=== PATIENT | male | born 1960 | race American Indian/Alaskan Native ===

== ENCOUNTER 2016-09-28 20:30 | Emergency (ER) | payer OTHER ==
[2016-09-28 20:38] VITALS: TEMP 96.8
[2016-09-28] MEDS ORDERED: SODIUM CHLORIDE 0.9% 1,000 ML IV STA (20:58)
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
[2016-09-28 21:10] LABS: Basophils # (A) 0.1 k/uL (0-0.2); Basophils % (A) 1 %; CH 34.1; CHCM 34.3; Eosinophils # (A) 0.3 k/uL (0-0.7); Eosinophils % (A) 3 %; HCT 46.5 % (39.0-53.0); HDW 2.33; HGB 15.2 gm/dL (13.0-17.5); Luc # (Auto) 0.27; Luc % (Auto) 2; Lymphocytes % (A) 26 %; MCH 32.7 pg (25.0-35.0); MCHC 32.8 g/dL (31.0-37.0); MCV 99.9 fL (80.0-100.0); Mean Platelet Volume 8.2; Monocytes # (A) 0.8 k/uL (0-1.0); Monocytes % (A) 7 %; Neutrophils # (A) 7.1 k/uL (1.3-7.7); Neutrophils % (A) 62 %; RBC 4.66 m/uL (4.30-5.90); RDW 13.5 % (11.5-15.5); WBC 11.5 k/uL (3.8-10.6); WBC (Perox) 11.61
[2016-09-28 21:24] LABS: Partial Thromboplastin Time 25.7 sec (22.0-30.0); Prothrombin Time 10.3 sec (9.0-12.0)
[2016-09-28 21:39] LABS: ALT 35 U/L (21-72); AST 30 U/L (17-59); Alkaline Phosphatase 59 U/L (38-126); Anion Gap 10 mmol/L; Blood Urea Nitrogen 24 mg/dL (9-20); Calcium 9.3 mg/dL (8.4-10.2); Carbon Dioxide 26 mmol/L (22-30); Chloride 106 mmol/L (98-107); Creatine Kinase 160 U/L (55-170); Glucose 104 mg/dL (74-99); Magnesium 1.9 mg/dL (1.6-2.3); Non-African American GFR(MDRD) >60 (>60 ml/min/1.73 sqM); Sodium 142 mmol/L (137-145); Total Bilirubin 0.3 mg/dL (0.2-1.3); Total Protein 6.9 g/dL (6.3-8.2)
[2016-09-28 21:51] LABS: Creatine Kinase MB 1.8 ng/mL (0.0-2.4); Troponin I <0.012 ng/mL (0.000-0.034)
[2016-09-28] MEDS ORDERED: MAGNESIUM SULFATE-D5W PMX 1 GM in DEXTROSE/WATER 1 100ML.BAG IVPB ONE (22:30)
--- NOTE | 2016-09-28 22:45 | XR ---
EXAMINATION TYPE: XR chest 2V DATE OF EXAM: 09/28/2016 10:36 PM COMPARISON: NONE HISTORY: Short of breath TECHNIQUE: Frontal and lateral views of the chest are obtained. FINDINGS: Heart and mediastinum are normal. Lungs are clear. Diaphragm is normal. There are chest le ads. Bony thorax is intact. IMPRESSION: Normal chest
[2016-09-28] MEDS ORDERED: SODIUM CHLORIDE 0.9% 500 ML IV STA (23:22)
[2016-09-28] MEDS ORDERED: KETOROLAC 30 MG/ML 1 ML VIAL IVP STA (23:29)
[2016-09-29 00:32] VITALS: BP 121/68; PULSE 69; RESP 16
== END 2016-09-29 00:33 | disposition home or self-care (01) ==
LOC: EC 20:30
DX: R07.89 Other chest pain (principal); R00.2 Palpitations; I49.3 Ventricular premature depolarization; E86.0 Dehydration; E83.42 Hypomagnesemia; Z87.891 Personal history of nicotine dependence; E78.00 Pure hypercholesterolemia, unspecified; Z79.899 Other long term (current) drug therapy; E78.5 Hyperlipidemia, unspecified; Z85.828 Personal history of other malignant neoplasm of skin; Z86.79 Personal history of other diseases of the circulatory system; F17.200 Nicotine dependence, unspecified, uncomplicated; Z79.1 Long term (current) use of non-steroidal anti-inflammatories (NSAID)
CPT/HCPCS: 99285; 96365; 96375; 36415; 93005; 85379; 80053; 82550; 82553; 83735; 84443; 84484; 85025; 85610; 85730; 71020; J1885; J3475

== ENCOUNTER → 2016-11-12 | Outpatient (CLI) | payer OTHER ==
[2016-11-12 13:36] VITALS: BP 122/61; PULSE 76; RESP 16; TEMP 98.1
--- NOTE | 2016-11-13 11:12 | P.PN ---
Subjective This is follow-up visit for this patient with a history of severe and chronic low back pain secondary to lumbar degenerative disc disease lumbar spondylosis facet arthropathy, and spinal canal Stenosis ,we have done interventional pain management injection, lumbar epidural steroid injections 3 And he got excellent pain relief for 6 months, currently is complaining of severe low back pain with radiation to the left lower extremity, and is currently on pain medications 1- [place] 10/325 every 6 hours 2- naproxen 500 mg when necessary once or twice a day Patient denies any side effects of the medication, denies excessive drowsiness or sleepiness, denies suicidal ideation, and reports that the current pain medication is NOT helping To control the pain and improve activity of daily living Physical Examinations : 1-Constitutiona : Cooperative , not in acute distress . 2-HEENT : nech ; supple , no Lymphadenopathy , no Thyromegaly , normal thyroid size . eyes : no ptosis , no icterus, no photophobia . ENT : normal of hearing , normal oropharynx , no Thrush . 3- Respiratory : Chest clear to auscultations Bilaterally , no wheezing , no Rhonchi . 4- Cardiovascular : regular rate and rhythem , S1 , S2 , no S3 , no S4. 5- Gastrointestinal : abdomen soft no tenderness , bowel sounds positive all four quadrents , no organomegally . 6- Genitourinary : Defferred . 7- neurologic : Cranial nerve II to XII intact , no focal neurological deffecit . 8-psychatric : alert , oriented X 3 , appropriate affect , intact judgment and insight . 9-Lymphatic : no Lymphadenopathy . 10- musculoskeltal : exams of the cervical spine = motor strength normal bilateral upper extremities facet loading test cervical area positive. exams of the Lumber spine = motor strength lower extremities ,thigh and legs .5/5 deep tendon reflexes : normal Knee Jerk , normal ankle Jerk . lumber facet Loading Test positive strait leg raising test positive at 30 degree , RT ,LT , Fabere test positive RT and positive LT . Range of motion: Range of motion in flexion of the lumbar spine 30 degrees Range of motion range of motion of extension of the lumbar spine 10 Assessment and plan = - Chronic low back pain secondary to lumbar degenerative disc disease , lumbar spondylosis with facet arthropathy without myelopathy , - diagnoses, prognosis, and treatment options including but not limited to physical therapy, surgical interventions, interventional therapies , and medication management including narcotics and adjuvant medication were discussed with the patient and all The questions answered -medication management = patient getting prescriptions from his primary care, recommend continue [place] 10/325 every 6 hours when necessary for breakthrough pain, and continue naproxen 500 mg when necessary maximum twice a day -procedure= patient could benefit from lumbar epidural steroid injection under fluoroscopy guidance, procedure risks and benefits and alternatives, Discussed with the patient and he agreed with proceeding. Objective - Vital Signs Vital signs: Vital Signs Temp 98.1 F 11/12/16 13:31 Pulse 76 11/12/16 13:31 Resp 16 11/12/16 13:31 BP 122/61 11/12/16 13:31 Pulse Ox 96 11/12/16 13:31 Intake & Output 11/12/16 11/13/16 11/13/16 18:59 06:59 18:59 Weight 74.843 kg
== END | disposition home or self-care (01) ==
LOC: PNWHC3 13:09
PROVIDERS: ATTEND Specialist
DX: M51.36 Other intervertebral disc degeneration, lumbar region (principal); M47.816 Spondylosis without myelopathy or radiculopathy, lumbar region; M46.96 Unspecified inflammatory spondylopathy, lumbar region; M48.06 Spinal stenosis, lumbar region; Z79.899 Other long term (current) drug therapy
CPT/HCPCS: 99211

== ENCOUNTER 2016-11-21 06:27 | Day surgery (SDC) | payer OTHER ==
[2016-11-20 10:49] VITALS: BMI 25.8
[2016-11-21 06:44] VITALS: RESP 16; TEMP 97.7
[2016-11-21] MEDS ORDERED: LACTATED RINGERS 1,000 ML IV ONE (06:45)
[2016-11-21] MEDS ORDERED: LIDOCAINE 1% 20 ML VIAL (10MG/ML) FOR IV START INTRADERMA ONE (06:45)
[2016-11-21] MEDS ORDERED: TRIAMCINOLONE ACETONIDE 40 MG/ML 1 ML VIAL ONE (07:10)
[2016-11-21] MEDS ORDERED: MIDAZOLAM 2 MG/2 ML VIAL ONE (07:10)
[2016-11-21] MEDS ORDERED: fentaNYL (PF) 50 MCG/ML 2 ML AMP ONE ×2 (07:10)
[2016-11-21] MEDS ORDERED: IOHEXOL 180 MG/ML 1 ML ML ONE (07:10)
[2016-11-21] MEDS ORDERED: IV FLUID CONTINUATION 1,000 ML IV ONE (07:35)
[2016-11-21] MEDS ORDERED: LACTATED RINGERS 1,000 ML IV SCH (07:45)
--- NOTE | 2016-11-21 07:46 | FL ---
FLUOROSCOPY 10 seconds of fluoroscopy time were utilized during lumbar epidural. 3 images document the procedure.
[2016-11-21 07:48] VITALS: BP 109/75; PULSE 71
--- NOTE | 2016-11-21 08:53 | P.PCN ---
Date of Procedure: 11/21/16 Surgeon: Kurt Luque Pathology: none sent Condition: stable Disposition: PACU Description of Procedure: PREOPERATIVE DIAGNOSIS: 1-Lumbar radiculitis. POSTOPERATIVE DIAGNOSIS: 1-Lumbar radiculitis. PROCEDURE 1. Lumbar epidural steroid injection under fluoroscopic guidance at the L4-L5 level. 2. Lumbar epidurogram. ANESTHESIA: Local with 1% lidocaine; conscious sedation with Versed/fentanyl. EBL: Minimal PROCEDURE INDICATION: The patient with low back pain and radiculitis symptoms unresponsive to conservative treatment. Fluoroscopy was used to optimize visualization of the needle placement and to maximize safety. PROCEDURE DESCRIPTION / TECHNIQUE: The patient was seen and identified in the preoperative area. Risks, benefits, complications, and alternatives were discussed with the patient, including but not limited to bleeding, infection, nerve damage, allergic reactions to medications, and incomplete pain relief. The patient agreed to proceed with the procedure and signed the consent after all questions were answered. IV was started, and vital signs were stable. Patient was taken to the OR and time out was completed to confirm patient position, procedure, laterality of pain, and allergies. The patient was placed in the prone position on procedure table and a pillow was placed under the abdomen to reduce lumbar lordosis. The lumbosacral area was prepped and draped in the usual sterile fashion. Critical pause was taken. Vital signs were closely monitored during the procedure. Conscious sedation was used during the procedure to decrease patients anxiety. Using anterior-posterior fluoroscopy, the L4-L5 interlaminar space was identified and the skin over this site was marked and then infiltrated with 1% lidocaine subcutaneously. Subsequently, a 20-gauge Tuohy epidural needle was inserted and advanced toward the epidural space using the Loss of resistance technique and guided by AP and lateral fluoroscopy. The correct needle position in the epidural space was verified with the injection of 2 mL of the water soluble contrast dye Omnipaque 300 contrast and observing an excellent epidurogram with the epidural spread of the dye, after negative aspiration for blood and CSF and in the absence of paresthesias. Again after negative aspiration, a 8 ml mixture containing 80 mg of Kenalog and 5 ml of preservative free Normal Saline, and 2 ml of preservative free lidocaine 1% solution was injected and a washout of epidurogram was seen. Needle was withdrawn intact, skin was cleansed, and bandages were applied. COMPLICATIONS: None COMMENTS: DISPOSITION / PLANS: The patient was placed in a supine position and transferred to the recovery area in a stable condition for observation. There was no evidence of lower extremity motor or sensory deficit after the procedure. Patient was discharged from the recovery room after meeting discharge criteria. Home discharge instructions were given to the patient by the staff. The patient was reexamined prior to discharge and there were no issues. The patient will schedule a follow up procedure in 4-6 weeks if pain is not significantly improved.
== END 2016-11-21 08:05 | disposition home or self-care (01) ==
LOC: ORPAIN 06:27
PROVIDERS: ATTEND Anesthesiology
DX: G89.29 Other chronic pain (principal); M54.5 Low back pain; M54.16 Radiculopathy, lumbar region; Z79.891 Long term (current) use of opiate analgesic
CPT/HCPCS: 62323; 99152; J2250; J3301; Q9965; J3010

== ENCOUNTER 2016-12-26 06:18 | Day surgery (SDC) | payer OTHER ==
[2016-12-24 09:34] VITALS: BMI 25.8
[2016-12-26 06:36] VITALS: RESP 16; TEMP 97.6
[2016-12-26] MEDS ORDERED: LIDOCAINE 1% 20 ML VIAL (10MG/ML) FOR IV START INTRADERMA ONE (06:42)
[2016-12-26] MEDS ORDERED: LACTATED RINGERS 1,000 ML IV ONE (06:42)
[2016-12-26] MEDS ORDERED: BUPIVACAINE (PF) 0.5% 30 ML VIAL ONE (07:18)
[2016-12-26] MEDS ORDERED: TRIAMCINOLONE ACETONIDE 40 MG/ML 1 ML VIAL ONE (07:18)
[2016-12-26] MEDS ORDERED: MIDAZOLAM 2 MG/2 ML VIAL ONE (07:18)
[2016-12-26] MEDS ORDERED: fentaNYL (PF) 50 MCG/ML 2 ML AMP ONE (07:18)
--- NOTE | 2016-12-26 07:34 | P.PCN ---
Date of Procedure: 12/26/16 Anesthesia: MAC Surgeon: Kurt Luque Pathology: none sent Condition: stable Disposition: PACU Description of Procedure: PREOPERATIVE DIAGNOSIS: 1-Lumbar radiculitis. POSTOPERATIVE DIAGNOSIS: 1-Lumbar radiculitis. PROCEDURE 1. Lumbar epidural steroid injection #2 under fluoroscopic guidance at the L4- L5 level. 2. Lumbar epidurogram. ANESTHESIA: Local with 1% lidocaine; conscious sedation with Versed/fentanyl. EBL: Minimal PROCEDURE INDICATION: The patient with low back pain and radiculitis symptoms unresponsive to conservative treatment. Fluoroscopy was used to optimize visualization of the needle placement and to maximize safety. PROCEDURE DESCRIPTION / TECHNIQUE: The patient was seen and identified in the preoperative area. Risks, benefits, complications, and alternatives were discussed with the patient, including but not limited to bleeding, infection, nerve damage, allergic reactions to medications, and incomplete pain relief. The patient agreed to proceed with the procedure and signed the consent after all questions were answered. IV was started, and vital signs were stable. Patient was taken to the OR and time out was completed to confirm patient position, procedure, laterality of pain, and allergies. The patient was placed in the prone position on procedure table and a pillow was placed under the abdomen to reduce lumbar lordosis. The lumbosacral area was prepped and draped in the usual sterile fashion. Critical pause was taken. Vital signs were closely monitored during the procedure. Conscious sedation was used during the procedure to decrease patients anxiety. Using anterior-posterior fluoroscopy, the L4-L5 interlaminar space was identified and the skin over this site was marked and then infiltrated with 1% lidocaine subcutaneously. Subsequently, a 20-gauge Tuohy epidural needle was inserted and advanced toward the epidural space using the Loss of resistance technique and guided by AP and lateral fluoroscopy. The correct needle position in the epidural space was verified with the injection of 2 mL of the water soluble contrast dye Omnipaque 300 contrast and observing an excellent epidurogram with the epidural spread of the dye, after negative aspiration for blood and CSF and in the absence of paresthesias. Again after negative aspiration, a 8 ml mixture containing 80 mg of Kenalog and 5 ml of preservative free Normal Saline, and 2 ml of preservative free lidocaine 1% solution was injected and a washout of epidurogram was seen. Needle was withdrawn intact, skin was cleansed, and bandages were applied. COMPLICATIONS: None COMMENTS: DISPOSITION / PLANS: The patient was placed in a supine position and transferred to the recovery area in a stable condition for observation. There was no evidence of lower extremity motor or sensory deficit after the procedure. Patient was discharged from the recovery room after meeting discharge criteria. Home discharge instructions were given to the patient by the staff. The patient was reexamined prior to discharge and there were no issues. The patient will schedule a follow up in clinic as needed.
[2016-12-26] MEDS ORDERED: IV FLUID CONTINUATION 1,000 ML IV ONE (07:40)
[2016-12-26 07:43] VITALS: PULSE 71
[2016-12-26] MEDS ORDERED: LACTATED RINGERS 1,000 ML IV SCH (07:45)
[2016-12-26 07:57] VITALS: BP 123/83
--- NOTE | 2016-12-26 07:59 | FL ---
EXAMINATION TYPE: FL guided pain mgmt statistic DATE OF EXAM: 12/26/2016 7:41 AM HISTORY: Pain 13 sec fl time used during lumbar epidural 2 images scanned into pacs
== END 2016-12-26 08:14 | disposition home or self-care (01) ==
LOC: ORPAIN 06:18
PROVIDERS: ATTEND Anesthesiology
DX: G89.29 Other chronic pain (principal); M54.5 Low back pain; M54.16 Radiculopathy, lumbar region
CPT/HCPCS: 62323; J2250; J3301; J3010

== ENCOUNTER → 2017-02-07 | Outpatient (CLI) | payer OTHER ==
[2017-02-07 10:42] LABS: ALT 38 U/L (21-72); AST 33 U/L (17-59); Alkaline Phosphatase 60 U/L (38-126); Anion Gap 9 mmol/L; Blood Urea Nitrogen 18 mg/dL (9-20); Calcium 9.4 mg/dL (8.4-10.2); Carbon Dioxide 28 mmol/L (22-30); Chloride 106 mmol/L (98-107); Glucose 74 mg/dL (74-99); Non-African American GFR(MDRD) >60 (>60 ml/min/1.73 sqM); Potassium 4.3 mmol/L (3.5-5.1); Sodium 143 mmol/L (137-145); Total Bilirubin 0.5 mg/dL (0.2-1.3); Total Protein 7.2 g/dL (6.3-8.2)
== END | disposition home or self-care (01) ==
LOC: LABWHC1 09:47
PROVIDERS: ATTEND Family Medicine
DX: M54.16 Radiculopathy, lumbar region (principal)
CPT/HCPCS: 36415; 80053

== ENCOUNTER → 2017-03-11 | Outpatient (CLI) | payer OTHER ==
--- NOTE | 2017-03-11 13:27 | P.PN ---
Progress Note - Text Patient returns for followup for chronic back pain with radiation to R > LLE. Previously, patient has undergone LESI x 1-2 with excellent relief on multiple occasions, and his usual pain is on the left side of the low back and LLE. Patient recently underwent LESI x 2 which has helped significantly for the left side of his back but now complains of right sided leg pain with some mild back pain. Patient had a right knee injection which did not help him at all and complains of burning sensations in the back of his knee and coming down his anterior calf with occasional radiation to the toes. Patient continues on [place] and Motrin medications from PCP for pain with good relief. Patient denies adverse drug effects from medications. Today, pt denies new-onset weakness, bowel/bladder incontinence, or any other signs or symptoms of cauda equina syndrome. There are no signs of acute intoxication, and no indications of medication diversion or overuse. In addition to above, 13-point review of systems is also negative for chest pain , shortness of breath, changes in vision, changes in hearing, new onset weakness , abdominal pain, diarrhea, extreme fatigue, malaise, fever, skin changes, homicidal or suicidal ideation, or bowel or bladder incontinence. Vital Signs: Reviewed in EMR Gen: WDWN, AAOx3, NAD HEENT: NCAT, EOMI, hearing grossly normal Pulm: resp unlabored Abd: soft, NT, ND Neck: supple, trachea midline ROM in flexion lumbar spine: reduced ROM in extension lumbar spine: reduced (extension causes numbness/tingling in RLE) Lumbar paravertebral tenderness: + R Facet loading: + R > L SI joint tenderness: neg Dominguez's test: neg Straight leg raise: negative bilaterally Neuro: CN II-XII grossly intact, muscle strength lower extremities PRESERVED Imaging: MRI lumbar spine dated 03/05/2017 demonstrates a left-sided paracentral disc bulge at the L1-L2 level with foraminal extension now facet degeneration with ligamentum flavum hypertrophy. At the L2-L3 level there is severe degenerative disc disease with increased moderate central canal stenosis moderate severe right neural foraminal stenosis and increased moderate left neural foraminal stenosis secondary to previous disc bulge with right foraminal protrusion left foraminal extension and mild facet degeneration. At the L3-L4 level there is mild to moderate central canal stenosis and moderate severe neuroforaminal stenosis secondary to disc bulge with foraminal extension. The L4-L5 level there is moderate central canal stenosis with severe neural foraminal stenosis with impingement of the exiting L4 nerve roots. At the L5- S1 level there is a disc bulge with shallow central/right paracentral disc protrusion and mild facet degeneration. Findings are similar to prior study. Assessment: 1. lumbar radiculopathy 2. lumbar neural foraminal stenosis 3. lumbar spinal stenosis Plan: 1. Explanation: Opioid and psychological risk scores were reviewed. Diagnoses , prognoses, and multiple treatment options including but not limited to physical therapy, interventional therapies, adjuvant medical therapies, narcotic medication therapies, and surgery were discussed with the patient and all questions were answered to the patient's satisfaction. 2. Opioid agreement: 3. Counseling: The patient was counseled extensively on SMOKING CESSATION, BODY MASS INDEX, EXERCISE. Specifically, the patient was instructed regarding the importance of smoking cessation, obesity, and exercise in the context of both chronic pain and overall health. 4. Procedures: LESI L5-S1 (consider interlaminar versus right + left transforaminal) 5. Consultations: None 6. Investigations: None 7. Medications: none prescribed 8. Disposition: f/u for procedure as scheduled PQRS measures: 1-Patient's medications are documented in the chart. 2-Tobacco use is negative 3-Patient has not had a pneumococcal vaccine. 4-Advanced care planning discussed, patient unable to give. 5-Opioid contract NOT signed with the patient. 6-Pain positive, follow-up visit or procedure scheduled 7-Patient's blood pressure measured and documented, and WNL. 8-Patient's weight was measured, and body mass index ABOVE the normal limits, and counseling was done. Patient instructed to follow up with PCP. 9-Patient WAS NOT identified as an unhealthy alcohol user.
== END ==
LOC: PNWHC3 12:31
PROVIDERS: ATTEND Anesthesiology
DX: M48.06 Spinal stenosis, lumbar region (principal); M99.73 Connective tissue and disc stenosis of intervertebral foramina of lumbar region; G89.29 Other chronic pain; Z79.891 Long term (current) use of opiate analgesic
CPT/HCPCS: 99211

== ENCOUNTER 2017-03-20 06:19 | Day surgery (SDC) | payer OTHER ==
[2017-03-17 13:43] VITALS: BMI 25.8
[2017-03-20 06:45] VITALS: RESP 16; TEMP 98.3
[2017-03-20] MEDS ORDERED: LACTATED RINGERS 1,000 ML IV ONE (06:45)
[2017-03-20] MEDS ORDERED: LIDOCAINE 1% 20 ML VIAL (10MG/ML) FOR IV START INTRADERMA ONE (06:46)
[2017-03-20] MEDS ORDERED: LACTATED RINGERS 1,000 ML IV SCH (06:53)
[2017-03-20] MEDS ORDERED: fentaNYL (PF) 50 MCG/ML 2 ML AMP ONE (07:19)
[2017-03-20] MEDS ORDERED: MIDAZOLAM 2 MG/2 ML VIAL ONE (07:19)
[2017-03-20] MEDS ORDERED: DEXAMETHASONE SOD PHOS (MDV) 100 MG/10 ML VIAL ONE (07:19)
--- NOTE | 2017-03-20 07:40 | P.PCN ---
Date of Procedure: 03/20/17 Preoperative Diagnosis: Postoperative Diagnosis: Procedure(s) Performed: PREOPERATIVE DIAGNOSIS: 1- Lumbar spinal stenosis 2-Lumbar radiculopathy. POSTOPERATIVE DIAGNOSIS: Same as pre-diagnosis. PROCEDURE 1. Lumbar epidural steroid injection under fluoroscopic guidance at the L5-S1 level. 2. Lumbar epidurogram. ANESTHESIA: Local with 1% lidocaine 3 ml and IV sedation with Versed 2 mg , and fentanyle 100 Mcg EBL: Minimal PROCEDURE INDICATION: The patient with low back pain and radiculitis symptoms unresponsive to conservative treatment. Fluoroscopy was used to optimize visualization of the needle placement and to maximize safety. PROCEDURE DESCRIPTION / TECHNIQUE: The patient was seen and identified in the preoperative area. Risks, benefits , complications including but not limited to infections ,bleeding ,allergic reaction to the medications ,nerve damage and not complete pain releife , and alternatives were discussed with the patient. The patient agreed to proceed with the procedure and signed the consent. IV was started, and vital signs were stable. Patient was taken to the OR and time out was completed. The patient was placed in the prone position on procedure table and a pillow was placed under the abdomen to reduce lumbar lordosis. The lumbosacral area was prepped and draped in the usual sterile fashion.ere closely monitored during the procedure. Conscious sedation was used during the procedure to decrease patient,s anxiety. Vital signs was monitered during the entire procedure. Using anterior-posterior fluoroscopy, the L5-S1 interlaminar space was identified and the skin over this site was marked and then infiltrated with 1% lidocaine subcutaneously. Subsequently, a 20-gauge Tuohy epidural needle was inserted and advanced toward the epidural space using the ``Loss of resistance technique and guided by AP and lateral fluoroscopy. The correct needle position in the epidural space was verified with the injection of 2 mL of the water soluble contrast dye Omnipaque 180 contrast and observing an excellent epidurogram with the epidural spread of the dye, after negative aspiration for blood and CSF and in the absence of paresthesias. Again after negative aspiration, a 6 ml mixture containing 20 mg of Dexamethasone and 2 ml of preservative free Normal Saline, and 2 ml of preservative free lidocaine 1% solution was injected and a washout of epidurogram was seen. Needle was withdrawn intact, skin was cleansed, and bandages were applied. COMPLICATIONS: None DISPOSITION / PLANS: The patient was placed in a supine position and transferred to the recovery area in a stable condition for observation. There was no evidence of lower extremity motor or sensory deficit after the procedure. Patient was discharged from the recovery room after meeting discharge criteria. Home discharge instructions were given to the patient by the staff. The patient was reexamined prior to discharge. The patient will schedule a follow up in the clinic in 2-4 weeks. Implants: Indications for Procedure: Operative Findings: Description of Procedure:
[2017-03-20] MEDS ORDERED: IV FLUID CONTINUATION 1,000 ML IV ONE (07:42)
--- NOTE | 2017-03-20 08:04 | FL ---
Fluoroscopy INDICATION: Pain FINDINGS: Fluoroscopy time: 8 seconds. Images obtained: 1. IMPRESSIONS: 1. Documentation of fluoroscopy.
[2017-03-20 08:18] VITALS: BP 122/76; PULSE 58
== END 2017-03-20 08:34 | disposition home or self-care (01) ==
LOC: ORPAIN 06:19
PROVIDERS: ATTEND Specialist
DX: M48.06 Spinal stenosis, lumbar region (principal); M54.16 Radiculopathy, lumbar region
CPT/HCPCS: 62323; 99152; J2250; J3010; J1100

== ENCOUNTER 2017-03-28 13:59 | Emergency (ER) | payer OTHER ==
[2017-03-28 14:03] VITALS: BP 122/79; PULSE 77; RESP 20; TEMP 98.1
[2017-03-28] MEDS ORDERED: HYDROcodone/APAP 5-325MG 1 EACH TAB PO STA (14:43)
[2017-03-28] MEDS ORDERED: KETOROLAC 30 MG/ML 1 ML VIAL IM STA (15:08)
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
--- NOTE | 2017-03-28 15:13 | XR ---
EXAMINATION TYPE: XR knee complete RT DATE OF EXAM: 03/28/2017 COMPARISON: NONE HISTORY: Pain TECHNIQUE: 3 view right knee FINDINGS: Joint spaces are diffusely narrowed. Posterior patellar spurring is present from the superi or inferior posterior patella. Mild narrowing of the medial compartment joint space is present. There is moderate narrowing of the lateral compartment joint space. No joint effusion is evident. IMPRESSION: 1. No acute osseous abnormality. 2. Diffuse degenerative joint changes.
== END 2017-03-28 15:30 | disposition home or self-care (01) ==
LOC: EC 13:59
DX: M17.11 Unilateral primary osteoarthritis, right knee (principal); E78.5 Hyperlipidemia, unspecified; F17.200 Nicotine dependence, unspecified, uncomplicated; Z79.52 Long term (current) use of systemic steroids; Z79.899 Other long term (current) drug therapy; Z85.828 Personal history of other malignant neoplasm of skin
CPT/HCPCS: 73562; 99283; 96372; J1885

== ENCOUNTER 2017-04-08 06:17 | Day surgery (SDC) | payer OTHER ==
[2017-04-08 06:40] VITALS: TEMP 97.5
[2017-04-08] MEDS ORDERED: LIDOCAINE 1% 20 ML VIAL (10MG/ML) FOR IV START INTRADERMA ONE (06:50)
[2017-04-08] MEDS ORDERED: LACTATED RINGERS 1,000 ML IV ONE (06:50)
--- NOTE | 2017-04-08 07:37 | P.PCN ---
Date of Procedure: 04/08/17 Preoperative Diagnosis: Postoperative Diagnosis: Procedure(s) Performed: Implants: Surgeon: Kurt Luque Pathology: none sent Condition: stable Disposition: PACU Indications for Procedure: Operative Findings: Description of Procedure: PREOPERATIVE DIAGNOSIS: 1-Lumbar radiculitis. POSTOPERATIVE DIAGNOSIS: 1-Lumbar radiculitis. PROCEDURE 1. Lumbar epidural steroid injection under fluoroscopic guidance at the L4-L5 level. 2. Lumbar epidurogram. ANESTHESIA: Local with 1% lidocaine; conscious sedation with Versed/fentanyl. EBL: Minimal PROCEDURE INDICATION: The patient with low back pain and radiculitis symptoms unresponsive to conservative treatment. Fluoroscopy was used to optimize visualization of the needle placement and to maximize safety. No use of blood thinners. PROCEDURE DESCRIPTION / TECHNIQUE: The patient was seen and identified in the preoperative area. Risks, benefits, complications, and alternatives were discussed with the patient, including but not limited to bleeding, infection, nerve damage, allergic reactions to medications, and incomplete pain relief. The patient agreed to proceed with the procedure and signed the consent after all questions were answered. IV was started, and vital signs were stable. Patient was taken to the OR and time out was completed to confirm patient position, procedure, laterality of pain, and allergies. The patient was placed in the prone position on procedure table and a pillow was placed under the abdomen to reduce lumbar lordosis. The lumbosacral area was prepped and draped in the usual sterile fashion. Critical pause was taken. Vital signs were closely monitored during the procedure. Conscious sedation was used during the procedure to decrease patients anxiety. Using anterior-posterior fluoroscopy, the L4-L5 interlaminar space was identified and the skin over this site was marked and then infiltrated with 1% lidocaine subcutaneously. Subsequently, a 20-gauge 3.5-inch Tuohy epidural needle was inserted and advanced toward the epidural space using the Loss of resistance technique and guided by AP and lateral fluoroscopy. The correct needle position in the epidural space was verified with the injection of 2 mL of the water soluble contrast dye Omnipaque 300 contrast and observing an excellent epidurogram with the epidural spread of the dye, after negative aspiration for blood and CSF and in the absence of paresthesias. Again after negative aspiration, a 8 ml mixture containing 20 mg of Decadron and 5 ml of preservative free Normal Saline, and 2 ml of preservative free lidocaine 1% solution was injected and a washout of epidurogram was seen. Needle was withdrawn intact, skin was cleansed, and bandages were applied. COMPLICATIONS: None COMMENTS: DISPOSITION / PLANS: The patient was placed in a supine position and transferred to the recovery area in a stable condition for observation. There was no evidence of lower extremity motor or sensory deficit after the procedure. Patient was discharged from the recovery room after meeting discharge criteria. Home discharge instructions were given to the patient by the staff. The patient was reexamined prior to discharge and there were no issues. The patient will schedule follow-up LESI in 4 weeks. Please continue at L4-L5 level as patient got very little relief from procedure done at L5-S1 last visit.
[2017-04-08] MEDS ORDERED: IV FLUID CONTINUATION 1,000 ML IV ONE (07:39)
[2017-04-08] MEDS ORDERED: LACTATED RINGERS 750 ML IV ONE (07:39)
[2017-04-08 07:47] VITALS: RESP 18
[2017-04-08] MEDS ORDERED: LACTATED RINGERS 1,000 ML IV SCH (08:00)
[2017-04-08 08:02] VITALS: BP 124/66; PULSE 68
--- NOTE | 2017-04-08 08:18 | FL ---
EXAMINATION TYPE: FL guided pain mgmt statistic DATE OF EXAM: 04/08/2017 FLUOROSCOPY Fluoroscopy time of 7 seconds was used during lumbar epidural injection. 3 image/s document/s the pr lucio.
== END 2017-04-08 08:07 | disposition home or self-care (01) ==
LOC: ORPAIN 06:17
PROVIDERS: ATTEND Anesthesiology
DX: M54.16 Radiculopathy, lumbar region (principal); Z79.891 Long term (current) use of opiate analgesic
CPT/HCPCS: 62323; J2250; J1100; Q9965; J3010

== ENCOUNTER 2017-04-24 11:59 | Day surgery (SDC) | payer OTHER ==
[2017-04-23 09:44] VITALS: BMI 25.8
[~2017-04-24 11:59] MED LIST: LACTATED RINGERS 1,000 ML IV ONE
[2017-04-24 12:12] VITALS: RESP 18; TEMP 97.7
--- NOTE | 2017-04-24 12:32 | P.PCN ---
Date of Procedure: 04/24/17 Preoperative Diagnosis: Postoperative Diagnosis: Procedure(s) Performed: Implants: Surgeon: Kurt Luque Pathology: none sent Condition: stable Disposition: PACU Indications for Procedure: Operative Findings: Description of Procedure: PREOPERATIVE DIAGNOSIS: 1-Lumbar radiculitis. POSTOPERATIVE DIAGNOSIS: 1-Lumbar radiculitis. PROCEDURE 1. Lumbar epidural steroid injection under fluoroscopic guidance at the L4-L5 level. 2. Lumbar epidurogram. ANESTHESIA: Local with 1% lidocaine; conscious sedation with Versed/fentanyl. EBL: Minimal PROCEDURE INDICATION: The patient with low back pain and radiculitis symptoms unresponsive to conservative treatment. Fluoroscopy was used to optimize visualization of the needle placement and to maximize safety. No use of blood thinners. PROCEDURE DESCRIPTION / TECHNIQUE: The patient was seen and identified in the preoperative area. Risks, benefits, complications, and alternatives were discussed with the patient, including but not limited to bleeding, infection, nerve damage, allergic reactions to medications, and incomplete pain relief. The patient agreed to proceed with the procedure and signed the consent after all questions were answered. IV was started, and vital signs were stable. Patient was taken to the OR and time out was completed to confirm patient position, procedure, laterality of pain, and allergies. The patient was placed in the prone position on procedure table and a pillow was placed under the abdomen to reduce lumbar lordosis. The lumbosacral area was prepped and draped in the usual sterile fashion. Critical pause was taken. Vital signs were closely monitored during the procedure. Conscious sedation was used during the procedure to decrease patients anxiety. Using anterior-posterior fluoroscopy, the L4-L5 interlaminar space was identified and the skin over this site was marked and then infiltrated with 1% lidocaine subcutaneously. Subsequently, a 20-gauge 3.5-inch Tuohy epidural needle was inserted and advanced toward the epidural space using the Loss of resistance technique and guided by AP and lateral fluoroscopy. The correct needle position in the epidural space was verified with the injection of 2 mL of the water soluble contrast dye Omnipaque 300 contrast and observing an excellent epidurogram with the epidural spread of the dye, after negative aspiration for blood and CSF and in the absence of paresthesias. Again after negative aspiration, a 8 ml mixture containing 20 mg of Decadron and 4 ml of preservative free Normal Saline, and 2 ml of preservative free 0.5% bupivacaine solution was injected and a washout of epidurogram was seen. Needle was withdrawn intact, skin was cleansed, and bandages were applied. COMPLICATIONS: None COMMENTS: DISPOSITION / PLANS: The patient was placed in a supine position and transferred to the recovery area in a stable condition for observation. There was no evidence of lower extremity motor or sensory deficit after the procedure. Patient was discharged from the recovery room after meeting discharge criteria. Home discharge instructions were given to the patient by the staff. The patient was reexamined prior to discharge and there were no issues. The patient will schedule follow-up in 4-6 weeks as LESI #3 completed today.
[2017-04-24] MEDS ORDERED: IV FLUID CONTINUATION 1,000 ML IV ONE (12:39)
[2017-04-24 12:41] VITALS: PULSE 67
--- NOTE | 2017-04-24 12:46 | FL ---
Fluoroscopy History: Back pain 5 sec FL, 4 images scanned
[2017-04-24 13:03] VITALS: BP 109/75
== END 2017-04-24 13:11 | disposition home or self-care (01) ==
LOC: ORPAIN 11:59
PROVIDERS: ATTEND Anesthesiology
DX: M54.16 Radiculopathy, lumbar region (principal); E78.5 Hyperlipidemia, unspecified; F17.200 Nicotine dependence, unspecified, uncomplicated; Z79.1 Long term (current) use of non-steroidal anti-inflammatories (NSAID); Z79.891 Long term (current) use of opiate analgesic; Z79.899 Other long term (current) drug therapy
CPT/HCPCS: 62323; J2250; J1100; Q9965; J3010; 99152

== ENCOUNTER 2017-05-12 12:54 | Day surgery (SDC) | payer OTHER ==
[2017-05-06 16:20] VITALS: BMI 25.8
[~2017-05-12 12:54] MED LIST changes: +DEXAMETHASONE SOD PHOSPHATE 10 MG/ML 1 ML VIAL IV ONE; +HYDROmorphone 1 MG/ML 1 ML SYRINGE IVP PRN; -LACTATED RINGERS 1,000 ML IV ONE; +LACTATED RINGERS 1,000 ML IV SCH; +ONDANSETRON 4 MG/2 ML VIAL IVP ONE; +Pre Op ABX Message 1 EACH MISC MISCELLANE ONE
[2017-05-12] MEDS ORDERED: LIDOCAINE 1% 20 ML VIAL (10MG/ML) FOR IV START INTRADERMA ONE (13:29)
[2017-05-12] MEDS ORDERED: MIDAZOLAM 2 MG/2 ML VIAL ONE ×2 (14:42)
[2017-05-12] MEDS ORDERED: fentaNYL (PF) 50 MCG/ML 2 ML AMP ONE ×2 (14:42)
[2017-05-12] MEDS ORDERED: PROPOFOL 10 MG/ML 20 ML VIAL IV ONE ×2 (14:42)
[2017-05-12] MEDS ORDERED: KETAMINE 10 MG/ML 20 ML VIAL ONE ×2 (14:42)
[2017-05-12] MEDS ORDERED: LIDOCAINE 1% INJ 10MG/ML (20 ML MDV) ONE ×2 (14:42)
[2017-05-12] MEDS ORDERED: GLYCOPYRROLATE 0.2 MG/ML 2 ML VIAL ONE ×2 (14:42)
[2017-05-12] MEDS ORDERED: BUPIVACAINE (PF) 0.25% 30 ML VIAL SQ ONE (15:00)
--- NOTE | 2017-05-12 15:13 | P.OP ---
Date of Procedure: 05/12/17 Preoperative Diagnosis: Mass right leg Postoperative Diagnosis: Mass right leg Procedure(s) Performed: Excision mass right leg Implants: Anesthesia: MAC Surgeon: Albaro Mckeon Regulated Program Manager #1: Flory Comer Estimated Blood Loss (ml): 5 Pathology: other (Mass for pathology) Condition: stable Disposition: PACU Indications for Procedure: This is a 56-year-old gentleman that presented to my office with the painful mass on the right anterior aspect of his lower leg. After discussing the surgical and nonsurgical treatment options with her at length, he wishes to proceed with excision of the mass of the right leg, and informed consent was obtained. Operative Findings: The operative findings are consistent with a mass of the right leg measuring 2 x 2 cm. The mass was fibrotic and did not appear to be cystic. Description of Procedure: Patient was seen in the preoperative area. The consent was reviewed, and the operative site was marked with a skin marker. Patient was then brought to the operating room and given a gram of Ancef intravenously. A sedatedive anesthetic was administered by the anesthesia department. A tourniquet was placed on the right upper thigh. The right lower extremities and prepped and draped in usual sterile fashion. A universal timeout was then performed, which confirmed the patient's name, surgical site, ALLERGIES, and consent. The tourniquet was then inflated to 250 mmHg. The mass was easily palpated just under the skin on the anterior aspect of the lower leg. An incision was made over the mass with the skin and subcutaneous tissue sharply incised. Next using blunt curved scissors, the mass was freed from the surrounding tissue and excised. The mass appeared fibrotic, and did not appear to be cystic. The mass was then sent for pathologic diagnosis. The wound was then irrigated and closed with 3-0 Vicryl, followed by 4-0 nylon. 20 mL of quarter percent plain Marcaine were then injected about the surgical site. Sterile dressing was applied and the patient was transferred to recovery room in stable condition. The cafeteria assistant MAYA Chavez was required due the complexity of surgery the need for skilled surgical garment inspector.
[2017-05-12 15:23] VITALS: TEMP 97.4
[2017-05-12 15:35] VITALS: RESP 16
[2017-05-12 15:53] VITALS: BP 122/88; PULSE 69
== END 2017-05-12 16:14 | disposition home or self-care (01) ==
LOC: OR 12:54
PROVIDERS: ATTEND Orthopaedic Surgery
DX: R22.41 Localized swelling, mass and lump, right lower limb (principal); M17.11 Unilateral primary osteoarthritis, right knee; E78.5 Hyperlipidemia, unspecified; M54.5 Low back pain; G89.29 Other chronic pain; Z79.1 Long term (current) use of non-steroidal anti-inflammatories (NSAID); Z79.891 Long term (current) use of opiate analgesic; Z79.899 Other long term (current) drug therapy; Z72.0 Tobacco use
CPT/HCPCS: 27618; J2250; J1100; J2405; J2001; J3010; J2704; 88304

== ENCOUNTER → 2017-06-10 | Outpatient (CLI) | payer OTHER ==
[2017-06-10 14:18] VITALS: BP 128/77; PULSE 78; RESP 18; TEMP 98.2
--- NOTE | 2017-06-10 14:57 | P.PN ---
Progress Note - Text Patient returns for followup for chronic back pain with radiation to R > LLE. Patient has undergone numerous LESIs recently with no relief of his knee pain but some relief of back pain, but recently had a mass removed from his anterior right calf with significant improvement of the pain in the back of his knee. Patient is scheduled to have R TKA in August. Patient continues on occasional [place] from PCP for pain with good relief. Patient denies adverse drug effects from medications. Today, pt denies new-onset weakness, bowel/ bladder incontinence, or any other signs or symptoms of cauda equina syndrome. There are no signs of acute intoxication, and no indications of medication diversion or overuse. In addition to above, 13-point review of systems is also negative for chest pain , shortness of breath, changes in vision, changes in hearing, new onset weakness , abdominal pain, diarrhea, extreme fatigue, malaise, fever, skin changes, homicidal or suicidal ideation, or bowel or bladder incontinence. Vital Signs: Reviewed in EMR Gen: WDWN, AAOx3, NAD HEENT: NCAT, EOMI, hearing grossly normal Pulm: resp unlabored Abd: soft, NT, ND Neck: supple, trachea midline ROM in flexion lumbar spine: reduced ROM in extension lumbar spine: reduced (extension causes numbness/tingling in RLE) Lumbar paravertebral tenderness: + R Facet loading: + R > L SI joint tenderness: neg Dominguez's test: neg Straight leg raise: negative bilaterally LE: reduced ROM flexion and extension R knee Neuro: CN II-XII grossly intact, muscle strength lower extremities PRESERVED Imaging: MRI lumbar spine dated 03/05/2017 demonstrates a left-sided paracentral disc bulge at the L1-L2 level with foraminal extension now facet degeneration with ligamentum flavum hypertrophy. At the L2-L3 level there is severe degenerative disc disease with increased moderate central canal stenosis moderate severe right neural foraminal stenosis and increased moderate left neural foraminal stenosis secondary to previous disc bulge with right foraminal protrusion left foraminal extension and mild facet degeneration. At the L3-L4 level there is mild to moderate central canal stenosis and moderate severe neuroforaminal stenosis secondary to disc bulge with foraminal extension. The L4-L5 level there is moderate central canal stenosis with severe neural foraminal stenosis with impingement of the exiting L4 nerve roots. At the L5- S1 level there is a disc bulge with shallow central/right paracentral disc protrusion and mild facet degeneration. Findings are similar to prior study. Assessment: 1. lumbar radiculopathy 2. lumbar neural foraminal stenosis 3. lumbar spinal stenosis 4. knee OA Plan: 1. Explanation: Opioid and psychological risk scores were reviewed. Diagnoses , prognoses, and multiple treatment options including but not limited to physical therapy, interventional therapies, adjuvant medical therapies, narcotic medication therapies, and surgery were discussed with the patient and all questions were answered to the patient's satisfaction. 2. Opioid agreement: No opioids prescribed today 3. Counseling: The patient was counseled extensively on SMOKING CESSATION, BODY MASS INDEX, EXERCISE. Specifically, the patient was instructed regarding the importance of smoking cessation, obesity, and exercise in the context of both chronic pain and overall health. 4. Procedures: none for now 5. Consultations: None 6. Investigations: None 7. Medications: none prescribed 8. Disposition: f/u in October after R TKA to discuss lumbar medial branch blocks if patient still needs them PQRS measures: 1-Patient's medications are documented in the chart. 2-Tobacco use is negative 3-Patient has not had a pneumococcal vaccine. 4-Advanced care planning discussed, patient unable to give. 5-Opioid contract NOT signed with the patient. 6-Pain positive, follow-up visit or procedure scheduled 7-Patient's blood pressure measured and documented, and WNL. 8-Patient's weight was measured, and body mass index ABOVE the normal limits, and counseling was done. Patient instructed to follow up with PCP. 9-Patient WAS NOT identified as an unhealthy alcohol user.
== END | disposition home or self-care (01) ==
LOC: PNWHC3 13:30
PROVIDERS: ATTEND Anesthesiology
DX: M48.06 Spinal stenosis, lumbar region (principal); M99.73 Connective tissue and disc stenosis of intervertebral foramina of lumbar region; M54.16 Radiculopathy, lumbar region; M19.90 Unspecified osteoarthritis, unspecified site; Z79.899 Other long term (current) drug therapy
CPT/HCPCS: 99211

== ENCOUNTER → 2017-08-18 | Outpatient (CLI) | payer OTHER ==
[2017-08-18 12:27] LABS: Appearance,Urine Clear (Clear); Bilirubin,Urine Negative (Negative); Glucose,Urine (UA) Negative (Negative); Ketones,Urine Negative (Negative); Leukocyte Esterase,Urine Negative (Negative); Nitrite,Urine Negative (Negative); PH, Urine 6.5 (5.0-8.0); Protein,Urine Negative (Negative); Specific Gravity,Urine 1.006 (1.001-1.035); UA Billing (MACRO vs. MICRO) CHEM; Urobilinogen,Urine <2.0 mg/dL (<2.0)
[2017-08-18 12:29] LABS: CH 33.2; CHCM 34.1; HCT 45.7 % (39.0-53.0); HDW 2.32; HGB 15.4 gm/dL (13.0-17.5); MCHC 33.8 g/dL (31.0-37.0); MCV 97.9 fL (80.0-100.0); Mean Platelet Volume 7.8; RBC 4.67 m/uL (4.30-5.90); RDW 13.3 % (11.5-15.5); WBC 9.6 k/uL (3.8-10.6)
[2017-08-18 12:37] LABS: ALT 42 U/L (21-72); AST 38 U/L (17-59); Alkaline Phosphatase 62 U/L (38-126); Anion Gap 9 mmol/L; Blood Urea Nitrogen 17 mg/dL (9-20); Calcium 9.8 mg/dL (8.4-10.2); Carbon Dioxide 24 mmol/L (22-30); Chloride 105 mmol/L (98-107); Glucose 91 mg/dL (74-99); Non-African American GFR(MDRD) >60 (>60 ml/min/1.73 sqM); Potassium 4.4 mmol/L (3.5-5.1); Sodium 138 mmol/L (137-145); Total Bilirubin 0.3 mg/dL (0.2-1.3); Total Protein 7.3 g/dL (6.3-8.2)
[2017-08-18 12:40] LABS: INR 1.1 (<1.2); Partial Thromboplastin Time 26.7 sec (22.0-30.0); Prothrombin Time 10.9 sec (9.0-12.0)
== END | disposition home or self-care (01) ==
LOC: LABPAT 11:34
PROVIDERS: ATTEND Orthopaedic Surgery
DX: Z01.810 Encounter for preprocedural cardiovascular examination (principal); Z01.812 Encounter for preprocedural laboratory examination
CPT/HCPCS: 36415; 80053; 81003; 85027; 85610; 85730; 87070; 87086

== ENCOUNTER → 2017-08-26 | Outpatient (CLI) | payer OTHER ==
[2017-08-26 15:16] LABS: Basophils # (A) 0.1 k/uL (0-0.2); Basophils % (A) 1 %; CH 32.4; CHCM 32.2; Eosinophils # (A) 0.3 k/uL (0-0.7); Eosinophils % (A) 3 %; HCT 46.9 % (39.0-53.0); HDW 2.24; HGB 14.8 gm/dL (13.0-17.5); Luc # (Auto) 0.36; Luc % (Auto) 3; Lymphocytes # (A) 2.8 k/uL (1.0-4.8); Lymphocytes % (A) 26 %; MCHC 31.5 g/dL (31.0-37.0); MCV 101.3 fL (80.0-100.0); Macrocytosis Slight; Mean Platelet Volume 8.4; Monocytes % (A) 10 %; Neutrophils % (A) 57 %; RBC 4.63 m/uL (4.30-5.90); RDW 14.6 % (11.5-15.5); WBC 10.6 k/uL (3.8-10.6)
== END | disposition home or self-care (01) ==
LOC: LABWHC1 14:40
PROVIDERS: ATTEND Family Medicine
DX: R89.9 Unspecified abnormal finding in specimens from other organs, systems and tissues (principal)
CPT/HCPCS: 36415; 85025

== ENCOUNTER → 2018-02-05 | Outpatient (CLI) | payer OTHER ==
[2018-02-05 14:46] VITALS: BP 127/85; PULSE 76; RESP 18
--- NOTE | 2018-02-05 15:17 | P.PN ---
Subjective Progress Note Date: 02/05/18 This is follow-up visit for this patient with a history of severe and chronic low back pain with radiation to the left lower extremity , diagnosed with the lumbar radiculopathy , lumbar degenerative disc diseases , lumbar spondylosis with facet arthropathy, last year we have done lumbar epidural steroid injection, and he gets excellent pain relief Recently he started complaining of severe back pain with radiation to the left lower extremity, he denies any motor or sensory deficit he denies any fever or night sweats I'll also is complaining of severe neck pain with radiation to the right shoulder blade area, he denies any motor or sensory deficit in the upper extremities, he is getting prescription refills from his primary care Physical Examinations : 1-Constitutiona : Cooperative , not in acute distress . 2-HEENT : nech ; supple , no Lymphadenopathy , no Thyromegaly , normal thyroid size . eyes : no ptosis , no icterus, no photophobia . ENT : normal of hearing , normal oropharynx , no Thrush . 3- Respiratory : Chest clear to auscultations Bilaterally , no wheezing , no Rhonchi . 4- Cardiovascular : regular rate and rhythem , S1 , S2 , no S3 , no S4. 5- Gastrointestinal : abdomen soft no tenderness , bowel sounds positive all four quadrents , no organomegally . 6- Genitourinary : Defferred . 7- neurologic : Cranial nerve II to XII intact , no focal neurological deffecit . 8-psychatric : alert , oriented X 3 , appropriate affect , intact judgment and insight . 9-Lymphatic : no Lymphadenopathy . 10- musculoskeltal : exams of the cervical spine = motor strength normal bilateral upper extremities facet loading test cervical area positive.on the right side only exams of the Lumber spine =motor strength lower extremities ,thigh and legs .5/5 deep tendon reflexes : normal Knee Jerk , normal ankle Jerk . lumber facet Loading Test negative bilaterally strait leg raising test positive at 60 degree LT side only, negative on the right side , Fabere test negative negative RT and positive LT . Range of motion: Range of motion in flexion of the lumbar spine 60 degrees Range of motion range of motion of extension of the lumbar spine 30 Assessment and plan = Lumbar radiculitis, lumbar degenerative disc disease Patient could benefit from lumbar epidural steroid injection under fluoroscopy guidance at L4 5 level ( left paramedian approach ) Severe neck pain clinically mostly secondary to cervical spondylosis , we will order MRI of the cervical spine to confirm the diagnosis Objective - Vital Signs Vital signs: Vital Signs Temp Pulse 76 02/05/18 14:38 Resp 18 02/05/18 14:38 BP 127/85 02/05/18 14:38 Pulse Ox 96 02/05/18 14:38 Intake & Output 02/04/18 02/05/18 02/05/18 18:59 06:59 18:59 Weight 74.843 kg
== END | disposition home or self-care (01) ==
LOC: PNWHC3 14:34
PROVIDERS: ATTEND Specialist
DX: G89.29 Other chronic pain (principal); M54.5 Low back pain; M51.16 Intervertebral disc disorders with radiculopathy, lumbar region; M47.26 Other spondylosis with radiculopathy, lumbar region; M46.86 Other specified inflammatory spondylopathies, lumbar region; Z79.52 Long term (current) use of systemic steroids
CPT/HCPCS: 99211

== ENCOUNTER 2018-02-06 17:21 | Emergency (ER) | payer OTHER ==
[2018-02-06 17:47] VITALS: BP 129/83; PULSE 64; RESP 18; TEMP 97.7
[2018-02-06] MEDS ORDERED: KETOROLAC 30 MG/ML 1 ML VIAL IM STA (17:55)
--- NOTE | 2018-02-06 18:13 | XR ---
EXAMINATION TYPE: XR shoulder complete LT DATE OF EXAM: 02/06/2018 COMPARISON: NONE HISTORY: Left shoulder pain TECHNIQUE: 3 views FINDINGS: I see no fracture nor dislocation. There is a single screw in the coronoid process of the s capula. There is minor spurring on the humeral head and the inferior glenoid. IMPRESSION: Previous surgery. No acute abnormality. There is malalignment of the AC joint consistent with old ligament tear.
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
== END 2018-02-06 18:45 | disposition home or self-care (01) ==
LOC: EC 17:21
DX: M25.512 Pain in left shoulder (principal); E78.5 Hyperlipidemia, unspecified; F17.200 Nicotine dependence, unspecified, uncomplicated; Z85.828 Personal history of other malignant neoplasm of skin; Z79.899 Other long term (current) drug therapy; Z98.890 Other specified postprocedural states
CPT/HCPCS: 73030; 99283; 96372; J1885

== ENCOUNTER 2018-03-09 06:25 | Day surgery (SDC) | payer OTHER ==
[2018-03-04 13:07] VITALS: BMI 25.8
[~2018-03-09 06:25] MED LIST changes: -DEXAMETHASONE SOD PHOSPHATE 10 MG/ML 1 ML VIAL IV ONE; -HYDROmorphone 1 MG/ML 1 ML SYRINGE IVP PRN; -ONDANSETRON 4 MG/2 ML VIAL IVP ONE; -Pre Op ABX Message 1 EACH MISC MISCELLANE ONE
[2018-03-09 07:10] VITALS: RESP 18; TEMP 97.7
[2018-03-09] MEDS ORDERED: LIDOCAINE 1% 20 ML VIAL (10MG/ML) FOR IV START INTRADERMA ONE (07:16)
--- NOTE | 2018-03-09 07:44 | P.PCN ---
Date of Procedure: 03/09/18 Surgeon: Deena Desai Description of Procedure: PREOPERATIVE DIAGNOSIS: 1-Lumbar radiculopathy 2- Lumber Degenerative Disc Diseases. POSTOPERATIVE DIAGNOSIS: 1-Lumbar radiculopathy. 2-Lumber Degenerative Disc Diseases PROCEDURE 1. Lumbar epidural steroid injection under fluoroscopic guidance at the L4-5 level in the left paramedian approach. 2. Lumbar epidurogram. ANESTHESIA: Local with 1% lidocaine; IV sedation with Versed and fentanyl EBL: Minimal PROCEDURE INDICATION: The patient with low back pain and radiculitis symptoms unresponsive to conservative treatment. Fluoroscopy was used to optimize visualization of the needle placement and to maximize safety. PROCEDURE DESCRIPTION / TECHNIQUE: The patient was seen and identified in the preoperative area. Risks, benefits , complications including but not limited to infections ,bleeding ,allergic reaction to the medications ,nerve damage and not complete pain relief , and alternatives were discussed with the patient. The patient agreed to proceed with the procedure and signed the consent. IV was started, and vital signs were stable. Patient was taken to the OR and time out was completed. The patient was placed in the prone position on procedure table and a pillow was placed under the abdomen to reduce lumbar lordosis. The lumbosacral area was prepped and draped in the usual sterile fashion with Betadine 3.Patient was closely monitored during the procedure. Conscious sedation was used during the procedure to decrease patients anxiety. Vital signs were monitered during the entire procedure. Using anterior-posterior fluoroscopy, the L4-5 interlaminar space was identified and the skin over this site was marked and then infiltrated with 1% lidocaine subcutaneously. Subsequently, a 20-gauge Tuohy epidural needle was inserted and advanced toward the epidural space using the Loss of resistance to air technique and guided by AP and lateral fluoroscopy and the left paramedian approach. The correct needle position in the epidural space was verified with the injection of 1 mL of the water soluble contrast dye Omnipaque 180 contrast and observing an excellent epidurogram with the epidural spread of the dye, after negative aspiration for blood and CSF and in the absence of paresthesias, the patient however felt increasing pressure in his back with no radiation to the lower extremities.. Again after negative aspiration, a 8 ml mixture containing 80 mg of Kenalog and 5 ml of preservative free Normal Saline , and 2 ml of preservative free Marcaine 0.25% solution was injected and a washout of epidurogram was seen. Needle was withdrawn intact, skin was cleansed , and bandages were applied. patient tolerated procedure well and was transferred to PACU in stable condition. COMPLICATIONS: None
[2018-03-09 07:52] VITALS: BP 124/79
--- NOTE | 2018-03-09 07:55 | FL ---
EXAMINATION TYPE: FL guided pain mgmt statistic DATE OF EXAM: 03/09/2018 CLINICAL HISTORY: Low back pain. TECHNIQUE: Fluoroscopy. COMPARISON: None. FINDINGS: Fluoroscopic guidance was provided during pain relief procedure performed by Dr. Desai . A total of 6 seconds of fluoroscopic time was utilized during the procedure and two spot images are acquired. Images acquired shows needle localization at L4-L5 level. IMPRESSION: As Above.
[2018-03-09 08:10] VITALS: PULSE 65
[2018-03-09] MEDS ORDERED: IV FLUID CONTINUATION 1,000 ML IV ONE (08:12)
== END 2018-03-09 08:18 | disposition home or self-care (01) ==
LOC: ORPAIN 06:25
PROVIDERS: ATTEND Anesthesiology
DX: M51.16 Intervertebral disc disorders with radiculopathy, lumbar region (principal)
CPT/HCPCS: 62323; J2250; J3301; J3010; Q9966; 99152

== ENCOUNTER 2018-03-24 06:14 | Day surgery (SDC) | payer OTHER ==
[2018-03-18 16:02] VITALS: BMI 25.8
[2018-03-24 06:35] VITALS: TEMP 97.9
[2018-03-24] MEDS: LACTATED RINGERS 1,000 ML IV SCH ×2 (06:43→06:56)
--- NOTE | 2018-03-24 07:17 | P.PCN ---
Date of Procedure: 03/24/18 Procedure(s) Performed: PREOPERATIVE DIAGNOSIS: 1- Lumbar Degenerative Disc Diseases 2-Lumbar Radiculopathy. POSTOPERATIVE DIAGNOSIS: 1-Lumber Degenerative Disc Diseases 2-Lumbar Radiculopathy. PROCEDURE 1. Lumbar epidural steroid injection under fluoroscopic guidance at the L4-5 level. 2. Lumbar epidurogram. ANESTHESIA: Local with 1% lidocaine 3 ml and , moderate sedation with intravenous Versed 2 mg ,and fentanyle 100 Mcg EBL: Minimal PROCEDURE INDICATION: The patient with low back pain and radiculitis symptoms unresponsive to conservative treatment. Fluoroscopy was used to optimize visualization of the needle placement and to maximize safety. PROCEDURE DESCRIPTION / TECHNIQUE: The patient was seen and identified in the preoperative area. Risks, benefits , complications including but not limited to infections ,bleeding ,allergic reaction to the medications ,nerve damage and not complete pain releife , and alternatives were discussed with the patient. The patient agreed to proceed with the procedure and signed the consent. IV was started, and vital signs were stable. Patient was taken to the OR and time out was completed. The patient was placed in the prone position on procedure table and a pillow was placed under the abdomen to reduce lumbar lordosis. The lumbosacral area was prepped and draped in the usual sterile fashion.ere closely monitored during the procedure. Conscious sedation was used during the procedure to decrease patients anxiety. Vital signs was monitered during the entire procedure. Using anterior-posterior fluoroscopy, the L4-5 interlaminar space was identified and the skin over this site was marked and then infiltrated with 1% lidocaine subcutaneously. Subsequently, a 20-gauge Tuohy epidural needle was inserted and advanced toward the epidural space using the ``Loss of resistance technique and guided by AP and lateral fluoroscopy. The correct needle position in the epidural space was verified with the injection of 2 mL of the water soluble contrast dye Isovue 200 contrast and observing an excellent epidurogram with the epidural spread of the dye, after negative aspiration for blood and CSF and in the absence of paresthesias. Again after negative aspiration, a 6 ml mixture containing 80 mg Depomedrol , and 2 ml of preservative free Normal Saline, and 2 ml of preservative free lidocaine 1% solution was injected and a washout of epidurogram was seen. Needle was withdrawn intact, skin was cleansed, and bandages were applied. COMPLICATIONS: None DISPOSITION / PLANS: The patient was placed in a supine position and transferred to the recovery area in a stable condition for observation. There was no evidence of lower extremity motor or sensory deficit after the procedure. Patient was discharged from the recovery room after meeting discharge criteria. Home discharge instructions were given to the patient by the staff. The patient was reexamined prior to discharge. The patient will schedule a follow up in the clinic in 2-4 weeks.
[2018-03-24 07:43] VITALS: BP 134/81; PULSE 62; RESP 16
[2018-03-24] MEDS ORDERED: IV FLUID CONTINUATION 1,000 ML IV ONE (07:49)
--- NOTE | 2018-03-24 08:08 | FL ---
EXAMINATION TYPE: [place] guided pain mgmt statistic DATE OF EXAM: 03/24/2018 CLINICAL HISTORY: Low back pain. TECHNIQUE: Fluoroscopy. COMPARISON: None. FINDINGS: Fluoroscopic guidance was provided during pain relief procedure performed by Dr. Michel . A total of 1 sac and of fluoroscopic time was utilized during the procedure and one spot fluorosco pic image is acquired. Single image acquired shows needle localization at L4-L5 disc space level. IMPRESSION: As Above.
== END 2018-03-24 07:56 | disposition home or self-care (01) ==
LOC: ORPAIN 06:14
PROVIDERS: ATTEND Specialist
DX: M51.16 Intervertebral disc disorders with radiculopathy, lumbar region (principal); J45.909 Unspecified asthma, uncomplicated; M19.90 Unspecified osteoarthritis, unspecified site
CPT/HCPCS: 62323; J1030; Q9966

== ENCOUNTER → 2018-04-23 | Outpatient (CLI) | payer OTHER ==
[2018-04-23 13:50] VITALS: BP 125/75; PULSE 82; RESP 16
--- NOTE | 2018-04-23 14:42 | P.PAINPG ---
Subjective Progress Note Date: 04/23/18 Principal diagnosis: Lumbar radiculopathy, cervical radiculopathy This very pleasant 57 showed gentleman with a history of bilateral back pain as well as neck pain. He is undergone previous lumbar epidural steroid injection with great success. He presents today for review of a cervical MRI he recently had. He has significant pain in his neck especially with neck turning. This radiates into his right shoulder and down his right arm. Objective - Vital Signs Vital signs: Vital Signs Temp Pulse 82 04/23/18 13:41 Resp 16 04/23/18 13:41 BP 125/75 04/23/18 13:41 Pulse Ox 95 04/23/18 13:41 Intake & Output 04/22/18 04/23/18 04/23/18 18:59 06:59 18:59 Weight 74.843 kg - Exam General: The patient is alert and oriented. Patient is not sedateded Patient answers all question appropriately. Cardiac: Heart is regular in rate and rhythm Respiratory: Clear to auscultation. No audible wheezes. Abdomen: Soft nontender nondistended. Upper extremities: Strength is normal bilaterally. Sensation is normal bilaterally. Reflexes are preserved and symmetric bilaterally. Straight leg raise is negative bilaterally. Cervical facet loading maneuvers are positive. Range of motion for flexion and extension is decreased. Axial rotation produces right-sided cervical radicular symptoms. Assessment and Plan Plan: Plan of Care 1. Medications: Patient is not receiving any medications from this clinic 2. Interventions: I believe the patient would benefit from a cervical epidural steroid injection. 3. Referrals: No referrals were given at this appointment. 4. Testing: I did review the patient's cervical MRI with him. This was taken on 02/24/2018. This reveals multilevel degenerative disc and joint disease and cervical spine resulting in multilevel spinal canal stenosis this is mild-to- moderate in degree at C4 5 and C5 6. His mild at C3 4 and C6 7. There is multilevel neural foraminal narrowing of high grade. There is edema within the right articular pillar at C4 5. The patient does not have any history of fevers or tenderness or sweating. I think it is highly unlikely this is infectious. I would recommend proceeding forward with a cervical epidural to hopefully reduce the inflammatory component. 5. Psychological: He denies significant depression or anxiety. PQRS Measure Charge Sheet Measure #130: Documentation of Current Meds in Medical Chart: Patient's medications documented in chart Measure #226: Tobacco Use: Screen & Cessation Intervention: Pt not a tobacco user Measure #111: Pneumonia Vaccination: Pneumococcal vaccine NOT administered or previously given Measure #47: Advance Care Plan: Advance care planning discussed & documented, pt chose/unable to give Measure #412: Opioid Treatment Agreement: No documentation of signed opioid treatment agreement Measure #408: Opioid Therapy Follow-up Evaluation: Patient had NO f/u eval minimum every 3 months during opioid therapy Measure #317: Preventitive Care & Scrn High Bld Press & F/U: Normal blood pressure, f/u not required Measure #128: Body Mass Index (BMI) Screening & Follow-up: BMI documented within normal parameters Measure #131: Pain Assessment & Follow-up: Pain positive & plan documented ( Onset) Measure #431: Unhealthy Alcohol Use Preventative Care & Scrn: Patient not identified as an unhealthy alcohol user PQRS Narrative: Smoking Status Current every day smoker Do You Want the Pneumonia No Vaccine AT THIS TIME? Blood Pressure 125/75 Pain Intensity [Bilateral 2 Posterior Neck] Scale Used Numeric (1 - 10) Hx Alcohol Use (MH) No Home Medications: Ambulatory Orders Multivitamin [Men's Multi-Vitamin] 1 tab PO DAILY 01/28/14 Albuterol Sulfate [Ventolin HFA] 2 puff INHALATION RT-Q4H PRN 03/11/17 Cetirizine HCl 10 mg PO DAILY 03/11/17 Montelukast [Singulair] 10 mg PO DAILY 03/28/17 Atorvastatin Calcium [Lipitor] 10 mg PO HS 02/06/18 HYDROcodone/APAP 7.5-325MG [[place] 7.5-325] 1 tab PO Q4-6H PRN 02/06/18 Ibuprofen [Motrin Ib] 400 mg PO BID 02/06/18 Controlled Substance Measures - Controlled Substance Measures Is patient prescribed a controlled substance at discharge?: No
== END | disposition home or self-care (01) ==
LOC: PNWHC3 13:29
PROVIDERS: ATTEND Pain Medicine Pain Medicine
DX: M54.12 Radiculopathy, cervical region (principal); M54.16 Radiculopathy, lumbar region; F17.200 Nicotine dependence, unspecified, uncomplicated; Z79.899 Other long term (current) drug therapy; Z79.891 Long term (current) use of opiate analgesic; Z79.1 Long term (current) use of non-steroidal anti-inflammatories (NSAID)
CPT/HCPCS: 99211

== ENCOUNTER 2018-04-27 06:18 | Day surgery (SDC) | payer OTHER ==
[2018-04-24 08:36] VITALS: BMI 25.8
[2018-04-27 07:13] VITALS: TEMP 97.2
[2018-04-27] MEDS: LACTATED RINGERS 1,000 ML IV SCH ×2 (07:17→07:38)
[2018-04-27] MEDS ORDERED: LIDOCAINE 1% 20 ML VIAL (10MG/ML) FOR IV START INTRADERMA ONE (07:17)
--- NOTE | 2018-04-27 07:55 | P.PCN ---
Date of Procedure: 04/27/18 Surgeon: Deena Desai Pathology: none sent Condition: stable Disposition: PACU Description of Procedure: PROCEDURE 1. Cervical epidural steroid injection under fluoroscopic guidance, C7-T1 right paramedian approach. 2. Cervical epidurogram. : PREOPERATIVE DIAGNOSIS: Cervical radiculopathy, cervical spondylosis without myelopathy POSTOPERATIVE DIAGNOSIS: : Same as above ANESTHESIA: Local anesthesia with 1% lidocaine and IV sedation with Versed and Fentanyl . EBL negligible PROCEDURE INDICATION: The patient with neck pain and radiculopathy unresponsive to conservative treatment consents for procedure. PROCEDURE DESCRIPTION / TECHNIQUE: The patient was seen and identified in the preoperative area. Risks, benefits, complications, including but not limited to infections ,bleeding , allergic reactions to the medications ,and not complete pain relief, and alternatives were discussed with the patient, the patient agreed to proceed with the procedure and signed the consent. Patient was taken to the OR and time out was completed. The patient was placed in the prone position on the procedure table. A pillow was placed under the patients chest to increase the flexion of the cervical spine . The cervical area was prepped and draped in the usual sterile fashion. Vital signs were closely monitored during the procedure. Conscious sedation was used during the procedure to decrease patients anxiety. Using anterior-posterior fluoroscopy, the C7-T1 interlaminar space was identified and the skin over this site was marked and then infiltrated with 1% lidocaine subcutaneously. Subsequently, a 20-gauge 3-1/2-inch Tuohy epidural needle was inserted and advanced toward the epidural space by means of loss of resistance to air technique and guided by AP and lateral fluoroscopy. The needle tip contacted the lamina of T1 vertebra first, then it was walked off the bone and into the epidural space using the loss of to air and fluoroscopic guidance to identify the epidural space. The correct needle position in the epidural space was verified with the injection of 1 mL of the water soluble contrast dye Isovue and observing an excellent epidurogram with the epidural spread of the dye, after negative aspiration for blood and CSF and in the absence of paresthesias. Again after negative aspiration, a 5 ml mixture containing 10 mg of Decadron and 4 ml of preservative free Normal Saline solution was injected and a washout of epidurogram was seen. Needle was withdrawn intact, skin was cleansed, and bandages were applied.
[2018-04-27] MEDS ORDERED: IV FLUID CONTINUATION 1,000 ML IV ONE (08:11)
[2018-04-27 08:16] VITALS: BP 136/91; PULSE 58; RESP 16
--- NOTE | 2018-04-27 08:17 | FL ---
EXAMINATION TYPE: [place] guided pain mgmt statistic DATE OF EXAM: 04/27/2018 COMPARISON: NONE HISTORY: Neck pain TECHNIQUE: Fluoroscopy. FINDINGS/IMPRESSION: Fluoroscopic guidance was provided during procedure performed by Dr. Medley. A total of 5 seconds of fluoroscopic time was utilized during the procedure and 1 spot images was acqu ired during a cervical epidural injection.
== END 2018-04-27 08:30 | disposition home or self-care (01) ==
LOC: ORPAIN 06:18
PROVIDERS: ATTEND Anesthesiology
DX: M47.22 Other spondylosis with radiculopathy, cervical region (principal)
CPT/HCPCS: 62321; J2250; J1100; J3010; Q9966

== ENCOUNTER 2018-05-13 07:40 | Day surgery (SDC) | payer OTHER ==
[2018-05-08 09:53] VITALS: BMI 25.8
[2018-05-13 08:01] VITALS: RESP 16; TEMP 97.6
[2018-05-13] MEDS ORDERED: LACTATED RINGERS 1,000 ML IV ONE (08:07)
[2018-05-13] MEDS ORDERED: LIDOCAINE 1% 20 ML VIAL (10MG/ML) FOR IV START INTRADERMA ONE (08:07)
--- NOTE | 2018-05-13 08:49 | P.PCN ---
Date of Procedure: 05/13/18 Procedure(s) Performed: . PROCEDURE 1. Cervical epidural steroid injection under fluoroscopic guidance, C7-T1 2. Cervical epidurogram. PREOPERATIVE DIAGNOSIS: 1- Cervical Degenerative Disc Diseases 2- Cervical spinal stenosis POSTOPERATIVE DIAGNOSIS: : 1- Cervical Degenerative Disc Diseases , 2- Cervical spinal stenosis ANESTHESIA: Local anesthesia with 1% lidocaine 3 ml ,and IV sedation with Versed 2 mg and Fentanyl 100 mcg. EBL 0 PROCEDURE INDICATION: The patient with neck pain and radiculitis unresponsive to conservative treatment consents for procedure. PROCEDURE DESCRIPTION / TECHNIQUE: The patient was seen and identified in the preoperative area. Risks, benefits, complications, including but not limited to infections ,bleeding , allergic reactions to the medications ,and not complete pain releife, and alternatives were discussed with the patient, the patient agreed to proceed with the procedure and signed the consent. Patient was taken to the OR and time out was completed. The patient was placed in the prone position on the procedure table. A pillow was placed under the patients chest to increase the cervical interlaminar space. The cervical area was prepped and draped in the usual sterile fashion. Vital signs were closely monitored during the procedure. Conscious sedation was used during the procedure to decrease patients anxiety. Using anterior-posterior fluoroscopy, the C7-T1 interlaminar space was identified and the skin over this site was marked and then infiltrated with 1% lidocaine subcutaneously. Subsequently, a 20-gauge 3-1/2-inch Tuohy epidural needle was inserted and advanced toward the epidural space by means of the `` hanging-drop technique and guided by AP and lateral fluoroscopy. The correct needle position in the epidural space was verified with the injection of 2 mL of the water soluble contrast dye Isovue-200 and observing an excellent epidurogram with the epidural spread of the dye, after negative aspiration for blood and CSF and in the absence of paresthesias. Again after negative aspiration, mixture containing 20 mg Dexamethasone and 2 ml of preservative- free normal saline injected and a washout of epidurogram was seen. Needle was withdrawn intact, skin was cleansed, and bandages were applied. Complications= none. Disposition= patient was placed in supine position and transferred to the recovery room area in stable condition and there was no evidence of upper or lower extremity motor or sensory deficit after the procedure patient was discharged from recovery room after discharge criteria met and home discharge instructions was given by the staff and patient will follow with the pain clinic in 2-4 weeks
[2018-05-13] MEDS ORDERED: IV FLUID CONTINUATION 1,000 ML IV ONE (08:53)
[2018-05-13 09:13] VITALS: BP 122/78; PULSE 60
--- NOTE | 2018-05-13 10:05 | FL ---
EXAMINATION TYPE: FL guided pain mgmt statistic DATE OF EXAM: 05/13/2018 CLINICAL HISTORY: Lower neck pain. TECHNIQUE: Fluoroscopy. COMPARISON: None. FINDINGS: Fluoroscopic guidance was provided during pain relief procedure performed by Dr. Michel . A total of 1 second of fluoroscopic time was utilized during the procedure and single spot fluoros copic image is acquired. Single image acquired shows needle localization near cervicothoracic juncti on. IMPRESSION: As Above.
== END 2018-05-13 09:25 | disposition home or self-care (01) ==
LOC: ORPAIN 07:40
PROVIDERS: ATTEND Specialist
DX: M50.10 Cervical disc disorder with radiculopathy, unspecified cervical region (principal); M48.02 Spinal stenosis, cervical region; F17.200 Nicotine dependence, unspecified, uncomplicated
CPT/HCPCS: 62321; J2250; J1100; J3010; Q9966

== ENCOUNTER → 2018-06-15 | Outpatient (CLI) | payer OTHER ==
[2018-06-15 14:53] VITALS: BP 145/84; PULSE 74; RESP 16
--- NOTE | 2018-06-15 15:12 | P.PN ---
Subjective Progress Note Date: 06/15/18 Principal diagnosis: Severe lumbar DDD Cervical spine DDD Cervical spondylosis without myelopathy New Left lumbar radiculopathy This is a 57-year-old gentleman status post cervical epidural steroid injection for his neck pain which has improved his neck pain moderately. Today he came in with the different and new pain in his left buttock area radiating down to the left knee. He denies any weakness in the lower extremities or any bowel or bladder dysfunction. He does use [place] 7.5 mg when necessary give 2-3 times per week as he states. He also has pain in both shoulders. Today, pt denies new-onset weakness, bowel/bladder incontinence, or any other signs or symptoms of cauda equina syndrome. There are no signs of acute intoxication, and no indications of medication diversion or overuse. In addition to above, 13-point review of systems is also negative for chest pain , shortness of breath, changes in vision, changes in hearing, new onset weakness , abdominal pain, diarrhea, extreme fatigue, malaise, fever, skin changes, homicidal or suicidal ideation, or bowel or bladder incontinence. Vital Signs: Reviewed in EMR Gen: AAOx3, NAD HEENT: PERRLA,hearing grossly normal Pulm: resp unlabored,CTA Heart:S1,S2, No Mur Neck: supple, trachea midline Neuro exam of the lower extremities: New absence of deep tendon reflexes bilaterally and symmetrically, however he has normal muscle strength symmetrically Straight leg raising test: Negative Dominguez's test: Negative bilaterally Tenderness in the paravertebral musculature: Mild in the lumbar paravertebral area Neuro: CN II-XII grossly intact, Imaging: Reviewed in EMR/chart Assessment: Cervical and lumbar spondylosis without myelopathy Bilateral shoulder also arthritis Lumbar and cervical DDD New Left lumbar radiculopathy and a new loss of deep tendon reflexes in the lower extremities symmetrically but with normal muscle strength and function of sphincters. Plan: 1. Explanation: Opioid and psychological risk scores were reviewed. Diagnoses , prognoses, and multiple treatment options including but not limited to physical therapy, interventional therapies, adjuvant medical therapies, narcotic medication therapies, and surgery were discussed with the patient and all questions were answered to the patient's satisfaction. 2. Opioid agreement: Signed with the patient and the patient is warned not to use opioids while driving or before driving and not to combine opioids with benzodiazepines or alcohol. 3. Counseling: The patient was counseled extensively on SMOKING CESSATION, BODY MASS INDEX, EXERCISE. Specifically, the patient was instructed regarding the importance of smoking cessation, obesity, and exercise in the context of both chronic pain and overall health. 4. Procedures: None for now 5. Consultations: None 6. Investigations: MRI of the lumbar spine without contrast. We will send for urine drug screen. 7. Medications: [place] 7.5 mg #15 pills 8. Disposition: Return to clinic in 4-8 weeks 9. Maps were reviewed and were appropriate. Objective - Vital Signs Vital signs: Vital Signs Temp Pulse 74 06/15/18 14:31 Resp 16 06/15/18 14:31 BP 145/84 06/15/18 14:31 Pulse Ox 96 06/15/18 14:31 Intake & Output 06/14/18 06/15/18 06/15/18 18:59 06:59 18:59 Weight 74.843 kg
== END | disposition home or self-care (01) ==
LOC: PNWHC3 14:01
PROVIDERS: ATTEND Anesthesiology
DX: M51.16 Intervertebral disc disorders with radiculopathy, lumbar region (principal); M50.30 Other cervical disc degeneration, unspecified cervical region; M47.26 Other spondylosis with radiculopathy, lumbar region; M47.22 Other spondylosis with radiculopathy, cervical region; M19.012 Primary osteoarthritis, left shoulder; M19.011 Primary osteoarthritis, right shoulder; Z79.891 Long term (current) use of opiate analgesic
CPT/HCPCS: 80307; G0482; G0463; 99211

== ENCOUNTER → 2018-07-10 | Outpatient (CLI) | payer OTHER ==
--- NOTE | 2018-07-10 07:33 | MR ---
EXAMINATION TYPE: MR lumbar spine wo con DATE OF EXAM: 07/10/2018 COMPARISON: CT abdomen pelvis 04/29/2012 HISTORY: SACRUM PAIN NUMBNESS BACK OF LEGS TECHNIQUE: Multiplanar, multisequence images of the lumbar spine were acquired. L1-L2: Posterior broad-based disc bulge causes mild anterior mass effect on the thecal sac. There is some facet arthropathy change. Circumferential extension of endplate disc complex results in foramina l encroachment bilaterally. L2-L3: Facet arthropathy with hypertrophy of ligamentum flavum causes some posterior lateral mass eff ect on the thecal sac. Circumferential extension of endplate disc complex results in some mild forami nal encroachment. Posterior broad-based disc bulge causes mild anterior mass effect on the thecal sac . On mild central stenosis. L3-L4: Broad-based posterior disc bulge causes anterior mass effect on the thecal sac, mild central s tenosis. Facet arthropathy with hypertrophy of the ligamentum flavum causes some mass effect posterio r laterally in the thecal sac. Circumferential extension endplate disc complex results in bilateral f oraminal encroachment. L4-L5: Posterior central disc herniation causes anterior mass effect on the thecal sac, moderate cent ral canal stenosis, circumferential extension of endplate disc complex results in bilateral foraminal encroachment. Facet arthropathy with hypertrophy ligamentum flavum is noted. There is some lateral r ecess stenosis. L5-S1: Broad-based posterior disc bulge causes anterior mass effect on the thecal sac but no signific ant central stenosis. Circumferential extension of endplate disc complex results in bilateral foramin al encroachment. There is some facet arthropathy change. Lumbar segments are intact. No paraspinal masses are identified. Conus medullaris has a normal appe arance. There is multilevel spondylosis as well as endplate discogenic marrow signal change. Loss of disc height and signal present at intervertebral levels, multilevel vacuum phenomenon present. Lumbar vertebral bodies show preserved height and alignment. There is a levoscoliosis centered at the mid l umbar spine. IMPRESSION: Degenerative disc disease, facet arthropathy, multilevel foraminal encroachment. Spinal curvature.
== END | disposition home or self-care (01) ==
LOC: RADMRIMAIN 05:52
PROVIDERS: ATTEND Anesthesiology
DX: M51.36 Other intervertebral disc degeneration, lumbar region (principal); M46.96 Unspecified inflammatory spondylopathy, lumbar region; M43.8X6 Other specified deforming dorsopathies, lumbar region
CPT/HCPCS: 72148

== ENCOUNTER → 2018-08-17 | Day surgery (SDC) | payer OTHER ==
[2018-08-14 09:35] VITALS: BMI 25.8
[~2018-08-17] MED LIST changes: -LACTATED RINGERS 1,000 ML IV SCH; +SODIUM CHLORIDE 0.9% 500 ML 500 ML IV ONE
[2018-08-17 09:51] VITALS: TEMP 97.4
--- NOTE | 2018-08-17 09:56 | P.PCN ---
Date of Procedure: 08/17/18 Preoperative Diagnosis: Lumbar spondylosis Postoperative Diagnosis: Same Procedure(s) Performed: Bilateral lumbar medial branch block L 3/4, 4/5, / Anesthesia: MAC (concious sedation) Description of Procedure: Surgeon: Spencer Schmidt MD. IV Sedation with: 2 mg of Versed Anesthesia: Conscious sedation Given for: Anxiety and fear of needles. The patient was seen and examined in the PO. Procedure risks and benefits were fully reviewed with the patient. The patient understands this is a diagnostic if local only is used, as will be the case today. The goal of the procedure is to inject medication into the medial branch or small nerves that go into the facet joints. In this way, we can hopefully identify which of these joints, if any, may be contributing to their pain. Informed consent for procedure was obtained. The patient was taken into the office fluoroscopy procedure room and placed prone on the table. A pillow was placed under the abdomen to reduce lumbar lordosis. Vital signs were closely monitored during the procedure. The skin over the area was prepped with Betadine X 3 and draped in usual sterile manner. Sterile technique was observed throughout procedure. Under biplanar fluoroscopic guidance, the target injection area of the L3, L4, L5 and sacral ala bilateral were targeted. A 25 gauge 31/2 inch spinal needle was then placed at the most medial and superior aspect of the transverse process near the "eye of the Celio dog". Aspiration for blood was negative. 1 cc of 0.5% marcaine with 0 mg/cc of kenalog was injected into the targeted areas separately. [place] were withdrawn intact. No complications were noted during the procedure. The patient tolerated the procedure well. The patient was placed in supine position and transferred to the recovery area for observation and remained stable until discharged home. Home discharge instructions were given to the patient by the staff. The patient will schedule a follow up as directed.
[2018-08-17 11:00] VITALS: BP 137/83; PULSE 66; RESP 18
--- NOTE | 2018-08-17 11:07 | FL ---
EXAMINATION TYPE: FL guided pain mgmt statistic DATE OF EXAM: 08/17/2018 HISTORY: Pain 7 sec fl time used bilateral facets
== END ==
LOC: ORPAIN 09:30
PROVIDERS: ATTEND Hospitalist
DX: M47.816 Spondylosis without myelopathy or radiculopathy, lumbar region (principal)
CPT/HCPCS: 64493; 64494; 64495; J2250

== ENCOUNTER 2018-09-02 06:11 | Day surgery (SDC) | payer OTHER ==
[2018-09-01 12:14] VITALS: BMI 25.0
[2018-09-02 06:37] VITALS: TEMP 97.5
[2018-09-02] MEDS ORDERED: LIDOCAINE 1% 20 ML VIAL (10MG/ML) FOR IV START INTRADERMA ONE (06:38)
[2018-09-02] MEDS ORDERED: LACTATED RINGERS 1,000 ML IV ONE ×2 (06:38)
[2018-09-02] MEDS ORDERED: SODIUM CHLORIDE 0.9% 500 ML 500 ML IV SCH (07:00)
--- NOTE | 2018-09-02 07:07 | P.PCN ---
Date of Procedure: 09/02/18 Surgeon: Bob Patel Description of Procedure: PREOPERATIVE DIAGNOSIS : Lumbar spondylosis with Facet Arthropathy without myelopathy POSTOPERATIVE DIAGNOSIS: same PROCEDURE: Diagnostic lumbar medial branch block with fluoroscopy at bilateral L4, L5, sacral ala ANESTHESIA: Local anesthetic; 2 mg of midazolam as limb and 100 pg of fentanyl Surgeon: Bob Patel MD PROCEDURE INDICATION: This is a 57 shoulder woman who presents today for his second lumbar medial branch nerve block. He reports bili 100% relief of his pain from his previous procedure. He reports he has had a profound increase in his functionality in decreasing his pain. He presents today for repeat of this procedure. He will then follow up in the office as a screen for radio frequency ablation PROCEDURE DESCRIPTION: the patient was seen and identified in the preop holding area , risks and benefits and possible complications of the procedure and alternative were discussed with the patient, and the patient agreed to proceed with the procedure and signed the consent IV was started and vital signs monitored during the procedure and fluoroscopy was used to maximize the benefit and accuracy of the needle placement, and sedation was given to decrease patient anxiety, patient was taken to the procedure room and placed in prone position vital signs monitored in the back prepped. Under strict sterile technique using a right oblique fluoroscopy ,the junction of the transverse process and the superior articulating process of the right L3- 4 , L4- 5, and L5-S1 vertebra which corresponding to the fluoroscopy image of the eye of the Celio dog on the block side for the medial branches and subsequently , after local infiltration of skin and subcutaneous tissues with lidocaine 1% one mL at each level ,then one 25-gauge Quincke-type needles was placed at the junction of the base of the transverse process and the superior articular process at the appropriate level, and the needle was advanced until the periosteum contacted, needle placement confirmed with AP oblique and lateral view and after appropriate needle placement confirmed, and after negative aspiration, 0.5 mL of Marcaine 0.5% mixed with 40 mg depomedrol in divided doses was injected at each level and the needle subsequently removed. This procedure was then repeated on the left side. At the end of the procedure and the needles removed and a bandage applied after the skin was cleaned the cleaning solution patient taken to recovery room in stable condition and monitors in the recovery room for 20-30 minutes and discharged home in stable condition after discharge criteria met and patient will follow up with the pain clinic in 2-4 weeks EBL: Minimal COMPLICATION: None.
[2018-09-02 07:27] VITALS: RESP 16
[2018-09-02] MEDS ORDERED: IV FLUID CONTINUATION 1,000 ML IV ONE (07:46)
[2018-09-02 07:51] VITALS: BP 130/66; PULSE 63
--- NOTE | 2018-09-02 08:24 | FL ---
EXAMINATION TYPE: FL guided pain mgmt statistic DATE OF EXAM: 09/02/2018 FLUOROSCOPY Fluoroscopy time of 2 seconds was used during bilateral lumbar facet blocks. 1 image/s document/s th e procedure.
== END 2018-09-02 07:53 | disposition home or self-care (01) ==
LOC: ORPAIN 06:11
PROVIDERS: ATTEND Pain Medicine Pain Medicine
DX: G89.29 Other chronic pain (principal); M47.26 Other spondylosis with radiculopathy, lumbar region; M51.16 Intervertebral disc disorders with radiculopathy, lumbar region; M50.221 Other cervical disc displacement at C4-C5 level; M48.02 Spinal stenosis, cervical region
CPT/HCPCS: 64493; 64494; 64495; J2250; J1030; J3010; 99152

== ENCOUNTER → 2018-10-06 | Outpatient (CLI) | payer OTHER ==
[2018-10-06 13:41] VITALS: BP 114/77; PULSE 79; RESP 18
--- NOTE | 2018-10-07 06:49 | P.PN ---
Subjective Progress Note Date: 10/06/18 This is follow-up visit for this patient with a history of severe and chronic low back pain with radiation to the left lower extremity , diagnosed with the lumbar radiculopathy , lumbar degenerative disc diseases , lumbar spondylosis with facet arthropathy, recently we have done diagnostic medial branch block lumbar area L3 4/L4 5/L5-S1 Patient reported that his pain before the first diagnostic medial branch block was 7-8/10 dropped to 0/10 after the first diagnostic block, and his pain was 3-4/10 before The second diagnostic medial branch block and dropped to 0/10, the pain relief was only for short-term , patient currently continue to have severe low back pain , he denies any motor or sensory deficit he denies any fever or night sweats he also is complaining of severe neck pain with radiation to the right shoulder blade area, he denies any motor or sensory deficit in the upper extremities, Physical Examinations : 1-Constitutiona : Cooperative , not in acute distress . 2-HEENT : nech ; supple , no Lymphadenopathy , no Thyromegaly , normal thyroid size . eyes : no ptosis , no icterus, no photophobia . ENT : normal of hearing , normal oropharynx , no Thrush . 3- Respiratory : Chest clear to auscultations Bilaterally , no wheezing , no Rhonchi . 4- Cardiovascular : regular rate and rhythem , S1 , S2 , no S3 , no S4. 5- Gastrointestinal : abdomen soft no tenderness , bowel sounds positive all four quadrents , no organomegally . 6- Genitourinary : Defferred . 7- neurologic : Cranial nerve II to XII intact , no focal neurological deffecit . 8-psychatric : alert , oriented X 3 , appropriate affect , intact judgment and insight . 9-Lymphatic : no Lymphadenopathy . 10- musculoskeltal : exams of the cervical spine = motor strength normal bilateral upper extremities facet loading test cervical area positive.on the right side only exams of the Lumber spine =motor strength lower extremities ,thigh and legs .5/5 deep tendon reflexes : normal Knee Jerk , normal ankle Jerk . lumber facet Loading Test positive strait leg raising test positive at 60 degree LT side only, negative on the right side , Fabere test negative negative RT and positive LT . Range of motion: Range of motion in flexion of the lumbar spine 60 degrees Range of motion range of motion of extension of the lumbar spine 30 Diagnostic study MRI of the cervical spine C4 5 disc bulging and facet arthropathy, multilevel facet arthropathy and cervical stenosis Diagnostic study MRI of the lumbar spine , multilevel lumbar bulging disc disease and multilevel lumbar facet arthropathy Assessment and plan = Chronic severe low back pain secondary to lumbar degenerative disc disease and lumbar spondylosis with lumbar facet arthropathy Patient had more than 70% improvement of his low back pain after the diagnostic medial branch block lumbar area Chronic severe neck pain secondary to cervical degenerative disc disease and cervical spondylosis Patient had short-term benefit after lumbar epidural steroid injections. Patient had short-term benefit after cervical epidural steroid injections Patient could benefit from Motrin 600 mg every 8 hours dispense 60 with 1 refill and [place] 7.5/325 every 8 hours dispense 15 with one refill. And patient will be scheduled to have radiofrequency ablation of the medial branch medial lumbar area at L3/L4 5/L5-S1 , with the left side first, then we' ll do the right side later on In the future we can schedule patient to have cervical medial branch block - PQRS measures = - Patient's medications are documented in the chart. -Tobacco use is positive ,and counseling.Given. -Patient's has not received pneumococcal vaccine. -Advanced care planning discussed, patient not eligible. -Opiate contract signed. -Pain positive and follow-up visit/procedure is scheduled. -Patient's blood pressure measured [ 114/77 ] , and documented in the record ,and patient will follow up with the primary care. -Patient's weight was measured and body mass index [25.8 ] above the, within the normal limits and counseling was done. and patient instructed to follow-up with the primary care physician. -Patient was not identified as an unhealthy alcohol user Objective - Vital Signs Vital signs: Vital Signs Temp Pulse 79 10/06/18 13:31 Resp 18 10/06/18 13:31 BP 114/77 10/06/18 13:31 Pulse Ox 96 10/06/18 13:31 Intake & Output 10/06/18 10/06/18 10/07/18 06:59 18:59 06:59 Weight 74.843 kg
== END ==
LOC: PNWHC3 13:19
PROVIDERS: ATTEND Specialist
DX: G89.29 Other chronic pain (principal); M51.36 Other intervertebral disc degeneration, lumbar region; M47.816 Spondylosis without myelopathy or radiculopathy, lumbar region; M46.96 Unspecified inflammatory spondylopathy, lumbar region; M50.30 Other cervical disc degeneration, unspecified cervical region; M47.812 Spondylosis without myelopathy or radiculopathy, cervical region; Z79.899 Other long term (current) drug therapy; Z79.1 Long term (current) use of non-steroidal anti-inflammatories (NSAID); Z72.0 Tobacco use
CPT/HCPCS: 99211

== ENCOUNTER 2018-10-07 06:15 | Day surgery (SDC) | payer OTHER ==
[2018-10-07 06:35] VITALS: RESP 16; TEMP 97.3
[2018-10-07] MEDS ORDERED: LIDOCAINE 1% 20 ML VIAL (10MG/ML) FOR IV START INTRADERMA ONE (06:43)
[2018-10-07] MEDS ORDERED: LACTATED RINGERS 1,000 ML IV ONE (06:43)
[2018-10-07] MEDS ORDERED: SODIUM CHLORIDE 0.9% 500 ML 500 ML IV SCH (07:15)
[2018-10-07] MEDS ORDERED: IV FLUID CONTINUATION 1,000 ML IV ONE ×2 (07:39)
[2018-10-07 07:54] VITALS: BP 131/80; PULSE 65
--- NOTE | 2018-10-07 08:09 | P.PCN ---
Date of Procedure: 10/07/18 Procedure(s) Performed: PREOPERATIVE DIAGNOSIS: 1-Lumbar Spondylosis with Facet Arthropathy without myelopathy. 2- Lumber degenerative disc disease POSTOPERATIVE DIAGNOSIS: 1- Lumbar Spondylosis with Facet Arthropathy without myelopathy. 2- Lumber degenerative disc disease PROCEDURES : Left Radiofrequency thermocoagulation, L3-L4, L4-L5, and L5-S1 medial branch, with fluoroscopic guidance ANESTHESIA: Moderate sedation with intravenous versed 2 mg and fentaneyl 200 mcg, and local infiltration with Ropivacaine 0.5 % . EBL: Minimal PROCEDURE INDICATION: The patient with low back pain secondary to lumbar facet arthropathy who had more than 50% relief of her pain with previous diagnostic lumbar medial branch block with bupivacaine. PROCEDURE DESCRIPTION / TECHNIQUE: The patient was seen and identified in the preoperative area. Risks, benefits, complications, including but not limited to risk of infection ,bleeding , allergic reactions to the medications and no complete pain releife , and alternatives were discussed with the patient, the patient agreed to proceed with the procedure and signed the consent. IV was started. Vital signs remained stable throughout the procedure. Patient was taken to the OR and time out was completed. The patient was placed in the prone position on the procedure table. The lumber area was prepped and draped in the usual sterile fashion. . Vital signs were closely monitored during the procedure .IV sedation was used during the procedure to decrease patients anxiety. Using AP and then oblique fluoroscopy, the ``eye of the Celio dog corresponding to the connection between the superior and transverse articular processes of left L3, L4, and L5 were identified, marked, and localized with 1% lidocaine. Subsequently, a 18 -sg radiofrequency cannula with a 10-mm active tip was advanced guided by fluoroscopy to each of the``eyes of the Celio dog at left L3, L4, and L5. Each site then underwent sensory testing at 50 Hz and 0 to 1 volt and motor testing at 2.5 Hz and 0 to 3 volt with local stimulation, but no radicular symptoms down the legs. Thereafter the left L3-4 , L4-5, and L5-S1 sites underwent radiofrequency thermocoagulation at 80 degrees celsius for 90 seconds after injecting 0.5 ml of PF Ropivacaine 1ml, then after the thermocoagulation done , 1 ml of the block solution containing depo-medrol 40 mg and 3 ml of Ropivacaine 0.5% was injected at the left L3- 4 , L4-5 , and L5-S1, levels after negative aspiration of CSF and blood and with no paresthesias. Cannulas were retracted while injecting lidocaine 1% until the needle is out. At the end of the procedure, the skin was cleansed and bandages were applied. COMPLICATIONS: No acute complications. DISPOSITION / PLANS: The patient was placed in a supine position and transferred to the recovery area in a stable condition for observation and was discharged from the recovery room after meeting discharge criteria. Home discharge instructions given to the patient by the staff. The patient was reexamined prior to discharge. The patient will schedule a follow up in the clinic in 2-4 weeks.
--- NOTE | 2018-10-07 08:16 | FL ---
EXAMINATION TYPE: FL guided pain mgmt statistic DATE OF EXAM: 10/07/2018 CLINICAL HISTORY: Low back pain. TECHNIQUE: Fluoroscopy. COMPARISON: None. FINDINGS: Fluoroscopic guidance was provided during pain relief procedure performed by Dr. Michel . A total of 2.1 minutes of fluoroscopic time was utilized during the procedure and 3 spot images ar e acquired. Images acquired shows needle localization at several levels in the lower lumbar spine. IMPRESSION: As Above.
== END 2018-10-07 08:10 | disposition home or self-care (01) ==
LOC: ORPAIN 06:15
PROVIDERS: ATTEND Specialist
DX: G89.29 Other chronic pain (principal); M47.26 Other spondylosis with radiculopathy, lumbar region; M51.16 Intervertebral disc disorders with radiculopathy, lumbar region; F17.200 Nicotine dependence, unspecified, uncomplicated
CPT/HCPCS: 64635; 64636 ×2; J2250; J1030; J3301; J3010; 99152

== ENCOUNTER → 2018-10-07 | Outpatient (CLI) | payer OTHER ==
[2018-10-07 10:30] LABS: Basophils # (A) 0.1 k/uL (0-0.2); Basophils % (A) 1 %; Eosinophils # (A) 0.3 k/uL (0-0.7); Eosinophils % (A) 4 %; HCT 46.4 % (39.0-53.0); HGB 15.8 gm/dL (13.0-17.5); Lymphocytes # (A) 2.1 k/uL (1.0-4.8); Lymphocytes % (A) 30 %; MCH 34.2 pg (25.0-35.0); MCHC 34.1 g/dL (31.0-37.0); MCV 100.3 fL (80.0-100.0); Mean Platelet Volume 7.9; Monocytes # (A) 0.6 k/uL (0-1.0); Monocytes % (A) 9 %; Neutrophils # (A) 3.6 k/uL (1.3-7.7); Neutrophils % (A) 52 %; Platelet Count 126 k/uL (150-450); RBC 4.62 m/uL (4.30-5.90); RDW 13.6 % (11.5-15.5)
[2018-10-07 19:47] LABS: Albumin 4.1 g/dL (3.80-4.90); Albumin/Globulin Ratio 2.16 (1.20-2.10); Anion Gap 10.3 mmol/L (4.00-12.00); Carbon Dioxide 24.7 mmol/L (21.6-31.8); Globulin 1.9 g/dL (1.6-3.3); LDL Cholesterol,Calculated 88.6 mg/dL (0.0-131.0); Total Bilirubin 0.4 mg/dL (0.2-1.2); VLDL Calculation 14.4 mg/dL (5.00-40.00)
== END | disposition home or self-care (01) ==
LOC: LABWHC1 08:19
PROVIDERS: ATTEND Family Medicine
DX: Z00.01 Encounter for general adult medical examination with abnormal findings (principal)
CPT/HCPCS: 36415; 80053; 80061; 82306; 84153; 85025

== ENCOUNTER 2018-10-22 07:03 | Day surgery (SDC) | payer OTHER ==
[2018-10-21 12:42] VITALS: BMI 25.0
[2018-10-22 07:21] VITALS: RESP 16; TEMP 97.7
[2018-10-22] MEDS ORDERED: LACTATED RINGERS 1,000 ML IV ONE (07:30)
[2018-10-22] MEDS ORDERED: LIDOCAINE 1% 20 ML VIAL (10MG/ML) FOR IV START INTRADERMA ONE (07:31)
--- NOTE | 2018-10-22 08:34 | P.PCN ---
Date of Procedure: 10/22/18 Procedure(s) Performed: PREOPERATIVE DIAGNOSIS: 1-Lumbar Spondylosis with Facet Arthropathy without myelopathy. POSTOPERATIVE DIAGNOSIS: 1- Lumbar Spondylosis with Facet Arthropathy without myelopathy. . PROCEDURES : Right Radiofrequency thermocoagulation, L3-L4, L4-L5, and L5-S1 medial branch, with fluoroscopic guidance. ANESTHESIA: Moderate sedation with intravenous versed 2 mg and fentaneyl 200 mcg, and local infiltration with Ropivacaine 0.5 % . EBL: Minimal PROCEDURE INDICATION: The patient with low back pain secondary to lumbar facet arthropathy who had more than 50% relief of her pain with previous diagnostic lumbar medial branch block with bupivacaine. PROCEDURE DESCRIPTION / TECHNIQUE: The patient was seen and identified in the preoperative area. Risks, benefits, complications, including but not limited to risk of infection ,bleeding , allergic reactions to the medications and no complete pain releife , and alternatives were discussed with the patient, the patient agreed to proceed with the procedure and signed the consent. IV was started. Vital signs remained stable throughout the procedure. Patient was taken to the OR and time out was completed. The patient was placed in the prone position on the procedure table. The lumber area was prepped and draped in the usual sterile fashion. . Vital signs were closely monitored during the procedure .IV sedation was used during the procedure to decrease patients anxiety. Using AP and then oblique fluoroscopy, the ``eye of the Celio dog corresponding to the connection between the superior and transverse articular processes of right L3, L4, and L5 were identified, marked, and localized with 1% lidocaine. Subsequently, a 18 [id number] radiofrequency cannula with a 10- mm active tip was advanced guided by fluoroscopy to each of the``eyes of the Celio dog at right L3, L4, and L5. Each site then underwent sensory testing at 50 Hz and 0 to 1 volt and motor testing at 2.5 Hz and 0 to 3 volt with local stimulation, but no radicular symptoms down the legs. Thereafter the right L3-4, L4-5, and L5-S1 sites underwent radiofrequency thermocoagulation at 80 degrees celsius for 90 seconds after injecting 0.5 ml of PF Ropivacaine 1ml, then after the thermocoagulation done , 1 ml of the block solution containing Depo-Medrol 40 mg and 3 ml of Ropivacaine 0.5% was injected at the right L3-4 , L4-5 , and L5-S1, levels after negative aspiration of CSF and blood and with no paresthesias. Cannulas were retracted while injecting lidocaine 1% until the needle is out. At the end of the procedure, the skin was cleansed and bandages were applied. COMPLICATIONS: No acute complications. DISPOSITION / PLANS: The patient was placed in a supine position and transferred to the recovery area in a stable condition for observation and was discharged from the recovery room after meeting discharge criteria. Home discharge instructions given to the patient by the staff. The patient was reexamined prior to discharge. The patient will schedule a follow up in the clinic in 2-4 weeks.
[2018-10-22] MEDS ORDERED: IV FLUID CONTINUATION 1,000 ML IV ONE (08:39)
[2018-10-22] MEDS ORDERED: SODIUM CHLORIDE 0.9% 500 ML 500 ML IV SCH (08:45)
--- NOTE | 2018-10-22 08:53 | FL ---
EXAMINATION TYPE: FL guided pain mgmt statistic DATE OF EXAM: 10/22/2018 CLINICAL HISTORY: Low back pain. TECHNIQUE: Fluoroscopy. COMPARISON: None. FINDINGS: Fluoroscopic guidance was provided during pain relief procedure performed by Dr. Michel . A total of 6 seconds of fluoroscopic time was utilized during the procedure and 3 spot images are acquired. Images acquired shows needle localization at multiple levels within the lumbar spine. IMPRESSION: As Above.
[2018-10-22 08:59] VITALS: BP 120/81; PULSE 61
== END 2018-10-22 09:15 | disposition home or self-care (01) ==
LOC: ORPAIN 07:03
PROVIDERS: ATTEND Specialist
DX: M47.816 Spondylosis without myelopathy or radiculopathy, lumbar region (principal)
CPT/HCPCS: 64635; 64636 ×2; J2250; J1030; J3010; 99152

== ENCOUNTER → 2018-11-16 | Outpatient (CLI) | payer OTHER ==
[2018-11-16 11:26] VITALS: BP 126/87; PULSE 67; RESP 16; TEMP 97.9
--- NOTE | 2018-11-16 11:39 | P.PN ---
Subjective Progress Note Date: 11/16/18 Clinton presents today for follow-up visit. He is status post radiofrequency ablation of the lumbar spine on both sides. He reports the radiofrequency ablation significantly improved his pain. It allows him to stand up longer and walk a little bit further without having severe pain. He reports he was a little bit sore from the procedure but overall he feels the pain is significantly better. He is using less pain medications. He denies any new radicular symptoms down his legs. He continues to use [place] every other day or so and denies any side effects from the current medication regimen. He reports the medication into functional little bit better on days when his work strenuous. On today's visit is also complaining of cervical pain which she feels is worse throughout the end of the day after work. He feels that in the mornings pain is also babbles a day gets worse his pain is significantly worse on both sides of his neck. He feels that he has pain in his neck which radiates in bilateral shoulder blades in both shoulders. He denies any radicular symptoms going down his arms into his hands. Objective - Exam General: Awake and alert oriented 3 no distress Respiratory exam: No audible wheezing no accessory muscle usage Cardiovascular exam: regular rate, palpable bilateral pulses, no lower extremity edema Abdominal exam: No distention nontender to palpation Cervical spine: Normal alignment, Spurling's negative, facet loading positive bilateral. Lumbar spine: Loss of lumbar lordosis, normal alignment, tender to palpation over bilateral paraspinal muscles, facet loading is negative bilaterally. Straight leg raise is negative. Sacroiliac joints: Nontender to palpation, WILLA is negative, [place] negative Neuro exam: Normal sensation in bilateral upper extremities, deep tendon reflexes are 2+ bilateral upper extremities. Normal sensation in bilateral lower extremities. Deep tendon reflexes are 2+ in lower extremities Psych exam: Cooperative, appropriate mood Assessment and Plan Assessment: Lumbar spondylosis without myelopathy Plan: Plan is to continue with the current medication regimen. We'll continue to monitor his overall function and reevaluate for any further interventional procedures as needed. At this point we will schedule him for a follow-up appointment 2 months time. I will give him a prescription for [place] 7.5 mg #15 tablets with one refill. Soap scores on file. Opioid start talking form is on chart. Maps was checked in urine drug screens have been appropriate We'll schedule him for a cervical medial branch block at the levels of C3 3 through C6 on both sides. I discussed with him potential radiofrequency ablation if the test injections will well.
== END ==
LOC: PNWHC3 11:12
PROVIDERS: ATTEND Hospitalist
DX: M47.816 Spondylosis without myelopathy or radiculopathy, lumbar region (principal); Z79.891 Long term (current) use of opiate analgesic
CPT/HCPCS: 99211

== ENCOUNTER 2018-11-18 08:06 | Day surgery (SDC) | payer OTHER ==
[2018-11-18 08:27] VITALS: RESP 16; TEMP 97.4
[2018-11-18] MEDS ORDERED: LACTATED RINGERS 1,000 ML IV ONE (08:29)
[2018-11-18] MEDS ORDERED: IV FLUID CONTINUATION 1,000 ML IV ONE ×2 (09:20)
[2018-11-18 09:37] VITALS: BP 121/75; PULSE 61
--- NOTE | 2018-11-18 09:50 | P.PCN ---
Date of Procedure: 11/18/18 Surgeon: Bob Patel Description of Procedure: PREOPERATIVE DIAGNOSIS: Cervical Spondylosis with Facet Arthropathy.without myelopathy POSTOPERATIVE DIAGNOSIS: Cervical Spondylosis Facet Arthropathy. Without myelopathy PROCEDURES: Diagnostic , bilateral C3, C4, C5 medial branch blocks, with fluoroscopic guidance ANESTHESIA: Local with 1% lidocaine; IV sedation with Versed. EBL: Minimal PROCEDURE INDICATION: The patient with neck pain secondary to cervical arthropathy unresponsive to more conservative treatments.. Since today for bilateral cervical medial branch nerve blocks. PROCEDURE DESCRIPTION / TECHNIQUE: The patient was seen and identified in the preoperative area. Risks, benefits, complications, and alternatives were discussed with the patient, the patient agreed to proceed with the procedure and signed the consent. IV was started. Vital signs remained stable throughout the procedure. Patient was taken to the OR and time out was completed. The patient was placed in the prone position on the procedure table. A pillow was placed under the patients chest to increase the cervical interlaminar space. The cervical area was prepped and draped in the usual sterile fashion. Critical pause was taken. Vital signs were closely monitored during the procedure. Conscious sedation was used during the procedure to decrease patients anxiety. Using cross-table lateral fluoroscopy, the centroid of the trapezoid of the right side of the first level was identified, marked . Subsequently, a 25 G spinal needle was advanced guided by fluoroscopy to the centroid of the trapezoid . Rutledge tip position was confirmed at the centroid of the trapezoids anteroposterior fluoroscopy. Subsequently, 1 mL of 0.25% bupivacaine with 10 mg of Depo-Medrol was injected at each level. A total of 80 mg of Depo- Medrol and 6 mL of 0.25% ropivacaine was utilized COMPLICATIONS: No acute complications. COMMENTS: DISPOSITION / PLANS: The patient was placed in a supine position and transferred to the recovery area in a stable condition for observation and was discharged from the recovery room after meeting discharge criteria. Home discharge instructions given to the patient by the staff. The patient was reexamined prior to discharge. He will follow-up for repeat of this procedure in the near future
--- NOTE | 2018-11-18 10:17 | FL ---
EXAMINATION TYPE: FL guided pain mgmt statistic DATE OF EXAM: 11/18/2018 CLINICAL HISTORY: Neck pain. TECHNIQUE: Fluoroscopy. COMPARISON: None. FINDINGS: Fluoroscopic guidance was provided during pain relief procedure performed by Dr. Patel . A total of 8 seconds of fluoroscopic time was utilized during the procedure and 4 spot images are ac quired. Images acquired shows needle localization in multiple levels of the cervical spine. IMPRESSION: As Above.
== END 2018-11-18 09:50 | disposition home or self-care (01) ==
LOC: ORPAIN 08:06
PROVIDERS: ATTEND Pain Medicine Pain Medicine
DX: M47.22 Other spondylosis with radiculopathy, cervical region (principal); Z79.891 Long term (current) use of opiate analgesic
CPT/HCPCS: 64490; 64491; J2250; J1030; J3010; 64492; 99152

== ENCOUNTER → 2018-12-01 | Outpatient (CLI) | payer OTHER ==
[2018-12-01 13:54] VITALS: BP 136/82; PULSE 68; RESP 16
--- NOTE | 2018-12-01 15:34 | P.PN ---
Subjective Progress Note Date: 12/01/18 Clinton presents today for follow-up visit. He is status post radiofrequency ablation of the lumbar spine on both sides. He reports the radiofrequency ablation significantly improved his pain. It allows him to stand up longer and walk a little bit further without having severe pain. He reports he was a little bit sore from the procedure but overall he feels the pain is significantly better. He is using less pain medications. He denies any new radicular symptoms down his legs. He continues to use [place] every other day or so and denies any side effects from the current medication regimen. A few weeks ago we have done diagnostic medial branch block cervical area to treat his neck pain, patient reported that he had excellent pain relief after the diagnostic medial branch blocks C3, C4, C5 Pain level was 6-7/10 before the diagnostic block, and the pain dropped to 0/10 after the block , the relief lasted for a couple of days, and constipation complaining of severe neck pain, he had no radicular symptoms, he denies any motor or sensory deficit in the upper or lower extremities Physical Examinations : -Constitutiona : Cooperative , not in acute distress . -HEENT : nech ; supple , no Lymphadenopathy , normal thyroid size . eyes : no ptosis , no icterus, no photophobia . - musculoskeltal : Cervical Spine motor stregnth in the deltoid and biceps, normal right side , normal Left side motor stregnth biceps and the wrist extensors normal right side ,normal left side . motor stregnth in the triceps muscle . normal Right side , normal Left side deep tendon reflexes normal at the biceps , normal at Brachioradialis , normal at triceps. positive cervical facet loading test . Spurling test positive bilaterally. Neck distraction test positive bilaterally. Hal sign positive bilaterally. Lumber spine moter stegnth lower extremities ,thigh and legs 5/5 Right side , 5/5 Left side Assessment and Plan= Cervical spondylosis status post diagnostic medial branch block cervical area C3 to C5, laterally and patient had positive result, he will be scheduled to have the second diagnostic medial branch block cervical area Lumbar spondylosis without myelopathy= pain improved after the radiofrequency ablation of the medial branch Patient given prescription refill for [place] 7.5/325 q day ,dispensed 30 with one refill Motrin 600 mg twice a day - PQRS measures = - Patient's medications are documented in the chart. -Tobacco use is positive, and counseling.Given. -Patient's has not received pneumococcal vaccine. -Advanced care planning discussed, patient not eligible. -Opiate contract signed. -Pain positive and follow-up visit/procedure is scheduled. -Patient's blood pressure measured [ 136/82 ] , and documented in the record ,and patient will follow up with the primary care. -Patient's weight was measured and body mass index [ 25] within the normal limits and counseling was done. and patient instructed to follow-up with the primary care physician. -Patient was not identified as an unhealthy alcohol user Objective - Vital Signs Vital signs: Vital Signs Temp Pulse 68 12/01/18 13:44 Resp 16 12/01/18 13:44 BP 136/82 12/01/18 13:44 Pulse Ox 97 12/01/18 13:44 Intake & Output 11/30/18 12/01/18 12/01/18 18:59 06:59 18:59 Weight 74.843 kg
== END ==
LOC: PNWHC3 13:11
PROVIDERS: ATTEND Specialist
DX: M47.812 Spondylosis without myelopathy or radiculopathy, cervical region (principal); M47.816 Spondylosis without myelopathy or radiculopathy, lumbar region; Z79.891 Long term (current) use of opiate analgesic; Z79.1 Long term (current) use of non-steroidal anti-inflammatories (NSAID)
CPT/HCPCS: 99211

== ENCOUNTER → 2018-12-03 | Outpatient (CLI) | payer OTHER ==
[2018-12-03 10:53] LABS: Basophils # (A) 0.1 k/uL (0-0.2); Basophils % (A) 1 %; Eosinophils # (A) 0.3 k/uL (0-0.7); Eosinophils % (A) 3 %; HCT 46.5 % (39.0-53.0); HGB 15.3 gm/dL (13.0-17.5); Lymphocytes # (A) 2.3 k/uL (1.0-4.8); Lymphocytes % (A) 25 %; MCH 33.3 pg (25.0-35.0); MCHC 32.9 g/dL (31.0-37.0); MCV 101.1 fL (80.0-100.0); Macrocytosis Slight; Mean Platelet Volume 7.8; Monocytes # (A) 0.7 k/uL (0-1.0); Monocytes % (A) 8 %; Neutrophils # (A) 5.7 k/uL (1.3-7.7); Neutrophils % (A) 61 %; Platelet Count 117 k/uL (150-450); RDW 13.7 % (11.5-15.5); WBC 9.3 k/uL (3.8-10.6)
== END | disposition home or self-care (01) ==
LOC: LABWHC1 10:20
PROVIDERS: ATTEND Family Medicine
DX: E78.5 Hyperlipidemia, unspecified (principal)
CPT/HCPCS: 36415; 85025

== ENCOUNTER → 2018-12-17 | Outpatient (CLI) | payer OTHER ==
[2018-12-17 11:25] VITALS: BP 117/77; PULSE 94; RESP 16
--- NOTE | 2018-12-17 14:14 | P.PAINPG ---
Subjective Progress Note Date: 12/17/18 Principal diagnosis: Low back pain, lumbar spondylosis, lumbar spinal stenosis This a very pleasant 58 old gentleman who is undergone previous radio frequency ablations to treat his low back pain. He also has L4 5 severe neuroforaminal stenosis as seen in MRI from 2017. He is undergone radio frequencies was still complains of pain in his left-sided low back. He is interested in undergoing injection therapy to help with his low back pain. He also continues take [place]. He reports that this significantly helps his low back pain and allows him to continue functioning and continue working. He denies bowel or bladder dysfunction. Objective - Vital Signs Vital signs: Vital Signs Temp Pulse 94 12/17/18 11:17 Resp 16 12/17/18 11:17 BP 117/77 12/17/18 11:17 Pulse Ox 94 L 12/17/18 11:17 Intake & Output 12/16/18 12/17/18 12/17/18 18:59 06:59 18:59 Weight 74.843 kg - Exam General: The patient is alert and oriented. Patient is not sedated Patient answers all question appropriately. Cardiac: Heart is regular in rate and rhythm Respiratory: Clear to auscultation. No audible wheezes. Abdomen: Soft nontender nondistended. Musculoskeletal: Strength is normal bilaterally. Sensation is normal bilaterally. Straight leg raise is negative bilaterally. Neurological: Reflexes are preserved and symmetric bilaterally. Assessment and Plan (1) Lumbar spinal stenosis Narrative/Plan: We will schedule the patient for a lumbar epidural steroid injection to be per formed at the L4 5 interspace. We will also consider repeating his left lumbar radio frequency ablation in February when it has been 6 months after his initial procedure. I will refill his [place] today. I reviewed his maps and urine drug screen and they revealed expected results. I've counseled him on the risks and benefits of opiate therapy. Current Visit: No Status: Chronic Code(s): M48.06 - SPINAL STENOSIS, LUMBAR REGION * DO NOT USE * SNOMED Code(s): 68127171 (2) Lumbosacral spondylosis without myelopathy Current Visit: No Status: Chronic Code(s): M47.817 - SPONDYLS W/O MYELOPATHY OR RADICULOPATHY, LUMBOSACR REGION SNOMED Code(s): 01890523 (3) Sacroiliitis Current Visit: No Status: Chronic Code(s): M46.1 - SACROILIITIS, NOT ELSEWHERE CLASSIFIED SNOMED Code(s): 43872899 PQRS Measure Charge Sheet Measure #130: Documentation of Current Meds in Medical Chart: Patient's medications documented in chart Measure #226: Tobacco Use: Screen & Cessation Intervention: Pt screened for tobacco use AND intervention given Measure #111: Pneumonia Vaccination: Pneumococcal vaccine NOT administered or previously given Measure #47: Advance Care Plan: Advance care planning discussed & documented, pt chose/unable to give Measure #412: Opioid Treatment Agreement: Documented signed opioid trtmnt agreemnt min once during opioid trtmnt Measure #408: Opioid Therapy Follow-up Evaluation: Patient had f/u eval minimum every 3 months during opioid therapy Measure #317: Preventitive Care & Scrn High Bld Press & F/U: Normal blood pressure, f/u not required Measure #128: Body Mass Index (BMI) Screening & Follow-up: BMI documented within normal parameters Measure #131: Pain Assessment & Follow-up: Pain positive & plan documented Measure #431: Unhealthy Alcohol Use Preventative Care & Scrn: Patient not identified as an unhealthy alcohol user PQRS Narrative: Smoking Status Current every day smoker Do You Want the Pneumonia No Vaccine AT THIS TIME? Blood Pressure 117/77 Pain Intensity [Left Lower 7 Back] Scale Used Numeric (1 - 10) Hx Alcohol Use (MH) No Home Medications: Ambulatory Orders Multivitamin [Men's Multi-Vitamin] 1 tab PO DAILY 01/28/14 Albuterol Sulfate [Ventolin HFA] 2 puff INHALATION RT-Q4H PRN 03/11/17 Cetirizine HCl 10 mg PO DAILY 03/11/17 Montelukast [Singulair] 10 mg PO DAILY 03/28/17 Atorvastatin Calcium [Lipitor] 10 mg PO HS 02/06/18 HYDROcodone/APAP 7.5-325MG [[place] 7.5-325] 1 tab PO Q4-6H PRN 12/02/18 Ibuprofen [Motrin] 600 mg PO BID 12/02/18 Controlled Substance Measures - Controlled Substance Measures Is patient prescribed a controlled substance at discharge?: Yes When asked, does pt state using other controlled substances?: No If prescribed controlled substance>3 days was MAPS reviewed?: Yes
== END ==
LOC: PNWHC3 11:12
PROVIDERS: ATTEND Pain Medicine Pain Medicine
DX: M48.061 Spinal stenosis, lumbar region without neurogenic claudication (principal); M47.817 Spondylosis without myelopathy or radiculopathy, lumbosacral region; F17.200 Nicotine dependence, unspecified, uncomplicated; M46.1 Sacroiliitis, not elsewhere classified; Z79.891 Long term (current) use of opiate analgesic; Z79.899 Other long term (current) drug therapy; Z79.1 Long term (current) use of non-steroidal anti-inflammatories (NSAID)
CPT/HCPCS: 99211

== ENCOUNTER 2018-12-31 06:27 | Day surgery (SDC) | payer OTHER ==
[2018-12-25 12:36] VITALS: BMI 25.8
[2018-12-31 06:55] VITALS: RESP 16; TEMP 97.6
[2018-12-31] MEDS ORDERED: LACTATED RINGERS 1,000 ML IV ONE (07:03)
[2018-12-31] MEDS ORDERED: LIDOCAINE 1% 20 ML VIAL (10MG/ML) FOR IV START SQ ONE (07:04)
--- NOTE | 2018-12-31 07:09 | P.PCN ---
Date of Procedure: 12/31/18 Description of Procedure: PREOPERATIVE DIAGNOSIS: 1-lumbar radiculopathy POSTOPERATIVE DIAGNOSIS: Lumbar radiculopathy PROCEDURE 1. Lumbar epidural steroid injection under fluoroscopic guidance at the L 4/5 level. 2. Lumbar epidurogram. ANESTHESIA: Local with 1% lidocaine 5 ml EBL: Minimal PROCEDURE INDICATION: The patient with low back pain and radiculitis symptoms unresponsive to conservative treatment. Fluoroscopy was used to optimize visualization of the needle placement and to maximize safety. PROCEDURE DESCRIPTION / TECHNIQUE: The patient was seen and identified in the preoperative area. Risks, benefits, complications including but not limited to infections ,bleeding ,allergic reaction to the medications ,nerve damage and incomplete pain relief , as well as alternatives to the procedure were discussed with the patient. The patient agreed to proceed with the procedure and signed the consent. IV was started, and vital signs were stable. Patient was taken to the OR and time out was completed. The patient was placed in the prone position on procedure table and a pillow was placed under the abdomen to reduce lumbar lordosis. The lumbosacral area was prepped and draped in the usual sterile fashion. Vitals were closely monitored during the procedure. Using anterior-posterior fluoroscopy, the L L 4/5 interlaminar space was identified and the skin over this site was marked and then infiltrated with 1% lidocaine subcutaneously. Subsequently, a 20-gauge Tuohy epidural needle was inserted and advanced toward the epidural space using the ``Loss of resistance technique and guided by AP and lateral fluoroscopy. The correct needle position in the epidural space was verified with the injection of 1 mL of the water soluble contrast dye Omnipaque 180 contrast and observing an excellent epidurogram with the epidural spread of the dye, after negative aspiration for blood and CSF and in the absence of paresthesias. Again after negative aspiration, a 3 ml mixture containing 40mg of kenalog and 2 ml of preservative free Normal Saline was injected and a washout of epidurogram was seen. Needle was withdrawn intact, skin was cleansed, and bandages were applied. COMPLICATIONS: None DISPOSITION / PLANS: The patient was placed in a supine position and transferred to the recovery area in a stable condition for observation. There was no evidence of lower extremity motor or sensory deficit after the procedure. Patient was discharged from the recovery room after meeting discharge criteria. Home discharge instructions were given to the patient by the staff. The patient was reexamined prior to discharge. The patient will schedule a follow up in the clinic in 4 weeks.
[2018-12-31] MEDS ORDERED: IV FLUID CONTINUATION 1,000 ML IV ONE (07:33)
[2018-12-31 07:50] VITALS: BP 143/84; PULSE 63
--- NOTE | 2018-12-31 08:31 | FL ---
EXAMINATION TYPE: FL guided pain mgmt statistic DATE OF EXAM: 12/31/2018 FLUOROSCOPY Fluoroscopy time of 3 seconds was used during lumbar epidural injection. 1 image/s document/s the pr lucio.
== END 2018-12-31 08:01 | disposition home or self-care (01) ==
LOC: ORPAIN 06:27
PROVIDERS: ATTEND Hospitalist
DX: M47.26 Other spondylosis with radiculopathy, lumbar region (principal); M48.061 Spinal stenosis, lumbar region without neurogenic claudication; M46.1 Sacroiliitis, not elsewhere classified; F17.200 Nicotine dependence, unspecified, uncomplicated; Z79.1 Long term (current) use of non-steroidal anti-inflammatories (NSAID); Z79.899 Other long term (current) drug therapy
CPT/HCPCS: 62323; J3301; Q9966

== ENCOUNTER → 2019-01-28 | Outpatient (CLI) | payer OTHER ==
[2019-01-28 11:31] VITALS: BP 136/82; PULSE 77; RESP 18
--- NOTE | 2019-01-28 11:47 | P.PN ---
Subjective Progress Note Date: 01/28/19 This is a 58-year-old gentleman with history of chronic lower back pain with radiation to the thighs bilaterally more on the left side than the right side.. The patient has good relief of pain after his last lumbar epidural steroid injection. He also had lumbar medial branch RFA previously. His neck pain has resolved after a steroid injection on his left shoulder. He does have moderate lumbar stenosis at the L4 5 level. He uses Ulen 1-2 pills a day if needed for his pain now we will usually give him prescription for 30 pills per month. 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 He also uses tobacco. Today, pt denies new-onset weakness, bowel/bladder incontinence, or any other signs or symptoms of cauda equina syndrome. There are no signs of acute intoxication, and no indications of medication diversion or overuse. In addition to above, 13-point review of systems is also negative for chest pain, shortness of breath, changes in vision, changes in hearing, new onset weakness, abdominal pain, diarrhea, extreme fatigue, malaise, fever, skin ch anges, homicidal or suicidal ideation, or bowel or bladder incontinence. Vital Signs: Reviewed in EMR Gen: AAOx3, NAD HEENT: PERRLA,hearing grossly normal Pulm: resp unlabored,CTA Heart:S1,S2, No Mur Neck: supple, trachea midline Neuro exam of the lower extremities: Within normal limits Tenderness in the paravertebral musculature: Positive tenderness in the lumbar paravertebral musculature Neuro: CN II-XII grossly intact, Imaging: Reviewed in EMR/chart Assessment: Moderate lumbar stenosis at the L4 5 level Lumbar DDD Lumbar spondylosis without myelopathy Tobacco use Plan: 1. Explanation: Opioid and psychological risk scores were reviewed. Diagnoses, prognoses, and multiple treatment options including but not limited to physical therapy, interventional therapies, adjuvant medical therapies, narcotic medication therapies, and surgery were discussed with the patient and all questions were answered to the patient's satisfaction. 2. Opioid agreement: Signed with the patient and the patient is warned not to use opioids while driving or before driving and not to combine opioids with benzodiazepines or alcohol. 3. Counseling: The patient was counseled extensively on SMOKING CESSATION, BODY MASS INDEX, EXERCISE. Specifically, the patient was instructed regarding the importance of smoking cessation, obesity, and exercise in the context of both chronic pain and overall health. 4. Procedures: Scheduled for lumbar epidural steroid injection at the L4 5 level under fluoroscopic guidance in the left paramedian approach. 5. Consultations: None 6. Investigations: None 7. Medications: Continue Ulen 7.5 mg once a day 8. Maps were reviewed and were appropriate. PQRS measures: 1-Patient's medications are documented in the chart. 2-Tobacco use is positive, counseling given 3-Patient has not had a pneumococcal vaccine. 4-Advanced care planning discussed, patient unable to give 5-Opioid contract signed with the patient. 6-Pain positive, follow-up visit or procedure scheduled 7-Patient's blood pressure measured and documented within normal limits. The patient will follow up with his primary care physician. 8-Patient's weight was measured, and body mass index within the normal limits, and counseling was done. Patient instructed to follow up with PCP. 9-Patient WAS NOT identified as an unhealthy alcohol user. Controlled Substance Measures Is patient prescribed a controlled substance at discharge?: Yes When asked, does pt state using other controlled substances?: No If prescribed controlled substance>3 days was MAPS reviewed?: Yes If Rx opioid, was Start Talking consent form obtained?: Yes If opioid is for acute pain is fill amount 7 days or less?: No Was information provided regarding opioid addiction?: Yes Objective - Vital Signs Vital signs: Vital Signs Temp Pulse 77 01/28/19 11:25 Resp 18 01/28/19 11:25 BP 136/82 01/28/19 11:25 Pulse Ox 96 01/28/19 11:25 Intake & Output 01/27/19 01/28/19 01/28/19 18:59 06:59 18:59 Weight 74.843 kg
== END ==
LOC: PNWHC3 11:12
PROVIDERS: ATTEND Anesthesiology
DX: M48.061 Spinal stenosis, lumbar region without neurogenic claudication (principal); M51.36 Other intervertebral disc degeneration, lumbar region; M47.816 Spondylosis without myelopathy or radiculopathy, lumbar region; Z72.0 Tobacco use; Z79.891 Long term (current) use of opiate analgesic
CPT/HCPCS: 99211

== ENCOUNTER 2019-02-17 06:06 | Day surgery (SDC) | payer OTHER ==
[2019-02-15 15:50] VITALS: BMI 25.8
[2019-02-17] MEDS ORDERED: LACTATED RINGERS 1,000 ML IV SCH (06:15)
[2019-02-17 06:20] VITALS: TEMP 97.8
[2019-02-17] MEDS ORDERED: LACTATED RINGERS 1,000 ML IV ONE (06:21)
[2019-02-17] MEDS ORDERED: LIDOCAINE 1% 20 ML VIAL (10MG/ML) FOR IV START INTRADERMA ONE (06:27)
--- NOTE | 2019-02-17 07:20 | P.PCN ---
Date of Procedure: 02/17/19 Procedure(s) Performed: PREOPERATIVE DIAGNOSIS: 1- Lumbar Degenerative Disc Diseases 2-Lumbar spondylosis with Facet arthropathy without myelopathy POSTOPERATIVE DIAGNOSIS: 1-Lumber Degenerative Disc Diseases 2-Lumbar spondylosis with Facet arthropathy without myelopathy PROCEDURE 1. Lumbar epidural steroid injection under fluoroscopic guidance at the L5-S1 level. 2. Lumbar epidurogram. ANESTHESIA: Local with 1% lidocaine 3 ml and , moderate sedation with intravenous Versed 2 mg ,and fentanyle 100 Mcg EBL: Minimal PROCEDURE INDICATION: The patient with low back pain and radiculitis symptoms unresponsive to conservative treatment. Fluoroscopy was used to optimize visualization of the needle placement and to maximize safety. PROCEDURE DESCRIPTION / TECHNIQUE: The patient was seen and identified in the preoperative area. Risks, benefits, complications including but not limited to infections ,bleeding ,allergic reaction to the medications ,nerve damage and not complete pain releife , and alternatives were discussed with the patient. The patient agreed to proceed with the procedure and signed the consent. IV was started, and vital signs were stable. Patient was taken to the OR and time out was completed. The patient was placed in the prone position on procedure table and a pillow was placed under the abdomen to reduce lumbar lordosis. The lumbosacral area was prepped and draped in the usual sterile fashion.ere closely monitored during the procedure. Conscious sedation was used during the procedure to decrease patients anxiety. Vital signs was monitered during the entire procedure. Using anterior-posterior fluoroscopy, the L5-S1 interlaminar space was identified and the skin over this site was marked and then infiltrated with 1% lidocaine subcutaneously. Subsequently, a 20-gauge Tuohy epidural needle was inserted and advanced toward the epidural space using the ``Loss of resistance technique and guided by AP and lateral fluoroscopy. The correct needle position in the epidural space was verified with the injection of 2 mL of the water soluble contrast dye Isovue 200 contrast and observing an excellent epidurogram with the epidural spread of the dye, after negative aspiration for blood and CSF and in the absence of paresthesias. Again after negative aspiration, a 6 ml mixture containing 80 mg of Depo-medrol , and 2 ml of preservative free Normal Saline, and 2 ml of preservative free lidocaine 1% solution was injected and a washout of epidurogram was seen. Needle was withdrawn intact, skin was cleansed, and bandages were applied. COMPLICATIONS: None DISPOSITION / PLANS: The patient was placed in a supine position and transferred to the recovery area in a stable condition for observation. There was no evidence of lower extremity motor or sensory deficit after the procedure. Patient was discharged from the recovery room after meeting discharge criteria. Home discharge instructions were given to the patient by the staff. The patient was reexamined prior to discharge. The patient will schedule a follow up in the clinic in 2-4 weeks.
[2019-02-17] MEDS ORDERED: IV FLUID CONTINUATION 1,000 ML IV ONE ×2 (07:26)
[2019-02-17 07:31] VITALS: RESP 16
[2019-02-17 07:43] VITALS: BP 135/93; PULSE 62
--- NOTE | 2019-02-17 08:55 | FL ---
EXAMINATION TYPE: FL guided pain mgmt statistic DATE OF EXAM: 02/17/2019 CLINICAL HISTORY: Low back pain. TECHNIQUE: Fluoroscopy. COMPARISON: None. FINDINGS: Fluoroscopic guidance was provided during pain relief procedure performed by Dr. Michel . A total of 6 seconds of fluoroscopic time was utilized during the procedure and 1 spot images are acquired. Images acquired shows needle localization of the lumbosacral spine. IMPRESSION: As Above.
== END 2019-02-17 07:58 | disposition home or self-care (01) ==
LOC: ORPAIN 06:06
PROVIDERS: ATTEND Specialist
DX: M47.26 Other spondylosis with radiculopathy, lumbar region (principal); M51.16 Intervertebral disc disorders with radiculopathy, lumbar region
CPT/HCPCS: 62323; J2250; J1030; J3010; Q9966; 99152

== ENCOUNTER → 2019-03-03 | Outpatient (CLI) | payer OTHER ==
[2019-03-03 13:09] VITALS: BP 137/81; PULSE 78; RESP 18
--- NOTE | 2019-03-03 14:12 | P.PAINPG ---
Subjective Progress Note Date: 03/03/19 Clinton is a 58-year-old gentleman presented today for follow-up. He is status post lumbar epidural steroid injections 2 in his lumbar spine. We have done radiofrequency ablation 2 as well. He reports a right-sided low-back significant improved after the radiofrequency ablation but has some residual p ain in the left side of his low back. He reports a left-sided residual pain improved with the epidural steroid injections. He reports his neck and shoulder are doing significantly better. He reports his left rotator cuff tear and had a cortisone injection from a surgeon and that is significantly improved. As for her lumbar spine he continues use [place] as needed once a day sometimes twice a day and uses ibuprofen only as needed. 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 He he tries to stay physically fit and exercises on a regular basis. He denies any side effects and the [place]. Objective - Vital Signs Vital signs: Vital Signs Temp Pulse 78 03/03/19 13:02 Resp 18 03/03/19 13:02 BP 137/81 03/03/19 13:02 Pulse Ox 96 03/03/19 13:02 Intake & Output 03/02/19 03/03/19 03/03/19 18:59 06:59 18:59 Weight 72.575 kg - Exam General: Awake and alert oriented 3 no distress Respiratory exam: No audible wheezing no accessory muscle usage Cardiovascular exam: regular rate, palpable bilateral pulses, no lower extremity edema Abdominal exam: No distention nontender to palpation Cervical spine: Normal alignment, Spurling's negative, facet loading negative, General Internal Medicine Physician strength is 5/5, salmon negative Lumbar spine: Loss of lumbar lordosis, normal alignment, tender to palpation over bilateral paraspinal muscles, facet loading is positive bilaterally. Straight leg raise is negative. Limited range of motion due to pain with flexion, extension and side bending. Sacroiliac joints: Nontender to palpation, WILLA is negative, [place] negative Neuro exam: Normal sensation in bilateral upper extremities, deep tendon reflexes are 2+ bilateral upper extremities. Normal sensation in bilateral lower extremities. Deep tendon reflexes are 2+ in lower extremities Psych exam: Cooperative, appropriate mood Assessment and Plan Assessment: #1 lumbar spondylosis without myelopathy #2 lumbar radiculopathy #3 left rotator cuff tear Plan: Clinton was questioning what the next step should be. I advised him that we've done multiple injections over the past 12 months and like to hold off on doing any further procedures at this time. I advised him that I'll refill his medications for 2 months time on today's visit and we will follow-up with him in 2 months. If his left side of his back is still bothering him we may be able to repeat the radiofrequency ablation without any steroids. We'll make the decision on the next visit PQRS Measure Charge Sheet Measure #130: Documentation of Current Meds in Medical Chart: Patient's medications documented in chart Measure #226: Tobacco Use: Screen & Cessation Intervention: Pt screened for tobacco use AND intervention given Measure #111: Pneumonia Vaccination: Pneumococcal vaccine administered or previously received Measure #47: Advance Care Plan: Advance care planning discussed & documented, plan or surrogate given Measure #412: Opioid Treatment Agreement: Documented signed opioid trtmnt agreemnt min once during opioid trtmnt Measure #408: Opioid Therapy Follow-up Evaluation: Patient had f/u eval minimum every 3 months during opioid therapy Measure #317: Preventitive Care & Scrn High Bld Press & F/U: Normal blood pressure, f/u not required Measure #128: Body Mass Index (BMI) Screening & Follow-up: BMI documented within normal parameters Measure #131: Pain Assessment & Follow-up: Pain positive & plan documented, Follow-up scheduled Measure #431: Unhealthy Alcohol Use Preventative Care & Scrn: Patient not identified as an unhealthy alcohol user PQRS Narrative: Smoking Status Current every day smoker Blood Pressure 137/81 Pain Intensity [Left Lower 4 Back] Hx Alcohol Use (MH) No Home Medications: Ambulatory Orders Multivitamin [Men's Multi-Vitamin] 1 tab PO DAILY 01/28/14 Albuterol Sulfate [Ventolin HFA] 2 puff INHALATION RT-Q4H PRN 03/11/17 Cetirizine HCl 10 mg PO DAILY 03/11/17 Montelukast [Singulair] 10 mg PO DAILY 03/28/17 Atorvastatin Calcium [Lipitor] 10 mg PO HS 02/06/18 HYDROcodone/APAP 7.5-325MG [[place] 7.5-325] 1 tab PO Q4-6H PRN 12/02/18 Ibuprofen [Motrin] 600 mg PO BID 12/02/18 Controlled Substance Measures - Controlled Substance Measures Is patient prescribed a controlled substance at discharge?: Yes When asked, does pt state using other controlled substances?: No If prescribed controlled substance>3 days was MAPS reviewed?: Yes If Rx opioid, was Start Talking consent form obtained?: Yes If opioid is for acute pain is fill amount 7 days or less?: No Was information provided regarding opioid addiction?: Yes
== END ==
LOC: PNWHC3 12:58
PROVIDERS: ATTEND Hospitalist
DX: M47.26 Other spondylosis with radiculopathy, lumbar region (principal); M75.102 Unspecified rotator cuff tear or rupture of left shoulder, not specified as traumatic; F17.200 Nicotine dependence, unspecified, uncomplicated; Z79.899 Other long term (current) drug therapy; Z79.891 Long term (current) use of opiate analgesic; Z79.2 Long term (current) use of antibiotics
CPT/HCPCS: 99211

== ENCOUNTER → 2019-05-05 | Outpatient (CLI) | payer OTHER ==
[2019-05-05 15:09] VITALS: BP 134/72; PULSE 74; RESP 16
--- NOTE | 2019-05-05 16:18 | P.PAINPG ---
Subjective Progress Note Date: 05/05/19 She is a 58-year-old male who returns today for follow-up. In the past he has had bilateral RFA of the lumbar region. He has had essentially complete relief of his pain on the right side but continues to have pain on the left side. He has been prescribed [place] 30 tablets for 30 days prior clinic. He has been occasionally taking 2 tablets per day. 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 He denies any adverse effects of the medication. He states that the pain in his left side is bothersome to him. On further assessment his pain is below the belt line and radiates in the posterior thigh it does not pass the knee. He has not had an SI joint injection per hs report Objective - Vital Signs Vital signs: Vital Signs Temp Pulse 74 05/05/19 15:03 Resp 16 05/05/19 15:03 BP 134/72 05/05/19 15:03 Pulse Ox 95 05/05/19 15:03 Intake & Output 05/04/19 05/05/19 05/05/19 18:59 06:59 18:59 Weight 72.575 kg - Exam Gen: WDWN, AAOx3, NAD HEENT: NCAT, EOMI, hearing grossly normal Pulm: resp unlabored Abd: soft, NT, ND Neck: supple, trachea midline ROM in flexion lumbar spine: Normal ROM in extension lumbar spine: limited by 10 degrees Lumbar paravertebral tenderness: None SI joint tenderness: Positive on the left side Fabers test is positive Neuro: muscle strength lower extremities 5/5 sensation in tact Assessment and Plan Assessment: Assessment and plan: 1. Lumbar spondolysis without radiculopathy 2. DDD 3. Left SI joint dysfunction 1. Interventions we will schedule him for a left SI joint and injection. His pain is below the belt line, he was not responsive to lumbar RFA, he has a positive Christine's test on the left 2. Physical Therapy he continues to be active 3. Medications Chronic and current use of high-risk medication (opioids) can cause serious complications to overall health. Patient denies any side effects of the current pain medication and the current treatment/medication and the patient to do activity of daily living , Diagnoses, prognosis, treatment options, including but not limited to physical therapy, medication management, interventional therapies, and surgery, were discussed with the patient All the questions answered Although he requests a increase in his opiate dose I did not increase his opiates. This is because our like to exhaust all other options. He was started on Mobic 7.5 and was instructed not to take any other NSAIDs while on this medications. Furthermore I'm hopeful that his SI joint injection improved his function 4. Follow up follow up in 8 weeks for medication management. Furthermore he will return for his left SI joint injection. , PQRS Measure Charge Sheet Measure #226: Tobacco Use: Screen & Cessation Intervention: Pt screened for tobacco use AND intervention given Measure #111: Pneumonia Vaccination: Pneumococcal vaccine NOT administered or previously given Measure #47: Advance Care Plan: Advance care planning discussed & documented, pt chose/unable to give Measure #412: Opioid Treatment Agreement: Documented signed opioid trtmnt agreemnt min once during opioid trtmnt Measure #408: Opioid Therapy Follow-up Evaluation: Patient had f/u eval minimum every 3 months during opioid therapy Measure #131: Pain Assessment & Follow-up: Pain positive & plan documented, Follow-up scheduled Measure #431: Unhealthy Alcohol Use Preventative Care & Scrn: Patient not identified as an unhealthy alcohol user PQRS Narrative: Smoking Status Current every day smoker Blood Pressure 134/72 Pain Intensity [Left Lower 6 Back] Scale Used Numeric (1 - 10) Hx Alcohol Use (MH) No Home Medications: Ambulatory Orders Multivitamin [Men's Multi-Vitamin] 1 tab PO DAILY 01/28/14 Albuterol Sulfate [Ventolin HFA] 2 puff INHALATION RT-Q4H PRN 03/11/17 Cetirizine HCl 10 mg PO DAILY 03/11/17 Montelukast [Singulair] 10 mg PO DAILY 03/28/17 Atorvastatin Calcium [Lipitor] 10 mg PO HS 02/06/18 HYDROcodone/APAP 7.5-325MG [[place] 7.5-325] 1 tab PO Q4-6H PRN 12/02/18 Ibuprofen [Motrin] 600 mg PO BID 12/02/18 Controlled Substance Measures - Controlled Substance Measures Is patient prescribed a controlled substance at discharge?: Yes When asked, does pt state using other controlled substances?: No If prescribed controlled substance>3 days was MAPS reviewed?: Yes If Rx opioid, was Start Talking consent form obtained?: No If opioid is for acute pain is fill amount 7 days or less?: No Was information provided regarding opioid addiction?: Yes
== END | disposition home or self-care (01) ==
LOC: PNWHC3 14:20
PROVIDERS: ATTEND Student in an Organized Health Care Education/Training Program
DX: M51.36 Other intervertebral disc degeneration, lumbar region (principal); M47.816 Spondylosis without myelopathy or radiculopathy, lumbar region; M53.3 Sacrococcygeal disorders, not elsewhere classified; F17.200 Nicotine dependence, unspecified, uncomplicated; Z98.890 Other specified postprocedural states; Z79.899 Other long term (current) drug therapy
CPT/HCPCS: 99211

== ENCOUNTER 2019-05-11 06:17 | Day surgery (SDC) | payer OTHER ==
[2019-05-06 11:57] VITALS: BMI 23.5
[~2019-05-11 06:17] MED LIST changes: +LACTATED RINGERS 1,000 ML IV SCH; -SODIUM CHLORIDE 0.9% 500 ML 500 ML IV ONE
[2019-05-11 06:34] VITALS: TEMP 97.7
--- NOTE | 2019-05-11 07:16 | P.PCN ---
Date of Procedure: 05/11/19 Procedure(s) Performed: Procedure= Left sacral iliac joints steroid injection under fluoroscopy guidance (fluoroscopy image stored on file in the radiology Department ) Preoperative diagnosis= 1-left sacroiliac joint dysfunction 2-lumbar degenerative disc disease 3-lumbar radiculopathy Postoperative diagnosis= same as preop diagnosis Complication = none Condition= stable Anesthesia= moderate sedation with intravenous Versed 2 mg , and fentanyl 100 micrograms and local infiltration with lidocaine 1% 2 mL Indication for the procedure= patient complaining of low back pain , examination was positive for severe tenderness over the sacroiliac joints bilaterally and patient diagnosed with sacroiliitis, for this reason he/ she was good candidate for sacroiliac joint steroid injection. Description of the procedure= procedure risk and benefits discussed with the patient, including but not limited, risk of infection and bleeding, and ALLERGIC reaction to the medication and not complete pain relief and patient agreed with the preceding patient taken to the operating room, placed in prone position or standard monitors applied to the patient then after induction of anesthesia back prepped with chlorhexidine 3 times , Then under strict sterile technique, first I did the left sacroiliac joint the which was identified under fluoroscopy guidance been local infiltration of the skin and subcu interstitial with lidocaine 1% then 22-gauge [place]ke Needle advanced slowly under fluoroscopy and placed in the left sacroiliac joint needle placement confirmed with AP and oblique and lateral view and after appropriate needle placement confirmed and after negative aspiration, or heme , then Ropivacaine 0.5% 3 mL, and 40 mg of Depo-Medrol mixed together and injected in the right sacroiliac joint after negative aspiration patient tolerated the procedure well without any complication.
[2019-05-11] MEDS ORDERED: IV FLUID CONTINUATION 1,000 ML IV ONE (07:20)
[2019-05-11 07:22] VITALS: RESP 16
[2019-05-11 07:36] VITALS: BP 137/87; PULSE 69
--- NOTE | 2019-05-11 08:50 | FL ---
Fluoroscopy HISTORY: Pain 3 seconds fluoroscopy time supplied to the referring clinician. 1 intraoperative C-arm images docume nt the procedure. See dictated report from anesthesia.
== END 2019-05-11 07:51 | disposition home or self-care (01) ==
LOC: ORPAIN 06:17
PROVIDERS: ATTEND Specialist
DX: M46.1 Sacroiliitis, not elsewhere classified (principal); M51.16 Intervertebral disc disorders with radiculopathy, lumbar region; M47.26 Other spondylosis with radiculopathy, lumbar region
CPT/HCPCS: G0260; J2250; J1030; J3010; 27096

== ENCOUNTER 2019-05-25 06:20 | Day surgery (SDC) | payer OTHER ==
[2019-05-24 08:16] VITALS: BMI 25.0
[2019-05-25 06:40] VITALS: RESP 16; TEMP 98
[2019-05-25] MEDS ORDERED: IV FLUID CONTINUATION 900 ML IV ONE (07:17)
--- NOTE | 2019-05-25 07:21 | P.PCN ---
Date of Procedure: 05/25/19 Procedure(s) Performed: Procedure= left sacroiliac joints steroid injection under fluoroscopy guidance Preoperative diagnosis= SI joint dysfunction Postoperative diagnosis=same Complication = none Condition= stable Anesthesia= moderate sedation with 2 mg and 100 g versed and fentanyl spell actively respectively and local infiltration with lidocaine 1% 5 mL Indication for the procedure= patient complaining of low back pain , examination was positive for severe tenderness over the left sacroiliac joint nd patient diagnosed with sacroiliitis, for this reason he was good candidate for sacroiliac joint steroid injection. Description of the procedure= procedure risk and benefits discussed with the patient, including but not limited, risk of infection and bleeding, and ALLERGIC reaction to the medication and not complete pain relief and patient agreed with the preceding patient taken to the operating room, placed in prone position or standard monitors applied to the patient then after induction of anesthesia back prepped with chlorhexidine Then under strict sterile technique, first I did the right sacroiliac joint the which was identified under fluoroscopy guidance been local infiltration of the skin and subcu interstitial with lidocaine 1% then 22-gauge 3.5 inchQuincke Needle advanced slowly under fluoroscopy and placed in the right sacroiliac joint needle placement confirmed with AP and oblique and lateral view and after appropriate needle placement confirmed and after negative aspiration, or heme the Ropivicaine 0.5% 1 mL and 40 mg of Kenalog mixed together and injected in the left sacroiliac joint after negative aspiration patient tolerated the procedure well without any complication. The patient tolerated the procedure well. He will have a sacral RFA done if this helped in clinic.
[2019-05-25 07:31] VITALS: BP 135/84; PULSE 66
--- NOTE | 2019-05-25 08:20 | FL ---
EXAMINATION TYPE: FL guided pain mgmt statistic DATE OF EXAM: 05/25/2019 CLINICAL HISTORY: Left sacroiliac joint pain. TECHNIQUE: Fluoroscopy. COMPARISON: None. FINDINGS: Fluoroscopic guidance was provided during pain relief procedure performed by Dr. Kessler. A total of estimated time seconds of fluoroscopic time was utilized during the procedure and 0 spot images are saved to PACS. IMPRESSION: As Above.
== END 2019-05-25 07:46 | disposition home or self-care (01) ==
LOC: ORPAIN 06:20
PROVIDERS: ATTEND Student in an Organized Health Care Education/Training Program
DX: M46.1 Sacroiliitis, not elsewhere classified (principal); M53.3 Sacrococcygeal disorders, not elsewhere classified; M47.816 Spondylosis without myelopathy or radiculopathy, lumbar region; M51.36 Other intervertebral disc degeneration, lumbar region
CPT/HCPCS: J2250; J3301; J3010; Q9966; G0260; 27096

== ENCOUNTER → 2019-06-21 | Outpatient (CLI) | payer OTHER ==
[2019-06-21 16:57] LABS: Basophils % (A) 1 %; Eosinophils # (A) 0.2 k/uL (0-0.7); Eosinophils % (A) 3 %; HCT 46.6 % (39.0-53.0); HGB 15.3 gm/dL (13.0-17.5); Lymphocytes % (A) 24 %; MCH 34.7 pg (25.0-35.0); MCHC 32.8 g/dL (31.0-37.0); MCV 105.5 fL (80.0-100.0); Macrocytosis Moderate; Mean Platelet Volume 7.8; Monocytes # (A) 0.8 k/uL (0-1.0); Monocytes % (A) 9 %; Neutrophils # (A) 5.2 k/uL (1.3-7.7); Neutrophils % (A) 61 %; Platelet Count 123 k/uL (150-450); RBC 4.41 m/uL (4.30-5.90); RDW 13.4 % (11.5-15.5); WBC 8.5 k/uL (3.8-10.6)
[2019-06-22 01:33] LABS: African American GFR (CKD) 114.9 (60.0-200.0); Albumin 4.3 g/dL (3.80-4.90); Albumin/Globulin Ratio 2.26 (1.60-3.17); Anion Gap 12.1 mmol/L (4.00-12.00); BUN/Creat Ratio 18.75 Ratio (12.00-20.00); Calcium 9.3 mg/dL (8.7-10.3); Carbon Dioxide 22.9 mmol/L (21.6-31.8); Globulin 1.9 g/dL (1.6-3.3); Potassium 3.9 mmol/L (3.5-5.5); Total Bilirubin 0.4 mg/dL (0.2-1.2); Total Protein 6.2 g/dL (6.2-8.2)
== END | disposition home or self-care (01) ==
LOC: LABWHC1 15:55
PROVIDERS: ATTEND Family Medicine
DX: N52.9 Male erectile dysfunction, unspecified (principal)
CPT/HCPCS: 36415; 80053; 84146; 84402; 84403; 84443; 85025

== ENCOUNTER → 2019-06-30 | Outpatient (CLI) | payer OTHER ==
[2019-06-30 11:22] VITALS: BP 142/87; PULSE 67; RESP 18; TEMP 97.9
--- NOTE | 2019-07-01 05:47 | P.PAINPG ---
Subjective Progress Note Date: 06/30/19 Clinton presents today for follow-up visit. He is diagnosed with lumbar spondylosis with lumbar facet arthropathy, sacroiliitis, recently we have done left-sided sacroiliac joint steroid injection he reported he had significant improvement of his low back pain after the left sacroiliac joint injection, he is already scheduled to radiofrequency ablation of the left sacroiliac joint, he denies any motor or sensory deficit he denies any fever or night sweats and there is no change in the bowel movement or urination, he continues to use [place] 7.5/325 one to 2 tablets a day when necessary, and Motrin 600 mg every 8 hours he denies any side effect of the medication and heat up with the current medication helping him to control his pain Objective - Vital Signs Vital signs: Vital Signs Temp 97.9 F 06/30/19 11:18 Pulse 67 06/30/19 11:18 Resp 18 06/30/19 11:18 BP 142/87 06/30/19 11:18 Pulse Ox 96 06/30/19 11:18 - Exam Physical Examinations : -Constitutiona : Cooperative , not in acute distress . -HEENT : nech : supple , no Lymphadenopathy , normal thyroid size . eyes : no ptosis , no icterus, no photophobia . - neurologic : Cranial nerve II to XII intact , no focal neurological deffecit . -psychatric : alert , oriented X 3 , appropriate affect , intact judgment and insight . -Lymphatic : no Lymphadenopathy . - musculoskeltal : Lumber spine moter stegnth lower extremities ,thigh and legs 5/5 Right side , 5/5 Left side deep tendon reflexes : normal Knee Jerk , normal ankle Jerk positive lumber facet Loading Test Range of motion of the lumbar spine Flexion 30 degrees, extension 10 degrees strait leg raising test , positive at 60 degree [place] test negative bilaterally Sever tenderness over the Sacroiliac joint on the L side [place] test positive left side. Seated flexion test positive left side. Assessment and Plan Plan: Assessment and plan= chronic low back pain secondary to lumbar degenerative disc disease , lumbar spondylosis with lumbar facet arthropathy, and left sacroiliitis . Description had a good result after the left sacroiliac joint steroid injection and he will be scheduled for radiofrequency ablation of the left sacroiliac joint chronic and current use of high-risk medication (opioids) Patient denies any side effects of the current pain medication and the current treatment/medication helping the patient to do activity of daily living , Diagnoses, prognosis, treatment options, including but not limited to physical therapy, medication management, interventional therapies, and surgery, were discussed with the patient All the questions answered The narcotic consent was signed and patient agreed and understood the side effects and complications of opioid treatment. Patient signed the narcotic agreement, and was orally counseled, not to overuse, not to abuse, not to Divert , not tp sell pain medication, and to take it as prescribed only, Patient was counseled not to drive or operate heavy equipment while using narcotic medication, and advised not to use alcohol or any Illicit drugs while using the narcotis. understanding that lack of compliance with any of the above instructions, will likely to cause discharge from, the pain service, not to renew his narcotic prescriptions MAPS Reviwed and it was apropriate . Medication managements= patient will be given prescription refills for [place] 7.5/325 every 12 hours when necessary dispense 30, Motrin 600 mg every 8 hours dispense 90 And patient will be seen in the pain clinic in 1 month for medication refill and follow-up after the radiofrequency of the left-sided sacroiliac joint , Time with Patient: Less than 30 PQRS Measure Charge Sheet Measure #130: Documentation of Current Meds in Medical Chart: Patient's medications documented in chart Measure #226: Tobacco Use: Screen & Cessation Intervention: Pt screened for tobacco use AND intervention given Measure #111: Pneumonia Vaccination: Pneumococcal vaccine NOT administered or previously given Measure #47: Advance Care Plan: Advance care planning discussed & documented, pt chose/unable to give Measure #412: Opioid Treatment Agreement: Documented signed opioid trtmnt agreemnt min once during opioid trtmnt Measure #408: Opioid Therapy Follow-up Evaluation: Patient had f/u eval minimum every 3 months during opioid therapy Measure #317: Preventitive Care & Scrn High Bld Press & F/U: Pre-hypertensive or hypertensive BP documented, pt will f/u with PCP Measure #128: Body Mass Index (BMI) Screening & Follow-up: BMI documented within normal parameters Measure #131: Pain Assessment & Follow-up: Pain positive & plan documented, Fo llow-up scheduled Measure #431: Unhealthy Alcohol Use Preventative Care & Scrn: Patient not identified as an unhealthy alcohol user PQRS Narrative: Smoking Status Current every day smoker Blood Pressure 142/87 Pain Intensity [Lower Back] 5 Scale Used Numeric (1 - 10) Hx Alcohol Use (MH) No Home Medications: Ambulatory Orders Multivitamin [Men's Multi-Vitamin] 1 tab PO DAILY 01/28/14 Albuterol Sulfate [Ventolin HFA] 2 puff INHALATION RT-Q4H PRN 03/11/17 Cetirizine HCl 10 mg PO DAILY 03/11/17 Montelukast [Singulair] 10 mg PO DAILY 03/28/17 Atorvastatin Calcium [Lipitor] 10 mg PO HS 02/06/18 HYDROcodone/APAP 7.5-325MG [[place] 7.5-325] 1 tab PO Q4-6H PRN 12/02/18 Controlled Substance Measures - Controlled Substance Measures Is patient prescribed a controlled substance at discharge?: Yes When asked, does pt state using other controlled substances?: No If prescribed controlled substance>3 days was MAPS reviewed?: Yes If Rx opioid, was Start Talking consent form obtained?: Yes If opioid is for acute pain is fill amount 7 days or less?: No Was information provided regarding opioid addiction?: Yes
== END ==
LOC: PNWHC3 11:04
PROVIDERS: ATTEND Specialist
DX: G89.29 Other chronic pain (principal); M51.36 Other intervertebral disc degeneration, lumbar region; M47.816 Spondylosis without myelopathy or radiculopathy, lumbar region; M46.96 Unspecified inflammatory spondylopathy, lumbar region; M46.1 Sacroiliitis, not elsewhere classified; F17.200 Nicotine dependence, unspecified, uncomplicated; Z79.891 Long term (current) use of opiate analgesic; Z79.899 Other long term (current) drug therapy
CPT/HCPCS: 99211

== ENCOUNTER 2019-07-06 06:06 | Day surgery (SDC) | payer OTHER ==
[2019-06-24 14:25] VITALS: BMI 23.5
[2019-07-06 06:26] VITALS: RESP 16; TEMP 97
[2019-07-06] MEDS ORDERED: LIDOCAINE 1% 20 ML VIAL (10MG/ML) FOR IV START INTRADERMA ONE (06:26)
--- NOTE | 2019-07-06 07:35 | P.PCN ---
Date of Procedure: 07/06/19 Procedure(s) Performed: RF of the L5 dorsal rami and Lateral Branch of S1, S2, and S3 Date of the procedure: PREOPERATIVE DIAGNOSIS: 1. Lumbosacral Spondylosis. 2. Left sacroiliitis. POSTOPERATIVE DIAGNOSIS: 1-Lumbosacral arthropathy. 2-left sacroiliitis. PROCEDURES: 1. Left multi-site radiofrequency thermocoagulation/ablation of the L5 dorsal rami, S1, S2, and S3 lateral branches. The procedure was performed using fluoroscopic guidance during needle placement to assure proper position and maximize safety. PROVIDER: Shital Kessler M.D. ANESTHESIA: Local Anesthesia, moderate sedation with 2 mg versed and 200 mcgfentanyl EBL: Minimal INDICATION/MEDICAL NECESSITY: History of low back unresponsive to more conservative treatments. The patient reported more than 50% relief of pain symptoms following 2 previous diagnostic blocks. PROCEDURE DESCRIPTION: The patient was seen and identified in the preoperative area. Risks, benefits, complications, and alternatives were discussed with the patient. The patient agreed to proceed with the procedure and signed the consent. Vital signs were checked before and after the procedure and they remained stable. Patient was brought to the procedure room and time out was completed. The patient was placed in the prone position on the procedure table and a pillow was placed under the abdomen to reduce lumbar lordosis. The lumbosacral area was prepped and draped in the usual sterile fashion. Critical pause was taken. First the left L5 dorsal rami was targeted in the AP view. 18-gauge 100 mm needles were used. Safety views in the oblique and lateral views were obtained. After motor testing, a lesion was formed. Next attention was given to be S1, S2, and S3. The lateral margins of the left S1, S2, and S3 foramina were identified using AP fluoroscopy. Under fluoroscopic guidance, indeed 100 mm needles were places lateral to the S1, S2, and S3 sacral foramen with 1 cm apart.. Motor stimulation was done at 2 Hz. No radicular symptoms or paresthesias were produced during the testing. Then multiple bipolar lesions were performed at 90 seconds at 80 degrees. The needles were leapfrogged to continue the strip lesion. The needle were subsequently withdrawn. COMPLICATIONS: The patient tolerated the procedure well without any acute complications. DISPOSTION/PLAN: The patient was returned to the recovery area after the procedure in a stable condition for observation. Patient was reexamined prior to discharge. Patient was then discharged home, accompanied by an adult, after meeting discharged criteria. Discharge instructions were give to the patient by the staff. Patient was specifically instructed not to drive today and to rest for the rest of the day. The patient will schedule a follow up visit in the clinic within the next four to six weeks.
[2019-07-06] MEDS ORDERED: LACTATED RINGERS 1,000 ML IV ONE (07:40)
[2019-07-06 08:01] VITALS: BP 151/97; PULSE 57
--- NOTE | 2019-07-07 10:24 | FL ---
Fluoroscopy HISTORY: Pain 11 seconds fluoroscopy time supplied to the referring clinician. 5 intraoperative C-arm images docum ent the procedure. See dictated report from anesthesia.
== END 2019-07-06 08:18 | disposition home or self-care (01) ==
LOC: ORPAIN 06:06
PROVIDERS: ATTEND Student in an Organized Health Care Education/Training Program
DX: G89.29 Other chronic pain (principal); M47.897 Other spondylosis, lumbosacral region; M46.1 Sacroiliitis, not elsewhere classified; M51.36 Other intervertebral disc degeneration, lumbar region; Z79.1 Long term (current) use of non-steroidal anti-inflammatories (NSAID); Z79.891 Long term (current) use of opiate analgesic; F17.200 Nicotine dependence, unspecified, uncomplicated; Z79.899 Other long term (current) drug therapy
CPT/HCPCS: 64640 ×3; 64635; J2250; J2001; J3010; 99152; 99153

== ENCOUNTER 2019-07-12 08:48 | Emergency (ER) | payer OTHER ==
[2019-07-12 09:00] VITALS: BP 141/89; PULSE 70; RESP 18; TEMP 98.5
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
--- NOTE | 2019-07-12 09:43 | XR ---
EXAMINATION TYPE: XR wrist complete LT DATE OF EXAM: 07/12/2019 COMPARISON: None HISTORY: Pain TECHNIQUE: 4 view left wrist FINDINGS: No acute fractures are evident. There is mild soft tissue swelling present. There are some joint space narrowings especially noted between the lunate and the capitate. IMPRESSION: 1. Soft tissue swelling. 2. Degenerative joint changes. 3. Acute fracture is not identified.
[2019-07-12] MEDS ORDERED: methylPREDNISolone SOD SUCCI 125 MG/2 ML VIAL IM ONE (10:19)
== END 2019-07-12 10:29 | disposition home or self-care (01) ==
LOC: EC 08:48
DX: M77.8 Other enthesopathies, not elsewhere classified (principal); E78.5 Hyperlipidemia, unspecified; M19.90 Unspecified osteoarthritis, unspecified site; F32.9 Major depressive disorder, single episode, unspecified; F17.200 Nicotine dependence, unspecified, uncomplicated; Z87.820 Personal history of traumatic brain injury; Z85.828 Personal history of other malignant neoplasm of skin; Z90.49 Acquired absence of other specified parts of digestive tract; Z96.651 Presence of right artificial knee joint; Z98.890 Other specified postprocedural states; Z79.1 Long term (current) use of non-steroidal anti-inflammatories (NSAID); Z79.891 Long term (current) use of opiate analgesic; Z79.899 Other long term (current) drug therapy; X50.1XXA Overexertion from prolonged static or awkward postures, initial encounter; Y92.69 Other specified industrial and construction area as the place of occurrence of the external cause; Y99.0 Civilian activity done for income or pay
CPT/HCPCS: 73110; 99283; 96372; J2930

== ENCOUNTER → 2019-07-28 | Outpatient (CLI) | payer OTHER ==
[2019-07-28 11:24] VITALS: BP 123/75; PULSE 77; RESP 16
--- NOTE | 2019-07-28 13:14 | P.PAINPG ---
Subjective Progress Note Date: 07/28/19 Clinton presents today for follow-up visit. He is diagnosed with lumbar spondylosis with lumbar facet arthropathy, sacroiliitis, recently we have done left-sided sacroiliac joint radiofrequency ablation, he reports 100% benefit from this injection. He continues to use [place] 7.5/325 0-1 tablet a day when necessary, and Motrin 600 mg every 8 hours he denies any side effect of the medication and the current medication is helping control his pain. 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 He smokes about 10 cigars a day, and is working on quitting. Recently, he was fired from his primary care physician's officeDr. Brenda due to poor behavior towards office staff. He is been unable to find a primary care physician since that time. Review of systems is negative for chest pain, shortness of breath, new onset weakness, numbness/tingling, abdominal pain, malaise, fever, night sweats, chills, homicidal or suicidal ideation, or bowel or bladder incontinence. Objective Physical exam: Vitals: Reviewed in EMR GENERAL: Well appearing, in no acute distress PSYCH: Mood and affect is appropriate. Awake, alert, and oriented SKIN: Skin color, texture, turgor normal, no rashes or lesions HEENT: Normocephalic, atraumatic. EOM intact CV: No pedal edema RESP: Respirations are unlabored, no audible wheezing GI: Abdomen non-distended MUSCULOSKELETAL: [place] lower extremity strength is normal and symmetric. No atrophy or tone abnormalities are noted. Extremities: Peripheral joint ROM is full and pain free without obvious instability or laxity in all four extremities. No edema or skin discolorations noted. Gait: Gait is normal NEUR: Cranial nerves are grossly intact Assessment and Plan Plan: Assessment and plan= chronic low back pain secondary to lumbar degenerative disc disease , lumbar spondylosis with lumbar facet arthropathy, and left sacroiliitis . Most recently, he underwent SI joint radio frequency ablation of the left side with excellent results. chronic and current use of high-risk medication (opioids) Patient denies any side effects of the current pain medication and the current treatment/medication helping the patient to do activity of daily living Medication management- no medications given today, we did discuss weaning narcotics, patient is amenable to this plan Patient was given exercise handout for low back and core strengthening exe rcises, he was also given a prescription for physical therapyto learn SI joint exercises. He was counseled for 5 minutes on smoking cessation, and its importance as it pertains to general health and particularly chronic pain. He has informed me that he has decided to stop smoking. I did call Dr. Gutierrez's (pcp) office, and spoke to the telephone clerk telegraph office and asked her to request him to reconsider accepting the patient, as the patient no longer has a primary care physician and has been unable to find one who is accepting new patients and accepts his insurance. Objective - Vital Signs Vital signs: Vital Signs Temp Pulse 77 07/28/19 11:22 Resp 16 07/28/19 11:22 BP 123/75 07/28/19 11:22 Pulse Ox 96 07/28/19 11:22 PQRS Measure Charge Sheet Measure #130: Documentation of Current Meds in Medical Chart: Patient's medications documented in chart Measure #226: Tobacco Use: Screen & Cessation Intervention: Pt screened for tobacco use AND intervention given Measure #111: Pneumonia Vaccination: Pneumococcal vaccine NOT administered or previously given Measure #47: Advance Care Plan: Advance care planning discussed & documented, pt chose/unable to give Measure #412: Opioid Treatment Agreement: Documented signed opioid trtmnt agreemnt min once during opioid trtmnt Measure #408: Opioid Therapy Follow-up Evaluation: Patient had f/u eval minimum every 3 months during opioid therapy Measure #317: Preventitive Care & Scrn High Bld Press & F/U: Normal blood pressure, f/u not required Measure #128: Body Mass Index (BMI) Screening & Follow-up: BMI documented within normal parameters Measure #131: Pain Assessment & Follow-up: Pain positive & plan documented, Follow-up scheduled Measure #431: Unhealthy Alcohol Use Preventative Care & Scrn: Patient not identified as an unhealthy alcohol user PQRS Narrative: Smoking Status Current every day smoker Blood Pressure 123/75 Pain Intensity [Lower Back] 0 Scale Used Numeric (1 - 10) Hx Alcohol Use (MH) Yes Home Medications: Ambulatory Orders Multivitamin [Men's Multi-Vitamin] 1 tab PO DAILY 01/28/14 Albuterol Sulfate [Ventolin HFA] 2 puff INHALATION RT-Q4H PRN 03/11/17 Cetirizine HCl 10 mg PO DAILY 03/11/17 Montelukast [Singulair] 10 mg PO DAILY 03/28/17 Atorvastatin Calcium [Lipitor] 10 mg PO HS 02/06/18 HYDROcodone/APAP 7.5-325MG [[place] 7.5-325] 1 tab PO Q4-6H PRN 12/02/18 Ibuprofen [Motrin] 600 mg PO Q8HR PRN 07/06/19 predniSONE 50 mg PO DAILY #5 tab 07/12/19 Controlled Substance Measures - Controlled Substance Measures Is patient prescribed a controlled substance at discharge?: No
== END | disposition home or self-care (01) ==
LOC: PNWHC3 11:08
PROVIDERS: ATTEND Anesthesiology
DX: M51.36 Other intervertebral disc degeneration, lumbar region (principal); M47.816 Spondylosis without myelopathy or radiculopathy, lumbar region; M46.96 Unspecified inflammatory spondylopathy, lumbar region; M46.1 Sacroiliitis, not elsewhere classified; G89.29 Other chronic pain; F17.200 Nicotine dependence, unspecified, uncomplicated; Z79.1 Long term (current) use of non-steroidal anti-inflammatories (NSAID); Z79.899 Other long term (current) drug therapy; Z79.52 Long term (current) use of systemic steroids
CPT/HCPCS: 99211

== ENCOUNTER → 2019-08-17 | Outpatient (CLI) | payer OTHER ==
[2019-08-17 12:41] VITALS: BP 126/79; PULSE 71; RESP 16
--- NOTE | 2019-08-17 14:20 | P.PAINPG ---
Subjective Progress Note Date: 08/17/19 Mr. Cook is a 58-year-old well-known to our clinic who presents for medication refill follow-up. His most recent procedure was a left-sided sacroiliac joint radiofrequency ablation, he reports excellent benefit with this injection. He continues to use [place] 7. 01/29/2025 0-1 tablets per day when necessary. After the injection he has been able to reduce the total amount of medications he is taking. He is also taking Motrin 600 mg every 8 hours as needed. Otherwise he has no new complaints. He denies any side effects from the medication. Objective - Vital Signs Vital signs: Vital Signs Temp Pulse 71 08/17/19 12:36 Resp 16 08/17/19 12:36 BP 126/79 08/17/19 12:36 Pulse Ox 96 08/17/19 12:36 - Exam Vital Signs: Reviewed in EMR GENERAL: Well appearing, in no acute distress, PSYCH: Mood and affect is appropriate. Awake, alert, and oriented SKIN: Skin color, texture, turgor normal, no rashes or lesions HEENT: Normocephalic, atraumatic. EOM intact CV: No pedal edema RESP: Respirations are unlabored, no audible wheezing GI: Abdomen non-distended MUSCULOSKELETAL: Bilateral upper and lower extremity strength is normal and symmetric. No atrophy or tone abnormalities are noted. Lumbar spine: Some tenderness to palpation in the lumbar paraspinals Extremities: Peripheral joint ROM is full and pain free without obvious instability or laxity in all four extremities. No edema or skin discolorations noted. Gait: Gait is anantalgic NEUR: No loss of sensation is noted. Cranial nerves are grossly intact. Assessment and Plan Assessment: Assessment: 1. SI joint dysfunction 2. By spondylosis 3. Chronic opiate use Plan: 1. Explanation: Opioid and psychological risk scores were reviewed. Diagnoses, prognoses, and multiple treatment options including but not limited to physical therapy, interventional therapies, adjuvant medical therapies, narcotic medication therapies, and surgery were discussed with the patient and all questions were answered to the patient's satisfaction. 2. Opioid agreement: In place 3. Counseling: The patient was counseled on reducing his opiate dose 4. Procedures: None at this time 5. Consultations: None 6. Investigations: None 7. Medications: His [place] and his ibuprofen refilled, he was instructed to reduce his [place] dose as tolerated 8. Disposition: 8 weeks , PQRS Measure Charge Sheet Measure #226: Tobacco Use: Screen & Cessation Intervention: Pt screened for tobacco use AND intervention given Measure #111: Pneumonia Vaccination: Pneumococcal vaccine NOT administered or previously given Measure #47: Advance Care Plan: Advance care planning discussed & documented, pt chose/unable to give Measure #412: Opioid Treatment Agreement: Documented signed opioid trtmnt agreemnt min once during opioid trtmnt Measure #408: Opioid Therapy Follow-up Evaluation: Patient had f/u eval minimum every 3 months during opioid therapy Measure #131: Pain Assessment & Follow-up: Pain positive & plan documented, Follow-up scheduled Measure #431: Unhealthy Alcohol Use Preventative Care & Scrn: Patient not identified as an unhealthy alcohol user PQRS Narrative: Smoking Status Current every day smoker Blood Pressure 126/79 Pain Intensity [Left Lower 2 Back] Scale Used Numeric (1 - 10) Hx Alcohol Use (MH) No Home Medications: Ambulatory Orders Multivitamin [Men's Multi-Vitamin] 1 tab PO DAILY 01/28/14 Albuterol Sulfate [Ventolin HFA] 2 puff INHALATION RT-Q4H PRN 03/11/17 Cetirizine HCl 10 mg PO DAILY 03/11/17 Montelukast [Singulair] 10 mg PO DAILY 03/28/17 Atorvastatin Calcium [Lipitor] 10 mg PO HS 02/06/18 HYDROcodone/APAP 7.5-325MG [[place] 7.5-325] 1 tab PO Q4-6H PRN 12/02/18 Ibuprofen [Motrin] 600 mg PO Q8HR PRN 07/06/19 Controlled Substance Measures - Controlled Substance Measures Is patient prescribed a controlled substance at discharge?: Yes When asked, does pt state using other controlled substances?: No If prescribed controlled substance>3 days was MAPS reviewed?: Yes Was information provided regarding opioid addiction?: No
== END ==
LOC: PNWHC3 12:18
PROVIDERS: ATTEND Student in an Organized Health Care Education/Training Program
DX: M53.3 Sacrococcygeal disorders, not elsewhere classified (principal); M47.816 Spondylosis without myelopathy or radiculopathy, lumbar region; F17.200 Nicotine dependence, unspecified, uncomplicated; Z79.891 Long term (current) use of opiate analgesic; Z79.899 Other long term (current) drug therapy; Z79.1 Long term (current) use of non-steroidal anti-inflammatories (NSAID)
CPT/HCPCS: 99211

== ENCOUNTER 2019-10-01 17:20 | Observation (INO) | payer OTHER ==
[2019-10-01] MEDS ORDERED: SODIUM CHLORIDE 0.9% 500 ML 500 ML IV STA (18:09)
[2019-10-01] MEDS ORDERED: LORazepam 2 MG/ML INJ IV STA (18:09)
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
[2019-10-01 18:46] LABS: Basophils # (A) 0.2 k/uL (0-0.2); Basophils % (A) 2 %; Eosinophils # (A) 0.4 k/uL (0-0.7); Eosinophils % (A) 3 %; HCT 44.3 % (39.0-53.0); HGB 15.4 gm/dL (13.0-17.5); Lymphocytes # (A) 2.4 k/uL (1.0-4.8); Lymphocytes % (A) 21 %; MCH 35.9 pg (25.0-35.0); MCHC 34.8 g/dL (31.0-37.0); MCV 103.3 fL (80.0-100.0); Macrocytosis Slight; Mean Platelet Volume 8.7; Monocytes # (A) 0.7 k/uL (0-1.0); Monocytes % (A) 6 %; Neutrophils # (A) 7.6 k/uL (1.3-7.7); Neutrophils % (A) 66 %; Platelet Count 136 k/uL (150-450); RBC 4.29 m/uL (4.30-5.90); RDW 13.6 % (11.5-15.5); WBC 11.5 k/uL (3.8-10.6)
[2019-10-01 18:56] LABS: ALT 21 U/L (4-49); AST 37 U/L (17-59); African American GFR (CKD) >90 (>60 ml/min/1.73 sqM); Albumin 4.2 g/dL (3.5-5.0); Alkaline Phosphatase 66 U/L (38-126); Anion Gap 5 mmol/L; Blood Urea Nitrogen 18 mg/dL (9-20); Calcium 9.5 mg/dL (8.4-10.2); Carbon Dioxide 29 mmol/L (22-30); Chloride 104 mmol/L (98-107); Glucose 130 mg/dL (74-99); Non-African American GFR(CKD) >90 (>60 ml/min/1.73 sqM); Potassium 4.1 mmol/L (3.5-5.1); Sodium 138 mmol/L (137-145); Total Bilirubin 0.5 mg/dL (0.2-1.3)
--- NOTE | 2019-10-01 18:57 | XR ---
EXAMINATION TYPE: XR chest 2V DATE OF EXAM: 10/01/2019 COMPARISON: 09/28/2016 INDICATION: Dysrhythmia short of breath TECHNIQUE: Frontal and lateral views of the chest are obtained. FINDINGS: The heart size is normal. The pulmonary vasculature is normal. Mild infiltrate is along the left diaphragm. Some right lower lobe infiltrate is present. Correlate f or subsegmental atelectasis. Early pneumonia in the right base could be considered. IMPRESSION: 1. Basilar infiltrates. Correlate for atelectasis. Early pneumonia at the right base could be conside red.
[2019-10-01 19:02] LABS: D-Dimer 0.51 mg/L FEU (<0.60); INR 0.9 (<1.2); Partial Thromboplastin Time 25.8 sec (22.0-30.0); Prothrombin Time 10.2 sec (9.0-12.0)
[2019-10-01 19:12] LABS: T4, Free (Free Thyroxine) 1.15 ng/dL (0.78-2.19)
[2019-10-01] MEDS ORDERED: NITROGLYCERIN SL TABS 0.4 MG TAB SUBLINGUAL PRN (20:11)
[2019-10-01] MEDS ORDERED: ASPIRIN 81 MG PO STA (20:11)
[2019-10-01] MEDS ORDERED: IBUPROFEN 600 MG TAB PO PRN (22:50)
[2019-10-01] MEDS ORDERED: HYDROcodone/APAP 7.5-325MG 1 EACH TAB PO PRN (22:50)
[2019-10-02] MEDS: NITROGLYCERIN OINT 1 INCH/GM PACKET TOPICAL SCH ×2 (00:42→05:59)
[2019-10-02 04:43] VITALS: RESP 18
[2019-10-02 07:43] LABS: Cholesterol 212 mg/dL (<200); HDL Cholesterol 60 mg/dL (40-60); LDL Cholesterol,Calculated 137 mg/dL (0-99); Triglycerides 77 mg/dL (<150)
[2019-10-02] MEDS ORDERED: LORATADINE 10 MG TAB PO SCH (09:00)
[2019-10-02] MEDS ORDERED: MULTIVITAMINS, THERA 1 EACH TAB PO SCH (09:00)
[2019-10-02] MEDS ORDERED: ASPIRIN 325 MG TAB PO SCH (09:00)
[2019-10-02] MEDS ORDERED: MONTELUKAST 10 MG TAB PO SCH (09:00)
[2019-10-02 12:05] VITALS: BP 156/63; PULSE 63; TEMP 98
--- NOTE | 2019-10-02 13:38 | ECHOF ---
Referral Reason:cp MEASUREMENTS -------- HEIGHT: 170.2 cm WEIGHT: 68.9 kg BP: RVIDd: 2.2 cm (< 3.3) IVSd: 1.3 cm (0.6 - 1.1) LVIDd: 3.8 cm (3.9 - 5.3) LVPWd: 1.4 cm (0.6 - 1.1) IVSs: 2.1 cm LVIDs: 1.8 cm LVPWs: 1.6 cm Ao Diam: 3.1 cm (2.0 - 3.7) AV Cusp: 1.7 cm (1.5 - 2.6) LA Diam: 2.2 cm (2.7 - 3.8) MV EXCURSION: 14.967 mm (> 18.000) MV EF SLOPE: 107 mm/s (70 - 150) EPSS: 0.4 cm MV E Estiven: 1.05 m/s MV DecT: 246 ms MV A Estiven: 0.71 m/s MV E/A Ratio: 1.49 RAP: 5.00 mmHg RVSP: 30.65 mmHg FINDINGS -------- Sinus rhythm. This was a technically good study. The left ventricular size is normal. There is mild concentric left ventricular hypertrophy. Overa ll left ventricular systolic function is normal with, an EF between 55 - 60 %. The diastolic fillin g pattern is normal for the age of the patient 10.25. The right ventricle is normal in size. The left atrial size is normal. The right atrial size is normal. The aortic valve is trileaflet and appears structurally normal. The mitral valve is normal. The mitral valve leaflets are mildly thickened. There is trace mitral regurgitation. The tricuspid valve appears structurally normal. Mild tricuspid regurgitation present. Right vent ricular systolic pressure is normal at < 35 mmHg. There is no pulmonic regurgitation present. The aortic root size is normal. Normal inferior vena cava with normal inspiratory collapse consistent with estimated right atrial pre ssure of 5 mmHg. There is no pericardial effusion. CONCLUSIONS -------- 1. Sinus rhythm. 2. This was a technically good study. 3. The left ventricular size is normal. 4. There is mild concentric left ventricular hypertrophy. 5. Overall left ventricular systolic function is normal with, an EF between 55 - 60 %. 6. The diastolic filling pattern is normal for the age of the patient 10.25 7. The right ventricle is normal in size. 8. The left atrial size is normal. 9. The right atrial size is normal. 10. The aortic valve is trileaflet and appears structurally normal. 11. The mitral valve is normal. 12. The mitral valve leaflets are mildly thickened. 13. There is trace mitral regurgitation. 14. The tricuspid valve appears structurally normal. 15. Mild tricuspid regurgitation present. 16. Right ventricular systolic pressure is normal at < 35 mmHg. 17. There is no pulmonic regurgitation present. 18. The aortic root size is normal. 19. Normal inferior vena cava with normal inspiratory collapse consistent with estimated right atrial pressure of 5 mmHg. 20. There is no pericardial effusion. FLOUR DISTRIBUTOR: Terrie Noble RDCS
--- NOTE | 2019-10-02 15:36 | CONS ---
CONSULTATION CHIEF COMPLAINT: Palpitations. HISTORY OF PRESENT ILLNESS: Mr. Medley is a 58-year-old gentleman with history of chronic back pain and dyslipidemia who presented to the hospital complaining of palpitations. He has had intermittent episodes of palpitations for the last 2 days. Normally his heart rate runs in the 60s, it has been running in the 90s and 100s. He came to hospital for this but he also had symptoms of neck discomfort, headaches and some sharp atypical chest pain. At the time of my evaluation his only symptom is mild headache. He denies any chest pain, difficulty in breathing or palpitations. EKG does not reveal significant changes. Cardiac enzymes have been negative. His white cell count is elevated at 11.5, the exact etiology for which is unclear. Three sets of troponins are negative as is the D-dimer. TSH is normal at 2.4. PAST MEDICAL HISTORY: Significant for back pain and dyslipidemia. CURRENT MEDICATIONS: Include Lipitor 20 daily, ibuprofen, Singulair, multivitamin, [place], and cetirizine. ALLERGIES: There are no known drug allergies. FAMILY HISTORY: Negative for premature coronary artery disease. SOCIAL HISTORY: Significant for smoking. There is no history of EtOH abuse or drug abuse. REVIEW OF SYSTEMS: HEENT: Unremarkable. CARDIAC: As described above. RESPIRATORY: As described above. GI: Negative. GENITOURINARY: Negative. SKIN: Negative. MUSCULOSKELETAL: Significant back pain. PSYCHOSOCIAL: Negative. ENDOCRINE: Negative. DERMATOLOGY: Negative. CONSTITUTIONAL: Negative. ONCOLOGICAL: Negative. The rest of the system review is not relevant. PHYSICAL EXAM: Comfortable at rest. Vital signs are stable. There is no jugular venous distention. Carotid upstroke is normal. There is no bruit. Chest exam reveals good air entry bilaterally. Heart exam reveals first and second heart sounds. No gallop. No murmur. No rub. Abdomen is soft, nontender. Exam of extremities did not reveal any edema. Peripheral pulses are felt. SHERIFFS DETECTIVE exam did not reveal focal neurological deficits. EKG does not reveal ischemic changes. Tropes are negative. White cell count is elevated. ASSESSMENT: 1. Palpitations. 2. Atypical chest pain. PLAN: From cardiac standpoint so far the workup is negative. We have not documented any cardiac arrhythmias. Myocardial infarction is ruled out. Pulmonary embolism is ruled out. I will obtain a 2D echo on him. His elevated white cell count needs to be addressed by primary as is the headache. Once patient is stable, he will go home and we will consider an outpatient stress test on him. MMODL / IJN: [id number] /
[2019-10-02] MEDS ORDERED: ATORVASTATIN 20 MG TAB PO SCH (21:00)
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
== END 2019-10-02 13:33 | disposition home or self-care (01) ==
LOC: EC 17:20 → 1SOBS 20:11
PROVIDERS: ADMIT Hospitalist; ATTEND Hospitalist
DX: R00.2 Palpitations (principal); R07.89 Other chest pain; M54.2 Cervicalgia; D72.829 Elevated white blood cell count, unspecified; R51 Headache; E78.5 Hyperlipidemia, unspecified; F17.200 Nicotine dependence, unspecified, uncomplicated; M19.90 Unspecified osteoarthritis, unspecified site; Z85.828 Personal history of other malignant neoplasm of skin; Z90.49 Acquired absence of other specified parts of digestive tract; Z96.651 Presence of right artificial knee joint; Z79.899 Other long term (current) drug therapy; Z79.1 Long term (current) use of non-steroidal anti-inflammatories (NSAID); Z79.891 Long term (current) use of opiate analgesic; F32.9 Major depressive disorder, single episode, unspecified; J30.2 Other seasonal allergic rhinitis; Z80.42 Family history of malignant neoplasm of prostate; R93.1 Abnormal findings on diagnostic imaging of heart and coronary circulation; Z87.820 Personal history of traumatic brain injury; R05 Cough
CPT/HCPCS: 93005 ×2; 96374; 99285; 36415; 93306; 85379; 84439; 84481; 80061; 80053; 83735; 84443; 84484 ×2; 85025; 85610; 85730; 87502; 71046; G0378 ×2; J2060

== ENCOUNTER → 2019-10-12 | Outpatient (CLI) | payer OTHER ==
[2019-10-12 12:24] VITALS: BP 120/80; PULSE 70; RESP 16
--- NOTE | 2019-10-13 05:56 | P.PAINPG ---
Subjective Progress Note Date: 10/12/19 This is a follow-up visit for this 58 years old male with a chronic history of severe low back pain and neck pain he is diagnosed with cervical spondylosis and lumbar spondylosis, radiculopathy and left sacroiliitis, the patient had very good response to interventional pain management, and over the last several months. Tone RFA of the left sacroiliac joint, which helped his low back pain significantly, and he is currently on [place] 7.5/325 twice a day when necessary, and Motrin 600 mg 3 times a day when necessary, he denies any side effect of the medication he denies any excessive drowsiness or sleepiness, and he reported the current medication provided him with pain relief and help him to do activity of daily living, and make him able to function. Objective - Vital Signs Vital signs: Vital Signs Temp Pulse 70 10/12/19 12:19 Resp 16 10/12/19 12:19 BP 120/80 10/12/19 12:19 Pulse Ox 98 10/12/19 12:19 - Exam Physical Examinations : -Constitutiona : Cooperative , not in acute distress . -HEENT : nech : supple , no Lymphadenopathy , normal thyroid size . : eyes : no ptosis , no icterus, no photophobia . - neurologic : Cranial nerve II to XII intact , no focal neurological deffecit . -psychatric : alert , oriented X 3 , appropriate affect , intact judgment and insight . -Lymphatic : no Lymphadenopathy . - musculoskeltal : Cervical Spine motor stregnth in the deltoid and biceps, normal right side , normal Left side motor stregnth biceps and the wrist extensors normal right side ,normal left side . motor stregnth in the triceps muscle . normal Right side , normal Left side deep tendon reflexes normal at the biceps , normal at Brachioradialis , normal at triceps. Lumber spine moter stegnth lower extremities ,thigh and legs 5/5 Right side , 5/5 Left side t . Assessment and Plan Plan: Assessment and plan= chronic low back pain secondary to lumbar degenerative disc disease , lumbar spondylosis with lumbar facet arthropathy . Left sacroiliitis Chronic neck pain secondary to cervical spondylosis chronic and current use of high-risk medication (opioids) Patient denies any side effects of the current pain medication and the current treatment/medication helping the patient to do activity of daily living , Diagnoses, prognosis, treatment options, including but not limited to physical therapy, medication management, interventional therapies, and surgery, were discussed with the patient All the questions answered The narcotic consent was signed and patient agreed and understood the side effects and complications of opioid treatment. Patient signed the narcotic agreement, and was orally counseled, not to overuse, not to abuse, not to Divert , not tp sell pain medication, and to take it as prescribed only, Patient was counseled not to drive or operate heavy equipment while using narcotic medication, and advised not to use alcohol or any Illicit drugs while using the narcotis. understanding that lack of compliance with any of the above instructions, will likely to cause discharge from, the pain service, not to renew his narcotic prescriptions MAPS Reviwed and it was apropriate . Medication managements= patient will be given prescription refills for [place] 7.5/325 every 12 hours when necessary dispense 30 with 2 refills Motrin 600 mg 3 times a day dispensed 90 with 2 refills, and he will follow up in the pain clinic in 3 months Urine drug screen ordered today , Time with Patient: Less than 30 PQRS Measure Charge Sheet Measure #130: Documentation of Current Meds in Medical Chart: Patient's medications documented in chart Measure #226: Tobacco Use: Screen & Cessation Intervention: Pt screened for tobacco use AND intervention given Measure #111: Pneumonia Vaccination: Pneumococcal vaccine NOT administered or previously given Measure #47: Advance Care Plan: Advance care planning discussed & documented, pt chose/unable to give Measure #412: Opioid Treatment Agreement: Documented signed opioid trtmnt agreemnt min once during opioid trtmnt Measure #408: Opioid Therapy Follow-up Evaluation: Patient had f/u eval minimum every 3 months during opioid therapy Measure #317: Preventitive Care & Scrn High Bld Press & F/U: Normal blood pressure, f/u not required Measure #128: Body Mass Index (BMI) Screening & Follow-up: BMI documented within normal parameters Measure #131: Pain Assessment & Follow-up: Pain positive & plan documented, Follow-up scheduled Measure #431: Unhealthy Alcohol Use Preventative Care & Scrn: Patient not identified as an unhealthy alcohol user PQRS Narrative: Smoking Status Current every day smoker Blood Pressure 120/80 Pain Intensity [Bilateral 2 Lower Back] Hx Alcohol Use (MH) No Home Medications: Ambulatory Orders Multivitamin [Men's Multi-Vitamin] 1 tab PO DAILY 01/28/14 Cetirizine HCl 10 mg PO DAILY 03/11/17 Montelukast [Singulair] 10 mg PO DAILY 03/28/17 HYDROcodone/APAP 7.5-325MG [[place] 7.5-325] 1 tab PO BID PRN 12/02/18 Ibuprofen [Motrin] 600 mg PO BID PRN 07/06/19 Atorvastatin [Lipitor] 20 mg PO HS 10/01/19 Aspirin EC [Ecotrin Low Dose] 81 mg PO DAILY #30 tablet. 10/02/19 Controlled Substance Measures - Controlled Substance Measures Is patient prescribed a controlled substance at discharge?: Yes When asked, does pt state using other controlled substances?: No If prescribed controlled substance>3 days was MAPS reviewed?: Yes If Rx opioid, was Start Talking consent form obtained?: Yes If opioid is for acute pain is fill amount 7 days or less?: No Was information provided regarding opioid addiction?: Yes
== END | disposition home or self-care (01) ==
LOC: PNWHC3 12:10
PROVIDERS: ATTEND Specialist
DX: M47.812 Spondylosis without myelopathy or radiculopathy, cervical region (principal); M51.36 Other intervertebral disc degeneration, lumbar region; M47.816 Spondylosis without myelopathy or radiculopathy, lumbar region; M46.96 Unspecified inflammatory spondylopathy, lumbar region; M46.1 Sacroiliitis, not elsewhere classified; F17.200 Nicotine dependence, unspecified, uncomplicated; Z79.891 Long term (current) use of opiate analgesic; Z79.899 Other long term (current) drug therapy; Z79.82 Long term (current) use of aspirin
CPT/HCPCS: 80307; G0482; G0463; 99211

== ENCOUNTER → 2019-11-25 | Outpatient (CLI) | payer OTHER ==
[2019-11-25 07:09] LABS: HCT 49.8 % (39.0-53.0); HGB 16.4 gm/dL (13.0-17.5); MCV 103.3 fL (80.0-100.0); Macrocytosis Slight; Mean Platelet Volume 8.3; Platelet Count 127 k/uL (150-450); RBC 4.82 m/uL (4.30-5.90); RDW 12.9 % (11.5-15.5); WBC 8.7 k/uL (3.8-10.6)
[2019-11-25 11:22] LABS: African American GFR (CKD) 114.9 (60.0-200.0); Albumin 4.5 g/dL (3.80-4.90); Albumin/Globulin Ratio 2.05 (1.60-3.17); Anion Gap 7.1 mmol/L (4.00-12.00); Calcium 9.4 mg/dL (8.7-10.3); Carbon Dioxide 24.9 mmol/L (21.6-31.8); Chol/HDL Ratio 4.09; Globulin 2.2 g/dL (1.6-3.3); Non-African American GFR(CKD) 99.2 (60.0-200.0); Potassium 4.8 mmol/L (3.5-5.5); Total Bilirubin 0.4 mg/dL (0.3-1.2); Total Protein 6.7 g/dL (6.2-8.2)
== END | disposition home or self-care (01) ==
LOC: LABWHC1 06:32
PROVIDERS: ATTEND Internal Medicine
DX: E78.5 Hyperlipidemia, unspecified (principal); E29.1 Testicular hypofunction; N52.9 Male erectile dysfunction, unspecified
CPT/HCPCS: 80061; 80053; 84443; 85027; 84402; 84403; 36415; G0103

== ENCOUNTER 2020-02-14 15:44 | Emergency (ER) | payer OTHER ==
[2020-02-14 15:50] VITALS: BP 146/93; PULSE 83; RESP 18; TEMP 98.3
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
== END 2020-02-14 16:21 | disposition home or self-care (01) ==
LOC: EC 15:44
DX: G89.29 Other chronic pain (principal); M25.532 Pain in left wrist; R21 Rash and other nonspecific skin eruption; F17.200 Nicotine dependence, unspecified, uncomplicated; E78.5 Hyperlipidemia, unspecified; M19.90 Unspecified osteoarthritis, unspecified site; J30.2 Other seasonal allergic rhinitis; Z79.899 Other long term (current) drug therapy; Z96.651 Presence of right artificial knee joint; Z98.890 Other specified postprocedural states; Z85.828 Personal history of other malignant neoplasm of skin
CPT/HCPCS: 99283

== ENCOUNTER → 2020-03-08 | Outpatient (CLI) | payer OTHER ==
[2020-03-08 12:57] VITALS: BP 141/91; PULSE 74; RESP 16
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
== END | disposition home or self-care (01) ==
LOC: PNWHC3 12:11
PROVIDERS: ATTEND Anesthesiology
DX: M48.061 Spinal stenosis, lumbar region without neurogenic claudication (principal); M47.26 Other spondylosis with radiculopathy, lumbar region
CPT/HCPCS: 80307; G0482; G0463; 99211

== ENCOUNTER 2020-03-16 06:16 | Day surgery (SDC) | payer OTHER ==
[2020-03-14 18:08] VITALS: BMI 25.8
[2020-03-16 06:42] VITALS: RESP 18; TEMP 97
[2020-03-16] MEDS ORDERED: MIDAZOLAM 2 MG/2 ML VIAL ONE (06:55)
[2020-03-16] MEDS ORDERED: fentaNYL (PF) 50 MCG/ML 2 ML AMP ONE (06:55)
[2020-03-16] MEDS ORDERED: IOPAMIDOL M200 10 ML VIAL ONE (06:55)
[2020-03-16] MEDS ORDERED: methylPREDNISolone ACETATE 40 MG/ML 1 ML VIAL ONE (06:55)
--- NOTE | 2020-03-16 07:16 | P.PCN ---
Date of Procedure: 03/16/20 Procedure(s) Performed: PREOPERATIVE DIAGNOSIS: 1- Lumbar radiculopathy, Lumbar Degenerative Disc Diseases 2-Lumbar spondylosis with Facet arthropathy without myelopathy POSTOPERATIVE DIAGNOSIS: 1-Lumber Degenerative Disc Diseases 2-Lumbar spondylosis with Facet arthropathy without myelopathy PROCEDURE 1. Lumbar epidural steroid injection under fluoroscopic guidance at the L5-S1 level using a right paramedian approach 2. Lumbar epidurogram. ANESTHESIA: Local with 1% lidocaine 3 ml, moderate sedation with intravenous Versed and fentanyl, sedation time 11 minutes Fluoroscopy was used for the procedure and images were saved in the radiology portion of the chart. EBL: Minimal PROCEDURE INDICATION: The patient with low back pain and radiculitis symptoms unresponsive to conservative treatment. Fluoroscopy was used to optimize visualization of the needle placement and to maximize safety. PROCEDURE DESCRIPTION / TECHNIQUE: The patient was seen and identified in the preoperative area. Risks, benefits, complications including but not limited to infections ,bleeding ,allergic reaction to the medications ,nerve damage and incomplete pain releif , and alternatives were discussed with the patient. The patient agreed to proceed with the procedure and signed the consent. IV was started, and vital signs were stable. Patient was taken to the OR and time out was completed. The patient was placed in the prone position on procedure table and a pillow was placed under the abdomen to reduce lumbar lordosis. The lumbosacral area was prepped and draped in the usual sterile fashion. Vitals were closely monitored during the procedure. Conscious sedation was used during the procedure to decrease patients anxiety. Using anterior-posterior fluoroscopy, the L5-S1 interlaminar space was identified and the skin over this site was marked and then infiltrated with 1% lidocaine subcutaneously. Subsequently, a 20-gauge 3.5" Tuohy epidural needle was inserted and advanced toward the epidural space using the loss of resistance technique and guided by AP and lateral/ oblique fluoroscopy. The correct needle position in the epidural space was verified with the injection of 2 mL of the water soluble contrast dye Isovue 200 contrast under live fluoroscopy, observing an excellent epidurogram. Then, after negative aspiration for blood and CSF and in the absence of paresthesias, a 5 ml mixture containing 80 mg of Depo-medrol , 3 ml of preservative free Normal Saline, and 1 ml of preservative free lidocaine 1% solution was injected and a washout epidurogram was seen. Needle was withdrawn intact, skin was cleansed, and bandages were applied. COMPLICATIONS: None DISPOSITION / PLANS: The patient was placed in a supine position and transferred to the recovery area in a stable condition for observation. There was no evidence of lower extremity motor or sensory deficit after the procedure. Patient was discharged from the recovery room after meeting discharge criteria. Home discharge instructions were given to the patient by the staff. The patient will schedule a follow up for repeat procedure in 4 weeks.
[2020-03-16] MEDS ORDERED: IV FLUID CONTINUATION 1,000 ML IV ONE (07:21)
[2020-03-16] MEDS ORDERED: KETOROLAC 30 MG/ML 1 ML VIAL IVP ONE (07:21)
[2020-03-16] MEDS ORDERED: KETOROLAC 30 MG/ML 1 ML VIAL ONE (07:30)
[2020-03-16 07:40] VITALS: BP 134/78; PULSE 78
--- NOTE | 2020-03-16 08:14 | FL ---
EXAMINATION TYPE: FL guided pain mgmt statistic DATE OF EXAM: 03/16/2020 FLUOROSCOPY Fluoroscopy time of 8 seconds was used during lumbar epidural injection. 3 image/s document/s the pr lucio.
== END 2020-03-16 07:56 | disposition home or self-care (01) ==
LOC: ORPAIN 06:16
PROVIDERS: ATTEND Anesthesiology
DX: M51.16 Intervertebral disc disorders with radiculopathy, lumbar region (principal); M47.26 Other spondylosis with radiculopathy, lumbar region
CPT/HCPCS: 62323; J2250; J1030; J3010; J1885; Q9966; 99152

== ENCOUNTER → 2020-04-05 | Outpatient (CLI) | payer OTHER ==
--- NOTE | 2020-04-05 08:31 | P.PAINPG ---
Subjective Progress Note Date: 04/05/20 This is a follow-up visit for this 59 years old male with a chronic history of severe low back pain and neck pain he is diagnosed with cervical spondylosis and lumbar spondylosis,Lumbar radiculopathy and left sacroiliitis, the patient had very good response to interventional pain management, and he is currently on [place] 7.5/325 twice a day when necessary, and Motrin 600 mg 3 times a day when necessary, he denies any side effect of the medication he denies any excessive drowsiness or sleepiness, and he reported the current medication provided him with pain relief and help him to do activity of daily living, and make him able to function, last months we have done a lumbar epidural steroid injection which helped his low back pain 50%, and he is currently complaining of severe low back pain with radiation to the left lower extremity with occasional numbness and tingling sensation, and he feels some weakness in his left lower extremity, he denies any change in the bowel movements or urination. Objective - Vital Signs Vital signs: Vital Signs Temp Pulse 79 04/05/20 08:09 Resp 16 04/05/20 08:09 BP 125/78 04/05/20 08:09 Pulse Ox 97 04/05/20 08:09 - Exam Physical Examinations : -Constitutiona : Cooperative , not in acute distress . -HEENT : nech : supple , no Lymphadenopathy , normal thyroid size . : eyes : no ptosis , no icterus, no photophobia . : ENT : normal of hearing , normal oropharynx , no Thrush . - neurologic : Cranial nerve II to XII intact , no focal neurological deffecit . -psychatric : alert , oriented X 3 , appropriate affect , intact judgment and insight . -Lymphatic : no Lymphadenopathy . - musculoskeltal : Lumber spine moter stegnth lower extremities ,thigh and legs 5/5 Right side , 5/5 Left side deep tendon reflexes : normal Knee Jerk , normal ankle Jerk lumber facet Loading Test =positive Right , positive Left Range of motion of the lumbar spine Flexion 60 degrees, extension 10 degrees strait leg raising test = positive at 45degree on the left side and is negative on the right side Fabere test= negative Right , and positive LT . no tenderness over the Sacroiliac joint on the Right , and Left sides Assessment and Plan Plan: Assessment and plan= chronic low back pain secondary to lumbar degenerative disc disease , lumbar spondylosis with lumbar facet arthropathy . Left sacroiliitis Chronic neck pain secondary to cervical spondylosis chronic and current use of high-risk medication (opioids) Patient denies any side effects of the current pain medication and the current treatment/medication helping the patient to do activity of daily living , Diagnoses, prognosis, treatment options, including but not limited to physical therapy, medication management, interventional therapies, and surgery, were discussed with the patient All the questions answered The narcotic consent was signed and patient agreed and understood the side effects and complications of opioid treatment. Patient signed the narcotic agreement, and was orally counseled, not to overuse, not to abuse, not to Divert , not tp sell pain medication, and to take it as prescribed only, Patient was counseled not to drive or operate heavy equipment while using narcotic medication, and advised not to use alcohol or any Illicit drugs while using the narcotis. understanding that lack of compliance with any of the above instructions, will likely to cause discharge from, the pain service, not to renew his narcotic prescriptions MAPS Reviwed and it was apropriate . Medication managements= patient will be given prescription refills for [place] 7.5/325 every 12 hours when necessary dispense 60 with 1 refills Motrin 600 mg 3 times a day dispensed 90 with 2 refills, and he will follow up in 2 months Interventions= patient could benefit from repeat lumbar epidural steroid injections at the L5-S1 left paramedian approach Time with Patient: Less than 30 PQRS Measure Charge Sheet Measure #130: Documentation of Current Meds in Medical Chart: Patient's medications documented in chart Measure #226: Tobacco Use: Screen & Cessation Intervention: Pt screened for tobacco use AND intervention given Measure #111: Pneumonia Vaccination: Pneumococcal vaccine NOT administered or previously given Measure #47: Advance Care Plan: Advance care planning discussed & documented, pt chose/unable to give Measure #412: Opioid Treatment Agreement: Documented signed opioid trtmnt agreemnt min once during opioid trtmnt Measure #408: Opioid Therapy Follow-up Evaluation: Patient had f/u eval minimum every 3 months during opioid therapy Measure #317: Preventitive Care & Scrn High Bld Press & F/U: Normal blood pressure, f/u not required Measure #128: Body Mass Index (BMI) Screening & Follow-up: BMI documented within normal parameters Measure #131: Pain Assessment & Follow-up: Pain positive & plan documented, Follow-up scheduled Measure #431: Unhealthy Alcohol Use Preventative Care & Scrn: Patient not identified as an unhealthy alcohol user PQRS Narrative: Smoking Status Current every day smoker Narcotic Agreement Date Signed 03/08/20 Blood Pressure 125/78 Pain Intensity [Lower Back] 5 Scale Used Numeric (1 - 10) Hx Alcohol Use (MH) No Home Medications: Ambulatory Orders Multivitamin [Men's Multi-Vitamin] 1 tab PO DAILY 01/28/14 Cetirizine HCl 10 mg PO DAILY 03/11/17 Montelukast [Singulair] 10 mg PO DAILY 03/28/17 Atorvastatin [Lipitor] 20 mg PO HS 10/01/19 Terbinafine HCl [LamISIL] 1 tab PO DAILY 03/16/20 HYDROcodone/APAP 7.5-325MG [[place] 7.5-325] 1 tab PO BID PRN 30 Days #60 tab 04/05/20 HYDROcodone/APAP 7.5-325MG [[place] 7.5-325] 1 tab PO Q12HR PRN 30 Days #60 tab 04/05/20 Ibuprofen [Motrin] 600 mg PO BID PRN #60 tab 04/05/20 Controlled Substance Measures - Controlled Substance Measures Is patient prescribed a controlled substance at discharge?: Yes When asked, does pt state using other controlled substances?: No If prescribed controlled substance>3 days was MAPS reviewed?: Yes If Rx opioid, was Start Talking consent form obtained?: Yes If opioid is for acute pain is fill amount 7 days or less?: No Was information provided regarding opioid addiction?: Yes
[2020-04-07 09:18] VITALS: BP 125/78; PULSE 79; RESP 16
== END | disposition home or self-care (01) ==
LOC: PNWHC3 07:57
PROVIDERS: ATTEND Specialist
DX: G89.29 Other chronic pain (principal); M51.36 Other intervertebral disc degeneration, lumbar region; M47.812 Spondylosis without myelopathy or radiculopathy, cervical region; M47.816 Spondylosis without myelopathy or radiculopathy, lumbar region; M46.1 Sacroiliitis, not elsewhere classified; F11.90 Opioid use, unspecified, uncomplicated; F17.200 Nicotine dependence, unspecified, uncomplicated; Z79.1 Long term (current) use of non-steroidal anti-inflammatories (NSAID); Z79.899 Other long term (current) drug therapy
CPT/HCPCS: 99211

== ENCOUNTER 2020-04-25 06:09 | Day surgery (SDC) | payer OTHER ==
[2020-04-24 10:40] VITALS: BMI 25.8
[2020-04-25 06:27] VITALS: TEMP 97.4
[2020-04-25] MEDS ORDERED: LIDOCAINE 1% (10MG/ML) FOR IV START INTRADERMA ONE (06:36)
[2020-04-25] MEDS ORDERED: IOPAMIDOL M200 10 ML VIAL ONE (07:05)
[2020-04-25] MEDS ORDERED: methylPREDNISolone ACETATE 80 MG/ML 1 ML VIAL ONE (07:05)
[2020-04-25] MEDS ORDERED: fentaNYL (PF) 50 MCG/ML 2 ML AMP ONE (07:05)
[2020-04-25] MEDS ORDERED: MIDAZOLAM 2 MG/2 ML VIAL ONE (07:05)
[2020-04-25] MEDS ORDERED: IV FLUID CONTINUATION 550 ML IV ONE (07:25)
--- NOTE | 2020-04-25 07:31 | P.PCN ---
Date of Procedure: 04/25/20 Procedure(s) Performed: PREOPERATIVE DIAGNOSIS: 1- Lumbar radiculopathy, Lumbar Degenerative Disc Diseases 2-Lumbar spondylosis with Facet arthropathy without myelopathy POSTOPERATIVE DIAGNOSIS: 1-Lumber Degenerative Disc Diseases 2-Lumbar spondylosis with Facet arthropathy without myelopathy PROCEDURE 1. Lumbar epidural steroid injection under fluoroscopic guidance at the L5-S1 level using a left paramedian approach 2. Lumbar epidurogram. ANESTHESIA: Local with 1% lidocaine 3 ml, moderate sedation with intravenous Versed and fentanyl, sedation time 8 minutes Fluoroscopy was used for the procedure and images were saved in the radiology portion of the chart. EBL: Minimal PROCEDURE INDICATION: The patient with low back pain and radiculitis symptoms unresponsive to conservative treatment. Fluoroscopy was used to optimize visualization of the needle placement and to maximize safety. PROCEDURE DESCRIPTION / TECHNIQUE: The patient was seen and identified in the preoperative area. Risks, benefits, complications including but not limited to infections ,bleeding ,allergic reaction to the medications ,nerve damage and incomplete pain releif , and alternatives were discussed with the patient. The patient agreed to proceed with the procedure and signed the consent. IV was started, and vital signs were stable. Patient was taken to the OR and time out was completed. The patient was placed in the prone position on procedure table and a pillow was placed under the abdomen to reduce lumbar lordosis. The lumbosacral area was prepped and draped in the usual sterile fashion. Vitals were closely monitored during the procedure. Conscious sedation was used during the procedure to decrease patients anxiety. Using anterior-posterior fluoroscopy, the L5-S1 interlaminar space was identified and the skin over this site was marked and then infiltrated with 1% lidocaine subcutaneously. Subsequently, a 20-gauge 3.5" Tuohy epidural needle was inserted and advanced toward the epidural space using the loss of resistance technique and guided by AP and lateral/ oblique fluoroscopy. The correct needle position in the epidural space was verified with the injection of 2 mL of the water soluble contrast dye Isovue 200 contrast under live fluoroscopy, observing an excellent epidurogram. Then, after negative aspiration for blood and CSF and in the absence of paresthesias, a 5 ml mixture containing 80 mg of Depo-medrol , 3 ml of preservative free Normal Saline, and 1 ml of preservative free lidocaine 1% solution was injected and a washout epidurogram was seen. Needle was withdrawn intact, skin was cleansed, and bandages were applied. COMPLICATIONS: None DISPOSITION / PLANS: The patient was placed in a supine position and transferred to the recovery area in a stable condition for observation. There was no evidence of lower extremity motor or sensory deficit after the procedure. Patient was discharged from the recovery room after meeting discharge criteria. Home discharge instructions were given to the patient by the staff. The patient will schedule a follow up in the clinic in 2-4 weeks.
[2020-04-25 07:32] VITALS: RESP 20
[2020-04-25 08:00] VITALS: BP 126/81; PULSE 68
--- NOTE | 2020-04-25 08:16 | FL ---
Fluoroscopy HISTORY: Pain 4 seconds fluoroscopy time supplied to the referring clinician. 3 intraoperative C-arm images docume nt the procedure. See dictated report from anesthesia.
== END 2020-04-25 07:55 | disposition home or self-care (01) ==
LOC: ORPAIN 06:09
PROVIDERS: ATTEND Anesthesiology
DX: M47.26 Other spondylosis with radiculopathy, lumbar region (principal); M51.16 Intervertebral disc disorders with radiculopathy, lumbar region
CPT/HCPCS: 62323

== ENCOUNTER → 2020-05-31 | Outpatient (CLI) | payer OTHER ==
[2020-05-31 08:18] VITALS: BP 134/78; PULSE 70; RESP 18; TEMP 97.7
--- NOTE | 2020-05-31 08:32 | P.PN ---
Subjective Progress Note Date: 05/31/20 This is a follow-up visit for this 59 years old male with a chronic history of severe low back pain, and neck pain, he is diagnosed with cervical spondylosis and lumbar spondylosis, lumbar degenerative disc disease and lumbar foraminal stenosis Lumbar radiculopathy and left sacroiliitis, the patient had very good response to interventional pain management, and he is currently on [place] 7.5/325 twice a day when necessary, and Motrin 600 mg 3 times a day when necessary, he denies any side effect of the medication he denies any excessive drowsiness or sleepiness, and he reported the current medication provided him with pain relief and help him to do activity of daily living, and make him able to function, and he is currently complaining of low back pain with radiation to the left lower extremity with occasional numbness and tingling sensation, and he feels some weakness in his left lower extremity, he denies any change in the bowel movements or urination. Physical examination -Constitutiona : Cooperative , not in acute distress . -HEENT : nech : supple , no Lymphadenopathy , normal thyroid size . : eyes : no ptosis , no icterus, no photophobia . : ENT : normal of hearing , normal oropharynx , no Thrush . - neurologic : Cranial nerve II to XII intact , no focal neurological deffecit . -psychatric : alert , oriented X 3 , appropriate affect , intact judgment and insight . -Lymphatic : no Lymphadenopathy . - musculoskeltal : Lumber spine moter stegnth lower extremities ,thigh and legs 5/5 Right side , 5/5 Left side deep tendon reflexes : normal Knee Jerk , normal ankle Jerk lumber facet Loading Test =positive Right , positive Left Range of motion of the lumbar spine Flexion 60 degrees, extension 10 degrees strait leg raising test = positive at 45degree on the left side and is negative on the right side Fabere test= negative Right , and positive LT . tenderness over the Sacroiliac joint on the Right , and Left sides Assessment and plan= chronic low back pain secondary to lumbar degenerative disc disease , lumbar spondylosis with lumbar facet arthropathy . Lumbar radiculopathy, Left sacroiliitis Chronic neck pain secondary to cervical spondylosis chronic and current use of high-risk medication (opioids) Patient denies any side effects of the current pain medication and the current treatment/medication helping the patient to do activity of daily living , Diagnoses, prognosis, treatment options, including but not limited to physica l therapy, medication management, interventional therapies, and surgery, were discussed with the patient All the questions answered The narcotic consent was signed and patient agreed and understood the side effects and complications of opioid treatment. Patient signed the narcotic agreement, and was orally counseled, not to overuse, not to abuse, not to Divert , not tp sell pain medication, and to take it as prescribed only, Patient was counseled not to drive or operate heavy equipment while using narcotic medication, and advised not to use alcohol or any Illicit drugs while using the narcotis. understanding that lack of compliance with any of the above instructions, will likely to cause discharge from, the pain service, not to renew his narcotic prescriptions MAPS Reviwed and it was apropriate . Medication managements= patient will be given prescription refills for [place] 7.5/325 every 12 hours when necessary dispense 60 with 1 refills Motrin 600 mg 3 times a day dispensed 90 with 2 refills, and he will follow up in 2 months Interventions= patient could benefit from repeat lumbar epidural steroid injections at the L5-S1 left paramedian approach Time with Patient: Less than 30 PQRS Measure Charge Sheet Measure #130: Documentation of Current Meds in Medical Chart: Patient's medications documented in chart Measure #226: Tobacco Use: Screen & Cessation Intervention: Pt screened for tobacco use AND intervention given Measure #111: Pneumonia Vaccination: Pneumococcal vaccine NOT administered or previously given Measure #47: Advance Care Plan: Advance care planning discussed & documented, pt chose/unable to give Measure #412: Opioid Treatment Agreement: Documented signed opioid trtmnt agreemnt min once during opioid trtmnt Measure #408: Opioid Therapy Follow-up Evaluation: Patient had f/u eval minimum every 3 months during opioid therapy Measure #317: Preventitive Care & Scrn High Bld Press & F/U: Normal blood pressure, f/u not required Measure #128: Body Mass Index (BMI) Screening & Follow-up: BMI documented within normal parameters Measure #131: Pain Assessment & Follow-up: Pain positive & plan documented, Follow-up scheduled Measure #431: Unhealthy Alcohol Use Preventative Care & Scrn: Patient not identified as an unhealthy alcohol user PQRS Narrative: - Controlled Substance Measures Is patient prescribed a controlled substance at discharge?: Yes When asked, does pt state using other controlled substances?: No If prescribed controlled substance>3 days was MAPS reviewed?: Yes If Rx opioid, was Start Talking consent form obtained?: Yes If opioid is for acute pain is fill amount 7 days or less?: No Was information provided regarding opioid addiction?: Yes Objective - Vital Signs Vital signs: Vital Signs Temp 97.7 F 05/31/20 08:14 Pulse 70 05/31/20 08:14 Resp 18 05/31/20 08:14 BP 134/78 05/31/20 08:14 Pulse Ox Intake & Output 05/30/20 05/31/20 05/31/20 18:59 06:59 18:59 Weight 72.575 kg Assessment and Plan Time with Patient: Less than 30
== END | disposition home or self-care (01) ==
LOC: PNWHC3 08:07
PROVIDERS: ATTEND Specialist
DX: M47.26 Other spondylosis with radiculopathy, lumbar region (principal); M51.16 Intervertebral disc disorders with radiculopathy, lumbar region; M46.96 Unspecified inflammatory spondylopathy, lumbar region; M46.1 Sacroiliitis, not elsewhere classified; M47.812 Spondylosis without myelopathy or radiculopathy, cervical region; G89.29 Other chronic pain; Z79.891 Long term (current) use of opiate analgesic
CPT/HCPCS: 99211

== ENCOUNTER → 2020-07-11 | Outpatient (CLI) | payer OTHER ==
[2020-07-11 07:45] LABS: Basophils # (A) 0.1 k/uL (0-0.2); Basophils % (A) 1 %; Eosinophils # (A) 0.5 k/uL (0-0.7); Eosinophils % (A) 5 %; HCT 49.1 % (39.0-53.0); HGB 16.3 gm/dL (13.0-17.5); Lymphocytes # (A) 2.8 k/uL (1.0-4.8); Lymphocytes % (A) 27 %; MCH 35.2 pg (25.0-35.0); MCHC 33.3 g/dL (31.0-37.0); MCV 105.7 fL (80.0-100.0); Macrocytosis Slight; Monocytes # (A) 0.9 k/uL (0-1.0); Monocytes % (A) 8 %; Neutrophils # (A) 5.9 k/uL (1.3-7.7); Neutrophils % (A) 55 %; Platelet Count 134 k/uL (150-450); RBC 4.64 m/uL (4.30-5.90); RDW 13.1 % (11.5-15.5); WBC 10.6 k/uL (3.8-10.6)
[2020-07-11 11:12] LABS: African American GFR (CKD) 114.1 (60.0-200.0); Albumin 4.3 g/dL (3.80-4.90); Albumin/Globulin Ratio 1.87 (1.60-3.17); Anion Gap 4.5 mmol/L (4.00-12.00); Calcium 9.6 mg/dL (8.7-10.3); Carbon Dioxide 27.5 mmol/L (21.6-31.8); Chol/HDL Ratio 2.92; Globulin 2.3 g/dL (1.6-3.3); LDL Cholesterol,Calculated 103.2 mg/dL (0.0-131.0); Non-African American GFR(CKD) 98.5 (60.0-200.0); Potassium 5.1 mmol/L (3.5-5.5); Total Bilirubin 0.5 mg/dL (0.3-1.2); Total Protein 6.6 g/dL (6.2-8.2); VLDL Calculation 13.8 mg/dL (5.00-40.00)
== END | disposition home or self-care (01) ==
LOC: LABWHC1 07:03
PROVIDERS: ATTEND Internal Medicine
DX: E78.2 Mixed hyperlipidemia (principal); R53.83 Other fatigue
CPT/HCPCS: 36415; 80053; 80061; 84443; 85025

== ENCOUNTER → 2020-07-26 | Outpatient (CLI) | payer OTHER ==
--- NOTE | 2020-07-26 08:39 | P.PAINPG ---
Subjective Progress Note Date: 07/26/20 Clinton presents for follow-up today medication refill. He reports is doing pretty well with the current medications. He reports that the epidural injections significantly improved his pain. He thinks he has a lot of back pain which she finds is premature and tolerable anymore. Despite that his pain is under control with the current regimen he just does not believe he should have this can a pain at his age. He is very active. He continues to work full-time and likes to vargas regularly. He feels that he is getting see a back surgeon next week for evaluation and also get a second opinion from a different doctor. He feels medications to improve his pain but do not cause any side effects. Last epidural injection was in March and he feels that it often about 100% relief for about 30-45 days and like to repeat the third time. Objective - Vital Signs Vital signs: Intake & Output 07/25/20 07/26/20 07/26/20 18:59 06:59 18:59 Weight 72.575 kg - Exam General: Awake and alert oriented 3 no distress Respiratory exam: No audible wheezing no accessory muscle usage Cardiovascular exam: regular rate, palpable bilateral pulses, no lower extremity edema Abdominal exam: No distention nontender to palpation Cervical spine: Normal alignment, Spurling's negative, facet loading negative, Molder Pipe Covering strength is 5/5, salmon negative Lumbar spine: Patient has good lumbar lordosis with good muscle bulk. There is no weakness. He has good range of motion. Lower sternal strength is 5 out of 5 bilaterally. There is no weakness in any of the muscle groups. Sacroiliac joints: Nontender to palpation, WILLA is negative, Gaenselon negative Neuro exam: Normal sensation in bilateral upper extremities, deep tendon reflexes are 2+ bilateral upper extremities. Normal sensation in bilateral lower extremities. Deep tendon reflexes 2+ and right lower extremity 1+ in left patella and Achilles. Psych exam: Cooperative, appropriate mood Assessment and Plan Assessment: #1 lumbar spondylosis without myelopathy #2 lumbar radiculopathy #3 chronic opioid dependence #4 cervical spondylosis without myelopathy Plan: After review of medical records and examination the patient will continue the current medications. I will refill his medications 2 months time we'll schedule for lumbar epidural steroid injection L5-S1 #3. PQRS Measure Charge Sheet Measure #130: Documentation of Current Meds in Medical Chart: Patient's medications documented in chart Measure #226: Tobacco Use: Screen & Cessation Intervention: Pt screened for tobacco use AND intervention given Measure #111: Pneumonia Vaccination: Pneumococcal vaccine administered or previously received Measure #47: Advance Care Plan: Advance care planning discussed & documented, plan or surrogate given Measure #412: Opioid Treatment Agreement: Documented signed opioid trtmnt agreemnt min once during opioid trtmnt Measure #408: Opioid Therapy Follow-up Evaluation: Patient had f/u eval minimum every 3 months during opioid therapy Measure #317: Preventitive Care & Scrn High Bld Press & F/U: Normal blood pressure, f/u not required Measure #128: Body Mass Index (BMI) Screening & Follow-up: BMI documented within normal parameters Measure #131: Pain Assessment & Follow-up: Pain positive & plan documented Measure #431: Unhealthy Alcohol Use Preventative Care & Scrn: Patient not identified as an unhealthy alcohol user PQRS Narrative: Smoking Status Current every day smoker Narcotic Agreement Date Signed 03/08/20 Hx Alcohol Use (MH) No Home Medications: Ambulatory Orders Multivitamin [Men's Multi-Vitamin] 1 tab PO DAILY 01/28/14 Cetirizine HCl 10 mg PO DAILY 03/11/17 Montelukast [Singulair] 10 mg PO DAILY 03/28/17 Atorvastatin [Lipitor] 20 mg PO HS 10/01/19 Terbinafine HCl [LamISIL] 1 tab PO DAILY 03/16/20 HYDROcodone/APAP 7.5-325MG [[place] 7.5-325] 1 tab PO Q12HR PRN 30 Days #60 tab 07/26/20 HYDROcodone/APAP 7.5-325MG [[place] 7.5-325] 1 tab PO Q12HR PRN 30 Days #60 tab 07/26/20 Ibuprofen [Motrin] 600 mg PO BID PRN #60 tab 07/26/20 Controlled Substance Measures - Controlled Substance Measures Is patient prescribed a controlled substance at discharge?: Yes When asked, does pt state using other controlled substances?: No If prescribed controlled substance>3 days was MAPS reviewed?: Yes If Rx opioid, was Start Talking consent form obtained?: Yes If opioid is for acute pain is fill amount 7 days or less?: No Was information provided regarding opioid addiction?: Yes
[2020-07-26 08:40] VITALS: BP 127/85; PULSE 68; RESP 14; TEMP 97.5
== END | disposition home or self-care (01) ==
LOC: PNWHC3 08:03
PROVIDERS: ATTEND Hospitalist
DX: M47.812 Spondylosis without myelopathy or radiculopathy, cervical region (principal); M47.26 Other spondylosis with radiculopathy, lumbar region; F11.20 Opioid dependence, uncomplicated; F17.210 Nicotine dependence, cigarettes, uncomplicated; Z79.899 Other long term (current) drug therapy
CPT/HCPCS: 99211

== ENCOUNTER → 2020-08-22 | Day surgery (SDC) | payer OTHER ==
[2020-08-18 15:56] VITALS: BMI 23.9
[~2020-08-22] MED LIST changes: +IOPAMIDOL M200 10 ML VIAL ONE; +IV FLUID CONTINUATION 1,000 ML IV ONE; +MIDAZOLAM 2 MG/2 ML VIAL ONE; +fentaNYL (PF) 50 MCG/ML 2 ML AMP ONE; +methylPREDNISolone ACETATE 40 MG/ML 1 ML VIAL ONE
[2020-08-22 06:29] VITALS: RESP 16; TEMP 97.1
--- NOTE | 2020-08-22 07:15 | P.PCN ---
Date of Procedure: 08/22/20 Procedure(s) Performed: PREOPERATIVE DIAGNOSIS: 1- Lumbar radiculopathy 2-Lumbar spondylosis with Facet arthropathy without myelopathy POSTOPERATIVE DIAGNOSIS: Same as preop diagnosis. PROCEDURE 1. Lumbar epidural steroid injection under fluoroscopic guidance at the L5-S1 le ashleigh. (Fluoroscopy imaging was available in radiology department) 2. Lumbar epidurogram. ANESTHESIA: Local with 1% lidocaine 3 ml and , moderate sedation with intravenous Versed 2 mg ,and fentanyle 50 Mcg EBL: Minimal PROCEDURE INDICATION: The patient with low back pain and radiculitis symptoms unresponsive to conservative treatment. Fluoroscopy was used to optimize visualization of the needle placement and to maximize safety. PROCEDURE DESCRIPTION / TECHNIQUE: The patient was seen and identified in the preoperative area. Risks, benefits, complications including but not limited to infections ,bleeding ,allergic reaction to the medications ,nerve damage and not complete pain releife , and alternatives were discussed with the patient. The patient agreed to proceed with the procedure and signed the consent. IV was started, and vital signs were stable. Patient was taken to the OR and time out was completed. The patient was placed in the prone position on procedure table and a pillow was placed under the abdomen to reduce lumbar lordosis. The lumbosacral area was prepped and draped in the usual sterile fashion.ere closely monitored during the procedure. Conscious sedation was used during the procedure to decrease patients anxiety. Vital signs was monitered during the entire procedure. Using anterior-posterior fluoroscopy, the L5-S1 interlaminar space was identified and the skin over this site was marked and then infiltrated with 1% lidocaine subcutaneously. Subsequently, a 20-gauge Tuohy epidural needle was inserted and advanced toward the epidural space using the ``Loss of resistance technique and guided by AP and lateral fluoroscopy. The correct needle position in the epidural space was verified with the injection of 2 mL of the water soluble contrast dye Isovue 200 contrast and observing an excellent epidurogram with the epidural spread of the dye, after negative aspiration for blood and CSF and in the absence of paresthesias. Again after negative aspiration, a 6 ml mixture containing 80 mg of Depo-medrol , and 2 ml of preservative free Normal Saline, and 2 ml of preservative free lidocaine 1% solution was injected and a washout of epidurogram was seen. Needle was withdrawn intact, skin was cleansed, and bandages were applied. COMPLICATIONS: None DISPOSITION / PLANS: The patient was placed in a supine position and transferred to the recovery area in a stable condition for observation. There was no evidence of lower extremity motor or sensory deficit after the procedure. Patient was discharged from the recovery room after meeting discharge criteria. Home discharge instructions were given to the patient by the staff. The patient was reexamined prior to discharge. The patient will schedule a follow up in the clinic in 2-4 weeks.
[2020-08-22 07:37] VITALS: BP 131/88; PULSE 64
--- NOTE | 2020-08-22 08:20 | FL ---
Fluoroscopy History: LUMBAR EPIDURAL INJ LUMBAR EPIDURAL INJ . 1 PIC SCANNED. 3 SEC FL TIME
== END ==
LOC: ORPAIN 06:09
PROVIDERS: ATTEND Specialist
DX: M47.26 Other spondylosis with radiculopathy, lumbar region (principal)
CPT/HCPCS: 62323; J2250; J1030; J3010; Q9966

== ENCOUNTER 2020-09-08 06:37 | Emergency (ER) | payer OTHER ==
[2020-09-08 06:48] VITALS: BP 166/88; PULSE 62; RESP 18; TEMP 97.8
[2020-09-08] MEDS ORDERED: HYDROcodone/APAP 5-325MG 1 EACH TAB PO STA (06:57)
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
--- NOTE | 2020-09-08 07:23 | XR ---
EXAMINATION TYPE: XR ribs RT w pa chest xray DATE OF EXAM: 09/08/2020 COMPARISON: 10/01/2019 HISTORY: Fall from ladder 2 days prior right rib pain TECHNIQUE: Frontal chest with 2 views right ribs FINDINGS: Heart size is normal. Pulmonary vasculature is normal. Lungs are clear. No pneumothorax is evident. There is a lateral right eighth rib fracture. No additional fractures are evident. IMPRESSION: 1. Lateral right eighth rib fracture
[2020-09-08] MEDS ORDERED: MORPHINE SULFATE 4 MG/ML SYRINGE IM STA (07:29)
== END 2020-09-08 07:46 | disposition home or self-care (01) ==
LOC: EC 06:37
DX: S22.31XA Fracture of one rib, right side, initial encounter for closed fracture (principal); E78.5 Hyperlipidemia, unspecified; M19.90 Unspecified osteoarthritis, unspecified site; F17.200 Nicotine dependence, unspecified, uncomplicated; Z79.899 Other long term (current) drug therapy; Z85.828 Personal history of other malignant neoplasm of skin; Z96.651 Presence of right artificial knee joint; W11.XXXA Fall on and from ladder, initial encounter
CPT/HCPCS: 71101; 99283; 96372; J2270

== ENCOUNTER → 2020-10-04 | Outpatient (CLI) | payer OTHER ==
[2020-10-04 07:56] VITALS: BP 136/96; PULSE 72; RESP 18; TEMP 98.1
--- NOTE | 2020-10-04 08:36 | P.PN ---
Subjective Progress Note Date: 10/04/20 This is a 59-year-old gentleman with history of chronic lower back pain with radiation to the left lower extremity with numbness and tingling in the left leg. The patient uses [place] and ibuprofen to control his pain. He still works full-time. The patient's pain has been well-controlled with a combination of oral opioids and interventional pain procedures. He recently saw an orthopedic surgeon who did not recommend any back surgeries at this point. The patient r eports no changes in his pain and general health since the last time we saw him in the clinic. Patient denies new-onset weakness, bowel/bladder incontinence, or any other signs or symptoms of cauda equina syndrome. There are no signs of acute intoxication, and no indications of medication diversion or overuse. In addition to above, 13-point review of systems is also negative for chest pain, shortness of breath, changes in vision, changes in hearing, new onset weakness, abdominal pain, diarrhea, extreme fatigue, malaise, fever, skin changes, homicidal or suicidal ideation, or bowel or bladder incontinence. Vital Signs: Reviewed in EMR Gen: AAOx3, NAD HEENT: PERRLA,hearing grossly normal Pulm: resp unlabored Neck: supple, trachea midline Neuro exam of the lower extremities: Normal muscle strength in the lower extremities bilaterally Straight leg raising test: Dominguez's test: Range of motion of the lumbar spine: Facet loading test: Tenderness in the paravertebral musculature: Positive on the lumbar area Neuro: CN II-XII grossly intact, Imaging: Reviewed in EMR/chart Assessment: Lumbar and cervical spondylosis without myelopathy Lumbar radiculopathy Opioid dependence Plan: 1. Explanation: Opioid and psychological risk scores were reviewed. Diagnoses, prognoses, and multiple treatment options including but not limited to physical therapy, interventional therapies, adjuvant medical therapies, narcotic medication therapies, and surgery were discussed with the patient and all questions were answered to the patient's satisfaction. 2. Opioid agreement: Signed with the patient and the patient is warned not to use opioids while driving or before driving and not to combine opioids with benzodiazepines or alcohol. 3. Counseling: The patient was counseled extensively on SMOKING CESSATION, BODY MASS INDEX, EXERCISE. Specifically, the patient was instructed regarding the importance of smoking cessation, obesity, and exercise in the context of both chronic pain and overall health. 4. Procedures: None at this point 5. Consultations: None 6. Investigations: None 7. Medications: Continue with [place] and ibuprofen as needed for pain 8. Disposition: Return to clinic in 8 weeks 9. Maps were reviewed and were appropriate. Controlled Substance Measures Is patient prescribed a controlled substance at discharge?: Yes When asked, does pt state using other controlled substances?: No If prescribed controlled substance>3 days was MAPS reviewed?: Yes If Rx opioid, was Start Talking consent form obtained?: Yes If opioid is for acute pain is fill amount 7 days or less?: No Was information provided regarding opioid addiction?: Yes Objective - Vital Signs Vital signs: Vital Signs Temp 98.1 F 10/04/20 07:52 Pulse 72 10/04/20 07:52 Resp 18 10/04/20 07:52 BP 136/96 10/04/20 07:52 Pulse Ox 96 10/04/20 07:52 Intake & Output 10/03/20 10/04/20 10/04/20 18:59 06:59 18:59 Weight 70.76 kg
== END | disposition home or self-care (01) ==
LOC: PNWHC3 07:45
PROVIDERS: ATTEND Anesthesiology
DX: M47.812 Spondylosis without myelopathy or radiculopathy, cervical region (principal); M47.26 Other spondylosis with radiculopathy, lumbar region; F11.20 Opioid dependence, uncomplicated; Z79.891 Long term (current) use of opiate analgesic; Z79.899 Other long term (current) drug therapy
CPT/HCPCS: 80307; G0482; G0463; 99212

== ENCOUNTER → 2020-11-29 | Outpatient (CLI) | payer OTHER ==
--- NOTE | 2020-11-29 08:11 | P.PAINPG ---
Subjective Progress Note Date: 11/29/20 Subjective Progress Note Date: 11/29/20 This is a 59-year-old gentleman with history of chronic lower back pain with radiation to the left lower extremity with numbness and tingling in the left leg. The patient uses [place] and ibuprofen to control his pain. He still works full-time. The patient's pain has been well-controlled with a combination of oral opioids and interventional pain procedures (L5-S1 CONOR on 03/2020 and 08/2020). He feels like his pain is gotten significantly better over the past few months. Before when he came home from work he felt like he couldn't do anything functionally. Now with a combination of seeing a chiropractor and his medications, he is able to be functional throughout the day. He endorses some new numbness and tingling over the posterior aspect of the left upper extremity from the elbow to the dorsum of the hand. This is just numbness and tingling, no pain. At this point he does not feel like he needs to do anything about it. The patient reports no changes in his pain and general health since the last time we saw him in the clinic. Patient denies new-onset weakness, bowel/bladder incontinence, or any other signs or symptoms of cauda equina syndrome. There are no signs of acute intoxication, and no indications of medication diversion or overuse. In addition to above, 13-point review of systems is also negative for chest pa in, shortness of breath, changes in vision, changes in hearing, new onset weakness, abdominal pain, diarrhea, extreme fatigue, malaise, fever, skin changes, homicidal or suicidal ideation, or bowel or bladder incontinence. Vital Signs: Reviewed in EMR Gen: AAOx3, NAD HEENT: PERRLA,hearing grossly normal Pulm: resp unlabored Neck: supple, trachea midline Neuro exam of the lower extremities: Normal muscle strength in the lower extremities bilaterally Tenderness in the paravertebral musculature: negative on the lumbar area Strength intact bilaterally No Crews sign or clonus Neuro: CN II-XII grossly intact,decreased sensation over dorsum of hand and posterior aspect of LUE from elbow down Imaging: Reviewed in EMR/chart Assessment: Lumbar and cervical spondylosis without myelopathy Lumbar radiculopathy Opioid dependence Plan: 1. Explanation: Opioid and psychological risk scores were reviewed. Diagnoses, prognoses, and multiple treatment options including but not limited to physical therapy, interventional therapies, adjuvant medical therapies, narcotic medication therapies, and surgery were discussed with the patient and all questions were answered to the patient's satisfaction. 2. Opioid agreement: Signed with the patient and the patient is warned not to use opioids while driving or before driving and not to combine opioids with benzodiazepines or alcohol. 3. Counseling: The patient was counseled extensively on SMOKING CESSATION, BODY MASS INDEX, EXERCISE. Specifically, the patient was instructed regarding the importance of smoking cessation, obesity, and exercise in the context of both chronic pain and overall health. 4. Procedures: None at this point 5. Consultations: None 6. Investigations: Consider cervical MRI in the future if left upper extremity numbness and tingling does not improve 7. Medications: Continue with [place] and ibuprofen as needed for pain. As recent trapezius was positive for alcohol, I talked to the patient about not mixing opioids with alcohol 8. Disposition: Return to clinic in 8 weeks 9. Maps were reviewed and were appropriate. Spent 25 minutes chart reviewing, talking to the patient, and discussing plan of care Controlled Substance Measures Is patient prescribed a controlled substance at discharge?: Yes When asked, does pt state using other controlled substances?: No If prescribed controlled substance>3 days was MAPS reviewed?: Yes If Rx opioid, was Start Talking consent form obtained?: Yes If opioid is for acute pain is fill amount 7 days or less?: No Was information provided regarding opioid addiction?: Yes PQRS Measure Charge Sheet PQRS Narrative: Smoking Status Current every day smoker Narcotic Agreement Date Signed 03/08/20 Hx Alcohol Use (MH) No Home Medications: Ambulatory Orders Multivitamin [Men's Multi-Vitamin] 1 tab PO DAILY 01/28/14 Cetirizine HCl 10 mg PO DAILY 03/11/17 Montelukast [Singulair] 10 mg PO DAILY 03/28/17 Atorvastatin [Lipitor] 20 mg PO HS 10/01/19 Ibuprofen [Motrin] 600 mg PO BID PRN #60 tab 07/26/20 HYDROcodone/APAP 7.5-325MG [[place] 7.5-325] 1 tab PO Q12H PRN 30 Days #60 tab 11/29/20 HYDROcodone/APAP 7.5-325MG [[place] 7.5-325] 1 tab PO Q12HR PRN 30 Days #60 tab 11/29/20 Controlled Substance Measures - Controlled Substance Measures Is patient prescribed a controlled substance at discharge?: Yes When asked, does pt state using other controlled substances?: No If prescribed controlled substance>3 days was MAPS reviewed?: Yes If Rx opioid, was Start Talking consent form obtained?: Yes If opioid is for acute pain is fill amount 7 days or less?: No Was information provided regarding opioid addiction?: Yes
== END ==
CPT/HCPCS: 99211

== ENCOUNTER → 2020-12-29 | Outpatient (CLI) | payer OTHER ==
[2020-12-29 11:27] LABS: HCT 48.2 % (39.6-50.0); HGB 16.4 g/dL (13.0-17.0); MCH 35.1 pg (27.0-32.0); MCV 103.2 fL (80.0-97.0); Mean Platelet Volume 11.2 fL (9.5-12.2); Platelet Count 166 X 10*3/uL (140-440); RBC 4.67 X 10*6/uL (4.40-5.60); RDW 14.1 % (11.5-14.5); WBC 9.23 X 10*3/uL (4.50-10.00)
[2020-12-29 12:10] LABS: Albumin 4.6 g/dL (3.80-4.90); Anion Gap 8.1 mmol/L (4.00-12.00); BUN/Creat Ratio 25.56 Ratio (12.00-20.00); Calcium 9.8 mg/dL (8.7-10.3); Carbon Dioxide 24.9 mmol/L (21.6-31.8); Chol/HDL Ratio 3.4; Globulin 2.3 g/dL (1.6-3.3); LDL Cholesterol,Calculated 102.6 mg/dL (0.0-131.0); Non-African American GFR(CKD) 93.2 (60.0-200.0); PSA Annual Screen 1.1 ng/mL (0.0-4.0); Potassium 5.1 mmol/L (3.5-5.5); Total Bilirubin 0.5 mg/dL (0.3-1.2); Total Protein 6.9 g/dL (6.2-8.2); VLDL Calculation 24.4 mg/dL (5.00-40.00)
== END | disposition home or self-care (01) ==
LOC: LABWHC1 07:32
PROVIDERS: ATTEND Internal Medicine
DX: E78.5 Hyperlipidemia, unspecified (principal); M06.9 Rheumatoid arthritis, unspecified
CPT/HCPCS: 80061; 80053; 84443; 85027; 36415; G0103

== ENCOUNTER → 2021-01-24 | Outpatient (CLI) | payer OTHER ==
[2021-01-24 08:04] VITALS: BP 146/87; PULSE 66; RESP 18; TEMP 97.9
--- NOTE | 2021-01-24 08:19 | P.PN ---
Subjective Progress Note Date: 01/24/21 his is a follow-up visit for this 60 years old male with a chronic history of severe low back pain, and neck pain, he is diagnosed with cervical spondylosis and lumbar spondylosis, lumbar degenerative disc disease and lumbar foraminal stenosis Lumbar radiculopathy and left sacroiliitis, the patient had very good response to interventional pain management, and he is currently on [place] 7.5/325 twice a day when necessary, and Motrin 600 mg 2 times a day when necessary, he denies any side effect of the medication he denies any excessive drowsiness or sleepiness, and he reported the current medication provided him with pain relief and help him to do activity of daily living, and make him able to function, and he is currently complaining of low back pain with radiation to the left lower extremity with occasional numbness and tingling sensation, and he feels some weakness in his left lower extremity, he denies any change in the bowel movements or urination. Physical examination -Constitutiona : Cooperative , not in acute distress . -HEENT : nech : supple , no Lymphadenopathy , normal thyroid size . : eyes : no ptosis , no icterus, no photophobia . : ENT : normal of hearing , normal oropharynx , no Thrush . - neurologic : Cranial nerve II to XII intact , no focal neurological deffecit . -psychatric : alert , oriented X 3 , appropriate affect , intact judgment and insight . -Lymphatic : no Lymphadenopathy . - musculoskeltal : Lumber spine moter stegnth lower extremities ,thigh and legs 5/5 Right side , 5/5 Left side deep tendon reflexes : normal Knee Jerk , normal ankle Jerk lumber facet Loading Test =positive Right , positive Left Range of motion of the lumbar spine Flexion 60 degrees, extension 10 degrees strait leg raising test = positive at 45degree on the left side and is negative on the right side Fabere test= negative Right , and positive LT . mild tenderness over the Sacroiliac joint on the Right , and Left sides Assessment and plan= chronic low back pain secondary to lumbar degenerative disc disease , lumbar spondylosis with lumbar facet arthropathy . Lumbar radiculopathy, Left sacroiliitis Chronic neck pain secondary to cervical spondylosis chronic and current use of high-risk medication (opioids) Patient denies any side effects of the current pain medication and the current treatment/medication helping the patient to do activity of daily living , Diagnoses, prognosis, treatment options, including but not limited to physi clive therapy, medication management, interventional therapies, and surgery, were discussed with the patient All the questions answered The narcotic consent was signed and patient agreed and understood the side effects and complications of opioid treatment. Patient signed the narcotic agreement, and was orally counseled, not to overuse, not to abuse, not to Divert , not tp sell pain medication, and to take it as prescribed only, Patient was counseled not to drive or operate heavy equipment while using narcotic medication, and advised not to use alcohol or any Illicit drugs while using the narcotis. understanding that lack of compliance with any of the above instructions, will likely to cause discharge from, the pain service, not to renew his narcotic prescriptions MAPS Reviwed and it was apropriate . Medication managements= patient will be given prescription refills for [place] 7.5/325 every 12 hours when necessary dispense 60 with 1 refills Motrin 600 mg 3 times a day dispensed 90 with 2 refills, and he will follow up in 2 months Interventions= none Labs reviewed and it showed that patient use alcohol, advised patient not to mix alcohol with the pain medication Time with Patient: Less than 30 PQRS Measure Charge Sheet Measure #130: Documentation of Current Meds in Medical Chart: Patient's medications documented in chart Measure #226: Tobacco Use: Screen & Cessation Intervention: Pt screened for tobacco use AND intervention given Measure #111: Pneumonia Vaccination: Pneumococcal vaccine NOT administered or previously given Measure #47: Advance Care Plan: Advance care planning discussed & documented, pt chose/unable to give Measure #412: Opioid Treatment Agreement: Documented signed opioid trtmnt agreemnt min once during opioid trtmnt Measure #408: Opioid Therapy Follow-up Evaluation: Patient had f/u eval minimum every 3 months during opioid therapy Measure #317: Preventitive Care & Scrn High Bld Press & F/U: elevated blood pressure, f/u with PCP Measure #128: Body Mass Index (BMI) Screening & Follow-up: BMI documented within normal parameters Measure #131: Pain Assessment & Follow-up: Pain positive & plan documented, Follow-up scheduled Measure #431: Unhealthy Alcohol Use Preventative Care & Scrn: Patient not identified as an unhealthy alcohol user PQRS Narrative: Objective - Vital Signs Vital signs: Vital Signs Temp 97.9 F 01/24/21 08:00 Pulse 66 01/24/21 08:00 Resp 18 01/24/21 08:00 BP 146/87 01/24/21 08:00 Pulse Ox 97 01/24/21 08:00
== END ==
LOC: PNWHC3 07:46
PROVIDERS: ATTEND Specialist
DX: M51.16 Intervertebral disc disorders with radiculopathy, lumbar region (principal); M47.26 Other spondylosis with radiculopathy, lumbar region; M46.1 Sacroiliitis, not elsewhere classified; M47.812 Spondylosis without myelopathy or radiculopathy, cervical region; G89.29 Other chronic pain; Z79.891 Long term (current) use of opiate analgesic; F17.200 Nicotine dependence, unspecified, uncomplicated
CPT/HCPCS: 99211

== ENCOUNTER → 2021-01-25 | Outpatient (CLI) | payer OTHER ==
--- NOTE | 2021-01-25 11:35 | XR ---
EXAMINATION TYPE: XR ribs RT DATE OF EXAM: 01/25/2021 COMPARISON: Chest and right-sided rib x-rays September 08, 2020 HISTORY: Right-sided rib fractures. TECHNIQUE: A frontal and oblique images right-sided ribs. FINDINGS: Interval callus formation involving lateral right eighth and ninth ribs on current study co nsistent with interval healing. Right ninth rib fracture not well seen in retrospect on prior. Minima l displacement noted on current study. Right lung remains clear. IMPRESSION: As above.
== END | disposition home or self-care (01) ==
LOC: RADXRMAIN 10:27
PROVIDERS: ATTEND Internal Medicine
DX: S22.41XA Multiple fractures of ribs, right side, initial encounter for closed fracture (principal)

== ENCOUNTER → 2021-01-31 | Outpatient (CLI) | payer OTHER ==
--- NOTE | 2021-01-31 14:27 | US ---
EXAMINATION TYPE: US kidneys/renal and bladder DATE OF EXAM: 01/31/2021 COMPARISON: CT 04/29/12 CLINICAL HISTORY: R10.9 RT FLANK PAIN. Patient broke rib on right side 5 months ago. C/O right flank pain EXAM MEASUREMENTS: Right Kidney: 12.3 x 6.2 x 5.8 cm Left Kidney: 12.9 x 6.6 x 6.4 cm Post Void Residual Volume: 16.0 mL Right Kidney: No hydronephrosis or masses seen Left Kidney: No hydronephrosis or masses seen Bladder: wnl Bilateral Jets seen: Yes Normal Post Void Residual: Yes There is no evidence for hydronephrosis at this point in time. No nephrolithiasis is seen. No bharati s are identified. The urinary bladder is anechoic. Bilateral ureteral jets are seen. IMPRESSION: Unremarkable study
== END | disposition home or self-care (01) ==
LOC: RADUSWWP 13:39
PROVIDERS: ATTEND Internal Medicine
DX: R10.9 Unspecified abdominal pain (principal)
CPT/HCPCS: 76770

== ENCOUNTER → 2021-04-11 | Outpatient (CLI) | payer OTHER ==
[2021-04-11 08:00] VITALS: BP 164/91; PULSE 67; RESP 16; TEMP 97.8
--- NOTE | 2021-04-11 08:14 | P.PN ---
Subjective Progress Note Date: 04/11/21 his is a follow-up visit for this 60 years old male with a chronic history of severe low back pain, and neck pain, he is diagnosed with cervical spondylosis and lumbar spondylosis, lumbar degenerative disc disease and lumbar foraminal stenosis Lumbar radiculopathy and left sacroiliitis, the patient had very good response to interventional pain management, and he is currently on [place] 7.5/325 twice a day when necessary, and Motrin 600 mg 2 times a day when necessary, he denies any side effect of the medication he denies any excessive drowsiness or sleepiness, and he reported the current medication provided him with pain relief and help him to do activity of daily living, and make him able to function, and he is currently complaining of low back pain with radiation to the left lower extremity with occasional numbness and tingling sensation, and he feels some weakness in his left lower extremity, he denies any change in the bowel movements or urination. Physical examination -Constitutiona : Cooperative , not in acute distress . -HEENT : nech : supple , no Lymphadenopathy , normal thyroid size . : eyes : no ptosis , no icterus, no photophobia . : ENT : normal of hearing , normal oropharynx , no Thrush . - neurologic : Cranial nerve II to XII intact , no focal neurological deffecit . -psychatric : alert , oriented X 3 , appropriate affect , intact judgment and insight . -Lymphatic : no Lymphadenopathy . - musculoskeltal : Lumber spine moter stegnth lower extremities ,thigh and legs 5/5 Right side , 5/5 Left side deep tendon reflexes : normal Knee Jerk , normal ankle Jerk lumber facet Loading Test =positive Right , positive Left Range of motion of the lumbar spine Flexion 60 degrees, extension 10 degrees strait leg raising test = positive at 45degree on the left side and is negative on the right side Fabere test= negative Right , and positive LT . mild tenderness over the Sacroiliac joint on the Right , and Left sides Assessment and plan= chronic low back pain secondary to lumbar degenerative disc disease , lumbar spondylosis with lumbar facet arthropathy . Lumbar radiculopathy, Left sacroiliitis Chronic neck pain secondary to cervical spondylosis chronic and current use of high-risk medication (opioids) Patient denies any side effects of the current pain medication and the current treatment/medication helping the patient to do activity of daily living , Diagnoses, prognosis, treatment options, including but not limited to phy sical therapy, medication management, interventional therapies, and surgery, were discussed with the patient All the questions answered The narcotic consent was signed and patient agreed and understood the side effects and complications of opioid treatment. Patient signed the narcotic agreement, and was orally counseled, not to overuse, not to abuse, not to Divert , not tp sell pain medication, and to take it as prescribed only, Patient was counseled not to drive or operate heavy equipment while using narcotic medication, and advised not to use alcohol or any Illicit drugs while using the narcotis. understanding that lack of compliance with any of the above instructions, will likely to cause discharge from, the pain service, not to renew his narcotic prescriptions MAPS Reviwed and it was apropriate . Medication managements= patient will be given prescription refills for [place] 7.5/325 every 12 hours when necessary dispense 60 with 2 refills Motrin 600 mg 3 times a day dispensed 90 with 2 refills, and he will follow up in 2 months Interventions= none Labs reviewed and it showed that patient use alcohol, advised patient not to mix alcohol with the pain medication next visit UDS Time with Patient: Less than 30 PQRS Measure Charge Sheet Measure #130: Documentation of Current Meds in Medical Chart: Patient's medications documented in chart Measure #226: Tobacco Use: Screen & Cessation Intervention: Pt screened for tobacco use AND intervention given Measure #111: Pneumonia Vaccination: Pneumococcal vaccine NOT administered or previously given Measure #47: Advance Care Plan: Advance care planning discussed & documented, pt chose/unable to give Measure #412: Opioid Treatment Agreement: Documented signed opioid trtmnt agreemnt min once during opioid trtmnt Measure #408: Opioid Therapy Follow-up Evaluation: Patient had f/u eval minimum every 3 months during opioid therapy Measure #317: Preventitive Care & Scrn High Bld Press & F/U: elevated blood pressure, f/u with PCP Measure #128: Body Mass Index (BMI) Screening & Follow-up: BMI documented within normal parameters Measure #131: Pain Assessment & Follow-up: Pain positive & plan documented, Follow-up scheduled Measure #431: Unhealthy Alcohol Use Preventative Care & Scrn: Patient not identified as an unhealthy alcohol user PQRS Narrative:
== END ==
LOC: PNWHC3 07:44
PROVIDERS: ATTEND Specialist
DX: M51.06 Intervertebral disc disorders with myelopathy, lumbar region (principal); M51.16 Intervertebral disc disorders with radiculopathy, lumbar region; M47.26 Other spondylosis with radiculopathy, lumbar region; M46.1 Sacroiliitis, not elsewhere classified; G89.29 Other chronic pain; M47.812 Spondylosis without myelopathy or radiculopathy, cervical region; Z79.891 Long term (current) use of opiate analgesic
CPT/HCPCS: 80307; G0482; G0463; 99212

== ENCOUNTER → 2021-07-18 | Outpatient (CLI) | payer OTHER ==
[2021-07-18 07:53] VITALS: BP 131/73; PULSE 71; RESP 18; TEMP 97.9
--- NOTE | 2021-07-18 08:12 | P.PN ---
Subjective Progress Note Date: 07/18/21 his is a follow-up visit for this 60 years old male with a chronic history of severe low back pain, and neck pain, he is diagnosed with cervical spondylosis and lumbar spondylosis, lumbar degenerative disc disease and lumbar foraminal stenosis Lumbar radiculopathy and left sacroiliitis,Lumbar spondylosis with facet arthropathy , the patient had very good response to interventional pain management,( epidural steroid injections ,and RFA medial branches Lumbar ) and he is currently on [place] 7.5/325 twice a day when necessary, and Motrin 600 mg 2 times a day when necessary, he denies any side effect of the medication he denies any excessive drowsiness or sleepiness, and he reported the current medication provided him with pain relief and help him to do activity of daily living, and make him able to function, he denies any change in the bowel movements or urination. Last visit we have done a urine drug screen which showed that patient had positive ETOH , patient reported that he stopped drinking completely and the last drink was 6 weeks ago, and patient reported that he is in the process of quitting smoking Physical examination -Constitutiona : Cooperative , not in acute distress . -HEENT : nech : supple , no Lymphadenopathy , normal thyroid size . : eyes : no ptosis , no icterus, no photophobia . : ENT : normal of hearing , normal oropharynx , no Thrush . - neurologic : Cranial nerve II to XII intact , no focal neurological deffecit . -psychatric : alert , oriented X 3 , appropriate affect , intact judgment and insight . -Lymphatic : no Lymphadenopathy . - musculoskeltal : Lumber spine moter stegnth lower extremities ,thigh and legs 5/5 Right side , 5/5 Left side deep tendon reflexes : normal Knee Jerk , normal ankle Jerk lumber facet Loading Test =positive Right , positive Left Range of motion of the lumbar spine Flexion 60 degrees, extension 10 degrees strait leg raising test = positive at 45degree on the left side and is negative on the right side Fabere test= negative Right , and positive LT . mild tenderness over the Sacroiliac joint on the Right , and Left sides Assessment and plan= chronic low back pain secondary to lumbar degenerative disc disease , lumbar spondylosis with lumbar facet arthropathy . Lumbar radiculopathy, Left sacroiliitis Chronic neck pain secondary to cervical spondylosis chronic and current use of high-risk medication (opioids) Patient denies any side effects of the current pain medication and the curr ent treatment/medication helping the patient to do activity of daily living , Diagnoses, prognosis, treatment options, including but not limited to physical therapy, medication management, interventional therapies, and surgery, were discussed with the patient All the questions answered The narcotic consent was signed and patient agreed and understood the side effects and complications of opioid treatment. Patient signed the narcotic agreement, and was orally counseled, not to overuse, not to abuse, not to Divert , not tp sell pain medication, and to take it as prescribed only, Patient was counseled not to drive or operate heavy equipment while using narcotic medication, and advised not to use alcohol or any Illicit drugs while using the narcotis. understanding that lack of compliance with any of the above instructions, will likely to cause discharge from, the pain service, not to renew his narcotic prescriptions MAPS Reviwed and it was apropriate . Medication managements= patient will be given prescription refills for [place] 7.5/325 every 12 hours when necessary dispense 60 with 2 refills Motrin 600 mg 3 times a day dispensed 90 with 2 refills, and he will follow up in 3 months Interventions= none Labs reviewed and it showed that patient use alcohol, advised patient not to mix alcohol with the pain medication Time with Patient: Less than 30 PQRS Measure Charge Sheet Measure #130: Documentation of Current Meds in Medical Chart: Patient's medications documented in chart Measure #226: Tobacco Use: Screen & Cessation Intervention: Pt screened for tobacco use AND intervention given Measure #111: Pneumonia Vaccination: Pneumococcal vaccine NOT administered or previously given Measure #47: Advance Care Plan: Advance care planning discussed & documented, pt chose/unable to give Measure #412: Opioid Treatment Agreement: Documented signed opioid trtmnt agreemnt min once during opioid trtmnt Measure #408: Opioid Therapy Follow-up Evaluation: Patient had f/u eval minimum every 3 months during opioid therapy Measure #317: Preventitive Care & Scrn High Bld Press & F/U: elevated blood pressure, f/u with PCP Measure #128: Body Mass Index (BMI) Screening & Follow-up: BMI documented within normal parameters Measure #131: Pain Assessment & Follow-up: Pain positive & plan documented, Follow-up scheduled Measure #431: Unhealthy Alcohol Use Preventative Care & Scrn: Patient not identified as an unhealthy alcohol user PQRS Narrative: Objective - Vital Signs Vital signs: Vital Signs Temp 97.9 F 07/18/21 07:48 Pulse 71 07/18/21 07:48 Resp 18 07/18/21 07:48 BP 131/73 07/18/21 07:48 Pulse Ox 97 07/18/21 07:48 Intake & Output 07/17/21 07/18/21 07/18/21 18:59 06:59 18:59 Weight 74.843 kg
== END ==
LOC: PNWHC3 07:39
PROVIDERS: ATTEND Specialist
DX: M51.16 Intervertebral disc disorders with radiculopathy, lumbar region (principal); M47.26 Other spondylosis with radiculopathy, lumbar region; M46.1 Sacroiliitis, not elsewhere classified; G89.29 Other chronic pain; M47.812 Spondylosis without myelopathy or radiculopathy, cervical region; Z79.891 Long term (current) use of opiate analgesic; F17.200 Nicotine dependence, unspecified, uncomplicated
CPT/HCPCS: 99211

== ENCOUNTER → 2021-07-31 | Outpatient (CLI) | payer OTHER ==
--- NOTE | 2021-07-31 09:34 | CTL ---
EXAMINATION TYPE: CT Low Dose Lung DATE OF EXAM ORDERED: 07/31/2021 HISTORY: Long-term tobacco use. Lung cancer screening CT DLP: 87.[address] CTDI: 2.5 mGy Automated exposure control for dose reduction was used. SCREENING VISIT: Baseline COMPARISON: None. TECHNIQUE: Low dose computed tomography scan was performed through the chest at 1 mm thick sections a nd reconstructed images in multiple planes at 1 mm and [address] DIAGNOSTIC QUALITY: Satisfactory FINDINGS: LUNG NODULES: Present, detailed below: There is posterior lateral 4.9 x 3.5 mm right upper lobe subpleural nodule axial image 42. There is 5.0 x 3.6 mm anterior left mid lung nodule axial image 133. There is 5.3 x 5.0 mm anterior left upper to mid lung nodule axial image 148. LUNGS: COPD: Severity: Mild Fibrosis: Severity: None Lymph nodes: No greater than 1 cm Other findings: None RIGHT PLEURAL SPACE: Effusion: None Calcification: None Thickening: None Pneumothorax: None LEFT PLEURAL SPACE: Effusion: None Calcification: None Thickening: None Pneumothorax: None HEART: Heart Size: Normal Coronary calcification: Mild to moderate Pericardial effusion: None OTHER FINDINGS: Upper abdomen: There is 1.2 cm low dense round lesion anterior left hepatic lobe axial image 255 favo r benign thin-walled cyst. Bony thorax: Slight scoliotic curvature. [id number] multilevel spurring. Supraclavicular region: None Other: None IMPRESSION: Mild emphysematous changes with few scattered small nodules. No suspicious greater than [address] LUNG RAD AND CT CHEST RECOMMENDATION: Lung-Rad 2 Benign Appearance or Behavior: Continue annual sc reening with LDCT in 12 months. S Modifier (other clinically significant findings): None
== END | disposition home or self-care (01) ==
LOC: RADCTMAIN 07:28
PROVIDERS: ATTEND Family Medicine
DX: Z12.2 Encounter for screening for malignant neoplasm of respiratory organs (principal); Z72.0 Tobacco use; R91.8 Other nonspecific abnormal finding of lung field
CPT/HCPCS: 71271

== ENCOUNTER → 2021-08-15 | Outpatient (CLI) | payer OTHER ==
[2021-08-15 08:40] VITALS: BP 116/71; PULSE 74; RESP 18; TEMP 97.4
--- NOTE | 2021-08-15 08:55 | P.PN ---
Subjective Progress Note Date: 08/15/21 Clinton is a 60-year-old male presenting to clinic today for follow-up appointment and requests for intervention. He has a history of lumbar radiculopathy, lumbar spondylosis with facet arthropathy, and lumbar degenerative disc disease. He has had lumbar epidural steroid injections in the past at L5-S1. It is been a year since his last injection. He reports been having increasing pain in his lower back. Left side greater than right. He reports with extensive walking his left leg is not really in pain but this does not want to work anymore. He reports his pain increases with excessive standing, walking, and lifting. His pain is relieved with medications, interventions, and stretching. He continues to do his at-home exercises to help relieve his pain. He still is actively working as a newell. He reports his pain is now a 7 or 8 out of 10 on a 0-to-10 scale. It is beginning to interfere with his sleep. He denies any bowel or bladder dysfunction, saddle anesthesia, and any red flag symptoms. Denies any adverse effects from his medications. Objective - Exam Physical Examinations : -Constitutiona : Cooperative , not in acute distress . -HEENT : nech : supple , no Lymphadenopathy , normal thyroid size . : eyes : no ptosis , no icterus, no photophobia . - neurologic : Cranial nerve II to XII intact , no focal neurological deffecit . -psychatric : alert , oriented X 3 , appropriate affect , intact judgment and insight . -Lymphatic : no Lymphadenopathy . - musculoskeltal : Lumber spine moter stegnth lower extremities ,thigh and legs 5/5 Right side , 5/5 Left side deep tendon reflexes : normal Knee Jerk , normal ankle Jerk lumber facet Loading Test =positive Right , positive Left Range of motion of the lumbar spine Flexion 30 degrees, extension 10 degrees strait leg raising test = positive at 20 degree Fabere test= positive Right , and positive LT . Sever tenderness over the Sacroiliac joint on the Right , and Left sides Gaenslen test= positive right ,and positive left . Seated flexion test= positive right ,and positive Left . Distraction test= positive bilaterally Sacroiliac compression test= positive bilaterally Assessment and Plan Assessment: Assessment and plan Assessment: Lumbar spondylosis with facet arthropathy without myelopathy Number radiculopathy Lumbar degenerative disc disease Cervical spondylosis with facet arthropathy without myelopathy Cervical degenerative disc disease Plan: Patient can benefit from lumbar epidural steroid injection at L5-S1. Consider repeat injections up to 3. He currently has active prescriptions for [place] 7.5 every 12 and Motrin 600 every 8. He does not require any refills today Dr. Michel was available by phone for consultation during his visit. I have spent 23 minutes on patient care today. The time was used to review the medical records including relevant urine studies and Prescription history (MAPs), review of the available imaging, evaluation and examination of the patient, coordination of care with the medical staff and if applicable referring physicians, as well as creation of the medical record. - PQRS measures = - Patient's medications are documented in the chart. -Tobacco use is positive and counseling.Given. -Patient's has not received pneumococcal vaccine. -Advanced care planning discussed, patient not eligible. -Opiate contract signed. -Pain positive and follow-up visit/procedure is scheduled. -Patient's blood pressure measured 116/71 , and documented in the record ,and patient will follow up with the primary care. -Patient was not identified as an unhealthy alcohol user Time with Patient: Less than 30
== END ==
LOC: PNWHC3 08:21
PROVIDERS: ATTEND Student in an Organized Health Care Education/Training Program
DX: M47.26 Other spondylosis with radiculopathy, lumbar region (principal); M51.16 Intervertebral disc disorders with radiculopathy, lumbar region; M47.812 Spondylosis without myelopathy or radiculopathy, cervical region; M50.30 Other cervical disc degeneration, unspecified cervical region; F17.200 Nicotine dependence, unspecified, uncomplicated
CPT/HCPCS: 99211

== ENCOUNTER 2021-08-28 06:12 | Day surgery (SDC) | payer OTHER ==
[2021-08-27 14:38] VITALS: BMI 26.1
[2021-08-28] MEDS ORDERED: LACTATED RINGERS 1,000 ML IV SCH (06:32)
[2021-08-28 06:45] VITALS: RESP 16; TEMP 97.4
[2021-08-28] MEDS ORDERED: LIDOCAINE 1% INJ 10MG/ML (20 ML MDV) ONE (06:58)
[2021-08-28] MEDS ORDERED: SODIUM CHLORIDE 0.9% (PF) 10 ML VIAL ONE (06:58)
[2021-08-28] MEDS ORDERED: MIDAZOLAM 2 MG/2 ML VIAL ONE (06:58)
[2021-08-28] MEDS ORDERED: fentaNYL (PF) 50 MCG/ML 2 ML AMP ONE (06:58)
[2021-08-28] MEDS ORDERED: IOPAMIDOL M200 10 ML VIAL ONE (06:58)
[2021-08-28] MEDS ORDERED: methylPREDNISolone ACETATE 40 MG/ML 1 ML VIAL ONE (06:58)
--- NOTE | 2021-08-28 07:13 | P.PCN ---
Date of Procedure: 08/28/21 Procedure(s) Performed: PREOPERATIVE DIAGNOSIS: 1- Lumbar radiculopathy 2-Lumbar spondylosis with Facet arthropathy without myelopathy 3-Lumbar degenerative disc disease POSTOPERATIVE DIAGNOSIS: Same as preop diagnosis. PROCEDURE 1. Lumbar epidural steroid injection under fluoroscopic guidance at the L5-S1 level. (Fluoroscopy imaging was available in radiology department) 2. Lumbar epidurogram. ANESTHESIA: Local with 1% lidocaine 3 ml and , moderate sedation with intravenous Versed 2 mg ,and fentanyle 100 Mcg EBL: Minimal PROCEDURE INDICATION: The patient with low back pain and radiculitis symptoms unresponsive to conservative treatment. Fluoroscopy was used to optimize visualization of the needle placement and to maximize safety. PROCEDURE DESCRIPTION / TECHNIQUE: The patient was seen and identified in the preoperative area. Risks, benefits, complications including but not limited to infections ,bleeding ,allergic reaction to the medications ,nerve damage and not complete pain releife , and alternatives were discussed with the patient. The patient agreed to proceed with the procedure and signed the consent. IV was started, and vital signs were stable. Patient was taken to the OR and time out was completed. The patient was placed in the prone position on procedure table and a pillow was placed under the abdomen to reduce lumbar lordosis. The lumbosacral area was prepped and draped in the usual sterile fashion.ere closely monitored during the procedure. Conscious sedation was used during the procedure to decrease patients anxiety. Vital signs was monitered during the entire procedure. Using anterior-posterior fluoroscopy, the L5-S1 interlaminar space was identified and the skin over this site was marked and then infiltrated with 1% lidocaine subcutaneously. Subsequently, a 20-gauge Tuohy epidural needle was inserted and advanced toward the epidural space using the ``Loss of resistance technique and guided by AP and lateral fluoroscopy. The correct needle position in the epidural space was verified with the injection of 2 mL of the water soluble contrast dye Isovue 200 contrast and observing an excellent epidurogram with the epidural spread of the dye, after negative aspiration for blood and CSF and in the absence of paresthesias. Again after negative aspiration, a 6 ml mixture containing 80 mg of Depo-medrol , and 2 ml of preservative free Normal Saline, and 2 ml of preservative free lidocaine 1% solution was injected and a washout of epidurogram was seen. Needle was withdrawn intact, skin was cleansed, and bandages were applied. COMPLICATIONS: None DISPOSITION / PLANS: The patient was placed in a supine position and transferred to the recovery area in a stable condition for observation. There was no evidence of lower extremity motor or sensory deficit after the procedure. Patient was discharged from the recovery room after meeting discharge criteria. Home discharge instructions were given to the patient by the staff. The patient was reexamined prior to discharge. The patient will schedule a follow up in the clinic in 2-4 weeks.
[2021-08-28] MEDS ORDERED: IV FLUID CONTINUATION 900 ML IV ONE (07:15)
[2021-08-28 07:35] VITALS: BP 149/87; PULSE 66
--- NOTE | 2021-08-28 09:19 | FL ---
EXAMINATION TYPE: FL guided pain mgmt statistic DATE OF EXAM: 08/28/2021 CLINICAL HISTORY: Low back pain. TECHNIQUE: Fluoroscopy. COMPARISON: None. FINDINGS: Fluoroscopic guidance was provided during pain relief procedure performed by Dr. Michel . A total of 2 seconds of fluoroscopic time was utilized during the procedure and 1 spot images are acquired. Single image acquired shows needle localization at L4-L5 level with contrast injection. IMPRESSION: As Above.
== END 2021-08-28 07:45 | disposition home or self-care (01) ==
LOC: ORPAIN 06:12
PROVIDERS: ATTEND Specialist
DX: M54.16 Radiculopathy, lumbar region (principal); M47.816 Spondylosis without myelopathy or radiculopathy, lumbar region; M51.36 Other intervertebral disc degeneration, lumbar region
CPT/HCPCS: 62323; J2250; J1030; J3010; Q9966; 99152

== ENCOUNTER → 2021-10-10 | Outpatient (CLI) | payer OTHER ==
--- NOTE | 2021-10-10 08:48 | P.PN ---
Subjective Progress Note Date: 10/10/21 Principal diagnosis: A 60 yr old male with a history of severe and chronic low back pain secondary to lumbar degenerative disc diseases, disc dessication, multiple schmorl's nodes, disc protrusions, multiple neuroforaminal stenoses and spinal canal stenosis with facet arthropathy presents today for medication refills, follow up to prior procedure and evaluation of pain. Pt underwent a L5-S1 LESI in Jul, 2021 where his pain level dropped form 7-/ 10 in intensity to a 1 /10 currently. He states, however, that his pain level shoots to 10 /10 by evening with activity. Pain is dull/ achy in the lower back with radiating sharp/ shooting pain towards both buttocks and lower extremities. 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 Pain is alleviated with medications, topical gels, injections, rest, physical therapy a few years ago and a home bas ed stretching regimen. Interventional pain procedures completed include L5-S1 LESI on 08/15/2021 Patient is currently on [place] 7.5mg /325mg BID prn #60 and Motrin 600mg BIDWM prn #60 Patient denies any side effects of the medication(s), denies excessive drowsiness or sleepiness, denies suicidal ideation and reports that the current pain medication is helping to control the pain and improve activities of daily living. Patient denies any motor or sensory deficits. Patient denies any fever or night sweats, denies any change in the bowel movements or urination. Physical Examination: -Constitutional: Cooperative. Not in acute distress . -HEENT: Neck is supple. No lymphadenopathy. No thyromegaly. Normal thyroid size. Eyes: No ptosis , no icterus, no photophobia. ENT: No auditory deficits. Normal oropharynx. No Thrush. - Respiratory: Chest clear to auscultations bilaterally. No wheezing. No rhonchi. - Cardiovascular: Regular rate and rhythm. S1 / S2 , no S3 , no S4. - Gastrointestinal: Abdomen soft no tenderness. Bowel sounds positive in all four quadrants. No organomegaly. - Genitourinary: Deferred. - Neurologic: Cranial nerve II to XII intact. No focal neurological deficits. - Psychatric: Alert & oriented x 3. Matching mood & appropriate affect. Judgment and insight intact. - Lymphatic: No Lymphadenopathy. - Musculoskeletal: Cervical spine: Muscle bulk/ tone/ strength in the bilateral upper extremities normal. Facet loading test cervical area positive. Lumbar spine: Motor bulk/ tone/ strength lower extremities , thigh and legs : 5/5 Deep tendon reflexes : Normal Knee Jerk. Normal Ankle Jerk . Lumbar Facet Loading Test positive Straight Leg Raise: positive at 30 degrees right side/ left side Christine test: positive right side / left side Range of motion: Flexion of the lumbar spine <60 degrees Range of motion: Extension of the lumbar spine <20 degrees Severe tenderness over the Sacroiliac joint: right side / left side Assessment and plan: Chronic low back pain secondary to lumbar disc dessication, multiple schmorl's nodes, disc protrusions, multiple neuroforaminal stenoses and spinal canal stenosis facet arthropathy without myelopathy Recommendation of L5-S1 LESI Compounding & longer lasting effect of procedures discussed with pt Risks / benefits of procedure discussed with pt and he verbalized understanding Chronic and current use of high-risk medication (Opioids). The patient was counseled about risk of opioid use, psychological risk associated with opioids and was orally counseled to not overuse , divert or sell medications. Pt is to store medication in a safe location. The patient is counseled against driving while using narcotic medications and also not to use alcohol or any illicit recreational drugs. Patient verbalized understanding that the lack of compliance will result in failure to renew narcotic prescription(s) as well as possible discharge from the clinic Diagnoses, prognosis and treatment options including but not limited to physical therapy, surgical interventions, interventional therapies and medication management including narcotics and adjuvant medication were discussed. All patient questions answered MAPS reviewed and it was appropriate. Prescription refill for [place] 7.5 /325mg BID prn #60 Motrin 600mg BIDWM prn #60 with refill I have spent 31 minutes on patient care today. Dr Michel was available by phone for the evaluation of this patient. The time was used to review the medical records including relevant urine studies and Prescription history (MAPs), review of the available imaging, evaluation and examination of the patient, coordination of care with the medical staff and if applicable referring physicians, as well as creation of the medical record PQRS Measure Charge Sheet PQRS Narrative: Smoking Status Current every day smoker Narcotic Agreement Date Signed 07/18/21 Hx Alcohol Use (MH) No Home Medications: Ambulatory Orders Multivitamin [Men's Multi-Vitamin] 1 tab PO DAILY 01/28/14 Cetirizine HCl 10 mg PO DAILY 03/11/17 Montelukast [Singulair] 10 mg PO DAILY 03/28/17 Atorvastatin [Lipitor] 20 mg PO HS 10/01/19 HYDROcodone/APAP 7.5-325MG [[place] 7.5-325] 1 tab PO Q12HR PRN 30 Days #60 tab 07/18/21 Ibuprofen [Motrin] 600 mg PO BID PRN #60 tab 07/18/21
[2021-10-10 08:55] VITALS: BP 116/76; PULSE 74; RESP 18; TEMP 97.8
== END ==
LOC: PNWHC3 07:42
PROVIDERS: ATTEND Physician Assistant Medical
DX: M51.46 Schmorl's nodes, lumbar region (principal); M51.26 Other intervertebral disc displacement, lumbar region; M48.061 Spinal stenosis, lumbar region without neurogenic claudication; M47.816 Spondylosis without myelopathy or radiculopathy, lumbar region; M51.86 Other intervertebral disc disorders, lumbar region; G89.29 Other chronic pain; F17.200 Nicotine dependence, unspecified, uncomplicated; Z79.891 Long term (current) use of opiate analgesic
CPT/HCPCS: 99211

== ENCOUNTER → 2021-12-05 | Outpatient (CLI) | payer OTHER ==
--- NOTE | 2021-12-05 08:43 | P.PN ---
Subjective Progress Note Date: 12/05/21 Principal diagnosis: A 60 yr old male with a history of severe and chronic low back pain secondary to lumbar degenerative disc diseases and lumbar spondylosis with facet arthropathy presents today for medication refills. Patient states he has been having lower back pain for several years, 3 out of 10 in intensity, achy in the lower aspects of his lumbar spine with right buttock sharp burning pain and left lower extremity tingling occasionally. Pain is provoked by fatigue throughout the day and inactivity. Patient has been modifying his diet and being more physically active and has successfully alleviated some pain. Pain is also alleviated with medications, topical Biofreeze, injections, ice, chiropractic treatments on a monthly basis, massage therapy in the past and rest. Interventional pain procedures completed include LESI L5 5 S1 Patient is currently on [place] 7.5/325 #60 from this clinic Patient denies any side effects of the medication(s), denies excessive drowsiness or sleepiness, denies suicidal ideation and reports that the current pain medication is helping to control the pain and improve activities of daily living. Patient denies any motor or sensory deficits. Patient denies any fever or night sweats, denies any change in the bowel movements or urination. Physical Examination: -Constitutional: Cooperative. Not in acute distress . -HEENT: Neck is supple. No lymphadenopathy. No thyromegaly. Normal thyroid size. Eyes: No ptosis , no icterus, no photophobia. ENT: No auditory deficits. Normal oropharynx. No Thrush. - Respiratory: Chest clear to auscultations bilaterally. No wheezing. No rhonchi. - Cardiovascular: Regular rate and rhythm. S1 / S2 , no S3 , no S4. - Gastrointestinal: Abdomen soft no tenderness. Bowel sounds positive in all four quadrants. No organomegaly. - Genitourinary: Deferred. - Neurologic: Cranial nerve II to XII intact. No focal neurological deficits. - Psychatric: Alert & oriented x 3. Matching mood & appropriate affect. Judgment and insight intact. - Lymphatic: No Lymphadenopathy. - Musculoskeletal: Cervical spine: Muscle bulk/ tone/ strength in the bilateral upper extremities normal. Facet loading test cervical area positive. Lumbar spine: Motor bulk/ tone/ strength lower extremities , thigh and legs : 5/5 Deep tendon reflexes : Normal Knee Jerk. Normal Ankle Jerk . Vertebral body tenderness to palpation over L4, L5, S1 Lumbar Facet Loading Test positive over left L4-L5, L5-S1 Straight Leg Raise: positive at 30 degrees right side/ left side Gaenslen's Test positive Sacral spine : Severe tenderness over the Sacroiliac joint: right side / left side Range of motion: Flexion of the lumbar spine <60 degrees Range of motion: Extension of the lumbar spine <20 degrees Gaenslen's Test positive Christine test: positive right side / left side Assessment and plan: Chronic low back pain secondary to lumbar degenerative disc disease , lumbar spondylosis with facet arthropathy without myelopathy Chronic and current use of high-risk medication (Opioids). The patient was counseled about risk of opioid use, psychological risk associated with opioids and was orally counseled to not overuse , divert or sell medications. Pt is to store medication in a safe location. The patient is counseled against driving while using narcotic medications and also not to use alcohol or any illicit recreational drugs. Patient verbalized understanding that the lack of compliance will result in failure to renew narcotic prescription(s) as well as possible discharge from the clinic Diagnoses, prognosis and treatment options including but not limited to physical therapy, surgical interventions, interventional therapies and medication management including narcotics and adjuvant medication were discussed. All patient questions answered MAPS reviewed and it was appropriate. Urine collected for UDS today. Prescription refill for [place] 7.5/325 #60 with 1 refill I have spent 31 minutes on patient care today. Dr Michel was available by phone for the evaluation of this patient. The time was used to review the medical records including relevant urine studies and Prescription history (MAPs), review of the available imaging, evaluation and examination of the patient, coordination of care with the medical staff and if applicable referring physicians, as well as creation of the medical record Objective - Vital Signs Vital signs: Intake & Output 12/04/21 12/05/21 12/05/21 18:59 06:59 18:59 Weight 74.843 kg PQRS Measure Charge Sheet PQRS Narrative: Smoking Status Current every day smoker Narcotic Agreement Date Signed 07/18/21 Pain Intensity [Bilateral 5 Lower Back] Scale Used Numeric (1 - 10) Hx Alcohol Use (MH) No Home Medications: Ambulatory Orders Multivitamin [Men's Multi-Vitamin] 1 tab PO DAILY 01/28/14 Cetirizine HCl 10 mg PO DAILY 03/11/17 Montelukast [Singulair] 10 mg PO DAILY 03/28/17 Atorvastatin [Lipitor] 20 mg PO HS 10/01/19 Ibuprofen [Motrin] 600 mg PO BID PRN #60 tab 10/10/21 Ibuprofen [Motrin] 600 mg PO Q8HR PRN #90 tab 10/18/21 HYDROcodone/APAP 7.5-325MG [[place] 7.5-325] 1 tab PO Q12HR PRN 30 Days #60 tab 0 12/05/21 HYDROcodone/APAP 7.5-325MG [[place] 7.5-325] 1 tab PO Q12HR PRN 30 Days #60 tab 12/05/21
[2021-12-05 09:12] VITALS: BP 110/73; PULSE 74; RESP 18; TEMP 97.7
== END ==
LOC: PNWHC3 07:49
PROVIDERS: ATTEND Physician Assistant Medical
DX: M51.36 Other intervertebral disc degeneration, lumbar region (principal); M47.816 Spondylosis without myelopathy or radiculopathy, lumbar region; G89.29 Other chronic pain; Z79.891 Long term (current) use of opiate analgesic; F17.200 Nicotine dependence, unspecified, uncomplicated
CPT/HCPCS: 80307; G0482; G0463; 99212

== ENCOUNTER → 2022-01-28 | Outpatient (CLI) | payer OTHER ==
[2022-01-28 08:35] VITALS: BP 130/82; PULSE 66; RESP 18; TEMP 98.4
--- NOTE | 2022-01-28 08:56 | P.PN ---
Subjective Progress Note Date: 01/28/22 Principal diagnosis: A 61 yr old malewith a history of severe and chronic low back pain secondary to lumbar degenerative disc diseases and lumbar spondylosis with facet arthropathy presents today for medication refills. Pain level is currently at 7 out of 10 in intensity, tingling electric feeling in the lower aspects of the lumbar spine and buttocks with a numb, dull ache down the left lower extremity. Pain is provoked by walking and standing for periods of 15 minutes or lifting. Pain is alleviated with medications, topicals, injections, ice, chiropractic treatments of which he currently has been having, home stretching regimen and rest. Pt is scheduled for a LESI L5-S1 in 1 day. Interventional pain procedures completed include LESI L5-S1 multiple times Patient is currently on Martin No. 60, ibuprofen No. 90. Patient denies any side effects of the medication(s), denies excessive drowsiness or sleepiness, denies suicidal ideation and reports that the current pain medication is helping to control the pain and improve activities of daily living. Patient denies any motor or sensory deficits. Patient denies any fever or night sweats, denies any change in the bowel movements or urination. Physical Examination: -Constitutional: Cooperative. Not in acute distress . -HEENT: Neck is supple. No lymphadenopathy. No thyromegaly. Normal thyroid size. Eyes: No ptosis , no icterus, no photophobia. ENT: No auditory deficits. Normal oropharynx. No Thrush. - Respiratory: Chest clear to auscultations bilaterally. No wheezing. No rhonchi. - Cardiovascular: Regular rate and rhythm. S1 / S2 , no S3 , no S4. - Gastrointestinal: Abdomen soft no tenderness. Bowel sounds positive in all four quadrants. No organomegaly. - Genitourinary: Deferred. - Neurologic: Cranial nerve II to XII intact. No focal neurological def icits. - Psychatric: Alert & oriented x 3. Matching mood & appropriate affect. Judgment and insight intact. - Lymphatic: No Lymphadenopathy. - Musculoskeletal: Cervical spine: Muscle bulk/ tone/ strength in the bilateral upper extremities normal. Facet loading test cervical area positive. Lumbar spine: Motor bulk/ tone/ strength lower extremities , thigh and legs : 5/5 Deep tendon reflexes : Normal Knee Jerk. Normal Ankle Jerk . Vertebral body tenderness to palpation over L5 Lumbar Facet Loading Test positive Straight Leg Raise: positive at 30 degrees right side/ left side Gaenslen's Test positive Sacral spine : Severe tenderness over the Sacroiliac joint: right side / left side Range of motion: Flexion of the lumbar spine <60 degrees Range of motion: Extension of the lumbar spine <20 degrees Gaenslen's Test positive Christine test: positive right side / left side Assessment and plan: Chronic low back pain secondary to lumbar degenerative disc disease , lumbar spondylosis with facet arthropathy without myelopathy Chronic and current use of high-risk medication (Opioids). The patient was counseled about risk of opioid use, psychological risk associated with opioids and was orally counseled to not overuse , divert or sell medications. Pt is to store medication in a safe location. The patient is counseled against driving while using narcotic medications and also not to use alcohol or any illicit recreational drugs. Patient verbalized understanding that the lack of compliance will result in failure to renew narcotic prescription(s) as well as possible discharge from the clinic Diagnoses, prognosis and treatment options including but not limited to physical therapy, surgical interventions, interventional therapies and medication management including narcotics and adjuvant medication were discussed. All patient questions answered MAPS reviewed and it was appropriate. UDS from 12/05/21 reviewed and consistent Prescription refill for Martin #60 1 refill, Ibuprofen 600mg #90 w 1 refill. I have spent 31 minutes on patient care today. Dr Michel was available by phone for the evaluation of this patient. The time was used to review the medical records including relevant urine studies and Prescription history (MAPs), review of the available imaging, evaluation and examination of the patient, coordination of care with the medical staff and if applicable referring physicians, as well as creation of the medical record Objective - Vital Signs Vital signs: Vital Signs Temp 98.4 F 01/28/22 08:24 Pulse 66 01/28/22 08:24 Resp 18 01/28/22 08:24 BP 130/82 01/28/22 08:24 Pulse Ox 97 01/28/22 08:24 Intake & Output 01/27/22 01/28/22 01/28/22 18:59 06:59 18:59 Weight 73.482 kg PQRS Measure Charge Sheet Mode of Arrival: Ambulatory - Pain Location Bilateral Lower Back Non-Pharmacological Interventions: Chiropractic Treatment, Exercise, Ice Pharmacological Interventions: Epidural, Scheduled Medication, Topical Medication PQRS Narrative: Smoking Status Current every day smoker Narcotic Agreement Date Signed 07/18/21 Blood Pressure 130/82 Pain Intensity [Bilateral 7 Lower Back] Scale Used Numeric (1 - 10) Hx Alcohol Use (MH) No Home Medications: Ambulatory Orders Multivitamin [Men's Multi-Vitamin] 1 tab PO DAILY 01/28/14 Cetirizine HCl 10 mg PO DAILY 03/11/17 Montelukast [Singulair] 10 mg PO DAILY 03/28/17 Atorvastatin [Lipitor] 20 mg PO HS 10/01/19 Ibuprofen [Motrin] 600 mg PO BID PRN #60 tab 10/10/21 HYDROcodone/APAP 7.5-325MG [Martin 7.5-325] 1 tab PO Q12HR PRN 30 Days #60 tab 01/28/22 HYDROcodone/APAP 7.5-325MG [Martin 7.5-325] 1 tab PO Q12HR PRN 30 Days #60 tab 01/28/22 Ibuprofen [Motrin] 600 mg PO Q8HR PRN #90 tab 01/28/22
== END ==
LOC: PNWHC3 08:05
PROVIDERS: ATTEND Specialist
DX: M51.36 Other intervertebral disc degeneration, lumbar region (principal); M47.816 Spondylosis without myelopathy or radiculopathy, lumbar region; G89.29 Other chronic pain; Z79.891 Long term (current) use of opiate analgesic; F17.200 Nicotine dependence, unspecified, uncomplicated
CPT/HCPCS: 99211

== ENCOUNTER 2022-01-29 06:10 | Day surgery (SDC) | payer OTHER ==
[2022-01-28 09:46] VITALS: BMI 25.3
[2022-01-29 06:34] VITALS: TEMP 97.7
[2022-01-29] MEDS ORDERED: LACTATED RINGERS 1,000 ML IV ONE (06:34)
[2022-01-29] MEDS ORDERED: MIDAZOLAM 2 MG/2 ML VIAL ONE (06:48)
[2022-01-29] MEDS ORDERED: fentaNYL (PF) 50 MCG/ML 2 ML AMP ONE (06:48)
[2022-01-29] MEDS ORDERED: methylPREDNISolone ACETATE 40 MG/ML 1 ML VIAL ONE (06:48)
[2022-01-29] MEDS ORDERED: IOPAMIDOL M200 10 ML VIAL ONE (06:48)
[2022-01-29] MEDS ORDERED: LACTATED RINGERS 1,000 ML IV SCH (07:00)
--- NOTE | 2022-01-29 07:12 | P.PCN ---
Date of Procedure: 01/29/22 Description of Procedure: Procedure: 1 L5-S1 Epidural steroid injection under fluoroscopic guidance # , 2. Lumbar epidurogram PREOPERATIVE DIAGNOSIS: Lumbar degenerative disc disease, and Lumbar radiculopathy. POSTOPERATIVE DIAGNOSIS: Lumbar degenerative disc disease, and Lumbar radiculopathy. SURGEON: Dexter Man ANESTHESIA: Local with 1% lidocaine, and IV sedation as per anesthesia record EBL: None. Specimen removed: None Fluoroscopic image: saved to electronic medical records PROCEDURE INDICATION: The patient had history of Lumbar degenerative disc disease and Lumbar radiculopathy. Failed to conservative therapy. Presented for epidural steroid injection. PROCEDURE DESCRIPTION: The patient was seen and identified in the preoperative area. Risks, benefits, complications, and alternatives were discussed with the patient. The patient agreed to proceed with the procedure and signed the consent. IV was started, and vital signs were stable. Patient was taken to the procedure area, and time out was completed. The patient was placed in the prone position on procedure table and a pillow was placed under the abdomen to reduce lumbar lordosis. The lumbosacral area was prepped and draped in the usual sterile fashion. Critical pause was taken. Vital signs were closely monitored during the procedure. Using anterior-posterior fluoroscopy, the L5-S1 interlaminar space was identified, and skin and deeper tissues were localized with 1% lidocaine. Using anterior-posterior fluoroscopy, lateral fluoroscopy, and [id number] technique, a 20 gauge 3.5 Tuohy epidural needle entered the epidural space. After negative aspiration of CSF and blood with no paresthesias, 1 ml of [id number] contrast dye was injected and an excellent epidurogram was seen. Again after negative aspiration of CSF and blood with no paresthesias, 10 mL of block solution was injected into the epidural space. Block solution contained 80 mg of Depo-Medrol, and 9 mL of preservative-free normal saline. Needle was withdrawn intact, skin was cleansed, and bandages were applied. COMPLICATIONS: None. DISPOSITION / PLANS: The patient was placed in a supine position and transferred to the recovery area in a stable condition for observation. Patient was discharged from the recovery room after meeting discharge criteria. Home discharge instructions given to the patient by the staff. The patient was reexamined prior to discharge. The patient will schedule a follow up in the clinic in 4 weeks.
[2022-01-29] MEDS ORDERED: IV FLUID CONTINUATION 1,000 ML IV ONE (07:14)
[2022-01-29 07:34] VITALS: BP 125/80; PULSE 63; RESP 17
--- NOTE | 2022-01-29 07:35 | FL ---
EXAMINATION TYPE: FL guided pain mgmt statistic DATE OF EXAM: 01/29/2022 HISTORY: Fluoroscopy time 4 seconds of fluoroscopy provided. IMPRESSION: 1. Fluoroscopy time.
== END 2022-01-29 07:47 | disposition home or self-care (01) ==
LOC: ORPAIN 06:10
DX: M51.16 Intervertebral disc disorders with radiculopathy, lumbar region (principal)
CPT/HCPCS: 62323; J2250; J1030; J3010; Q9966; 99152

== ENCOUNTER → 2022-03-25 | Outpatient (CLI) | payer OTHER ==
[2022-03-25 09:24] VITALS: BP 135/86; PULSE 76; RESP 18; TEMP 98
--- NOTE | 2022-03-25 09:44 | P.PAINPG ---
PQRS Measure Charge Sheet Comment: A 61 yr old male with a history of severe and chronic low back pain secondary to lumbar degenerative disc diseases and lumbar spondylosis with facet arthropathy presents today for evaluation s/p LESI L5-S1. Pt states he experienced 60% pain relief for 1 mo. s/p procedure. Pain level is currently at 5/10 in intensity, localized to the lower aspect of the LBP with radiation towards BLEs. Pain is constant and he has been dealing with this for "several years," stabbing, numbness also towards the LEs. Pain is provoked by standing for periods of 15 min or more. Pain is alleviated with ice, medications ([place], Ibuprofen), chiropractic treatments semi monthly, home based exercise regimen, repositioning and rest. Interventional pain procedures completed include LESI L5-S1 Patient is currently on [place] 7.5/325mg #60, Ibuprofen #90 Patient denies any side effects of the medication(s), denies excessive dr owsiness or sleepiness, denies suicidal ideation and reports that the current pain medication is helping to control the pain and improve activities of daily living. Patient denies any motor or sensory deficits. Patient denies any fever or night sweats, denies any change in the bowel movements or urination. Physical Examination: -Constitutional: Cooperative. Not in acute distress . - Neurologic: Cranial nerve II to XII intact. No focal neurological deficits. - Psychatric: Alert & oriented x 3. Matching mood & appropriate affect. Judgment and insight intact. - Musculoskeletal: Cervical spine: Muscle bulk/ tone/ strength in the bilateral upper extremities normal Vertebral body tenderness to palpation over Spurling test positive Distraction test positive Facet loading test positive Thoracic spine Muscle bulk / tone/ strength in the bilateral paraspinal muscles normal Vertebral body tender to palpation over Facet loading test positive Lumbar spine: Motor bulk/ tone/ strength lower extremities , thigh and legs : 5/5 Deep tendon reflexes : Normal Knee Jerk. Normal Ankle Jerk . Vertebral body tenderness to palpation over L4, L5 Lumbar Facet Loading Test positive Straight Leg Raise: positive at 30 degrees right side/ left side Gaenslen's Test positive Sacral spine : Severe tenderness over the Sacroiliac joint: right side / left side Range of motion: Flexion of the lumbar spine <60 degrees Range of motion: Extension of the lumbar spine <20 degrees Gaenslen's Test positive Dominguez's Test positive Christine test: positive right side / left side Thigh Thrust Test Sacral Thrust Test Assessment and plan: Chronic low back pain secondary to lumbar degenerative disc disease , lumbar spondylosis with facet arthropathy without myelopathy Chronic and current use of high-risk medication (Opioids). The patient was counseled about risk of opioid use, psychological risk associated with opioids and was orally counseled to not overuse , divert or sell medications. Pt is to store medication in a safe location. The patient is counseled against driving while using narcotic medications and also not to use alcohol or any illicit recreational drugs. Patient verbalized understanding that the lack of compliance will result in failure to renew narcotic prescription(s) as well as possible discharge from the clinic Diagnoses, prognosis and treatment options including but not limited to physical therapy, surgical interventions, interventional therapies and medication management including narcotics and adjuvant medication were discussed. All patient questions answered MAPS reviewed and it was appropriate. Prescription refill for [place] 7.5/325mg #60, Ibuprofen #90 w 1 refill I have spent less than 30 minutes on patient care today. Dr Michel was available by phone for the evaluation of this patient. The time was used to review the medical records including relevant urine studies and Prescription history (MAPs), review of the available imaging, evaluation and examination of the patient, coordination of care with the medical staff and if applicable referring physicians, as well as creation of the medical record PQRS Narrative: Smoking Status Current every day smoker Narcotic Agreement Date Signed 07/18/21 Hx Alcohol Use (MH) No Home Medications: Ambulatory Orders Multivitamin [Men's Multi-Vitamin] 1 tab PO DAILY 01/28/14 Cetirizine HCl 10 mg PO DAILY 03/11/17 Montelukast [Singulair] 10 mg PO DAILY 03/28/17 Atorvastatin [Lipitor] 20 mg PO HS 10/01/19 HYDROcodone/APAP 7.5-325MG [[place] 7.5-325] 1 tab PO Q12HR PRN 30 Days #60 tab 03/25/22 HYDROcodone/APAP 7.5-325MG [[place] 7.5-325] 1 tab PO Q12HR PRN 30 Days #60 tab 03/25/22 Ibuprofen [Motrin] 600 mg PO Q8HR PRN 30 Days #90 tab 03/25/22 Controlled Substance Measures - Controlled Substance Measures Is patient prescribed a controlled substance at discharge?: Yes When asked, does pt state using other controlled substances?: No If prescribed controlled substance>3 days was MAPS reviewed?: Yes If Rx opioid, was Start Talking consent form obtained?: Yes If opioid is for acute pain is fill amount 7 days or less?: Yes Was information provided regarding opioid addiction?: Yes
== END ==
LOC: PNWHC3 08:36
PROVIDERS: ATTEND Specialist
DX: M51.36 Other intervertebral disc degeneration, lumbar region (principal); M47.816 Spondylosis without myelopathy or radiculopathy, lumbar region; G89.29 Other chronic pain; Z79.891 Long term (current) use of opiate analgesic
CPT/HCPCS: 99211

== ENCOUNTER 2022-04-28 16:39 | Observation (INO) | payer OTHER ==
[2022-04-28] MEDS ORDERED: ASPIRIN 81 MG PO STA (16:51)
[2022-04-28] MEDS ORDERED: NITROGLYCERIN SL TABS 0.4 MG TAB SUBLINGUAL STA ×3 (16:51)
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
[2022-04-28 17:14] LABS: Basophils # (A) 0.1 k/uL (0-0.2); Basophils % (A) 1 %; Eosinophils # (A) 0.1 k/uL (0-0.7); Eosinophils % (A) 1 %; HCT 51.6 % (39.0-53.0); HGB 17.4 gm/dL (13.0-17.5); Lymphocytes # (A) 3.4 k/uL (1.0-4.8); Lymphocytes % (A) 27 %; MCHC 33.7 g/dL (31.0-37.0); MCV 103.7 fL (80.0-100.0); Macrocytosis Slight; Mean Platelet Volume 7.7; Monocytes # (A) 0.7 k/uL (0-1.0); Monocytes % (A) 6 %; Neutrophils # (A) 7.9 k/uL (1.3-7.7); Neutrophils % (A) 63 %; Platelet Count 148 k/uL (150-450); RBC 4.98 m/uL (4.30-5.90); RDW 14.3 % (11.5-15.5); WBC 12.6 k/uL (3.8-10.6)
[2022-04-28 17:19] LABS: ALT 40 U/L (4-49); AST 52 U/L (17-59); African American GFR (CKD) >90 (>60 ml/min/1.73 sqM); Albumin 4.5 g/dL (3.5-5.0); Alkaline Phosphatase 88 U/L (38-126); Anion Gap 18 mmol/L; Blood Urea Nitrogen 25 mg/dL (9-20); Calcium 9.3 mg/dL (8.4-10.2); Carbon Dioxide 18 mmol/L (22-30); Chloride 102 mmol/L (98-107); Glucose 80 mg/dL (74-99); Magnesium 1.9 mg/dL (1.6-2.3); Non-African American GFR(CKD) >90 (>60 ml/min/1.73 sqM); Potassium 4.3 mmol/L (3.5-5.1); Sodium 138 mmol/L (137-145); Total Bilirubin 0.6 mg/dL (0.2-1.3); Total Protein 7.6 g/dL (6.3-8.2)
[2022-04-28 17:24] LABS: INR 0.9 (<1.2); Partial Thromboplastin Time 22.7 sec (22.0-30.0); Prothrombin Time 10.4 sec (9.0-12.0)
[2022-04-28 17:27] LABS: Alcohol 278 mg/dL
--- NOTE | 2022-04-28 17:29 | XR ---
EXAMINATION TYPE: XR chest 2V DATE OF EXAM: 04/28/2022 COMPARISON: 09/08/2020 HISTORY: Chest pain TECHNIQUE: FINDINGS: Heart and mediastinum are normal. Lungs are clear. Diaphragm is normal. Bony thorax is inta ct. Pulmonary vascularity is normal. IMPRESSION: Normal chest. No change.
--- NOTE | 2022-04-28 18:23 | CT ---
EXAMINATION TYPE: CT angio chest DATE OF EXAM: 04/28/2022 COMPARISON: None HISTORY: Chest pain, denies cardiac hx CT DLP: 292.2 mGycm Automated exposure control for dose reduction was used. CONTRAST: Performed with IV Contrast, patient injected with 100 mL of Isovue 300. There are 3-D post processed images. The lungs are clear of infiltrate. No pleural effusion or pneumothorax. There is diffuse fatty infilt ration of the liver. Heart size is normal. No pericardial effusion. There is no mediastinal adenopathy. There are no hilar masses. There is normal contrast opacification of the pulmonary arteries. No filling defect. Thoracic spine i s intact. No compression fracture. Sternum is intact. Thoracic aorta appears normal. No aneurysm or d issection. IMPRESSION: Negative exam. No evidence of pulmonary embolism.
[2022-04-28] MEDS ORDERED: FAMOTIDINE 20 MG/2 ML VIAL IV STA (18:41)
[2022-04-28] MEDS ORDERED: MORPHINE SULFATE 2 MG/ML SYRINGE IVP STA (18:41)
[2022-04-28] MEDS ORDERED: NITROGLYCERIN SL TABS 0.4 MG TAB SUBLINGUAL PRN (18:45)
[2022-04-28] MEDS ORDERED: LORazepam 2 MG/ML INJ IV PRN ×2 (22:24)
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
[2022-04-28] MEDS ORDERED: ATORVASTATIN 80 MG TAB PO SCH (22:30)
[2022-04-28] MEDS ORDERED: ACETAMINOPHEN TAB 325 MG TAB PO STA (22:48)
[2022-04-28] MEDS ORDERED: MELATONIN 5 MG TABLET PO PRN (22:48)
[2022-04-28] MEDS ORDERED: SODIUM CHLORIDE 0.9% 1,000 ML IV SCH (23:00)
[2022-04-28] MEDS: HEPARIN SODIUM,PORCINE/PF 5,000 UNIT/0.5 ML SYRINGE SQ SCH (23:03)
[2022-04-28] MEDS: MULTIVITAMINS, THERA 1 EACH TAB PO SCH (23:03)
[2022-04-28] MEDS: THIAMINE 100 MG TAB PO SCH (23:03)
[2022-04-29] MEDS: LORazepam 2 MG/ML INJ IV PRN ×2 (06:17→12:04)
[2022-04-29] MEDS: THIAMINE 100 MG TAB PO SCH (06:21)
[2022-04-29] MEDS: HEPARIN SODIUM,PORCINE/PF 5,000 UNIT/0.5 ML SYRINGE SQ SCH (08:26)
[2022-04-29] MEDS: MULTIVITAMINS, THERA 1 EACH TAB PO SCH (08:27)
[2022-04-29] MEDS ORDERED: ASPIRIN 325 MG TAB PO SCH (09:00)
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
[2022-04-29 11:05] LABS: Chol/HDL Ratio 3.17 Ratio; LDL Cholesterol,Calculated 109.2 mg/dL (0.0-131.0)
[2022-04-29 12:00] VITALS: BP 150/88; PULSE 83; RESP 18; TEMP 98.6
--- NOTE | 2022-04-29 15:52 | P.PN ---
Subjective Progress Note Date: 04/29/22 Hospital course: Patient is a 61-year-old male with a past medical history of alcohol abuse drinking 1 fifth of liquor and 4-5 beers daily, hyperlipidemia, COPD and continued nicotine dependence. He presented to the chief complaint chest pain and alcohol intoxication. He underwent full evaluation in the emergency department. He was found to have WBC count of 12.6, platelet count of 148, and serum alcohol level of 278. D-dimer resulting at 1.82 and a CTA was then completed showing no evidence of pulmonary emboli. Troponin negative at less than 0.012. EKG showing sinus tachycardia at 108 bpm with no noted T wave or ST abnormality showing no signs of acute ischemia. Chest x-ray also negative for acute cardiopulmonary process. Patient admitted to our services with consul tation to cardiology. Overnight troponins were trended all negative at less than 0.0123 draws. Lipid profile unremarkable. Vitamin B12 normal findings at 568.0. Patient clinically sober. He reports chest pain has improved but slightly remains to left anterior chest. Echocardiogram is pending completed and pending results. Physical exam: Vital signs reviewed and stable. General: Nontoxic, no distress and appears stated age. Derm: Skin warm and dry, normal coloration for ethnicity. Head: Atraumatic, normocephalic and symmetric. Eyes: EOMs intact, no lid lag, and anicteric sclera Mouth: no lip lesions, mucus membranes moist Cardiovascular: regular rate and rhythm with normal S1S2, no murmur, positive posterior tibial pulses bilaterally, and cap refill < 2 seconds. Lungs: Respirations even, regular, and unlabored on room air. Lungs CTA bilaterally, no rhonchi, no rales, no wheezing, and no accessory muscle usage. Abdominal: soft, nontender to palpation, no guarding, no appreciable organomegaly Ext: ROM intact. No gross muscle atrophy, no edema, no contractures Neuro: Speech clear, face symmetrical and CN II-XII grossly intact with no noted focal neuro deficits Psych: Alert and oriented to person, place, time, and situation. Appropriate and pleasant affect. Assessment and Plan of Care: Chest pain, rule out acute coronary event -Cardiology following, appreciate further recommendations -Telemetry monitoring -Cardiac diet -Lipid profile unremarkable. -Echocardiogram to be completed. Alcohol abuse -[facility] Protocol with symptom triggered medication management with benzodiazepines. -Thiamine 100 mg twice a day -Multivitamin daily -Folate 1 mg daily -Seizure, fall, aspiration, and elopement precautions in place. -Continued close monitoring of electrolytes and replace as needed. -Telemetry monitoring. Hyperlipidemia -Continue daily medication regimen with atorvastatin nightly. Nicotine dependence -Recommend smoking cessation . CODE STATUS: Full code DVT prophylaxis: SCDs Discussed with: Patient and RN Anticipated discharge date: Later today versus tomorrow morning, awaiting echocardiogram results. Anticipated discharge place: Home A total of 31 minutes was spent on the care of this complex patient more than 50% of the time was spent in counseling and care coordination. I reviewed the documentation as provided by the LOU above, who is the original author of this note. I agree with the documented assessment and plan, with the following changes: none Objective - Vital Signs Vital signs: Vital Signs Temp 97.9 F 04/29/22 08:25 Pulse 72 04/29/22 08:25 Resp 16 04/29/22 08:25 BP 127/83 04/29/22 08:25 Pulse Ox 96 04/29/22 08:25 FiO2 Intake & Output 04/28/22 04/29/22 04/29/22 18:59 06:59 18:59 Intake Total 20 Balance 20 Weight 72.575 kg 72.575 kg Intake: IV 20 Invasive Line 1 20 Other: # Voids 2 - Labs CBC & Chem 7: 04/28/22 17:01 04/28/22 17:01 Labs: Abnormal Lab Results - Last 24 Hours (Table) 04/28/22 04/28/22 04/28/22 Range/Units 17:01 17:01 17:01 WBC 12.6 H (3.8-10.6) k/uL MCV 103.7 H (80.0-100.0) fL Plt Count 148 L (150-450) k/uL Neutrophils # 7.9 H (1.3-7.7) k/uL D-Dimer 1.82 H (<0.60) mg/L FEU Carbon Dioxide 18 L (22-30) mmol/L BUN 25 H (9-20) mg/dL Creatinine 0.63 L (0.66-1.25) mg/dL Serum Alcohol 278 H* mg/dL
--- NOTE | 2022-04-29 16:03 | P.DS ---
Providers Date of admission: 04/28/22 18:46 Expected date of discharge: 04/29/22 Attending physician: Benji Posey MD Consults: 04/28/22 22:25 Consult Physician Urgent Consulting Provider: Tripp Olivares Consult Reason/Comments: chest pain Do you want consulting provider notified?: Yes Primary care physician: Stated None Hospital Course: THIS IS NOT A DISCHARGE SUMMARY BUT A SUMMARY OF CARE PATIENT LEFT AGAINST MEDICAL ADVICE Diagnosis received this hospitalization: Chest pain, acute coronary event was ruled out. Awaiting echocardiogram results, cardiology was recommending outpatient stress test this was discussed with patient proper to him leaving AGAINST MEDICAL ADVICE. Alcohol abuse, recommend cessation of alcohol use and patient was counseled on this. Hyperlipidemia Nicotine dependence Hospital Course: Patient is a 61-year-old male with a past medical history of alcohol abuse drinking 1 fifth of liquor and 4-5 beers daily, hyperlipidemia, COPD and continued nicotine dependence. He presented to the chief complaint chest pain and alcohol intoxication. He underwent full evaluation in the emergency department. He was found to have WBC count of 12.6, platelet count of 148, and serum alcohol level of 278. D-dimer resulting at 1.82 and a CTA was then completed showing no evidence of pulmonary emboli. Troponin negative at less than 0.012. EKG showing sinus tachycardia at 108 bpm with no noted T wave or ST abnormality showing no signs of acute ischemia. Chest x-ray also negative for acute cardiopulmonary process. Patient admitted to our services with consultation to cardiology. Overnight troponins were trended all negative at less than 0.0123 draws. Lipid profile unremarkable. Vitamin B12 normal findings at 568.0. Patient clinically sober. He reports chest pain has improved but slightly remains to left anterior chest. Echocardiogram is pending completed and pending results. While awaiting echocardiogram results. Received report from RN at 3:43 PM the patient had already left facility AGAINST MEDICAL ADVICE. Pt left AGAINST MEDICAL ADVICE on 04/29/22 at 3:43 PM. I reviewed the documentation as provided by the LOU above, who is the original author of this note. I agree with the documented assessment and plan, with the following changes: none Patient Condition at Discharge: Undetermined Plan - Discharge Summary Discharge Rx Participant: No New Discharge Prescriptions: No Action Multivitamin [Men's Multi-Vitamin] 1 tab PO DAILY Cetirizine HCl 10 mg PO DAILY Montelukast [Singulair] 10 mg PO DAILY Atorvastatin [Lipitor] 20 mg PO HS Celecoxib [CeleBREX] 100 mg PO BID DULoxetine HCL [Cymbalta] 60 mg PO DAILY HYDROcodone/APAP 7.5-325MG [[place] 7.5-325] 1 tab PO BID Discharge Medication List Multivitamin [Men's Multi-Vitamin] 1 tab PO DAILY 01/28/14 [History] Cetirizine HCl 10 mg PO DAILY 03/11/17 [History] Montelukast [Singulair] 10 mg PO DAILY 03/28/17 [History] Atorvastatin [Lipitor] 20 mg PO HS 10/01/19 [History] Celecoxib [CeleBREX] 100 mg PO BID 04/28/22 [History] DULoxetine HCL [Cymbalta] 60 mg PO DAILY 04/28/22 [History] HYDROcodone/APAP 7.5-325MG [[place] 7.5-325] 1 tab PO BID 04/28/22 [History] Follow up Appointment(s)/Referral(s): None,Stated [Primary Care Provider] - 1-2 days Discharge Disposition: Left Against Medical Advice
--- NOTE | 2022-04-29 16:54 | CA ---
Transthoracic Echo Report Name: Clinton Medley Age: 61 Gender: M : 1960 Exam Date: 04/29/2022 10:57 Exam Location: [facility] Ht (in): 66 Wt (lb): 160 Ordering Physician: Shelly Vazquez Attending/Referring Phys: President Practicing Urologist Terrie Cannon RDCS Procedure CPT: Indications: LV function, chest pain, alcohol abuse hx Cardiac Hx: Smoker,Htn,Asthma Technical Quality: Good Contrast 1: Total Dose (mL): Contrast 2: Total Dose (mL): MEASUREMENTS (Male / Female) Normal Values 2D ECHO LV Diastolic Diameter PLAX 3.5 cm 4.2 - 5.9 / 3.9 - 5.3 cm LV Systolic Diameter PLAX 1.8 cm IVS Diastolic Thickness 1.3 cm 0.6 - 1.0 / 0.6 - 0.9 cm LVPW Diastolic Thickness 1.3 cm 0.6 - 1.0 / 0.6 - 0.9 cm LV Relative Wall Thickness 0.7 RV Internal Dim ED PLAX 3.2 cm LA Volume 34.0 cm??? 18 - 58 / 22 - 52 cm??? M-MODE Aortic Root Diameter MM 3.5 cm LA Systolic Diameter MM 2.7 cm LA Ao Ratio MM 0.8 MV E Point Septal Separation 0.7 cm AV Cusp Separation MM 2.3 cm DOPPLER AV Peak Velocity 134.4 cm/s AV Peak Gradient 7.2 mmHg MV Area PHT 3.5 cm??? MR Peak Velocity 160.3 cm/s MR Peak Gradient 10.3 mmHg Mitral E Point Velocity 70.9 cm/s Mitral A Point Velocity 95.2 cm/s Mitral E to A Ratio 0.7 MV Deceleration Time 218.5 ms MV E' Velocity 8.7 cm/s Mitral E to MV E' Ratio 8.1 TR Peak Velocity 161.8 cm/s TR Peak Gradient 10.5 mmHg Right Ventricular Systolic Press 14.9 mmHg FINDINGS Left Ventricle Mildly increased septal wall thickness. Left ventricular ejection fraction is estimated at 55-60 %. Left ventricular cavity size normal. Right Ventricle The right ventricle is normal in size and function. Right Atrium The right atrium is normal in size. Left Atrium The left atrium is normal in size. Mitral Valve Structurally normal mitral valve without significant stenosis or prolapse. There is trace mitral regurgitation. Aortic Valve Structurally normal aortic valve without significant sclerosis or stenosis. There is no aortic regurgitation. Tricuspid Valve Structurally normal tricuspid valve without significant stenosis. Pulmonary artery systolic pressure is normal. Trace tricuspid regurgitation. Pulmonic Valve Structurally normal pulmonic valve without significant stenosis. There is no pulmonic regurgitation. Pericardium Normal pericardium without effusion. Aorta Normal aortic root dimension. CONCLUSIONS Left ventricle hypertrophy with preserved LV systolic function Previewed by: Dr. Sebastian Landin MD (Electronically Signed) Final Date: 29 April 2022 16:53
== END 2022-04-29 15:41 | disposition left against medical advice (07) ==
LOC: EC 16:39 → 6NMEDSUR 18:46 → 3SCARD 19:31
PROVIDERS: ADMIT Internal Medicine; ATTEND Internal Medicine
DX: R07.89 Other chest pain (principal); F10.129 Alcohol abuse with intoxication, unspecified; J44.9 Chronic obstructive pulmonary disease, unspecified; F10.139 Alcohol abuse with withdrawal, unspecified; E78.5 Hyperlipidemia, unspecified; M19.90 Unspecified osteoarthritis, unspecified site; M54.50 Low back pain, unspecified; F32.A Depression, unspecified; Y90.8 Blood alcohol level of 240 mg/100 ml or more; Z53.29 Procedure and treatment not carried out because of patient's decision for other reasons; R00.2 Palpitations; F17.210 Nicotine dependence, cigarettes, uncomplicated; F17.290 Nicotine dependence, other tobacco product, uncomplicated; Z79.1 Long term (current) use of non-steroidal anti-inflammatories (NSAID); Z79.899 Other long term (current) drug therapy; Z85.828 Personal history of other malignant neoplasm of skin; Z86.16 Personal history of COVID-19; Z96.651 Presence of right artificial knee joint; Z90.49 Acquired absence of other specified parts of digestive tract; Z87.820 Personal history of traumatic brain injury; Z98.890 Other specified postprocedural states; Z80.42 Family history of malignant neoplasm of prostate; Z71.6 Tobacco abuse counseling; Z71.41 Alcohol abuse counseling and surveillance of alcoholic
CPT/HCPCS: 96376; 96372 ×2; 96375 ×2; 96374; 99285; 36415; 93005; 93306; 85379; 82747; 83880; 80061; 80053; 82607; 83735; 84484; 85025; 85610; 85730; 71046; 71275; G0378 ×3; G0480; J2060; J2270; Q9967; J1644 ×2; 80320

== ENCOUNTER 2022-05-17 15:33 | Emergency (ER) | payer OTHER ==
[2022-05-17 15:39] VITALS: TEMP 98.3
--- NOTE | 2022-05-17 16:03 | XR ---
EXAMINATION TYPE: XR hand complete RT DATE OF EXAM: 05/17/2022 CLINICAL HISTORY: pain TECHNIQUE: Frontal, lateral and oblique images of the right hand are obtained. COMPARISON: None. FINDINGS: There is no acute fracture/dislocation evident. Advanced degenerative changes at the base of the first carpal metacarpal joint with cystic changes noted. The overlying soft tissue appears unr emarkable. IMPRESSION: There is no acute fracture or dislocation ICD 10 NO FRACTURE, INITIAL EVALUATION
--- NOTE | 2022-05-17 16:05 | XR ---
EXAMINATION TYPE: XR shoulder complete RT DATE OF EXAM: 05/17/2022 CLINICAL HISTORY: pain TECHNIQUE: Three views of the right shoulder are obtained. COMPARISON: None FINDINGS: There is no acute fracture/dislocation evident. Elevation of the distal clavicle relative to the acromium compatible with AC joint separation chronic in nature as it was present on a chest x- ray from 10/01/2019. The visualized ribs are intact and unremarkable. IMPRESSION: 1. There is no acute fracture or dislocation. ICD 10 NO FRACTURE, INITIAL EVALUATION
[2022-05-17] MEDS ORDERED: KETOROLAC 15 MG/ML 1 ML VIAL IM STA (16:47)
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
[2022-05-17 17:19] VITALS: BP 144/75; PULSE 71; RESP 20
== END 2022-05-17 17:19 | disposition home or self-care (01) ==
LOC: EC 15:33
DX: M25.511 Pain in right shoulder (principal); M25.60 Stiffness of unspecified joint, not elsewhere classified; E78.5 Hyperlipidemia, unspecified; Z87.891 Personal history of nicotine dependence
CPT/HCPCS: 73030; 73130; 99283; 96372; J1885

== ENCOUNTER → 2022-06-17 | Outpatient (CLI) | payer OTHER ==
[2022-06-17 11:17] VITALS: BP 142/87; PULSE 64; RESP 18; TEMP 98
--- NOTE | 2022-06-17 14:50 | P.PAINPG ---
PQRS Measure Charge Sheet Comment: A 61 yr old male with a history of severe and chronic low back pain secondary to lumbar degenerative disc diseases and lumbar spondylosis with facet arthropathy without myelopathy presents today for . Pain level is currently at 4/10 in intensity, constant, localized in lower lumbar spine, sharp in character w shooting towards the BL glutes. Pain is provoked as high as 8/10 in intensity by sitting. Pain is alleviated with home exercise regimen, massage therapy as needed (Last Apr 2022), chiropractic treatments semi monthly x 5 yrs, heat, medications ([place], Celebrex), sitting, repositioning and rest. He no longer uses Ibuprofen. Interventional pain procedures completed include CONOR L5-S1 x1. Patient is currently on [place] /325mg #60, Celebrex from his PCP Patient denies any side effects of the medication(s), denies excessive drowsiness or sleepiness, denies suicidal ideation and reports that the current pain medication is helping to control the pain and improve activities of daily living. Patient denies any motor or sensory deficits. Patient denies any fever or night sweats, denies any change in the bowel movements or urination. Physical Examination: -Constitutional: Cooperative. Not in acute distress . - Neurologic: Cranial nerve II to XII intact. No focal neurological deficits. - Psychatric: Alert & oriented x 3. Matching mood & appropriate affect. Judgment and insight intact. - Musculoskeletal: Cervical spine: Muscle bulk/ tone/ strength in the bilateral upper extremities normal Vertebral body tenderness to palpation over Spurling test positive Distraction test positive Facet loading test positive Thoracic spine Muscle bulk / tone/ strength in the bilateral paraspinal muscles normal Vertebral body tender to palpation over Facet loading test positive Lumbar spine: Motor bulk/ tone/ strength lower extremities , thigh and legs : 5/5 Deep tendon reflexes : Normal Knee Jerk. Normal Ankle Jerk . Vertebral body tenderness to palpation over L5 Lumbar Facet Loading Test positive Straight Leg Raise: positive at 30 degrees right side/ left side Gaenslen's Test positive Sacral spine : Severe tenderness over the Sacroiliac joint: right side / left side Range of motion: Flexion of the lumbar spine <60 degrees Range of motion: Extension of the lumbar spine <20 degrees Gaenslen's Test positive Dominguez's Test positive Christine test: positive right side / left side Thigh Thrust Test Sacral Thrust Test Assessment and plan: Chronic low back pain secondary to lumbar degenerative disc disease , lumbar spondylosis with facet arthropathy without myelopathy Recommendation of CONOR L5-S1 #2. May need a series of injections, up to 3 within a 6 mo period, for optimal pian relief. Risks, benefits of procedure discussed and pt verbalized understanding. Denies anticoagulant use or medical history of diabetes. All patient questions answered MAPS reviewed and it was appropriate. I have spent less than 30 minutes on patient care today. Dr Michel was available by phone for the evaluation of this patient. The time was used to review the medical records including relevant urine studies and Prescription history (MAPs), review of the available imaging, evaluation and examination of the patient, coordination of care with the medical staff and if applicable referring physicians, as well as creation of the medical record - Pain Location Bilateral Lower Back Non-Pharmacological Interventions: Chiropractic Treatment, Exercise, Home Exercise, Ice, Massage, Stretching Pharmacological Interventions: Epidural, Scheduled Medication PQRS Narrative: Smoking Status Current every day smoker Narcotic Agreement Date Signed 07/18/21 Hx Alcohol Use (MH) No Home Medications: Ambulatory Orders Multivitamin [Men's Multi-Vitamin] 1 tab PO DAILY 01/28/14 Cetirizine HCl 10 mg PO DAILY 03/11/17 Montelukast [Singulair] 10 mg PO DAILY 03/28/17 Atorvastatin [Lipitor] 20 mg PO HS 10/01/19 Celecoxib [CeleBREX] 100 mg PO BID 04/28/22 DULoxetine HCL [Cymbalta] 60 mg PO DAILY 04/28/22 Lidocaine 5% Patch [Lidoderm 5% Patch] 1 patch TOPICAL DAILY PRN #7 patch 05/17/22 HYDROcodone/APAP 7.5-325MG [[place] 7.5-325] 1 tab PO BID PRN 30 Days #60 tab 05/20/22 HYDROcodone/APAP 7.5-325MG [[place] 7.5-325] 1 tab PO Q12H PRN 30 Days #60 tab 05/20/22 Ibuprofen 800 mg PO Q12H PRN 30 Days #60 tab 05/20/22 Controlled Substance Measures - Controlled Substance Measures Is patient prescribed a controlled substance at discharge?: No
== END ==
LOC: PNWHC3 08:37
PROVIDERS: ATTEND Specialist
DX: M51.36 Other intervertebral disc degeneration, lumbar region (principal); M47.816 Spondylosis without myelopathy or radiculopathy, lumbar region; G89.29 Other chronic pain; F17.200 Nicotine dependence, unspecified, uncomplicated
CPT/HCPCS: 99211

== ENCOUNTER → 2022-07-15 | Outpatient (CLI) | payer OTHER ==
[2022-07-15 08:35] VITALS: BP 150/86; PULSE 66; RESP 18; TEMP 98.1
--- NOTE | 2022-07-15 14:46 | P.PAINPG ---
PQRS Measure Charge Sheet History and Exam Findings: All other causes of pain ruled out Comment: A 61 yr old male with a history of severe and chronic low back pain secondary to lumbar degenerative disc diseases and lumbar spondylosis with facet arthropathy without myelopathy presents today for medication refills. Pt states he experienced 100% pain relief for the last 6 days s/p procedure. Pain level is currently at 3/10 in intensity, constant, localized in the lower lumbar spine,sharp in character w shooting towards the L buttocks & LLE. Pain is provoked as high as 5/10 by standing/ walking and lifting. Pain is alleviated with massage therapy monthly x 1 yr, chiropractic treatments weekly x 10 yrs, ice, medications (Ibuprofen, Rescue, Celebrex), repositioning and rest. Interventional pain procedures completed include LESI L5-S1, L SI, BL RFA L3-L5 Patient is currently on Rescue, Celebrex Patient denies any side effects of the medication(s), denies excessive drowsiness or sleepiness, denies suicidal ideation and reports that the current pain medication is helping to control the pain and improve activities of daily living. Patient denies any motor or sensory deficits. Patient denies any fever or night sweats, denies any change in the bowel movements or urination. Physical Examination: -Constitutional: Cooperative. Not in acute distress . - Neurologic: Cranial nerve II to XII intact. No focal neurological deficits. - Psychatric: Alert & oriented x 3. Matching mood & appropriate affect. Judgmen t and insight intact. - Musculoskeletal: Cervical spine: Muscle bulk/ tone/ strength in the bilateral upper extremities normal Vertebral body tenderness to palpation over Spurling test positive Distraction test positive Facet loading test positive Thoracic spine Muscle bulk / tone/ strength in the bilateral paraspinal muscles normal Vertebral body tender to palpation over Facet loading test positive Lumbar spine: Motor bulk/ tone/ strength lower extremities , thigh and legs : 5/5 Deep tendon reflexes : Normal Knee Jerk. Normal Ankle Jerk . Vertebral body tenderness to palpation over L5 Lumbar Facet Loading Test positive Straight Leg Raise: positive at 30 degrees right side/ left side Gaenslen's Test positive Sacral spine : Severe tenderness over the Sacroiliac joint: right side / left side Range of motion: Flexion of the lumbar spine <60 degrees Range of motion: Extension of the lumbar spine <20 degrees Gaenslen's Test positive Dominguez's Test positive Christine test: positive right side / left side Thigh Thrust Test Sacral Thrust Test Assessment and plan: Chronic low back pain secondary to lumbar degenerative disc disease , lumbar spondylosis with facet arthropathy without myelopathy Pt will follow up within 1-2 wks to see effectiveness of CONOR Chronic and current use of high-risk medication (Opioids). The patient was counseled about risk of opioid use, psychological risk associated with opioids and was orally counseled to not overuse , divert or sell medications. Pt is to store medication in a safe location. The patient is counseled against driving while using narcotic medications and also not to use alcohol or any illicit recreational drugs. Patient verbalized understanding that the lack of compliance will result in failure to renew narcotic prescription(s) as well as possible discharge from the clinic Diagnoses, prognosis and treatment options including but not limited to physical therapy, surgical interventions, interventional therapies and medication management including narcotics and adjuvant medication were discussed. All patient questions answered MAPS reviewed and it was appropriate. Narcotic agreement signed today 07/15/22 Prescription refill for Rescue 7.5/325mg #60 w 1 RF I have spent less than 30 minutes on patient care today. Dr Michel was available by phone for the evaluation of this patient. The time was used to review the medical records including relevant urine studies and Prescription history (MAPs), review of the available imaging, evaluation and examination of the patient, coordination of care with the medical staff and if applicable referring physicians, as well as creation of the medical record PQRS Narrative: Smoking Status Current every day smoker Narcotic Agreement Date Signed 07/18/21 Hx Alcohol Use (MH) No Home Medications: Ambulatory Orders Multivitamin [Men's Multi-Vitamin] 1 tab PO DAILY 01/28/14 Cetirizine HCl 10 mg PO DAILY 03/11/17 Montelukast [Singulair] 10 mg PO DAILY 03/28/17 Atorvastatin [Lipitor] 20 mg PO HS 10/01/19 Celecoxib [CeleBREX] 100 mg PO BID 04/28/22 DULoxetine HCL [Cymbalta] 60 mg PO DAILY 04/28/22 Ibuprofen 800 mg PO ACHS 07/09/22 HYDROcodone/APAP 7.5-325MG [Rescue 7.5-325] 1 tab PO BID PRN 30 Days #60 tab 07/15/22 HYDROcodone/APAP 7.5-325MG [Rescue 7.5-325] 1 tab PO Q12HR PRN 30 Days #60 tab 07/15/22 Controlled Substance Measures - Controlled Substance Measures Is patient prescribed a controlled substance at discharge?: Yes When asked, does pt state using other controlled substances?: No If prescribed controlled substance>3 days was MAPS reviewed?: Yes If Rx opioid, was Start Talking consent form obtained?: Yes Was information provided regarding opioid addiction?: Yes
== END ==
LOC: PNWHC3 08:00
PROVIDERS: ATTEND Specialist
DX: M47.816 Spondylosis without myelopathy or radiculopathy, lumbar region (principal); M51.36 Other intervertebral disc degeneration, lumbar region; G89.29 Other chronic pain; Z79.891 Long term (current) use of opiate analgesic; E66.9 Obesity, unspecified; Z68.22 Body mass index [BMI] 22.0-22.9, adult; F17.200 Nicotine dependence, unspecified, uncomplicated
CPT/HCPCS: 99211

== ENCOUNTER → 2022-07-29 | Outpatient (CLI) | payer OTHER ==
[2022-07-29 08:21] VITALS: BP 143/96; PULSE 67; RESP 18
--- NOTE | 2022-07-29 14:41 | P.PAINPG ---
Objective - Vital Signs Vital signs: Intake & Output 07/28/22 07/29/22 07/29/22 18:59 06:59 18:59 Weight 68.039 kg PQRS Measure Charge Sheet Comment: A 61 yr old male with a history of severe and chronic low back pain secondary to lumbar degenerative disc diseases and lumbar spondylosis with facet arthropathy without myelopathy presents today for evaluation s/p CONOR L5-S1. Pt states he experienced 75% pain relief x 2 wks s/p procedure. Pain level is currently at 4/10 in intensity, constant, localized in the lower aspect of the lumbar spine, achy in character w shooting towards the LLEs. Pain is provoked as high as 10/10 by evening. Pain is alleviated with chiropractic treatments weekly, home exercise regimen daily, meds (Cuervo, Celebrex), ice, topicals, repositioning and rest. Interventional pain procedures completed include Jeannine, María SI, BL RFA L3-L5 Patient is currently on Cuervo 7.5/325mg #60, Celebrex Patient denies any side effects of the medication(s), denies excessive drowsiness or sleepiness, denies suicidal ideation and reports that the current pain medication is helping to control the pain and improve activities of daily living. Patient denies any motor or sensory deficits. Patient denies any fever or night sweats, denies any change in the bowel movements or urination. Physical Examination: -Constitutional: Cooperative. Not in acute distress . - Neurologic: Cranial nerve II to XII intact. No focal neurological deficits. - Psychatric: Alert & oriented x 3. Matching mood & appropriate affect. Judgment and insight intact. - Musculoskeletal: Cervical spine: Muscle bulk/ tone/ strength in the bilateral upper extremities normal Vertebral body tenderness to palpation over Spurling test positive Distraction test positive Facet loading test positive Thoracic spine Muscle bulk / tone/ strength in the bilateral paraspinal muscles normal Vertebral body tender to palpation over Facet loading test positive Lumbar spine: Motor bulk/ tone/ strength lower extremities , thigh and legs : 5/5 Deep tendon reflexes : Normal Knee Jerk. Normal Ankle Jerk . Vertebral body tenderness to palpation over L5 Lumbar Facet Loading Test positive Straight Leg Raise: positive at 30 degrees right side/ left side Gaenslen's Test positive Sacral spine : Severe tenderness over the Sacroiliac joint: right side / left side Range of motion: Flexion of the lumbar spine <60 degrees Range of motion: Extension of the lumbar spine <20 degrees Gaenslen's Test positive Dominguez's Test positive Christine test: positive right side / left side Thigh Thrust Test Sacral Thrust Test Assessment and plan: Chronic low back pain secondary to lumbar degenerative disc disease , lumbar spondylosis with facet arthropathy without myelopathy Recommendation of CONOR L5-S1. May need a series of injections, up to 3 within a 6mo period, for optimal pain relief. Risks, benefits of procedure discussed and pt verbalized understanding. Denies anticoagulant use or medical history of diabetes. Protocol for discontinuation/ continuation of medications yuriy procedure discussed. All patient questions answered I have spent less than 30 minutes on patient care today. Dr Michel was available by phone for the evaluation of this patient. The time was used to review the medical records including relevant urine studies and Prescription history (MAPs), review of the available imaging, evaluation and examination of the patient, coordination of care with the medical staff and if applicable referring physicians, as well as creation of the medical record - Pain Location Lower Back Non-Pharmacological Interventions: Chiropractic Treatment, Home Exercise, Ice, Stretching Pharmacological Interventions: Epidural, PRN Medication, Topical Medication PQRS Narrative: Smoking Status Current every day smoker Narcotic Agreement Date Signed 07/15/22 Hx Alcohol Use (MH) No Home Medications: Ambulatory Orders Multivitamin [Men's Multi-Vitamin] 1 tab PO DAILY 01/28/14 Cetirizine HCl 10 mg PO DAILY 03/11/17 Montelukast [Singulair] 10 mg PO DAILY 03/28/17 Atorvastatin [Lipitor] 20 mg PO HS 10/01/19 Celecoxib [CeleBREX] 100 mg PO BID 04/28/22 DULoxetine HCL [Cymbalta] 60 mg PO DAILY 04/28/22 Ibuprofen 800 mg PO ACHS 07/09/22 HYDROcodone/APAP 7.5-325MG [Cuervo 7.5-325] 1 tab PO BID PRN 30 Days #60 tab 07/15/22 HYDROcodone/APAP 7.5-325MG [Cuervo 7.5-325] 1 tab PO Q12HR PRN 30 Days #60 tab 07/15/22 Controlled Substance Measures - Controlled Substance Measures Is patient prescribed a controlled substance at discharge?: No
== END ==
LOC: PNWHC3 08:01
PROVIDERS: ATTEND Specialist
DX: M47.816 Spondylosis without myelopathy or radiculopathy, lumbar region (principal); M51.36 Other intervertebral disc degeneration, lumbar region; G89.29 Other chronic pain; F17.200 Nicotine dependence, unspecified, uncomplicated
CPT/HCPCS: 99211

== ENCOUNTER → 2022-08-02 | Outpatient (CLI) | payer OTHER ==
--- NOTE | 2022-08-02 08:00 | XR ---
EXAMINATION TYPE: XR cervical spine limited DATE OF EXAM: 08/02/2022 CLINICAL HISTORY: pain TECHNIQUE: 3 views of the cervical spine are submitted. COMPARISON: None. FINDINGS: There is satisfactory in alignment without evidence of acute fracture or dislocation. The pre-vertebral soft tissue appears within normal limits. Moderate degenerative disc space narrowing e xtending from C3-4 through C6-7. Ventral and dorsal spondylosis. 2.5 mm anterior subluxation noted at C4-5 and C5-6. Degenerative changes of the cervical apophyseal joints. The C1-C2 articulation is unr emarkable on the open mouth view. IMPRESSION: Degenerative changes as noted.
--- NOTE | 2022-08-02 11:57 | MR ---
EXAMINATION TYPE: MR shoulder RT wo con DATE OF EXAM: 08/02/2022 COMPARISON: Radiograph 05/17/2022 HISTORY: 61-year-old male PAIN IN RIGHT SHOULDER. [place] a pop yesterday. TECHNIQUE: Multiplanar, multisequence imaging of the right shoulder is performed without contrast. FINDINGS: Heterogeneous and thin subscapularis tendon suggesting tendinosis. The majority of the tendon appears intact. Possible split tear of the long head biceps tendon at the junction of the intracapsular and extracaps ular portions. Moderate tenosynovial fluid is noted along the bicipital groove. There is marked thickening and heterogeneity of the supraspinatus and infraspinatus tendons. There is a full-thickness tear involving the entire supraspinatus tendon measuring 3.2 cm long and 3.0 cm AP. Tear extends into the anterior fibers of the infraspinatus tendon. Moderate glenohumeral joint effus ion and moderate contiguous subacromial/subdeltoid bursal effusion. No atrophy of the rotator cuff musculotendinous time. Some reactive edema tracks along the infraspina tus muscle belly. There is mild thinning of superior humeral head articular cartilage. There is irregular signal extend ing into the substance of the superior glenoid labrum. No para labral cyst is seen. Severe degenerative change acromioclavicular joint with joint space narrowing, marginal spurring, cap sular hypertrophy. Prominent irregularity of the distal clavicle could reflect sequela of old healed fracture deformity. No Hill-Sachs deformity or os acromiale. Heterogeneous marrow suggesting some red marrow hyperplasia . No suspicious bone marrow replacement. IMPRESSION: 1. Severe diffuse rotator cuff tendinosis. There is a full-thickness tear involving the entire supras pinatus tendon measuring 3.0 cm AP and stump retracted by 3.2 cm. Tear extends into the anterior fibe rs of the infraspinatus tendon. No rotator cuff muscle atrophy. 2. Possible short segment split tear of the long head biceps tendon at the junction of the intracapsu lar and extracapsular portions. Moderate long head biceps tenosynovitis. 3. Moderate glenohumeral joint and subacromial/subdeltoid bursal effusion. Small superior labral tear . 4. Severe AC joint OA. Prominent bony irregularity of the distal clavicle may reflect an old healed f racture deformity.
== END | disposition home or self-care (01) ==
LOC: RADMRIMAIN 06:32
PROVIDERS: ATTEND Family Medicine
DX: M47.812 Spondylosis without myelopathy or radiculopathy, cervical region (principal); M75.111 Incomplete rotator cuff tear or rupture of right shoulder, not specified as traumatic; M19.011 Primary osteoarthritis, right shoulder
CPT/HCPCS: 72040

== ENCOUNTER → 2022-08-29 | Outpatient (CLI) | payer OTHER ==
--- NOTE | 2022-08-29 07:27 | MR ---
EXAMINATION TYPE: MR lumbar spine wo con DATE OF EXAM: 08/29/2022 COMPARISON: MRI lumbar spine January 03, 2022 HISTORY: Low back pain into left lower extremity TECHNIQUE: Multiplanar, multisequence imaging of the lumbar spine is performed without IV contrast. FINDINGS: Persistent levoconvex scoliosis centered at L2 level. Sagittal images of the lumbar spine s how vertebral body heights and alignment to remain satisfactory. Multilevel disc desiccation and mode rate to advanced disc space narrowing redemonstrated. The conus medullaris remains normal in positio n and signal ending inferior T12 level. Moderate multilevel anterior spurring. The bone marrow signal intensity remains heterogeneous. Axial images at T12-L1 level redemonstrate mild broad disc bulge with right paracentral disc protrusi on component effacing the anterior thecal sac and mild facet arthropathy and ligamentum flavum hypert rophy effacing right posterior lateral thecal sac. Patent bilateral neural foramina. No significant c hange from prior. Axial images at L1-L2 level show moderate broad disc bulge effacing the anterior thecal sac and causi ng mild to moderate right greater than left bilateral neural foraminal narrowing. No significant newton ge from prior. Axial images at L2-L3 level show moderate broad disc bulge effacing the anterior thecal sac and mild/ moderate facet arthropathy effacing posterior lateral thecal sac. There is moderate right and mild le ft-sided neural foraminal narrowing. No significant change from prior. Axial images at L3-L4 level show moderate to advanced broad disc bulge effacing anterior thecal sac. There is mild facet arthropathy bilaterally. There is moderate to severe bilateral neural foraminal n arrowing redemonstrated. No significant change from prior. Axial images at L4-L5 level show advanced broad-based disc bulge effacing the anterior thecal sac wit h central disc protrusion component causing most prominent spinal canal stenosis on axial image 8. Th ere is mild/moderate facet arthropathy bilaterally. There is advanced bilateral neural foraminal narr owing. No significant change from prior. Axial images at L5-S1 level show mild to moderate broad-based disc protrusion and mild facet arthropa thy bilaterally. Spinal canal is minimally effaced anteriorly. There is moderate to severe bilateral neural foraminal narrowing with encroachment on both L5 nerves on sagittal images. No significant faizan nge from prior. Paraspinal muscle bulk is maintained. IMPRESSION: Multilevel fairly severe degenerative changes in the lumbar spine as detailed above. Most prominent findings noted L4-L5 and L5-S1 levels. No significant change from recent MRI.
== END | disposition home or self-care (01) ==
LOC: RADMRIMAIN 06:28
PROVIDERS: ATTEND Family Medicine
DX: M51.26 Other intervertebral disc displacement, lumbar region (principal); M51.27 Other intervertebral disc displacement, lumbosacral region; M47.816 Spondylosis without myelopathy or radiculopathy, lumbar region; R29.898 Other symptoms and signs involving the musculoskeletal system
CPT/HCPCS: 72148

== ENCOUNTER 2022-09-03 06:13 | Day surgery (SDC) | payer OTHER ==
[2022-08-30 12:41] VITALS: BMI 24.3
[2022-09-03 06:37] VITALS: RESP 18; TEMP 97.8
[2022-09-03] MEDS ORDERED: LACTATED RINGERS 1,000 ML IV ONE (06:40)
[2022-09-03] MEDS ORDERED: LACTATED RINGERS 1,000 ML IV SCH (07:00)
[2022-09-03] MEDS ORDERED: MIDAZOLAM 2 MG/2 ML VIAL ONE (07:13)
[2022-09-03] MEDS ORDERED: fentaNYL (PF) 50 MCG/ML 2 ML AMP ONE (07:13)
[2022-09-03] MEDS ORDERED: methylPREDNISolone ACETATE 40 MG/ML 1 ML VIAL ONE (07:13)
[2022-09-03] MEDS ORDERED: IOPAMIDOL M200 10 ML VIAL ONE (07:13)
--- NOTE | 2022-09-03 07:21 | P.PCN ---
Date of Procedure: 09/03/22 Description of Procedure: PREOPERATIVE DIAGNOSIS: lumbar radiculopathy POSTOPERATIVE DIAGNOSIS: Lumbar radiculopathy PROCEDURE 1. Lumbar epidural steroid injection under fluoroscopic guidance at the L5-S1 level. 2. Lumbar epidurogram. Imaging: Fluoroscopy was used, images where saved to the medical record ANESTHESIA: Medication Administered by: Nurse Sedation Type: Moderate anesthesia Sedation Supervision start time: 713 Sedation Supervision end time: 720 EBL: Minimal PROCEDURE INDICATION: The patient with low back pain and radiculitis symptoms unresponsive to conservative treatment. Fluoroscopy was used to optimize visualization of the needle placement and to maximize safety. PROCEDURE DESCRIPTION / TECHNIQUE: The patient was seen and identified in the preoperative area. Risks, benefits, complications including but not limited to infections ,bleeding ,allergic reaction to the medications, nerve damage and incomplete pain relief , as well as alternatives to the procedure were discussed with the patient. The patient agreed to proceed with the procedure and signed the consent. IV was started, and vital signs were stable. Patient was taken to the OR and time out was completed. The patient was placed in the prone position on procedure table and a pillow was placed under the abdomen to reduce lumbar lordosis. The lumbosacral area was prepped and draped in the usual sterile fashion. Vitals were closely monitored during the procedure. Using anterior-posterior fluoroscopy, the L5-S1 interlaminar space was identified and the skin over this site was marked and then infiltrated with 1% lidocaine subcutaneously. Subsequently, a 20-gauge Tuohy epidural needle was inserted and advanced toward the epidural space using the Loss of resistance technique and guided by AP and lateral fluoroscopy. The correct needle position in the epidural space was verified with the injection of 1 mL of Omnipaque 180 contrast to observe an acceptable epidurogram, after negative aspiration for blood and CSF and in the absence of paresthesias. Again after negative aspiration, a 3 ml mixture containing 40mg of depomedrol and 2 ml of prese rvative free Normal Saline was injected and a washout of epidurogram was seen. Needle was withdrawn intact, skin was cleansed, and bandages were applied. COMPLICATIONS: None DISPOSITION / PLANS: The patient was placed in a supine position and transferred to the recovery area in a stable condition for observation. There was no evidence of lower extremity motor or sensory deficit after the procedure. Patient was discharged from the recovery room after meeting discharge criteria. Home discharge instructions were given to the patient by the staff. The patient was reexamined prior to discharge. The patient will follow up as directed.
[2022-09-03 07:34] VITALS: PULSE 86
[2022-09-03 07:40] VITALS: BP 129/87
--- NOTE | 2022-09-03 08:55 | FL ---
EXAMINATION TYPE: FL guided pain mgmt statistic DATE OF EXAM: 09/03/2022 FLUOROSCOPY Fluoroscopy time of 2 seconds was used during lumbar epidural injection. 1 image/s document/s the pr lucio.
== END 2022-09-03 07:48 | disposition home or self-care (01) ==
LOC: ORPAIN 06:13
PROVIDERS: ATTEND Hospitalist
DX: M54.16 Radiculopathy, lumbar region (principal)
CPT/HCPCS: 62323; J2250; J1030; J3010; Q9966

== ENCOUNTER → 2022-09-25 | Outpatient (CLI) | payer OTHER ==
[2022-09-25 12:46] VITALS: BP 114/78; PULSE 80; RESP 18; TEMP 98.5
--- NOTE | 2022-09-25 13:24 | P.PN ---
Subjective Progress Note Date: 09/25/22 A 61 yr old male with a history of severe and chronic low back pain secondary to lumbar degenerative disc diseases and lumbar spondylosis with facet arthropathy without myelopathy presents today for evaluation s/p CONOR L5-S1. Pt states he experienced 75% pain relief x 2 wks s/p procedure. Pain level is currently at 4/10 in intensity, constant, localized in the lower aspect of the lumbar spine, achy in character w shooting towards the LLEs. Pain is provoked as high as 10/10 by evening. Pain is alleviated with chiropractic treatments weekly, home exercise regimen daily, meds ([place], Celebrex), ice, topicals, repositioning and rest. he reported that the intensity of the pain increases with any activity, the pain interferes with the quality of life Interventional pain procedures completed include Jeannine, L SI, BL RFA L3-L5 Patient is currently on [place] 7.5/325mg #60, Celebrex Patient denies any side effects of the medication(s), denies excessive drowsiness or sleepiness, denies suicidal ideation and reports that the current pain medication is helping to control the pain and improve activities of daily living. Patient denies any motor or sensory deficits. Patient denies any fever or night sweats, denies any change in the bowel movements or urination. Physical Examination: -Constitutional: Cooperative. Not in acute distress . - Neurologic: Cranial nerve II to XII intact. No focal neurological deficits. - Psychatric: Alert & oriented x 3. Matching mood & appropriate affect. Judgment and insight intact. - Musculoskeletal: Cervical spine: Muscle bulk/ tone/ strength in the bilateral upper extremities normal Vertebral body tenderness to palpation over Spurling test positive Distraction test positive Facet loading test positive Thoracic spine Muscle bulk / tone/ strength in the bilateral paraspinal muscles normal Vertebral body tender to palpation over Facet loading test positive Lumbar spine: Motor bulk/ tone/ strength lower extremities , thigh and legs : 5/5 Deep tendon reflexes : Normal Knee Jerk. Normal Ankle Jerk . Vertebral body tenderness to palpation over L5 Lumbar Facet Loading Test positive Straight Leg Raise: positive at 30 degrees right side/ left side Gaenslen's Test positive Assessment and plan: Chronic low back pain secondary to lumbar degenerative disc disease , lumbar spondylosis with facet arthropathy without myelopathy Prescription refill for [place] 7.5/325 every 8 hours when necessary dispense 90 with 1 refill was given MAPS reviewed and it was appropriate - Pain Location Lower Back Non-Pharmacological Interventions: Chiropractic Treatment, Home Exercise, Ice, Stretching Pharmacological Interventions: Epidural, PRN Medication, Topical Medication PQRS Narrative: Smoking Status Current every day smoker Narcotic Agreement Date Signed 07/15/22 Hx Alcohol Use (MH) No Home Medications: Ambulatory Orders Multivitamin [Men's Multi-Vitamin] 1 tab PO DAILY 01/28/14 Cetirizine HCl 10 mg PO DAILY 03/11/17 Montelukast [Singulair] 10 mg PO DAILY 03/28/17 Atorvastatin [Lipitor] 20 mg PO HS 10/01/19 Celecoxib [CeleBREX] 100 mg PO BID 04/28/22 DULoxetine HCL [Cymbalta] 60 mg PO DAILY 04/28/22 Ibuprofen 800 mg PO ACHS 07/09/22 HYDROcodone/APAP 7.5-325MG [[place] 7.5-325] 1 tab PO BID PRN 30 Days #60 tab 07/15/22 HYDROcodone/APAP 7.5-325MG [[place] 7.5-325] 1 tab PO Q12HR PRN 30 Days #60 tab 07/15/22 Controlled Substance Measures - Controlled Substance Measures Is patient prescribed a controlled substance at discharge?: yes Objective - Vital Signs Vital signs: Vital Signs Temp 98.5 F 09/25/22 12:35 Pulse 80 09/25/22 12:35 Resp 18 09/25/22 12:35 BP 114/78 09/25/22 12:35 Pulse Ox 96 09/25/22 12:35 FiO2 Intake & Output 09/24/22 09/25/22 09/25/22 18:59 06:59 18:59 Weight 74.843 kg
== END ==
LOC: PNWHC3 12:14
PROVIDERS: ATTEND Specialist
DX: M47.816 Spondylosis without myelopathy or radiculopathy, lumbar region (principal); M51.36 Other intervertebral disc degeneration, lumbar region; F17.200 Nicotine dependence, unspecified, uncomplicated
CPT/HCPCS: 99211

== ENCOUNTER 2022-09-27 20:24 | Inpatient (IN) | payer OTHER ==
[2022-09-27] MEDS ORDERED: SODIUM CHLORIDE 0.9% 1,000 ML IV ONE (21:18)
[2022-09-27] MEDS ORDERED: diphenhydrAMINE 50 MG/ML 1 ML VIAL IVP STA (21:23)
[2022-09-27] MEDS ORDERED: PROCHLORPERAZINE INJ 10 MG/2 ML VIAL IVP STA (21:23)
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
[2022-09-27 22:04] LABS: Basophils # (A) 0.1 k/uL (0-0.2); Basophils % (A) 1 %; Eosinophils # (A) 0.4 k/uL (0-0.7); Eosinophils % (A) 4 %; HCT 40.9 % (39.0-53.0); HGB 14.1 gm/dL (13.0-17.5); Lymphocytes # (A) 3.4 k/uL (1.0-4.8); Lymphocytes % (A) 37 %; MCH 33.5 pg (25.0-35.0); MCHC 34.6 g/dL (31.0-37.0); MCV 96.9 fL (80.0-100.0); Mean Platelet Volume 8.2; Monocytes # (A) 0.6 k/uL (0-1.0); Monocytes % (A) 6 %; Neutrophils # (A) 4.4 k/uL (1.3-7.7); Neutrophils % (A) 48 %; Platelet Count 156 k/uL (150-450); RBC 4.22 m/uL (4.30-5.90); RDW 13.3 % (11.5-15.5); WBC 9.2 k/uL (3.8-10.6)
[2022-09-27 22:17] LABS: Partial Thromboplastin Time 24.9 sec (22.0-30.0); Prothrombin Time 10.2 sec (9.0-12.0)
[2022-09-27 22:21] LABS: ALT 25 U/L (4-49); AST 26 U/L (17-59); African American GFR (CKD) >90 (>60 ml/min/1.73 sqM); Albumin 4.1 g/dL (3.5-5.0); Alcohol <10 mg/dL; Alkaline Phosphatase 73 U/L (38-126); Anion Gap 5 mmol/L; Blood Urea Nitrogen 23 mg/dL (9-20); Calcium 9.1 mg/dL (8.4-10.2); Carbon Dioxide 25 mmol/L (22-30); Chloride 106 mmol/L (98-107); Glucose 98 mg/dL (74-99); Non-African American GFR(CKD) >90 (>60 ml/min/1.73 sqM); Potassium 4.2 mmol/L (3.5-5.1); Sodium 136 mmol/L (137-145); Total Bilirubin 0.3 mg/dL (0.2-1.3); Total Protein 6.8 g/dL (6.3-8.2)
[2022-09-27 23:06] LABS: Appearance,Urine Clear (Clear); Bilirubin,Urine Negative (Negative); Blood,Urine Negative (Negative); Color,Urine Light Yellow; Glucose,Urine (UA) Negative (Negative); Ketones,Urine Negative (Negative); Leukocyte Esterase,Urine Negative (Negative); Nitrite,Urine Negative (Negative); Protein,Urine Negative (Negative); Specific Gravity,Urine 1.015 (1.001-1.035); Urobilinogen,Urine <2.0 mg/dL (<2.0)
--- NOTE | 2022-09-27 23:25 | CT ---
EXAMINATION TYPE: CT brain wo con DATE OF EXAM: 09/27/2022 COMPARISON: None HISTORY: AMS. Pt states he has been confused and his equilibrium has been off. CT DLP: 1592.2 mGycm Automated exposure control for dose reduction was used. Images obtained of the brain with no contrast. There is cerebral cortical mild atrophy. There is no mass effect or midline shift. No sign of intracr anial hemorrhage. Calvarium is intact. IMPRESSION: Negative unenhanced head CT scan.
[2022-09-27 23:30] LABS: Cocaine Screen,Urine Not Detected (NotDetected); Phencyclidine Screen,Urine Not Detected (NotDetected); Urn Cannabinoid Scrn Not Detected (NotDetected)
[2022-09-27 23:31] LABS: Amphetamine Screen,Urine Not Detected (NotDetected); Barbiturate Screen,Urine Not Detected (NotDetected); Benzodiazepines Screen,Urine Not Detected (NotDetected); Methadone Screen, Urine Not Detected (NotDetected); Opiate Screen,Urine Detected (NotDetected); Oxycodone Screen, Urine Not Detected (NotDetected); Tricyclic Antidepressant,Urine Not Detected (NotDetected)
--- NOTE | 2022-09-27 23:36 | CT ---
EXAMINATION TYPE: CT angio head neck DATE OF EXAM: 09/27/2022 COMPARISON: None HISTORY: AMS. Pt states he has been confused and his equilibrium has been off. CT DLP: 1592.2 mGycm Automated exposure control for dose reduction was used. CONTRAST: Performed with IV Contrast, patient injected with 65cc mL of Isovue 370. Images obtained from the aortic arch to the vertex of the brain with the IV contrast. There are 3-D post processed images. There is normal branching pattern of the great vessels on the aortic arch. There is bilateral arteria l flow in the subclavian arteries. There is arterial flow in the common internal and external carotid arteries bilaterally. There is a fairly wide patency of the carotid artery bifurcations. There is ar terial flow in the right vertebral artery. There is essentially no contrast opacification in the left vertebral artery. There is arterial flow in the basilar artery. There is likely retrograde filling o f the left distal vertebral artery from the right side. The basilar artery appears normal. There is arterial flow in the anterior middle and posterior cerebral arteries bilaterally. There is n o mass effect. No evidence of intracranial aneurysm or neovascularity. No mass effect. There is johnson l enhancement of the venous sinuses. No evidence of intracranial hemodynamic arterial stenosis. IMPRESSION: There is thrombosis of the left vertebral artery with retrograde filling from the right side. No evid ence of subclavian artery stenosis. No intracranial angiographic abnormality.
[2022-09-28] MEDS ORDERED: ASPIRIN 325 MG TAB PO STA (00:33)
[2022-09-28] MEDS: SODIUM CHLORIDE 0.9% 1,000 ML IV SCH (00:43)
[2022-09-28] MEDS: ENOXAPARIN 80 MG/0.8 ML SYRINGE SQ SCH ×2 (03:56→16:19)
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
[2022-09-28] MEDS: HYDROcodone/APAP 7.5-325MG 1 EACH TAB PO PRN ×2 (07:43→18:14)
[2022-09-28] MEDS: DOCUSATE 100 MG CAP PO SCH ×2 (08:25→16:19)
[2022-09-28] MEDS: DULoxetine HCL 60 MG CAPSULE.DR PO SCH (08:27)
[2022-09-28] MEDS: FAMOTIDINE 20 MG TAB PO SCH ×2 (08:27→19:37)
[2022-09-28] MEDS: MONTELUKAST 10 MG TAB PO SCH (08:28)
--- NOTE | 2022-09-28 12:05 | P.PN ---
Progress Note - Text Progress Note Date: 09/28/22 Patient seen and examined, the symptoms have completely resolved. He described symptoms of transient aphasia, severe posterior headaches. He states that he knew what he wanted to say but he could not get it out. He denied having blurred or double vision. No focal weakness or numbness. Awaiting neurology evaluation. We'll order brain MRI as well as an echocardiogram for complete stroke workup.
--- NOTE | 2022-09-28 15:48 | MR ---
EXAMINATION TYPE: MR brain wo con DATE OF EXAM: 09/28/2022 COMPARISON: None HISTORY: CVA Multiplanar multi echo imaging of the brain performed with no contrast. Ventricles are slightly enlarged. There is cerebral cortical atrophy. There is no mass effect or midl ine shift. No sign of intracranial hemorrhage. Diffusion images show no evidence of an acute infarct. On the T2 and FLAIR images there are scattered small white matter high signal foci in both cerebral h emispheres that measure up to 4 mm. Total number is approximately 10. There is minimal linear increas ed signal adjacent to the lateral ventricles. The brainstem is intact. Corpus callosum is intact. Sella turcica is normal. No evidence of orbital m ass. IMPRESSION: Cerebral atrophy and mild age-related hydrocephalus. Age-related periventricular white matter signal changes. Scattered small peripheral white matter high signal foci could relate to microvascular ischemia. No c ortical infarct.
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
--- NOTE | 2022-09-28 16:09 | MR ---
EXAMINATION TYPE: MR angio neck wo/w con DATE OF EXAM: 09/28/2022 COMPARISON: CT angiogram yesterday HISTORY: Vertebral artery dissection CONTRAST: Standard multiplanar, multisequence MRI departmental protocol images were obtained without contrast a nd with 8 mL intravenous Gadavist gadolinium contrast. There is arterial flow in the common internal and external carotid arteries bilaterally. Exam limited somewhat by motion. There is wide patency of the carotid artery bifurcations. There is arterial flow in the right vertebral artery. There is arterial flow in the basilar artery. There is some arterial flow in the distal left vertebral artery. No flow seen in the left vertebral artery except for the mo st distal portion at the posterior fossa. There is normal branching pattern of the great vessels from the aortic arch. IMPRESSION: There is evidence of thrombosis of the left vertebral artery with some minimal retrograde filling of the distal left vertebral artery in the posterior fossa. Normal MR angiogram of the carotid arteries.
[2022-09-28] MEDS ORDERED: CLOPIDOGREL 75 MG TAB PO STA (17:59)
[2022-09-28] MEDS ORDERED: ATORVASTATIN 20 MG TAB PO SCH (21:00)
[2022-09-28] MEDS ORDERED: ATORVASTATIN 80 MG TAB PO SCH (21:00)
[2022-09-28] MEDS ORDERED: ALPRAZolam 0.25 MG TAB PO STA (22:15)
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
[2022-09-29] MEDS: DOCUSATE 100 MG CAP PO SCH ×2 (00:07→08:28)
[2022-09-29] MEDS: ENOXAPARIN 80 MG/0.8 ML SYRINGE SQ SCH (06:26)
[2022-09-29] MEDS: SODIUM CHLORIDE 0.9% 1,000 ML IV SCH (06:26)
[2022-09-29] MEDS: DULoxetine HCL 60 MG CAPSULE.DR PO SCH (08:28)
[2022-09-29] MEDS: FAMOTIDINE 20 MG TAB PO SCH (08:29)
[2022-09-29] MEDS: HYDROcodone/APAP 7.5-325MG 1 EACH TAB PO PRN (08:29)
[2022-09-29] MEDS: MONTELUKAST 10 MG TAB PO SCH (08:29)
[2022-09-29] MEDS ORDERED: ASPIRIN 325 MG TAB PO SCH (09:00)
[2022-09-29] MEDS ORDERED: CLOPIDOGREL 75 MG TAB PO SCH (09:00)
[2022-09-29 10:29] VITALS: BP 136/80; PULSE 74; RESP 17; TEMP 97.6
[2022-09-29 12:11] LABS: Chol/HDL Ratio 4.05 Ratio; LDL Cholesterol,Calculated 127.4 mg/dL (0.0-131.0)
--- NOTE | 2022-09-29 13:46 | P.DS ---
Providers Date of admission: 09/28/22 00:38 Expected date of discharge: 09/29/22 Attending physician: Mildred Manrique MD Consults: 09/28/22 00:36 Consult Physician Routine Consulting Provider: Lana Preciado Consult Reason/Comments: acute ischemic stroke Do you want consulting provider notified?: Yes 09/28/22 01:12 Consult Physician Routine Consulting Provider: Anup Stein Consult Reason/Comments: vertebral artery occlusion Do you want consulting provider notified?: Already Contacted Primary care physician: [facility] Course: 61-year-old male with a PMH of hyperlipidemia who presents to the emergency room with complaints of occipital headaches and confusion for 2 days. Confusion lasted for several seconds to minutes at a time, had difficulty with word finding. He states he knew was that he wanted to say but he could not put it out. No focal weakness, numbness, or tingling. He was seeing floaters but denied visual disturbances or facial asymmetry. Denied slurring of speech. Patient reported that after arrival at the emergency room, he has not had any further episodes and that over the past few hours he has been feeling like himself and has no complaints. CT angiogram of her neck in the emergency room revealed thrombosis of the left vertebral artery with retrograde filling from the right side with no evidence of subclavian artery stenosis. CT brain was unremarkable. EKG revealed normal sinus rhythm at [address]/T-wave changes noted as reviewed by me. Laboratory evaluation was remarkable for troponin less than 0.012 with an unremarkable urine toxicology. Patient was initiated on Lovenox therapeutic dose in the emergency room. Patient was seen by neurology service, was diagnosed with probable stroke/TIA manifesting with bioccipital cephalalgia, transient visual disturbance (right peripheral visual field), speech difficulty and gait imbalance. Patient's current neurological examination is normal, except for some possible ataxia in the left lower limb. Patient did have some neck manipulation performed 2 weeks prior to onset of symptoms. Patient had MRI of the brain as well as MRA of the neck with and without contrast, MRI brain did not show any stroke however, MRA showed evidence of thrombosis of the left vertebral artery with some minimal retrograde filling of the distal left vertebral artery in the posterior fossa. Normal MRA of the carotid arteries. Patient's lipid panel from 04/29/2022 revealed cholesterol 191, LDL 109, HDL 60 and triglycerides 108. We will increase Lipitor from 20 to 40 mg daily. Patient was started on aspirin 325 mg daily as well plavix 75mg daily by neurology. Symptoms resolved and did not require hospitalization. He was seen by vascular surgery as well, outpatient follow-up was advised. Of note is scheduled to get lumbar spine surgery next week, surgery was postponed by neurology and vascular surgery services at least 6 weeks from now. Patient was given a slip for 2-D echo with bubble study rule out PFO to be done outpatient. He was also provided a slip for CT angiogram of the head and neck follow-up in 6 weeks from now. Patient will need to follow up with neurology as well as vascular surgery outpatient, he is aware. He will be discharged home in stable condition. Patient was seen and examined [id number] with clear discharge 09/29 Time for discharge 35 minutes. Case was discussed with neurology Patient Condition at Discharge: Serious Plan - Discharge Summary New Discharge Prescriptions: New Aspirin 325 mg PO DAILY 30 Days #30 tab Clopidogrel [Plavix] 75 mg PO DAILY 30 Days #30 tab Atorvastatin [Lipitor] 40 mg PO DAILY 30 Days #30 tablet Continue Cetirizine HCl 10 mg PO DAILY Montelukast [Singulair] 10 mg PO DAILY DULoxetine HCL [Cymbalta] 60 mg PO DAILY HYDROcodone/APAP 7.5-325MG [[place] 7.5-325] 1 tab PO Q8H PRN 30 Days #90 tab PRN Reason: Pain Magnesium Chloride [Slow-Mag] 128 mg PO DAILY Cholecalciferol [Vitamin D3 (125 Mcg = 5000 Iu)] 125 mcg PO HS hydrOXYzine HCL [Atarax] 25 mg PO HS PRN PRN Reason: SLEEP/ANXIETY buPROPion HCL [buPROPion HCL SR] 150 mg PO DAILY Albuterol Sulfate [Proair Hfa] 2 puff INHALATION RT-Q6H PRN PRN Reason: Shortness Of Breath [place]-Plex 2 cap PO BID Joint Promotion 3 cap PO DAILY Coreplex Multivitamin With Iron 2 tab PO DAILY Coreplex Multivitamin With Iron 1 tab PO HS Fluticasone Nasal [place] [Flonase Nasal [place]] 1 spray EA NOSTRIL DAILY Albuterol Sulfate [Ventolin HFA] 1 - 2 puff INHALATION RT-Q6H PRN PRN Reason: Shortness Of Breath L.acidoph,Paracasei, B.lactis [Probiotic] 1 cap PO DAILY Discontinued Atorvastatin [Lipitor] 20 mg PO HS Celecoxib [CeleBREX] 100 mg PO BID Discharge Medication List Cetirizine HCl 10 mg PO DAILY 03/11/17 [History] Montelukast [Singulair] 10 mg PO DAILY 03/28/17 [History] DULoxetine HCL [Cymbalta] 60 mg PO DAILY 04/28/22 [History] HYDROcodone/APAP 7.5-325MG [[place] 7.5-325] 1 tab PO Q8H PRN 30 Days #90 tab 09/25/22 [Rx] Albuterol Sulfate [Proair Hfa] 2 puff INHALATION RT-Q6H PRN 09/28/22 [History] Albuterol Sulfate [Ventolin HFA] 1 - 2 puff INHALATION RT-Q6H PRN 09/28/22 [History] Cholecalciferol [Vitamin D3 (125 Mcg = 5000 Iu)] 125 mcg PO HS 09/28/22 [History] Coreplex Multivitamin With Iron 1 tab PO HS 09/28/22 [History] Coreplex Multivitamin With Iron 2 tab PO DAILY 09/28/22 [History] Fluticasone Nasal [place] [Flonase Nasal [place]] 1 spray EA NOSTRIL DAILY 09/28/22 [History] Joint Promotion 3 cap PO DAILY 09/28/22 [History] L.acidoph,Paracasei, B.lactis [Probiotic] 1 cap PO DAILY 09/28/22 [History] Magnesium Chloride [Slow-Mag] 128 mg PO DAILY 09/28/22 [History] [place]-Plex 2 cap PO BID 09/28/22 [History] buPROPion HCL [buPROPion HCL SR] 150 mg PO DAILY 09/28/22 [History] hydrOXYzine HCL [Atarax] 25 mg PO HS PRN 09/28/22 [History] Aspirin 325 mg PO DAILY 30 Days #30 tab 09/29/22 [Rx] Atorvastatin [Lipitor] 40 mg PO DAILY 30 Days #30 tablet 09/29/22 [Rx] Clopidogrel [Plavix] 75 mg PO DAILY 30 Days #30 tab 09/29/22 [Rx] Follow up Appointment(s)/Referral(s): Anup Stein DO [STAFF PHYSICIAN] - As Needed Jose Cruz Camejo MD [Primary Care Provider] - 1-2 days Lana Preciado MD [STAFF PHYSICIAN] - 6 Weeks Patient Instructions/Handouts: Ischemic Stroke (DC) Discharge Disposition: HOME SELF-CARE
[2022-09-30 10:14] LABS: Lyme IgG/IgM 0.13 Index
--- NOTE | 2022-10-02 14:23 | CDI ---
Documentation Clarification Form Date: 10/02/2022 1:55:47 PM From: Dione Hagen Admit Date: 09/28/2022 12:38:00 AM Patient Name: Clinton Medley Visit Number: [id number] Discharge Date: 09/29/2022 11:03:00 AM ATTENTION: The Clinical Documentation Specialists (CDI) and [facility] Coding Staff appreciate your assistance in clarifying documentation. Please respond to the clarification below the line at the bottom and electronically sign. The CDI & [facility] Coding staff will review the response and follow-up if needed. Please note: Queries are made part of the Legal Health Record. If you have any questions, please contact the author of this message via ITS. Dr. Cori Heart Conflicting documentation has been found in the medical record. As discharging physician, please provide clarification. H& P 09/28: vertebral artery thrombosis with suspected TIA Neuro Consult 09/28 : probably stroke/TIA. rule out CVA Discharge Summary 09/29 : probably stroke/TIA with bioccipital cephalgia, visual disturbance, speech difficulty, and gait imbalance. Recent neck manipulations. MRI did not show any stroke; however, MRA showed evidence of thrombosis of the left vertebral artery. History/Risk Factors: patient is a 61 year old male, has hyperlipidemia, headaches, confusion, HTN, lumbar spinal stenosis, chronic pain Clinical Indicators: bioccipital headache, confusion, difficulty finding words, visual disturbance, gait imbalance, ataxia left lower limb, Thrombosis distal left vertebral artery. Treatment: neurology evaluation, surgical consult, CTA, MRI, complete stroke work- up, aspirin, statin, anticoagulant, cardiac monitoring Please clarify which diagnosis is most appropriate: [ ] Acute ischemic CVA due to thrombosis left vertebral artery [ ] Acute ischemic CVA [ ] TIA [ ] Left vertebral artery stenosis [ ] Other (please specify) [ ] Unable to determine Acute ischemic CVA due to thrombosis left vertebral artery MARIND
== END 2022-09-29 11:03 | disposition home or self-care (01) | DRG 65 ==
LOC: EC 20:24 → SUPCPDRO 20:24 → 3SCARD 09-28 00:38
PROVIDERS: ADMIT Internal Medicine; ATTEND Internal Medicine
DX: I63.012 Cerebral infarction due to thrombosis of left vertebral artery (principal); G91.8 Other hydrocephalus; R47.01 Aphasia; R51.9 Headache, unspecified; Z96.651 Presence of right artificial knee joint; Z20.822 Contact with and (suspected) exposure to COVID-19; E78.5 Hyperlipidemia, unspecified; F32.A Depression, unspecified; G89.29 Other chronic pain; M48.061 Spinal stenosis, lumbar region without neurogenic claudication; I10 Essential (primary) hypertension; M75.101 Unspecified rotator cuff tear or rupture of right shoulder, not specified as traumatic; M19.90 Unspecified osteoarthritis, unspecified site; R27.0 Ataxia, unspecified; H53.9 Unspecified visual disturbance; R20.2 Paresthesia of skin; F10.21 Alcohol dependence, in remission; Z87.891 Personal history of nicotine dependence; Z86.16 Personal history of COVID-19; Z85.828 Personal history of other malignant neoplasm of skin; Z79.899 Other long term (current) drug therapy; Z79.891 Long term (current) use of opiate analgesic; Z79.82 Long term (current) use of aspirin; Z79.1 Long term (current) use of non-steroidal anti-inflammatories (NSAID); Z79.02 Long term (current) use of antithrombotics/antiplatelets; Z86.79 Personal history of other diseases of the circulatory system; Z28.310 Unvaccinated for COVID-19
CPT/HCPCS: 36415; 70450; 70496; 70498; 70549; 70551; 80053; 80061; 80306; 80320; 81003; 82140; 83036; 84484; 85025; 85610; 85730; 86618; 87636; 93005; 96361; 96372; 96374; 99211; 99291

== ENCOUNTER 2022-10-10 14:49 | Emergency (ER) | payer OTHER ==
[2022-10-10 15:06] VITALS: BP 139/83; PULSE 79; RESP 20; TEMP 97.6
--- NOTE | 2022-10-10 15:50 | XR ---
EXAMINATION TYPE: XR chest 2V DATE OF EXAM: 10/10/2022 COMPARISON: 04/28/2022 HISTORY: 61-year-old male with chest pain TECHNIQUE: PA and lateral views FINDINGS: Heart normal size. Aorta and pulmonary vasculature within normal limits. Mild hyperinflation and mild interstitial prominence. No consolidation or pleural effusion. Dextroconvex curvature/scoliosis thor acic spine. IMPRESSION: COPD and chronic changes. No acute process seen.
[2022-10-10 15:55] LABS: Basophils # (A) 0.1 k/uL (0-0.2); Basophils % (A) 1 %; Eosinophils # (A) 0.5 k/uL (0-0.7); Eosinophils % (A) 5 %; HCT 43.8 % (39.0-53.0); HGB 14.7 gm/dL (13.0-17.5); Lymphocytes # (A) 2.6 k/uL (1.0-4.8); Lymphocytes % (A) 26 %; MCH 32.7 pg (25.0-35.0); MCHC 33.6 g/dL (31.0-37.0); MCV 97.5 fL (80.0-100.0); Mean Platelet Volume 7.8; Monocytes # (A) 0.5 k/uL (0-1.0); Monocytes % (A) 5 %; Neutrophils # (A) 5.8 k/uL (1.3-7.7); Neutrophils % (A) 60 %; Platelet Count 175 k/uL (150-450); RBC 4.49 m/uL (4.30-5.90); RDW 13.5 % (11.5-15.5); WBC 9.7 k/uL (3.8-10.6)
[2022-10-10 16:04] LABS: ALT 30 U/L (4-49); AST 30 U/L (17-59); African American GFR (CKD) >90 (>60 ml/min/1.73 sqM); Albumin 4.4 g/dL (3.5-5.0); Alkaline Phosphatase 66 U/L (38-126); Anion Gap 8 mmol/L; Blood Urea Nitrogen 20 mg/dL (9-20); Calcium 9.4 mg/dL (8.4-10.2); Carbon Dioxide 24 mmol/L (22-30); Chloride 105 mmol/L (98-107); Glucose 150 mg/dL (74-99); Non-African American GFR(CKD) >90 (>60 ml/min/1.73 sqM); Potassium 4.1 mmol/L (3.5-5.1); Sodium 137 mmol/L (137-145); Total Bilirubin 0.4 mg/dL (0.2-1.3); Total Protein 7.4 g/dL (6.3-8.2)
[2022-10-10 16:07] LABS: Partial Thromboplastin Time 25.8 sec (22.0-30.0); Prothrombin Time 10.3 sec (9.0-12.0)
--- NOTE | 2022-10-10 17:12 | CT ---
EXAMINATION TYPE: CT brain wo con CT DLP: 1137.4 mGycm, Automated exposure control for dose reduction was used. DATE OF EXAM: 10/10/2022 4:55 PM COMPARISON: 09/27/2022, brain MR 09/28/2022 CLINICAL INDICATION:Male, 61 years old with history of new neurologic symptoms, New neurological symp toms. Pt can't explain but to say he doesn't feel right. TECHNIQUE: Brain: Axial CT images of the brain were obtained with coronal and sagittal reformats created and rev iewed. Contrast used: None. Oral contrast used: None. FINDINGS: Brain: Extra-axial spaces: No abnormal extra-axial fluid collections. Ventricular system: Within normal limits Cerebral parenchyma: No acute intraparenchymal hemorrhage or mass effect. The roca-white junction is well differentiated. Cerebellum: Unremarkable. Mass effect: No evidence of midline shift. Intracranial vasculature: unremarkable Soft tissues: Normal. Calvarium/osseous structures: No depressed skull fracture. Postsurgical changes the right calvarium. Paranasal sinuses and mastoid air cells: Mild scattered paranasal sinus disease. Visualized orbits: Orbital contents are intact. IMPRESSION: No acute intracranial process.
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
--- NOTE | 2022-10-10 18:42 | CT ---
EXAMINATION TYPE: CT angio head neck CT DLP: 468.8 mGycm, Automated exposure control for dose reduction was used. DATE OF EXAM: 10/10/2022 6:08 PM COMPARISON: MR angiogram 09/28/2022. CT 09/27/2022 CLINICAL INDICATION:Male, 61 years old with history of neurologic symptoms, neuro symptoms TECHNIQUE: Axially acquired helical CT angiogram of the head and neck was obtained with contrast. Axi al images are supplemented with 3D reconstructions which [facility] NASCET criteria used. Contrast used:65cc mL of Isovue 370 with IV Contrast, Oral contrast used: None. FINDINGS: CTA HEAD: No evidence of acute intracranial hemorrhage, mass effect, or midline shift. The ventricles, sulci, a nd cisterns are unremarkable. The visualized portions of the internal carotid arteries, middle cerebral arteries, anterior cerebral arteries, and posterior cerebral arteries are patent. The basilar and vertebral arteries are patent. Dominant right vertebral artery with reconstitution o f the left vertebral artery. Postsurgical changes to the skull. CTA NECK: Right Carotid System: The common carotid artery and external carotid artery are patent. The carotid bifurcation demonstrate s no evidence of hemodynamically significant stenosis. The remaining portions of the internal carotid artery demonstrate normal size without significant narrowing. Left Carotid System: The common carotid artery and external carotid artery are patent. The carotid bifurcation demonstrate s no evidence of hemodynamically significant stenosis. The remaining portions of the internal carotid artery demonstrate normal size without significant narrowing. The right vertebral artery is patent. The left vertebral artery is diminutive with no definitive visu alization throughout its course and caliber reaches the superior aspect just before the intracranial portion and then reconstitution within the intracranial portion. There is a three-vessel aortic arch. The origins of the great vessels are patent. No evidence of hemo dynamically significant stenosis. Mild emphysema changes in the lung apices. IMPRESSION: 1. No evidence of dissection of the cervical internal carotid arteries or vertebral arteries or any e vidence of significant stenosis at the carotid bifurcations. 2. No evidence of intracranial high-grade stenosis or intracranial aneurysm. 3. Diminutive left vertebral artery not definitively visualized from its origin to approximately the C2 level. Reconstitution within the intracranial portion. Findings suggestive of occlusion.
== END 2022-10-10 19:11 | disposition home or self-care (01) ==
LOC: EC 14:49
DX: J32.9 Chronic sinusitis, unspecified (principal); F32.A Depression, unspecified; Z90.89 Acquired absence of other organs; Z79.899 Other long term (current) drug therapy; Z96.651 Presence of right artificial knee joint; Z87.891 Personal history of nicotine dependence
CPT/HCPCS: 36415; 93005; 80053; 84484; 85025; 85610; 85730; 71046; 70496; 70450; 70498; 99284; Q9967

== ENCOUNTER 2022-10-21 11:00 | Day surgery (SDC) | payer OTHER ==
[2022-10-21 11:15] VITALS: TEMP 97.7
[2022-10-21] MEDS ORDERED: SODIUM CHLORIDE 0.9% 500 ML 500 ML IV ONE (11:15)
[2022-10-21] MEDS ORDERED: HYDROcodone/APAP 7.5-325MG 1 EACH TAB ONE (11:37)
[2022-10-21] MEDS ORDERED: fentaNYL (PF) 50 MCG/ML 2 ML AMP ONE (11:40)
[2022-10-21] MEDS: fentaNYL (PF) 50 MCG/ML 2 ML AMP IV ONE ×2 (11:55→11:57)
[2022-10-21] MEDS: BENZOCAINE SPRAY 1 CAN MUCOUS MEM ONE ×2 (11:55→11:56)
[2022-10-21] MEDS: MIDAZOLAM 2 MG/2 ML VIAL IV ONE ×2 (11:55→11:57)
[2022-10-21 12:20] VITALS: RESP 16
[2022-10-21 13:50] VITALS: BP 126/74; PULSE 70
--- NOTE | 2022-10-25 08:55 | ECHOT ---
TRANSESOPHAGEAL ECHOCARDIOGRAM INDICATION: CVA, rule out cardiac source of thromboembolic phenomenon. PROCEDURE NOTE: After obtaining informed consent, transesophageal echocardiogram was performed in left lateral position using an Omniplane probe. Local and IV sedation were obtained with Xylocaine spray, Versed, and fentanyl. The patient tolerated the procedure well without any obvious immediate complications. Conscious sedation time was 10 minutes. FINDINGS: 1. There is no intracardiac thrombus within the left atrial appendage, left atrium, right atrium, or right ventricle. 2. Left ventricle has normal size and systolic function. 3. Interatrial septum, there is no evidence of [id number] shunt by color-flow Doppler or [id number] shunt by agitated saline contrast study. 4. Aortic valve is a 3-leaflet valve. There is no evidence of aortic stenosis or regurgitation. 5. Aortic root appears normal. 6. Tricuspid valve appears normal. Mitral valve shows mild mitral regurgitation. CONCLUSIONS: 1. Normal LV systolic function. 2. No intracardiac thrombus. 3. No evidence of shunting across the interatrial septum. MMODL / IJN: [id number] /
== END 2022-10-21 13:17 | disposition home or self-care (01) ==
LOC: CATHCVL 11:00
PROVIDERS: ATTEND Internal Medicine Cardiovascular Disease
DX: I25.10 Atherosclerotic heart disease of native coronary artery without angina pectoris (principal); J44.9 Chronic obstructive pulmonary disease, unspecified; F17.290 Nicotine dependence, other tobacco product, uncomplicated; E78.2 Mixed hyperlipidemia; Z79.02 Long term (current) use of antithrombotics/antiplatelets; Z79.899 Other long term (current) drug therapy; Z79.82 Long term (current) use of aspirin; Z79.891 Long term (current) use of opiate analgesic; F10.20 Alcohol dependence, uncomplicated; Z86.73 Personal history of transient ischemic attack (TIA), and cerebral infarction without residual deficits
CPT/HCPCS: 93312; 93320; 93325; J2250; J3010

== ENCOUNTER → 2023-03-25 | Outpatient (CLI) | payer OTHER ==
--- NOTE | 2023-03-25 16:38 | MR ---
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 Headaches, leg numbness. COMPARISON: CT Angio neck 11/27/2022 Technical: MRA brain: 2D and 3-D [id number] Axial with MIP and 3-D reconstruction. Performed on a separate w orkstation. IV Contrast: none Findings: Vertebral arteries: Diminutive left vertebral artery, the right vertebral artery is patent. Nonvisual ization of the more inferior aspect of the intracranial portion of vertebral artery on the left. Vertebral arteries are: Right dominant. Basilar artery: The basilar artery is intact. The basilar artery bifurcation is normal. Internal Carotid arteries: The cervical, petrous, cavernous and supraclinoid segments are normal. ALBAN: Patent with no evidence of aneurysm. ACOM: Present without evidence of aneurysm. MCA: Patent with no evidence of aneurysm. SCALDER: Patent with no evidence of aneurysm. PCOM: Hypoplastic bilaterally. IMPRESSION: Nonvisualization of the more inferior aspect of the intracranial portion of left vertebral artery. No additional evidence of intracranial aneurysm or significant stenosis. Please see dedicated MRA neck. Finding is compatible with prior CT.
--- NOTE | 2023-03-26 09:24 | MR ---
EXAMINATION TYPE: MR angio neck wo/w con DATE OF EXAM: 03/25/2023 COMPARISON: Prior CTA neck November 27, 2022. Prior MRA neck September 28, 2022. HISTORY: History of 100% occluded vertebral artery. Headaches, leg numbness. TECHNIQUE: Time of flight images focusing on the [place] were performed without contrast.. I maging of the neck focusing on carotid vessels performed without and with IV contrast. Patient inject ed with 8.5 cc of gadavist for the study. 2-D and 3-D postprocessing imaging is performed on independent workstation. FINDINGS: Normal three-vessel origin from the aortic arch. No significant focal stenosis. Normal orig in right common carotid artery from the right brachiocephalic artery. No significant focal stenosis in common or internal carotid arteries bilaterally. Patent external carotid arteries bilaterally with out significant stenosis. There is hypoplastic or occluded left vertebral artery redemonstrated. Small caliber vessel distally presumed from retrograde flow is redemonstrated. Right vertebral artery is patent and filling the bas ilar artery. IMPRESSION: As above. No significant change from prior studies.
== END | disposition home or self-care (01) ==
LOC: RADMRIMAIN 15:29
PROVIDERS: ATTEND Nurse Practitioner Family
DX: I65.02 Occlusion and stenosis of left vertebral artery (principal); R20.0 Anesthesia of skin
CPT/HCPCS: 70544; 70549; A9585

== ENCOUNTER → 2023-07-18 | Outpatient (CLI) | payer MEDICARE, OTHER ==
--- NOTE | 2023-07-18 12:07 | MR ---
EXAMINATION TYPE: MR lumbar spine wo con DATE OF EXAM: 07/18/2023 11:50 AM COMPARISON: 08/29/2022 HISTORY: Lower back pain, BLE radiculopathy. Multiplanar, MultiSpin echo imaging of the lumbar spine was performed. L1-L2: Severe disc desiccation with moderate circumferential disc bulge. Effacement of ventral thecal sac resulting in mild to moderate central stenosis. Mild bilateral foraminal encroachment L2-L3: Severe disc desiccation with moderate circumferential disc bulge. Effacement of ventral thecal sac resulting in moderate central stenosis. Mild bilateral foraminal encroachment L3-L4: Severe disc desiccation with moderate circumferential disc bulge. Effacement of ventral thecal sac resulting in moderate central stenosis. Mild bilateral foraminal encroachment L4-L5: Severe disc desiccation with moderate circumferential disc bulge. Subligamentous left paracent ral disc herniation unchanged from prior study. Effacement of ventral thecal sac resulting in moderat e to severe central stenosis. Mild bilateral foraminal encroachment L5-S1: Severe disc desiccation with mild posterior disc bulge. No evidence of herniation or central s tenosis. Moderate left-sided foraminal encroachment noted. Lumbar segments are intact. No paraspinal masses are identified. Conus medullaris has a normal appe arance. IMPRESSION: 1. Multilevel central stenosis redemonstrated.
== END | disposition home or self-care (01) ==
LOC: RADMRIMAIN 11:12
PROVIDERS: ATTEND Family Medicine
DX: M48.061 Spinal stenosis, lumbar region without neurogenic claudication (principal); M51.16 Intervertebral disc disorders with radiculopathy, lumbar region
CPT/HCPCS: 72148

== ENCOUNTER → 2023-07-18 | Outpatient (CLI) | payer MEDICARE, OTHER ==
--- NOTE | 2023-07-25 02:14 | CTL ---
EXAMINATION TYPE: CT Low Dose Lung DATE OF EXAM ORDERED: 07/18/2023 HISTORY: 62 year-old male former smoker with 25 pack-year history. Z87.891, Z12.2. Lung cancer aimee perez. CT DLP: 108.[address] CTDI: 3.1 mGy Automated exposure control for dose reduction was used. SCREENING VISIT: 2 years since last screening exam COMPARISON: 07/31/2021 TECHNIQUE: Low dose computed tomography scan was performed through the chest with coronal and sagitta l reconstructions. CT DIAGNOSTIC QUALITY: Satisfactory FINDINGS: Heart normal size without pericardial effusion. Mild LAD coronary artery calcifications are present. Mild ectasia upper descending thoracic aorta. Conventional artery. Branching anatomy. The descending thoracic aorta is ectatic to 3.0 cm and distally ectatic at 2.9 cm. A prominent precarinal lymph node at 9 mm remains unchanged. No thoracic adenopathy by CT size criter ia. Mild emphysematous change. Strandy scarring anterior right midlung and both lung bases. No consolidat ion or pleural effusion. * New irregular nodularity with adjacent groundglass change in the posterior right upper lobe. Soft tissue component measuring approximately 7 mm, axial image 113. * 5 mm subpleural pulmonary nodule posterior right upper lobe, axial image 58 is unchanged. * 4 mm subpleural pulmonary nodule superior aspect of the left major fissure, axial image 59 remains unchanged. * 5 mm lingular pulmonary nodule, axial image 132 is unchanged. * 5 mm subpleural pulmonary nodule inferior lingula axial image 144 is unchanged. * 3 mm right midlung pulmonary nodule along the major fissure, axial image 170 is unchanged. Small hiatal hernia. Visualized upper abdomen shows no gross abnormality. Mild degenerative disc disease lower thoracic spine with mild endplate spondylosis. IMPRESSION: 1. LungRADS Category 4A (suspicious, 5-15% chance of malignancy); a new 7 mm posterior right upper lo be pulmonary nodule with some adjacent groundglass change may reflect an infectious/inflammatory focu s rather than a neoplastic process. Three-month follow-up low-dose CT chest to reassess. 2. COPD with mild emphysema. Additional scattered 5 mm smaller pulmonary nodules are unchanged. 3. Small hiatal hernia. CT LUNG RAD AND CT CHEST RECOMMENDATION: Lung-Rad 4A Suspicious: Follow-up 3 month LDCT or PET/CT may be used when there is a > 8 mm solid component. S Modifier (other clinically significant findings): None
== END | disposition home or self-care (01) ==
LOC: RADCTMAIN 11:09
PROVIDERS: ATTEND Family Medicine
DX: Z12.2 Encounter for screening for malignant neoplasm of respiratory organs (principal); J43.9 Emphysema, unspecified; R91.8 Other nonspecific abnormal finding of lung field; K44.9 Diaphragmatic hernia without obstruction or gangrene; Z87.891 Personal history of nicotine dependence
CPT/HCPCS: 71271

== ENCOUNTER → 2023-07-22 | Outpatient (CLI) | payer MEDICARE, OTHER ==
[2023-07-22 15:45] LABS: BUN/Creat Ratio 19.33 Ratio (12.00-20.00); Blood Urea Nitrogen 17.4 mg/dL (9.0-27.0); Calcium 9.5 mg/dL (8.7-10.3); Carbon Dioxide 22.2 mmol/L (21.6-31.8); Chloride 102 mmol/L (96-109); Glucose 90 mg/dL (70-110); Potassium 4.5 mmol/L (3.5-5.5); Sodium 137 mmol/L (135-145)
[2023-07-22 17:40] LABS: Basophils # (A) 0.07 X 10*3/uL (0.00-0.10); Basophils % (A) 0.8 %; Eosinophils # (A) 0.31 X 10*3/uL (0.04-0.35); Eosinophils % (A) 3.6 %; HCT 40.6 % (39.6-50.0); HGB 13.4 d/dL (13.0-17.0); Lymphocytes # (A) 2.46 X 10*3/uL (0.90-5.00); Lymphocytes % (A) 28.5 %; MCH 31.9 pg (27.0-32.0); MCV 96.7 FL (80.0-97.0); Mean Platelet Volume 11.1 FL (9.5-12.2); Monocytes # (A) 1.16 X 10*3/uL (0.20-1.00); Monocytes % (A) 13.4 %; NRBC Per 100 WBC 0 X 10*3/uL (0.00-0.01); Neutrophils % (A) 53.2 %; Platelet Count 228 X 10*3/uL (140-440); RDW 14.1 % (11.5-14.5); WBC 8.64 X 10*3/uL (4.50-10.00)
== END | disposition home or self-care (01) ==
LOC: LABPAT 11:24
PROVIDERS: ATTEND Orthopaedic Surgery Hand Surgery
DX: Z01.812 Encounter for preprocedural laboratory examination (principal); M65.332 Trigger finger, left middle finger
CPT/HCPCS: 80048; 85025

== ENCOUNTER 2023-08-13 08:50 | Day surgery (SDC) | payer MEDICARE, OTHER ==
[2023-08-07 17:34] VITALS: BMI 28.5
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
[~2023-08-13 08:50] MED LIST changes: +DEXAMETHASONE SOD PHOSPHATE 4 MG/ML 1 ML VIAL IV ONE; +HYDROmorphone 0.5 MG/0.5 ML SYRINGE IVP PRN; -IOPAMIDOL M200 10 ML VIAL ONE; -IV FLUID CONTINUATION 1,000 ML IV ONE; -LACTATED RINGERS 1,000 ML IV SCH; -MIDAZOLAM 2 MG/2 ML VIAL ONE; +ONDANSETRON 4 MG/2 ML VIAL IVP ONE; +Pre Op ABX Message 1 EACH MISC MISCELLANE ONE; -fentaNYL (PF) 50 MCG/ML 2 ML AMP ONE; -methylPREDNISolone ACETATE 40 MG/ML 1 ML VIAL ONE
[2023-08-13] MEDS: LACTATED RINGERS 1,000 ML IV SCH ×2 (09:36→09:48)
[2023-08-13 09:44] VITALS: TEMP 97.6
[2023-08-13] MEDS ORDERED: fentaNYL (PF) 50 MCG/ML 2 ML AMP ONE (09:44)
[2023-08-13] MEDS ORDERED: LIDOCAINE 1% INJ 10MG/ML (20 ML MDV) ONE (09:44)
[2023-08-13] MEDS ORDERED: PROPOFOL 10 MG/ML 20 ML VIAL IV ONE (09:44)
[2023-08-13] MEDS ORDERED: MIDAZOLAM 2 MG/2 ML VIAL ONE (09:44)
[2023-08-13] MEDS ORDERED: BUPIVACAINE (PF) 0.5% 30 ML VIAL SQ ONE ×2 (09:49→09:54)
[2023-08-13] MEDS ORDERED: LIDOCAINE 2% INJ 20 MG/ML SQ ONE ×2 (09:49→09:54)
--- NOTE | 2023-08-13 10:09 | P.OP ---
Date of Procedure: 08/13/23 Preoperative Diagnosis: Left middle finger stenosing tenosynovitis Postoperative Diagnosis: Left middle finger stenosing tenosynovitis Procedure(s) Performed: Left middle finger A1 royal release Anesthesia: MAC Surgeon: Piotr Au Drafter Tool Design #1: Juan R Rudolph Estimated Blood Loss (ml): 0 Pathology: none sent Condition: stable Disposition: PACU Description of Procedure: This is a 62 year old male who presents today for a left middle finger trigger finger A1 royal release after having failed conservative treatment. Risks and benefits of surgery were discussed with the patient including bleeding, damage to surrounding tissue, infection, need for further surgery as well as risks of anesthesia including pulmonary embolism and even and the patient wished to proceed with surgical intervention. The patient was seen in the pre-operative area by myself. Consent and H&P were completed and updated. The correct extremity was marked in the pre-operative area by myself and all other questions were answered. Operative Narrative: The patient was brought to the operating room by the department of anesthesia. They remained on the portable stretcher and a rolling hand table was brought to the side of the operative extremity. Pre-operative time out was performed indicating the correct patient, procedure and laterality. All in the room agreed. Pre-operative antibiotics were given prior to skin incision. The patient was then drifted off to sleep by the department of anesthesia. MAC anesthesia was utilized and a 50:50 mixture of 1% Lidocaine and 0.5% bupivacaine was injected into the subcutaneous tissues of the palmar skin, 4ccs total. A nonsterile tourniquet was then applied to the operative extremity and the left upper extremity was then prepped and draped in normal sterile fashion. The operative extremity was the exsanguinated with an esmarch bandage and the tourniquet was inflated to 250mmHg. Oblique incision was made at the base of the left middle finger. Blunt dissection was taken down to the level of the A1 royal. Ragnell retractors were placed both radially and ulnarly to protect neurovascular bundles. Littler tenotomy scissors were then used to release the A1 royal from proximal to distal under direct visualization. Proximal fascial attachments were released. The tendon was then taken through range of motion and no locking or catching was appreciated. The wound was then closed with interrupted 4-0 nylon sutures in a horizontal mattress fashion. Sterile dressing consisting of adaptic, 4x4s, webril, and an patricia wrap was applied. Tourniquet was let down and the hand was immediately well perfused. The patient was then woken by the department of anesthesia and transferred to PACU in stable condition. Piotr Au D.O. Orthopedic Hand/Upper Extremity Surgeon
[2023-08-13 10:36] VITALS: BP 107/65; PULSE 68; RESP 16
== END 2023-08-13 11:02 | disposition home or self-care (01) ==
LOC: OR 08:50
PROVIDERS: ATTEND Orthopaedic Surgery Hand Surgery
DX: M65.332 Trigger finger, left middle finger (principal); M65.842 Other synovitis and tenosynovitis, left hand; M93.1 Kienbock's disease of adults; M65.331 Trigger finger, right middle finger; M65.341 Trigger finger, right ring finger; E78.5 Hyperlipidemia, unspecified; Z85.828 Personal history of other malignant neoplasm of skin; Z86.73 Personal history of transient ischemic attack (TIA), and cerebral infarction without residual deficits; Z90.49 Acquired absence of other specified parts of digestive tract; Z87.891 Personal history of nicotine dependence; Z79.899 Other long term (current) drug therapy; Z79.02 Long term (current) use of antithrombotics/antiplatelets
CPT/HCPCS: 26055; J2001 ×2; J2250; J1100; J2405; J3010; J2704; J0665

== ENCOUNTER → 2023-10-07 | Outpatient (CLI) | payer MEDICARE, OTHER ==
[2023-10-09 06:08] LABS: Cotinine 391.7 ng/mL (<2.0); Nicotine 52.3 ng/mL (<2.0)
== END | disposition home or self-care (01) ==
LOC: LABWHC1 11:56
PROVIDERS: ATTEND Neurological Surgery
DX: M48.062 Spinal stenosis, lumbar region with neurogenic claudication (principal)
CPT/HCPCS: 87070; 83036; 36415; G0480; 80323

== ENCOUNTER 2024-02-17 15:44 | Emergency (ER) | payer MEDICARE, OTHER ==
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
[2024-02-17] MEDS: PANTOPRAZOLE 40 MG/10 ML VIAL IV STA (19:58)
[2024-02-17] MEDS: MAG HYDROX/AL HYDROX/SIMETH 30 ML, HYOSCYAMINE ELIXIR 10 ML, LIDOCAINE VISCOUS 2% 10 ML PO STA (19:58)
[2024-02-17 19:59] LABS: Basophils # (A) 0.1 k/uL (0-0.2); Basophils % (A) 1 %; Eosinophils # (A) 0.2 k/uL (0-0.7); Eosinophils % (A) 3 %; HCT 45.6 % (39.0-53.0); HGB 15.1 gm/dL (13.0-17.5); Lymphocytes % (A) 27 %; MCHC 33.1 g/dL (31.0-37.0); MCV 96.8 fL (80.0-100.0); Monocytes # (A) 0.7 k/uL (0-1.0); Monocytes % (A) 10 %; Neutrophils # (A) 4.1 k/uL (1.3-7.7); Neutrophils % (A) 55 %; Platelet Count 162 k/uL (150-450); RBC 4.71 m/uL (4.30-5.90); RDW 13.7 % (11.5-15.5); WBC 7.3 k/uL (3.8-10.6)
[2024-02-17] MEDS: SODIUM CHLORIDE 0.9% 1,000 ML IV STA (20:05)
[2024-02-17 20:16] LABS: ALT 37 U/L (4-49); AST 36 U/L (17-59); African American GFR (CKD) >90 (>60 ml/min/1.73 sqM); Albumin 4.3 g/dL (3.5-5.0); Alkaline Phosphatase 74 U/L (38-126); Anion Gap 12 mmol/L; Blood Urea Nitrogen 25 mg/dL (9-20); Carbon Dioxide 16 mmol/L (22-30); Chloride 109 mmol/L (98-107); Glucose 88 mg/dL (74-99); Lipase 102 U/L (23-300); Non-African American GFR(CKD) >90 (>60 ml/min/1.73 sqM); Sodium 137 mmol/L (137-145); Total Bilirubin 0.5 mg/dL (0.2-1.3); Total Protein 7.2 g/dL (6.3-8.2)
[2024-02-17 20:18] LABS: Partial Thromboplastin Time 28.3 sec (22.0-30.0); Prothrombin Time 11.3 sec (10.0-12.5)
[2024-02-17 20:24] LABS: NT-Pro-B-Type Natriuretic Pept <20 pg/mL
--- NOTE | 2024-02-17 20:42 | XR ---
EXAMINATION TYPE: XR chest 2V DATE OF EXAM: 02/17/2024 8:20 PM CLINICAL INDICATION:Male, 63 years old with history of Chest Pain; [facility] COMPARISON: Chest radiographs from on 10/10/2022 TECHNIQUE: XR chest 2V Frontal and lateral views of the chest. FINDINGS: Lungs/Pleura: There is flattening of the diaphragm with increased lucency of the lungs. No evidence o f pneumothorax, pleural effusion or focal consolidation. Pulmonary vascularity: Unremarkable. Heart/mediastinum: Cardiomediastinal silhouette is unremarkable. Musculoskeletal: No acute osseous pathology. IMPRESSION: 1. No acute cardiopulmonary disease process. 2. COPD changes.
--- NOTE | 2024-02-17 21:30 | CT ---
EXAMINATION TYPE: CT abdomen pelvis w con CT DLP: 1230.2 mGycm, Automated exposure control for dose reduction was used. DATE OF EXAM: 02/17/2024 9:01 PM COMPARISON: CT abdomen pelvis most recent from 04/29/2012 CLINICAL INDICATION:Male, 63 years old with history of pain; Left side chest pain and abdominal pain TECHNIQUE: Axial CT abdomen pelvis w con;Sagittal and coronal reformats were created on a separate w orkstation. Contrast used:100 ml mL of Isovue 370 with IV Contrast, (none if empty) Oral contrast used: without Oral Contrast (none if empty) FINDINGS: LOWER CHEST: Unremarkable ABDOMEN LIVER: Unremarkable GALLBLADDER AND BILE DUCTS: Unremarkable. PANCREAS: Unremarkable. SPLEEN: Unremarkable. ADRENAL GLANDS: Unremarkable. KIDNEYS AND URETERS: No evidence of hydronephrosis or renal calculus. The ureters are unremarkable. PELVIS BLADDER: Unremarkable REPRODUCTIVE: Unremarkable. ABDOMEN & PELVIS STOMACH AND BOWEL: No evidence of bowel obstruction. Scattered colonic diverticula. Prior appendectom y likely with surgical clips present. PERITONEUM/RETROPERITONEUM: No evidence of pneumoperitoneum or free fluid. VASCULATURE: No evidence of aortic aneurysm. MUSCULOSKELETAL: No acute osseous abnormalities LYMPH NODES: No gross evidence for lymphadenopathy. SOFT TISSUE/ABDOMINAL WALL: Left fat-containing inguinal hernia. IMPRESSION: 1. No evidence for acute process to explain the patient's pain. No obstructive uropathy or renal clive culus. No evidence for diverticulitis. 2. Colonic diverticulosis.. 3. Left fat-containing inguinal hernia.
--- NOTE | 2024-02-17 21:35 | CT ---
EXAMINATION TYPE: CT angio chest CT DLP: 1230.2 mGycm, Automated exposure control for dose reduction was used. DATE OF EXAM: 02/17/2024 9:03 PM COMPARISON: Chest radiograph from same day. 07/18/2023 CLINICAL INDICATION:Male, 63 years old with history of pain; Left side chest pain and abdominal pain TECHNIQUE/CONTRAST: CTA scan of the thorax is performed with IV Contrast, patient injected with 100 ml mL of Isovue 370, MIP images are created and reviewed these are created on a separate workstation.. FINDINGS: Pulmonary Artery: There is no evidence for a filling defect within the pulmonary vasculature to sugge st acute pulmonary embolism. The pulmonary artery is of normal size. Lungs/Pleura: No evidence of focal consolidation, pleural effusion or pneumothorax. Mild centrilobula r emphysema changes. Airway: Large airways are patent. Heart: Heart is within normal limits for size. Vasculature: No evidence of aortic aneurysm. Mediastinum: No gross evidence of adenopathy. Musculoskeletal: No acute osseous abnormalities Soft Tissues/lymph nodes: Unremarkable. Lower neck: No significant findings. Upper Abdomen: No significant findings. IMPRESSION: 1. No evidence of pulmonary embolism. 2. Mild emphysema. 3. Resolution of prior right upper lobe pulmonary nodule seen on 07/18/2023.
[2024-02-17 22:33] VITALS: BP 114/85; PULSE 65; RESP 16; TEMP 98.9
== END 2024-02-17 22:42 | disposition home or self-care (01) ==
LOC: EC 15:44
DX: K29.70 Gastritis, unspecified, without bleeding (principal); R07.89 Other chest pain; M54.9 Dorsalgia, unspecified; F17.290 Nicotine dependence, other tobacco product, uncomplicated; Z86.16 Personal history of COVID-19
CPT/HCPCS: 36415; 93005; 85379; 83880; 80053; 83690; 83735; 84484; 85025; 85610; 85730; 71046; 71275; 74177; 99285; 96374; 96361; C9113; Q9967

== ENCOUNTER 2024-03-21 19:09 | Emergency (ER) | payer MEDICARE ==
[2024-03-21 19:28] VITALS: RESP 16
[2024-03-21] MEDS: GABAPENTIN 100 MG CAP PO STA (20:06)
[2024-03-21] MEDS: KETOROLAC 15 MG/ML 1 ML VIAL IM STA (20:07)
[2024-03-21] MEDS: MORPHINE SULFATE 4 MG/ML SYRINGE IM STA (20:10)
--- NOTE | 2024-03-21 20:29 | XR ---
EXAMINATION TYPE: XR wrist complete LT DATE OF EXAM: 03/21/2024 8:00 PM CLINICAL INDICATION:Male, 63 years old with history of pain. hx carpel tunnel; [facility] COMPARISON: 07/12/2019 TECHNIQUE: XR wrist complete LT; examined in the Frontal, navicular, lateral, and oblique. FINDINGS: Abnormal appearance of the lunate bone which has a flattened appearance with increased scle rosis compared to 07/12/2019. No acute osseous pathology, joint dislocation, or joint effusion. No e vidence of any soft tissue swelling is seen. IMPRESSION: Flattened appearance of the mcgrath bone correlate for avascular necrosis. No acute osseous pathology.
--- NOTE | 2024-03-21 20:31 | XR ---
EXAMINATION TYPE: XR elbow limited LT DATE OF EXAM: 03/21/2024 8:00 PM CLINICAL INDICATION:Male, 63 years old with history of pain. hx carpel tunnel; [facility] COMPARISON: 01/13/2014. TECHNIQUE: XR elbow limited LT; elbow was examined in AP, lateral, and oblique projections. FINDINGS: No evidence of any acute osseous pathology, joint dislocation, or soft tissue swelling is n oted. No evidence of joint effusion is present. Degeneration changes of the joints of the elbow. IMPRESSION: No evidence of acute fracture.
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
[2024-03-21 21:50] VITALS: BP 125/80; PULSE 58; TEMP 97.5
== END 2024-03-21 21:50 | disposition home or self-care (01) ==
LOC: EC 19:09
DX: M25.532 Pain in left wrist (principal); M79.642 Pain in left hand; F17.290 Nicotine dependence, other tobacco product, uncomplicated; Z86.16 Personal history of COVID-19; Z86.73 Personal history of transient ischemic attack (TIA), and cerebral infarction without residual deficits
CPT/HCPCS: 73070; 73110; 96372 ×2; 99283; 29125; J2270; J1885

== ENCOUNTER 2024-03-22 02:49 | Emergency (ER) | payer MEDICARE ==
[2024-03-22 03:03] VITALS: RESP 20; TEMP 97.6
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
[2024-03-22] MEDS: HYDROmorphone 1 MG/ML 1 ML SYRINGE IM STA (04:20)
[2024-03-22 05:31] VITALS: BP 145/79; PULSE 70
== END 2024-03-22 05:34 | disposition home or self-care (01) ==
LOC: EC 02:49
DX: M25.532 Pain in left wrist (principal); Z87.891 Personal history of nicotine dependence
CPT/HCPCS: 99283; 96372; J1170

== ENCOUNTER → 2024-03-31 | Outpatient (CLI) | payer MEDICARE ==
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
== END | disposition home or self-care (01) ==
LOC: RADCTMAIN 07:58
PROVIDERS: ATTEND Surgery Surgery of the Hand
DX: M19.032 Primary osteoarthritis, left wrist (principal); M93.1 Kienbock's disease of adults
CPT/HCPCS: 73202; Q9967

== ENCOUNTER → 2024-05-22 | Outpatient (CLI) | payer MEDICARE ==
--- NOTE | 2024-06-17 00:25 | MR ---
EXAMINATION TYPE: MR hand LT wo con DATE OF EXAM: 06/08/2024 COMPARISON: Correlation CT 03/31/2024 HISTORY: 63-year-old male M65.322 LEFT TRIGGER FINGER, unable to bend pointer finger. Previous wrist surgery. TECHNIQUE: Multiplanar, multisequence images of the left hand were obtained without IV contrast. FINDINGS: There is diminutive and fragmented appearance to the lunate bone. Severe degenerative change at the radioscaphoid joint with complete loss of articular cartilage and r eactive subchondral marrow signal change. Additional subchondral geodes throughout the radiocarpal joint, distal radioulnar joint, as well as t he midcarpal and intercarpal articulations. There is moderate to large tenosynovial fluid along the flexor tendons within the hand from the level of the wrist to the level of the metacarpal necks. There appears to be a proximal rupture of the second flexor digitorum profundus tendon. Retracted and undulating stump noted at the level of the metacarpal midshaft, refer to sagittal image 24, coronal image 12, and axial image 32. This is positioned superficial to the second flexor digitorum superfici mika tendon but courses radially and then resumes its normal deep position by the level of the MCP chely int. No acute or healing fracture is seen. Suspect a large tear through the central portion of the TFC. IMPRESSION: 1. There appears to be a proximal rupture of the second flexor digitorum profundus tendon. The undula ting stump is located at the level of the metacarpal mid shaft (sagittal image 24), positioned superf icial to the superficialis tendon. The torn tendon courses radially and then resumes its normal deep position by the level of the MCP joint/A1 royal. 2. Moderate to severe diffuse flexor tenosynovitis from the level of the wrist to the level of the me tacarpal necks. 3. Osteoarthritic change throughout the wrist and intercarpal articulations. Degenerative change is s evere at the radioscaphoid joint and there is a diminutive/fragmented lunate, likely sequela of Kienb ?ck's disease. 4. Suspect a tear through the central portion of the TFC. [facility], , 06/17/2024 12:23 AM
== END | disposition home or self-care (01) ==
LOC: RADMRIMAIN 15:00
PROVIDERS: ATTEND Surgery Surgery of the Hand
DX: M19.90 Unspecified osteoarthritis, unspecified site (principal)

== ENCOUNTER → 2024-10-08 | Outpatient (CLI) | payer MEDICARE ==
--- NOTE | 2024-10-08 11:55 | MR ---
EXAMINATION TYPE: MR forearm LT wo con DATE OF EXAM: 10/08/2024 10:06 AM COMPARISON: Correlation MRI and 05/22/2024 CLINICAL INDICATION: Male, 63 years old with history of M66.342 SPONTANEOUS RUPTURE OF FLEXOR TENDONS , LEF, Abnormal Hand MRI, tendon rupture evaluation into forearm TECHNIQUE: Multiplanar, multisequence images of the left forearm were obtained without IV contrast. FINDINGS: There is some edematous change along the volar distal half musculature of the forearm. There appears to be a thickened tendon, possible retracted fibers located 2.5 to 3.0 cm below the wrist joint line within the mid volar musculature, axial series 501 image 16 and sagittal series 902 image 17. Distal to this level, the tendon has a very diminutive appearance. Fragmentary and diminutive appearance redemonstrated of the lunate with scattered osteoarthritic newton ge throughout the wrist and mid carpal compartment. Small elbow joint effusion may be physiologic. No acute or healing fracture or suspicious bone marrow replacement is seen. IMPRESSION: Torn proximal stump seems to be located 2.5 to 3.0 cm below the wrist joint line within the mid volar musculature. Tendon appears thickened here likely reflecting retracted fibers. Tendon distal to this level is very diminutive. Reactive edema within the volar musculature. Correlation is made to the MR I hand of 05/22/2024. [facility], , 10/08/2024 11:53 AM
== END | disposition home or self-care (01) ==
LOC: RADMRIMAIN 09:28
PROVIDERS: ATTEND Surgery Surgery of the Hand
DX: M66.342 Spontaneous rupture of flexor tendons, left hand (principal); R60.0 Localized edema

== ENCOUNTER 2024-11-21 19:05 | Inpatient (IN) | payer MEDICARE ==
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
--- NOTE | 2024-11-21 20:32 | XR ---
EXAMINATION TYPE: XR KUB DATE OF EXAM: 11/21/2024 7:52 PM COMPARISON: None. CLINICAL INDICATION: Male, 63 years old with history of Abdominal pain, TECHNIQUE: XR KUB view(s) obtained. FINDINGS: There are air-fluid levels within the transverse colon. Correlate for gastroenteritis. There may be a small amount of colonic bowel gas in the hepatic flexure. Descending colon is identifi ed. Psoas margins are normal. No organomegaly is present. IMPRESSION: 1. Scattered air-fluid levels which appear to be within the colon. Correlate for gastroenteritis. [facility], , 11/21/2024 8:30 PM
[2024-11-21 20:54] LABS: ALT 31 U/L (4-49); AST 29 U/L (17-59); African American GFR (CKD) >90 (>60 ml/min/1.73 sqM); Albumin 4.7 g/dL (3.5-5.0); Alkaline Phosphatase 81 U/L (38-126); Anion Gap 11 mmol/L; Blood Urea Nitrogen 19 mg/dL (9-20); Calcium 9.8 mg/dL (8.4-10.2); Carbon Dioxide 27 mmol/L (22-30); Chloride 104 mmol/L (98-107); Glucose 94 mg/dL (74-99); Non-African American GFR(CKD) >90 (>60 ml/min/1.73 sqM); Potassium 3.9 mmol/L (3.5-5.1); Sodium 142 mmol/L (137-145); Total Bilirubin 0.4 mg/dL (0.2-1.3)
[2024-11-21 20:56] LABS: Basophils # (A) 0.1 k/uL (0-0.2); Basophils % (A) 1 %; Eosinophils # (A) 0.3 k/uL (0-0.7); Eosinophils % (A) 3 %; HGB 15.7 gm/dL (13.0-17.5); Lymphocytes # (A) 2.2 k/uL (1.0-4.8); Lymphocytes % (A) 28 %; MCH 31.8 pg (25.0-35.0); MCHC 34.1 g/dL (31.0-37.0); MCV 93.2 fL (80.0-100.0); Mean Platelet Volume 7.8; Monocytes # (A) 0.5 k/uL (0-1.0); Monocytes % (A) 7 %; Neutrophils # (A) 4.6 k/uL (1.3-7.7); Neutrophils % (A) 58 %; Platelet Count 215 k/uL (150-450); RBC 4.94 m/uL (4.30-5.90); RDW 13.9 % (11.5-15.5); WBC 7.8 k/uL (3.8-10.6)
[2024-11-21] MEDS: SODIUM CHLORIDE 0.9% 1,000 ML IV STA ×2 (20:59→21:00)
[2024-11-21] MEDS: ONDANSETRON 4 MG/2 ML VIAL IVP STA (21:00)
[2024-11-21] MEDS: PANTOPRAZOLE 40 MG/10 ML VIAL IVP STA (21:00)
[2024-11-21 21:44] LABS: Magnesium 2.1 mg/dL (1.6-2.3); Phosphorus 3.9 mg/dL (2.5-4.5)
[2024-11-21] MEDS: HYDROmorphone 0.5 MG/0.5 ML SYRINGE IVP STA (21:55)
--- NOTE | 2024-11-21 22:15 | CT ---
EXAMINATION TYPE: CT abdomen pelvis w con DATE OF EXAM: 11/21/2024 9:41 PM COMPARISON: 02/17/2024 CLINICAL INDICATION: Male, 63 years old with history of abdominal pain, abdominal pain TECHNIQUE: Axial images were obtained from above the diaphragm to the pubic rami in the axial plane a t 5 mm thick sections. Reconstructed images are reviewed on the computer in the coronal plane. CONTRAST: 100 mL of Isovue 300. Study performed without Oral Contrast DLP: 1009.3 mGycm, Automated exposure control for dose reduction was used. FINDINGS: Limited CT sections are obtained the lung bases. The lung bases are clear. CT ABDOMEN: Liver: Normal Spleen: Normal Pancreas: Normal Adrenal glands: The adrenal glands are normal. Gallbladder: Normal Kidneys: No masses are evident. No hydronephrosis is present. No cysts are present. No renal stone s are evident. Delayed images through the kidneys appear unremarkable. Aorta: Vascular calcification is within the aorta. Inferior vena cava: Normal. CT PELVIS: Multiple dilated small bowel loops with fluid are present. Scattered air-fluid levels are present. Fi ndings extend to the region of the ileum correlate for ileus or small bowel obstruction. Follow-up is recommended. Report was called to the emergency room by Dr. Dee at time interpretation. This study is without oral contrast limiting bowel evaluation. Diverticular changes are within the si gmoid colon. Appendix: History of prior appendectomy. Urinary bladder: Normal. Genitourinary structures: Prostate appears normal Osseous structures: No suspicious lytic or sclerotic lesions. IMPRESSION: 1. Dilated small bowel loops with fluid extending to the ileum. Correlate for ileus and obstruction. Follow-up is recommended. [facility], , 11/21/2024 10:12 PM
[2024-11-21] MEDS: AMPICILLIN-SULBACTAM 3 GM in SODIUM CHLORIDE 0.9% 100 ML IVPB STA (22:19)
[2024-11-21] MEDS ORDERED: NALOXONE 0.4 MG/ML 1 ML VIAL IV PRN (23:05)
[2024-11-21 23:09] LABS: Appearance,Urine Clear (Clear); Bilirubin,Urine Negative (Negative); Blood,Urine Negative (Negative); Color,Urine Colorless; Glucose,Urine (UA) Negative (Negative); Ketones,Urine Negative (Negative); Leukocyte Esterase,Urine Negative (Negative); Nitrite,Urine Negative (Negative); Protein,Urine Negative (Negative); Specific Gravity,Urine >1.050 (1.001-1.035); Urobilinogen,Urine <2.0 mg/dL (<2.0)
[2024-11-21] MEDS: SODIUM CHLORIDE 0.9% 1,000 ML IV SCH (23:10)
[2024-11-22] MEDS: HYDROmorphone 1 MG/ML 1 ML SYRINGE IVP PRN ×2 (00:53→06:33)
[2024-11-22] MEDS: MELATONIN 5 MG TABLET PO ONE (03:13)
[2024-11-22 05:43] LABS: Basophils # (A) 0.1 k/uL (0-0.2); Basophils % (A) 1 %; Eosinophils # (A) 0.3 k/uL (0-0.7); Eosinophils % (A) 4 %; HCT 39.6 % (39.0-53.0); HGB 12.9 gm/dL (13.0-17.5); Lymphocytes # (A) 1.5 k/uL (1.0-4.8); Lymphocytes % (A) 19 %; MCH 31.3 pg (25.0-35.0); MCHC 32.7 g/dL (31.0-37.0); MCV 95.8 fL (80.0-100.0); Mean Platelet Volume 8.1; Monocytes # (A) 0.4 k/uL (0-1.0); Monocytes % (A) 6 %; Neutrophils # (A) 5.2 k/uL (1.3-7.7); Neutrophils % (A) 67 %; Platelet Count 169 k/uL (150-450); RBC 4.13 m/uL (4.30-5.90); RDW 13.9 % (11.5-15.5); WBC 7.8 k/uL (3.8-10.6)
[2024-11-22 05:51] LABS: ALT 23 U/L (4-49); AST 22 U/L (17-59); African American GFR (CKD) >90 (>60 ml/min/1.73 sqM); Albumin 3.5 g/dL (3.5-5.0); Alkaline Phosphatase 64 U/L (38-126); Anion Gap 6 mmol/L; Blood Urea Nitrogen 20 mg/dL (9-20); Calcium 8.4 mg/dL (8.4-10.2); Carbon Dioxide 26 mmol/L (22-30); Chloride 107 mmol/L (98-107); Glucose 92 mg/dL (74-99); Magnesium 1.9 mg/dL (1.6-2.3); Non-African American GFR(CKD) >90 (>60 ml/min/1.73 sqM); Phosphorus 4.2 mg/dL (2.5-4.5); Potassium 4.1 mmol/L (3.5-5.1); Sodium 139 mmol/L (137-145); Total Bilirubin 0.3 mg/dL (0.2-1.3)
[2024-11-22] MEDS: ONDANSETRON 4 MG/2 ML VIAL IVP PRN (06:31)
--- NOTE | 2024-11-22 06:40 | XR ---
EXAMINATION TYPE: XR chest 1V portable DATE OF EXAM: 11/22/2024 6:33 AM COMPARISON: CT chest February 17, 2024 CLINICAL INDICATION: Male, 63 years old with history of NG tube confirmation, TECHNIQUE: Single frontal view of the chest is obtained. FINDINGS: There is new nasogastric tube projecting below diaphragm. There is patchy bibasilar opaciti es. The cardiac silhouette size is within normal limits. The osseous structures are intact. IMPRESSION:New Nasogastric tube is satisfactory in position. Bibasilar opacity favoring atelectasis i s noted. [facility], , 11/22/2024 6:37 AM
[2024-11-22] MEDS: PANTOPRAZOLE 40 MG/10 ML VIAL IV SCH (08:23)
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
--- NOTE | 2024-11-22 15:23 | FL ---
EXAMINATION TYPE: FL small bowel follow through DATE OF EXAM: 11/22/2024 3:14 PM COMPARISON: CT abdomen pelvis most recent from 11/21/2024 CLINICAL INDICATION:Male, 63 years old with history of abdominal pain, follow up on SBO; TECHNIQUE: The procedure was explained and patient history elicited. All patient questions were ans wered prior to start of procedure. A pharm tech radiograph of the abdomen was also reviewed. The patient was asked to ingest liquid Gastrografin and incremental frontal abdominal radiographs were then taken until contrast was visualized in the cecum. FINDINGS: The pharm tech abdominal radiograph demonstrates a normal bowel gas pattern without dilated loops of small or large bowel. There is no evidence of organomegaly or pneumoperitoneum. No abnormal calcifications . The visualized osseous structures are intact. Contrast is seen extending from the duodenojejunal junction into the rectum after two hours, which is within the expected time period. The small bowel follows normal distribution and contour without an y evidence of extraluminal or intraluminal irregularity. There is no displacement of bowel loops or extraluminal extravasation of contrast material. Small bowel mucosal folds are felt to be within norm al limits. IMPRESSION: Normal detailed small bowel examination. [facility], , 11/22/2024 3:21 PM
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
[2024-11-22] MEDS: buPROPion SR 150 MG TABLET.ER PO SCH (22:05)
[2024-11-22] MEDS: BENZOCAINE SPRAY 1 CAN MUCOUS MEM PRN (22:33)
[2024-11-23] MEDS ORDERED: CLOPIDOGREL 75 MG TAB PO SCH (09:00)
[2024-11-23] MEDS: ENOXAPARIN 40 MG/0.4 ML SYRINGE SQ SCH (10:09)
[2024-11-23] MEDS: MONTELUKAST 10 MG TAB PO SCH (10:10)
[2024-11-23] MEDS: ATORVASTATIN 10 MG TAB PO SCH (10:10)
[2024-11-23] MEDS: GABAPENTIN 300 MG CAP PO SCH (10:10)
[2024-11-23] MEDS: DULoxetine HCL 60 MG CAPSULE.DR PO SCH (10:10)
[2024-11-23] MEDS: ASPIRIN 81 MG PO SCH (10:10)
[2024-11-23] MEDS: ACETAMINOPHEN TAB 325 MG TAB PO PRN (11:28)
--- NOTE | 2024-11-23 12:12 | P.PN ---
Subjective Progress Note Date: 11/23/24 SURGICAL PROGRESS NOTE CHIEF COMPLAINT: Abdominal pain HISTORY OF PRESENT ILLNESS: Patient reports he is feeling better. He denies any abdominal pain. He is having loose stools. He is having flatus. Small bowel follow-through was normal. Afebrile. PHYSICAL EXAM: VITAL SIGNS: Reviewed. GENERAL: Well-developed in no acute distress. ABDOMEN: Soft. Nondistended. Nontender. NEUROLOGIC: Alert and oriented. Cranial nerves II through XII grossly intact. ASSESSMENT: 1. Abdominal pain with nausea and vomiting likely due to a gastroenteritis causing an abdominal ileus. Ileus resolving. Small bowel follow-through is normal. PLAN: -Discontinue NG tube -Advance diet to clear liquids -Encouraged patient to ambulate -Continue to monitor Physician Mold Construction Supervisor note has been reviewed by physician. Signing provider agrees with the documented findings, assessment, and plan of care. Objective - Vital Signs Vital signs: Vital Signs Temp 97.8 F 11/23/24 09:10 Pulse 85 11/23/24 09:10 Resp 18 11/23/24 09:10 BP 137/85 11/23/24 09:10 Pulse Ox 92 L 11/23/24 09:10 FiO2 Intake & Output 11/22/24 11/23/24 11/23/24 18:59 06:59 18:59 Weight 81.647 kg Other: Voiding Method Toilet # Voids 3 2 # Bowel Movements 1 - Labs CBC & Chem 7: 11/22/24 05:12 11/22/24 05:12
--- NOTE | 2024-11-23 14:19 | P.PN ---
Subjective Progress Note Date: 11/23/24 63 year old M with PMH CVA, h/o appendectomy, HLD, GERD presents to the ED for intractable N/V with brown/sparrow vomitus that has been progressively getting worse over the past 5 days. He also reports a throbbing headache for the past 2- 3 days. Usually drinks 4-8 cups of coffee daily. He reports a bowel movement today. In the ED he underwent extensive evaluation. BP 131/91, HR 74, RR 20, T 97.9F, 95 % on RA. CBC, CMP unremarkable. Lipase 133. UA neg LE or nitrite. Lactic acid 0.9. CT AP showed dilated small bowel loops with fluid extending to the ileum, ileus versus SBO. CXR showing bibasilar atelectasis. Patient is admitted to surgery with medicine on consult. 11/23/2024 patient seen and examined at bedside. No overnight events. No new complaints. WBC 7.8, hemoglobin 12.9, MCV 95.8, sodium 139, potassium 4.1, chloride 107, bicarb 26, BUN 20, creatinine 0.84, glucose 92, calcium 8.4, phosphorus 4.2, magnesium 1.9, AST 23 ALT 64, total bili 0.3, alk phos 64 Review of systems: Pertinent positives and negatives as discussed in HPI, a complete review of systems was performed and all other systems are negative. Pertinent imaging and labs reviewed. Physical examination: Vital signs reviewed General: non toxic, no distress, appears at stated age Derm: no unusual rashes/lesions, warm Head: atraumatic, normocephalic, symmetric Eyes: EOMI, anicteric sclera, pupils equal round reactive to light ENT: Nose and ears atraumatic Neck: No cervical lymphadenopathy, trachea midline, supple Mouth: no lip lesion, mucus membranes moist Cardiovascular: S1S2 reg, no murmur Lungs: CTA bilateral, no rhonchi, no rales, no accessory muscle use Abdominal: soft, nontender to palpation, no guarding, bowel sounds appreciated Ext: muscle strength 5 out of 5 in all 4 extremities grossly, no gross muscle atrophy, no contractures, positive dorsalis pedis pulse bilateral, no edema, cast on right arm noted Neuro: CN II-XI grossly intact, no gross focal neuro deficits Psych: Alert and oriented x3, appropriate affect and mood Assessment/Plan: #. Normocytic anemia Hemoglobin dropped to 12.9 Patient hemodynamically stable at this time Monitor CBC. Consider transfusion once hemoglobin drops to 7 #. History of CVA ASA 81 mg PO QD. Lipitor 10 mg PO QD Hold Plavix per surgery. #. Dyslipidemia: Continue Lipitor 10mg PO daily #. GERD: Protonix as above. #. Ileus versus SBO CT AP showed dilated small bowel loops with fluid extending to the ileum, ileus versus SBO. CXR showing bibasilar atelectasis. Small bowel x-ray showed normal detail small bowel examination NPO advance diet as tolerated NGT to suction discontinued Pain management with Dilaudid 0.5-1 mg IV Q3H PRN. Zofran 4 mg IV TID PRN N/V. NS at 130 cc/hr. Protonix 40 mg IV QD. Surgery on board. F: 0.9 normal saline 130 cc/h E: None N: Clear liquid diet A: Can self ambulate DVT Prophylaxis: Lovenox 40mg SQ daily GI Prophylaxis: Protonix 40mg IV daily CODE STATUS: FULL CODE Franci Amezquita MD PGY-1/B[employer] Dictation was produced using The Smart[employer] Physical dictation software. please excuse any grammatical, word or spelling errors. I have seen and evaluated the patient today. Discussed with the resident and agree with the residents finding and plan as documented in the resident's note. Changes highlighted in blue font. Objective - Vital Signs Vital signs: Vital Signs Temp 98.0 F 11/23/24 00:06 Pulse 83 11/23/24 00:06 Resp 20 11/23/24 00:06 BP 132/73 11/23/24 00:06 Pulse Ox 91 L 11/23/24 00:06 FiO2 Intake & Output 11/22/24 11/23/24 11/23/24 18:59 06:59 18:59 Weight 81.647 kg Other: Voiding Method Toilet # Voids 3 - Labs CBC & Chem 7: 11/22/24 05:12 11/22/24 05:12
[2024-11-23] MEDS: BUTALB/APAP/CAFF 50-325-40MG TAB PO PRN (18:06)
[2024-11-23] MEDS: MELATONIN 5 MG TABLET PO PRN (22:14)
[2024-11-24 08:47] LABS: Basophils % (A) 0 %; Eosinophils # (A) 0.3 k/uL (0-0.7); Eosinophils % (A) 4 %; HCT 44.1 % (39.0-53.0); HGB 13.6 gm/dL (13.0-17.5); Hypochromasia Slight; Lymphocytes # (A) 1.4 k/uL (1.0-4.8); Lymphocytes % (A) 23 %; MCH 30.3 pg (25.0-35.0); MCHC 30.8 g/dL (31.0-37.0); MCV 98.2 fL (80.0-100.0); Mean Platelet Volume 7.8; Monocytes # (A) 0.4 k/uL (0-1.0); Monocytes % (A) 6 %; Neutrophils # (A) 4.1 k/uL (1.3-7.7); Neutrophils % (A) 64 %; Platelet Count 190 k/uL (150-450); RBC 4.49 m/uL (4.30-5.90); RDW 13.4 % (11.5-15.5); WBC 6.3 k/uL (3.8-10.6)
[2024-11-24 08:51] VITALS: BP 143/86; PULSE 61; RESP 18; TEMP 97.7
[2024-11-24 09:07] LABS: African American GFR (CKD) >90 (>60 ml/min/1.73 sqM); Anion Gap 10 mmol/L; Blood Urea Nitrogen 9 mg/dL (9-20); Calcium 9.3 mg/dL (8.4-10.2); Carbon Dioxide 27 mmol/L (22-30); Chloride 102 mmol/L (98-107); Glucose 138 mg/dL (74-99); Non-African American GFR(CKD) >90 (>60 ml/min/1.73 sqM); Potassium 3.8 mmol/L (3.5-5.1); Sodium 139 mmol/L (137-145)
--- NOTE | 2024-11-24 12:56 | P.DS ---
Providers Date of admission: 11/21/24 23:05 Expected date of discharge: 11/24/24 Attending physician: Aaron Crowley DO Consults: 11/21/24 23:05 Consult Physician Routine Consulting Provider: Mildred Manrique Consult Reason/Comments: Nicolas Do you want consulting provider notified?: Yes Primary care physician: Jose Cruz Bashir [facility] Course: Discharge diagnosis 1. Abdominal pain with nausea and vomiting likely due to a gastroenteritis causing an abdominal ileus. Hospital course This is a 63-year-old male who presented with abdominal pain with nausea and vomiting x [address] scan abdomen and pelvis completed that reported ileus versus small bowel obstruction. Patient likely had an ileus due to gastroenteritis. Patient had NG tube placed. And symptoms improved conservatively. Patient had small bowel follow-through completed which was normal. NG tube was removed and diet was advanced. Patient is tolerating diet. He is afebrile. He is having bowel movements. He is stable for discharge. Please refer to chart for any further details. Physician Glass Calibrator note has been reviewed by physician. Signing provider agrees with the documented findings, assessment, and plan of care. Attestation Patient seen and examined at bedside. Presented with chief complaint of nausea and vomiting and concern for abdominal ileus. Small bowel follow-through was performed with no evidence of obstruction. Patient's diet was advanced and he progressed well. Surgically stable for discharge. Follow-up as needed. Luis Fernando Chaudhary DO Patient Condition at Discharge: Stable Plan - Discharge Summary Discharge Rx Participant: No New Discharge Prescriptions: Continue Gabapentin [Neurontin] 300 mg PO DAILY buPROPion SR [Wellbutrin SR] 150 mg PO BID DULoxetine HCL [Cymbalta] 60 mg PO DAILY Clopidogrel [Plavix] 75 mg PO DAILY Bacillus Coagulans [Digestive Advantage Probiotic Chew] 1 tab PO DAILY HYDROcodone/APAP 7.5-325MG [[place] 7.5-325] 1 tab PO Q4H PRN PRN Reason: Pain Sildenafil Citrate [Viagra] 100 mg PO DAILY PRN PRN Reason: E.D. Rosuvastatin Calcium [Crestor] 5 mg PO DAILY Aspirin EC [Ecotrin Low Dose] 81 mg PO DAILY Albuterol Sulfate [Albuterol Sulfate Hfa] 1 puff PO RT-Q6H PRN PRN Reason: Wheezing Fluticasone Nasal [place] [Flonase Nasal [place]] 1 spray EA NOSTRIL DAILY PRN PRN Reason: Allergy Symptoms Pantoprazole [Protonix] 40 mg PO DAILY Montelukast [Singulair] 10 mg PO DAILY Ibuprofen [Motrin] 800 mg PO Q8H PRN PRN Reason: Pain Discharge Medication List Albuterol Sulfate [Albuterol Sulfate Hfa] 1 puff PO RT-Q6H PRN 11/22/24 [History] Aspirin EC [Ecotrin Low Dose] 81 mg PO DAILY 11/22/24 [History] Bacillus Coagulans [Digestive Advantage Probiotic Chew] 1 tab PO DAILY 11/22/24 [History] Clopidogrel [Plavix] 75 mg PO DAILY 11/22/24 [History] DULoxetine HCL [Cymbalta] 60 mg PO DAILY 11/22/24 [History] Fluticasone Nasal [place] [Flonase Nasal [place]] 1 spray EA NOSTRIL DAILY PRN 11/22/24 [History] Gabapentin [Neurontin] 300 mg PO DAILY 11/22/24 [History] HYDROcodone/APAP 7.5-325MG [[place] 7.5-325] 1 tab PO Q4H PRN 11/22/24 [History] Ibuprofen [Motrin] 800 mg PO Q8H PRN 11/22/24 [History] Montelukast [Singulair] 10 mg PO DAILY 11/22/24 [History] Pantoprazole [Protonix] 40 mg PO DAILY 11/22/24 [History] Rosuvastatin Calcium [Crestor] 5 mg PO DAILY 11/22/24 [History] Sildenafil Citrate [Viagra] 100 mg PO DAILY PRN 11/22/24 [History] buPROPion SR [Wellbutrin SR] 150 mg PO BID 11/22/24 [History] Follow up Appointment(s)/Referral(s): Jose Cruz Camejo MD [Primary Care Provider] - 1-2 days (office not answering Please call to schedule appointment ) Patient Instructions/Handouts: Ileus (DC) Discharge Disposition: HOME SELF-CARE
--- NOTE | 2024-11-24 16:32 | P.PN ---
Subjective Progress Note Date: 11/24/24 63 year old M with PMH CVA, h/o appendectomy, HLD, GERD presents to the ED for intractable N/V with brown/sparrow vomitus that has been progressively getting worse over the past 5 days. He also reports a throbbing headache for the past 2- 3 days. Usually drinks 4-8 cups of coffee daily. He reports a bowel movement today. In the ED he underwent extensive evaluation. BP 131/91, HR 74, RR 20, T 97.9F, 95 % on RA. CBC, CMP unremarkable. Lipase 133. UA neg LE or nitrite. Lactic acid 0.9. CT AP showed dilated small bowel loops with fluid extending to the ileum, ileus versus SBO. CXR showing bibasilar atelectasis. Patient is admitted to surgery with medicine on consult. 11/23/2024 patient seen and examined at bedside. No overnight events. No new complaints. WBC 7.8, hemoglobin 12.9, MCV 95.8, sodium 139, potassium 4.1, chloride 107, bicarb 26, BUN 20, creatinine 0.84, glucose 92, calcium 8.4, phosphorus 4.2, magnesium 1.9, AST 23 ALT 64, total bili 0.3, alk phos 64 11/24/2024 patient seen and examined at bedside. No new complaints. No new acute events overnight. Labs show WBC 6.3, hemoglobin 13.6, platelet count 1 90,000, sodium 139, potassium 3.8, chloride 102, bicarb 27, BUN 9, creatinine 0 .77, glucose 138, calcium 9.3 Review of systems: Pertinent positives and negatives as discussed in HPI, a complete review of systems was performed and all other systems are negative. Pertinent imaging and labs reviewed. Physical examination: Vital signs reviewed General: non toxic, no distress, appears at stated age Derm: no unusual rashes/lesions, warm Head: atraumatic, normocephalic, symmetric Eyes: EOMI, anicteric sclera, pupils equal round reactive to light ENT: Nose and ears atraumatic Neck: No cervical lymphadenopathy, trachea midline, supple Mouth: no lip lesion, mucus membranes moist Cardiovascular: S1S2 reg, no murmur Lungs: CTA bilateral, no rhonchi, no rales, no accessory muscle use Abdominal: soft, nontender to palpation, no guarding, bowel sounds appreciated Ext: muscle strength 5 out of 5 in all 4 extremities grossly, no gross muscle atrophy, no contractures, positive dorsalis pedis pulse bilateral, no edema, cast on right arm noted Neuro: CN II-XI grossly intact, no gross focal neuro deficits Psych: Alert and oriented x3, appropriate affect and mood Assessment/Plan: 63-year-old male with history of appendectomy and GERD here for evaluation of intractable nausea and vomiting. Was found to have dilated small bowel loops with fluid on imaging. Following as a medical consult. #. Normocytic anemia, resolved -Hgb 13.6 -Patient hemodynamically stable at this time -Monitor CBC. Consider transfusion once hemoglobin drops to 7 #. History of CVA -ASA 81 mg PO QD. Lipitor 10 mg PO QD -Hold Plavix per surgery #. Dyslipidemia -Continue Lipitor 10mg PO daily #. GERD -Protonix 40mg IV daily #. Ileus versus SBO -CT AP showed dilated small bowel loops with fluid extending to the ileum, ileus versus SBO. -CXR showing bibasilar atelectasis. -Small bowel x-ray showed normal detail small bowel examination -NPO advance diet as tolerated -NGT to suction discontinued -Pain management with Dilaudid 0.5-1 mg IV Q3H PRN. -Zofran 4 mg IV TID PRN N/V -Protonix 40 mg IV QD. -Surgery on board. F: oral intake E: None N: advance diet as tolerated A: Can self ambulate DVT Prophylaxis: Lovenox 40mg SQ daily GI Prophylaxis: Protonix 40mg IV daily CODE STATUS: FULL CODE Franci Amezquita MD PGY-1/[employer] Dictation was produced using [employer] dictation software. please excuse any grammatical, word or spelling errors. Patient is medically optimized for discharge. Thank you for allowing us to participate in the care of this pleasant patient. Do not hesitate to contact us with questions. Someone can be reached from the [facility] hospitalist group all hours of the day at [phone] or via perfect serve. I have seen and evaluated the patient today. Discussed with the resident and agree with the residents finding and plan as documented in the resident's note. Changes highlighted in blue font. Objective - Vital Signs Vital signs: Vital Signs Temp 98.4 F 11/24/24 01:34 Pulse 54 L 11/24/24 01:34 Resp 15 11/24/24 01:34 BP 144/72 11/24/24 01:34 Pulse Ox 96 11/24/24 01:34 FiO2 Intake & Output 11/23/24 11/24/24 11/24/24 18:59 06:59 18:59 Intake Total 1560 Balance 1560 Intake: Intake, IV Titration 1560 Amount Sodium Chloride 0.9% 1, 1560 000 ml @ 130 mls/hr IV . Q7H42M REPLACED BY [facility] Rx#:[id number] Other: # Voids 4 4 # Bowel Movements 1 - Labs CBC & Chem 7: 11/24/24 08:07 11/24/24 08:07
== END 2024-11-24 13:59 | disposition home or self-care (01) | DRG 389 ==
LOC: EC 19:05 → 4SSUR 23:05
PROVIDERS: ADMIT Surgery; ATTEND Surgery
DX: K56.7 Ileus, unspecified (principal); J98.11 Atelectasis; E78.5 Hyperlipidemia, unspecified; F32.A Depression, unspecified; K52.9 Noninfective gastroenteritis and colitis, unspecified; K21.9 Gastro-esophageal reflux disease without esophagitis; Z86.16 Personal history of COVID-19; Z85.828 Personal history of other malignant neoplasm of skin; G43.909 Migraine, unspecified, not intractable, without status migrainosus; G89.29 Other chronic pain; Z79.02 Long term (current) use of antithrombotics/antiplatelets; Z79.82 Long term (current) use of aspirin; Z79.899 Other long term (current) drug therapy; Z86.73 Personal history of transient ischemic attack (TIA), and cerebral infarction without residual deficits; Z90.49 Acquired absence of other specified parts of digestive tract; Z96.651 Presence of right artificial knee joint
CPT/HCPCS: 36415; 71045; 74018; 74177; 74250; 80048; 80053; 81003; 83605; 83690; 83735; 84100; 85025; 87324; 96361; 96365; 96375; 96376; 99285

== ENCOUNTER 2024-11-26 14:46 | Emergency (ER) | payer MEDICARE, OTHER ==
[2024-11-26 14:59] VITALS: RESP 20; TEMP 98.7
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
[2024-11-26 15:55] LABS: Basophils % (A) 0 %; Eosinophils # (A) 0.4 k/uL (0-0.7); Eosinophils % (A) 4 %; HCT 40.3 % (39.0-53.0); HGB 13.2 gm/dL (13.0-17.5); Lymphocytes # (A) 1.5 k/uL (1.0-4.8); Lymphocytes % (A) 15 %; MCHC 32.8 g/dL (31.0-37.0); MCV 94.5 fL (80.0-100.0); Mean Platelet Volume 8.1; Monocytes # (A) 0.6 k/uL (0-1.0); Monocytes % (A) 6 %; Neutrophils # (A) 7.3 k/uL (1.3-7.7); Neutrophils % (A) 73 %; Platelet Count 195 k/uL (150-450); RBC 4.27 m/uL (4.30-5.90); RDW 13.9 % (11.5-15.5)
[2024-11-26 16:04] LABS: Prothrombin Time 11.1 sec (10.0-12.5)
[2024-11-26 16:14] LABS: ALT 25 U/L (4-49); AST 26 U/L (17-59); African American GFR (CKD) >90 (>60 ml/min/1.73 sqM); Albumin 3.9 g/dL (3.5-5.0); Alcohol <10 mg/dL; Alkaline Phosphatase 66 U/L (38-126); Anion Gap 9 mmol/L; Blood Urea Nitrogen 15 mg/dL (9-20); Calcium 8.9 mg/dL (8.4-10.2); Carbon Dioxide 23 mmol/L (22-30); Chloride 103 mmol/L (98-107); Glucose 97 mg/dL (74-99); Non-African American GFR(CKD) >90 (>60 ml/min/1.73 sqM); Sodium 135 mmol/L (137-145); Total Bilirubin 0.4 mg/dL (0.2-1.3); Total Protein 6.6 g/dL (6.3-8.2)
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
--- NOTE | 2024-11-26 17:10 | XR ---
EXAMINATION TYPE: XR elbow complete LT DATE OF EXAM: 11/26/2024 5:01 PM INDICATION: Patient age:Male; 63 years old; Reason for study: trauma; PHH. pain COMPARISON: Left elbow radiograph 03/21/2024 TECHNIQUE: The left elbow was examined in AP, lateral, and oblique projections. FINDINGS: Acute tiny avulsion fracture involving the coronoid process on the lateral view. No joint e ffusion or soft tissue swelling. No dislocation. No radiopaque foreign body. No evidence of joint ef fusion is present. IMPRESSION: Acute tiny avulsion fracture involving the coronoid process. [facility], , 11/26/2024 5:08 PM
[2024-11-26 17:15] LABS: Amphetamine Screen,Urine Not Detected (NotDetected); Barbiturate Screen,Urine Detected (NotDetected); Benzodiazepines Screen,Urine Not Detected (NotDetected); Cocaine Screen,Urine Not Detected (NotDetected); Methadone Screen, Urine Not Detected (NotDetected); Opiate Screen,Urine Detected (NotDetected); Oxycodone Screen, Urine Not Detected (NotDetected); Phencyclidine Screen,Urine Not Detected (NotDetected); Tricyclic Antidepressant,Urine Not Detected (NotDetected); Urn Cannabinoid Scrn Not Detected (NotDetected)
[2024-11-26] MEDS: HYDROmorphone 1 MG/ML 1 ML SYRINGE IVP STA (17:54)
[2024-11-26 18:11] VITALS: BP 128/73; PULSE 71
== END 2024-11-26 18:11 | disposition home or self-care (01) ==
LOC: EC 14:46
DX: S59.902A Unspecified injury of left elbow, initial encounter (principal); F17.290 Nicotine dependence, other tobacco product, uncomplicated; V89.2XXA Person injured in unspecified motor-vehicle accident, traffic, initial encounter
CPT/HCPCS: 36415; 93005; 86900; 86901; 80053; 83605; 84484; 85025; 85610; 85730; 86850; 80306; 80320; 72170; 73030; 73080; 71045; 72125; 70450; 99284; 96374; J1171

== ENCOUNTER → 2025-01-25 | Outpatient (CLI) | payer OTHER ==
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
== END | disposition home or self-care (01) ==
LOC: RADMRIMAIN 19:10
PROVIDERS: ATTEND Orthopaedic Surgery
DX: M19.011 Primary osteoarthritis, right shoulder (principal); M75.111 Incomplete rotator cuff tear or rupture of right shoulder, not specified as traumatic

== ENCOUNTER → 2025-02-12 | Outpatient (CLI) | payer OTHER ==
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
== END | disposition home or self-care (01) ==
LOC: RADMRIMAIN 10:44
PROVIDERS: ATTEND Family Medicine
DX: F45.41 Pain disorder exclusively related to psychological factors (principal); G44.209 Tension-type headache, unspecified, not intractable; I67.82 Cerebral ischemia; R90.82 White matter disease, unspecified; M48.02 Spinal stenosis, cervical region; G31.9 Degenerative disease of nervous system, unspecified
CPT/HCPCS: 70553; 72156; A9585

== ENCOUNTER 2025-02-15 20:21 | Emergency (ER) | payer OTHER, MEDICARE ==
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
[2025-02-15 21:58] LABS: Basophils # (A) 0.06 10*3/uL (0.00-0.10); Basophils % (A) 0.5 %; Eosinophils # (A) 0.25 10*3/uL (0.04-0.35); HCT 37.7 % (39.6-50.0); Lymphocytes # (A) 2.26 10*3/uL (0.90-5.00); Lymphocytes % (A) 18.5 %; MCH 32.2 pg (27.0-32.0); MCHC 34.5 g/dL (32.0-37.0); MCV 93.3 fL (80.0-97.0); Monocytes % (A) 8.2 %; Neutrophils % (A) 70.3 %; Platelet Count 197 10*3/uL (140-440); RBC 4.04 10*6/uL (4.40-5.60); RDW 14.4 % (11.5-14.5); WBC 12.23 10*3/uL (4.50-10.00)
[2025-02-15 22:07] LABS: African American GFR (CKD) >90 (>60 ml/min/1.73 sqM); Anion Gap 11 mmol/L; Blood Urea Nitrogen 17 mg/dL (9-20); Calcium 9.7 mg/dL (8.4-10.2); Carbon Dioxide 21 mmol/L (22-30); Chloride 105 mmol/L (98-107); Glucose 123 mg/dL (74-99); Non-African American GFR(CKD) >90 (>60 ml/min/1.73 sqM); Potassium 4.1 mmol/L (3.5-5.1); Sodium 137 mmol/L (137-145)
--- NOTE | 2025-02-15 22:16 | CT ---
EXAMINATION TYPE: CT brain wo con CT DLP: 1170.4 mGycm, Automated exposure control for dose reduction was used. DATE OF EXAM: 02/15/2025 10:07 PM COMPARISON: CT brain C-spine 11/26/2024, CT brain 10/10/2022, MRI brain/C-spine 02/12/2025 CLINICAL INDICATION:Male, 64 years old with history of head injury, Pt presents to ED for c/o headach e ongoing since October with dizziness and blurred vision. TECHNIQUE: Brain: Multiple axial CT images of the brain were obtained without IV contrast. . Coronal and sagitta l reformats reviewed. FINDINGS: Brain: Extra-axial spaces: No abnormal extra-axial fluid collections. Ventricular system: Within normal limits Cerebral parenchyma: Cerebral atrophy. No acute intraparenchymal hemorrhage or mass effect. The roca -white junction is well differentiated. Scattered hypoattenuating areas are seen within the periventr icular white matter. Cerebellum: Unremarkable. Mass effect: No evidence of midline shift. Intracranial vasculature: Atherosclerotic calcifications of the intracranial vessels. Soft tissues: Normal. Calvarium/osseous structures: No depressed skull fracture. Right parietal craniotomy defect redemonst rated. Paranasal sinuses and mastoid air cells: Paranasal sinuses are clear. Chronic minimal bilateral masto id effusions. Cerumen within the bilateral external auditory canals. Visualized orbits: Orbital contents are intact. IMPRESSION: 1. No acute intracranial process. 2. Nonspecific white matter changes, likely secondary to chronic small vessel ischemic disease. [facility], , 02/15/2025 10:13 PM
[2025-02-15] MEDS: SODIUM CHLORIDE 0.9% 1,000 ML IV STA (22:21)
[2025-02-15 22:25] VITALS: TEMP 97.9
[2025-02-15] MEDS: ONDANSETRON 4 MG/2 ML VIAL IVP STA (22:29)
[2025-02-15] MEDS: diphenhydrAMINE 50 MG/ML 1 ML VIAL IVP STA (22:29)
[2025-02-15] MEDS: KETOROLAC 15 MG/ML 1 ML VIAL IVP STA (22:29)
[2025-02-15 23:37] VITALS: BP 130/86; PULSE 81; RESP 17
== END 2025-02-15 23:45 | disposition home or self-care (01) ==
LOC: EC 20:21
DX: R51.9 Headache, unspecified (principal); F17.290 Nicotine dependence, other tobacco product, uncomplicated
CPT/HCPCS: 36415; 80048; 85025; 70450; 99284; 96374; 96375 ×2; 96361; J1200; J2405; J1885